=== PATIENT | female | born 1980 | race Caucasian/White ===

== ENCOUNTER 2016-11-20 20:14 | Observation (INO) | payer BC, SELFPAY ==
[~2016-11-20] VITALS: Ht 165.1 cm; Wt 112.0 kg
[~2016-11-20 20:14] MED LIST: MAXA10TA17 OR; MECL25TA2 OR; VICO5TAB OR
[2016-11-20] MEDS ORDERED: ASPIRIN 81 MG CHEW TABLET As Ordered ONE (20:59)
[2016-11-20 21:33] LABS: BASO % 0.5 % (0.0-1.0); EOS # 0.2 K/mm3 (0.0-0.50); EOS % 2.2 % (0.0-3.0); LARGE UNSTAINED CELL # 0.2 K/mm3 (0.0-0.4); LARGE UNSTAINED CELL % 2.2 % (0.0-4.0); LYMPH # 2.2 K/mm3 (1.5-4.5); LYMPH % 28.2 % (24.0-44.0); MEAN CORPUSCULAR HEMOGLOBIN 29.3 pg (27.0-33.0); MEAN CORPUSCULAR HGB CONC 34.7 g/dl (32.0-36.5); MEAN CORPUSCULAR VOLUME 84.6 fl (80.0-96.0); MONO # 0.5 K/mm3 (0.0-0.8); MONO % 6.3 % (0.0-5.0); NEUTROPHILS # 4.8 K/mm3 (1.8-7.7); NEUTROPHILS % 60.7 % (36.0-66.0); PLATELET COUNT, AUTOMATED 253 k/mm3 (150-450); RED CELL DISTRIBUTION WIDTH 12.5 % (11.5-14.5); WHITE BLOOD COUNT 7.8 K/mm3 (4.0-10.0)
--- NOTE | 2016-11-20 21:35 | ECGEPIP ---
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
[2016-11-20 21:40] LABS: CONTROL LINE HCG INT CTR LINE PRESENT
[2016-11-20 21:51] LABS: ANION GAP 10 MEQ/L (8-16); BLOOD UREA NITROGEN 13 MG/DL (7-18); CALCIUM LEVEL 8.8 MG/DL (8.5-10.1); CARBON DIOXIDE LEVEL 26 MEQ/L (21-32); CHLORIDE LEVEL 107 MEQ/L (98-107); CREATININE FOR GFR 0.82 MG/DL (0.55-1.02); GLOMERULAR FILTRATION RATE > 60.0 (>60); GLUCOSE, FASTING 99 MG/DL (70-105); MAGNESIUM LEVEL 2.1 MG/DL (1.8-2.4); POTASSIUM SERUM 4.1 MEQ/L (3.5-5.1); SODIUM LEVEL 143 MEQ/L (136-145); T UPTAKE 37 % (30-39); THYROXINE (T4) 13.9 UG/DL (4.5-12.0)
[2016-11-20] MEDS ORDERED: ALPRAZolam 0.25 MG TAB As Ordered ONE (22:20)
[2016-11-20 23:46] LABS: FREE T4 1.59 NG/DL (0.76-1.46)
[2016-11-21] MEDS ORDERED: DEXI30CA PO (01:35)
[2016-11-21] MEDS ORDERED: ZANT300T PO (01:35)
[2016-11-21] MEDS ORDERED: AMOX875T PO (01:35)
--- NOTE | 2016-11-21 02:05 | REP ---
Clinical: Chest pain and palpitations . Comparison: 08/28/2016 . Technique: PA and lateral. Findings: The mediastinum and cardiac silhouette are normal. The lung osborn are clear and without acute consolidation, effusion, or pneumothorax. The skeletal structures are intact and normal. Impression: 1. No acute cardiopulmonary process. Signed by Camron Randall MD 11/21/2016 01:56 A
[2016-11-21] MEDS ORDERED: METOPROLOL TART 25 MG TABLET As Ordered ONE (02:29)
--- NOTE | 2016-11-21 03:14 | EDDOCDS ---
Physician Documentation [facility] Name: Gloria Butler Age: 36 yrs Sex: Female : 1980 Arrival Date: 11/20/2016 Time: 20:14 Bed 17 Private MD: José Miguel Cheatham Disposition: 11/21 00:05 Critical Care: Critical care not applicable. jayashree Disposition: 11/21/16 00:05 Hospitalization ordered by Aneesh Pride for Observation. Preliminary diagnosis is Thyrotoxicosis [hyperthyroidism]. - Bed requested for PCU. - Status is Observation. cf2 - Condition is Stable. - Problem is new. - Symptoms are unchanged. Historical: - Allergies: Latex; - Home Meds: 1. Dexilant 30 mg oral CpDB once daily 2. Zantac 300 mg Oral tab 2 times per day 3. IUD - PMHx: Migraine Headaches; GERD; Diabetes - NIDDM: uncontrolled; tachycardia; - PSHx: Appendectomy; - Social history: Smoking status: Patient states former smoker of tobacco. No barriers to communication noted, The patient speaks fluent Maltese, Speaks appropriately for age. - Family history: Not pertinent. - : The pt / caregiver states he / she is not on anticoagulants. Home medication list is obtained from the patient. - Exposure Risk Screening:: None identified. 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 (165.10 cm); Pain 4/10; 21:09 Pulse 96 MON; Pulse Ox 97% ; cf2 21:09 BP 141 / 74 (auto/); cf2 21:24 Pulse 92 MON; Pulse Ox 96% ; cf2 21:24 BP 121 / 67 (auto/); cf2 21:39 Pulse Ox 97% ; cf2 21:39 BP 125 / 76 (auto/); cf2 21:40 Pulse 86 MON; Pulse Ox 97% ; cf2 22:09 Pulse 82 MON; Pulse Ox 97% ; cf2 22:09 BP 139 / 80 (auto/); cf2 22:24 BP 150 / 108 (auto/); cf2 22:25 Pulse 88 MON; Pulse Ox 98% ; cf2 22:39 BP 136 / 84 (auto/); cf2 22:40 Pulse 84 MON; Pulse Ox 97% ; cf2 22:54 BP 131 / 78 (auto/); cf2 22:55 Pulse 84 MON; Pulse Ox 97% ; cf2 23:09 BP 136 / 75 (auto/); cf2 23:10 Pulse 82 MON; Pulse Ox 96% ; cf2 23:24 BP 136 / 74 (auto/); cf2 23:25 Pulse 86 MON; Pulse Ox 97% ; cf2 23:39 BP 148 / 92 (auto/); cf2 23:40 Pulse 88 MON; Pulse Ox 97% ; cf2 23:54 BP 142 / 83 (auto/); cf2 23:55 Pulse 86 MON; Pulse Ox 97% ; cf2 11/21 00:09 BP 140 / 86 (auto/); cf2 00:10 Pulse 82 MON; Pulse Ox 97% ; cf2 00:24 BP 124 / 79 (auto/); cf2 00:25 Pulse 86 MON; Pulse Ox 97% ; cf2 00:39 BP 125 / 79 (auto/); cf2 00:40 Pulse 86 MON; Pulse Ox 94% ; cf2 00:54 BP 123 / 76 (auto/); cf2 00:55 Pulse 84 MON; Pulse Ox 96% ; cf2 01:09 BP 126 / 75 (auto/); cf2 01:10 Pulse 84 MON; Pulse Ox 95% ; cf2 01:24 BP 127 / 78 (auto/); cf2 01:25 Pulse 82 MON; Pulse Ox 95% ; cf2 01:39 BP 123 / 73 (auto/); cf2 01:40 Pulse 76 MON; Pulse Ox 96% ; cf2 01:54 BP 135 / 64 (auto/); cf2 01:55 Pulse 84 MON; Pulse Ox 95% ; cf2 02:09 BP 139 / 75 (auto/); cf2 02:10 Pulse 86 MON; Pulse Ox 96% ; cf2 02:32 BP 133 / 87 (auto/); cf2 02:33 Pulse 92 MON; Pulse Ox 97% ; cf2 02:54 BP 122 / 74 (auto/); cf2 02:55 Pulse 80 MON; Pulse Ox 97% ; cf2 03:09 BP 124 / 73 (auto/); cf2 03:10 Pulse 78 MON; Pulse Ox 96% ; cf2 11/20 20:15 Body Mass Index 38.61 (105.23 kg, 165.10 cm) sew MDM: 11/20 20:23 ECG WITH READING ER PHYS+CARDIAG ordered. EDMS 20:45 Aspirin Chewable Tablet 324 mg PO once ordered. le 20:45 Harness Builder/Pulse Ox/q 30 min VS ordered. le 20:45 IV Saline Lock ordered. le 20:45 Rhythm Strip to chart ordered. le 20:45 Undress patient appropriately for examination ordered. le 20:45 Orthostatic VS ordered. le 20:46 Basic Metabolic Profile Ordered. EDMS 20:46 CBC with Diff Ordered. EDMS 20:46 Cardiac Injury Profile Ordered. EDMS 20:46 D-Dimer Quant Ordered. EDMS 20:46 Troponin Ordered. EDMS 20:46 Thyroid Profile Ordered. EDMS 20:46 Magnesium Level Ordered. EDMS 20:46 HCG,Serum Qualitative Ordered. EDMS 20:47 Chest, 2 View (pa\E\lat) Ordered. EDMS 21:25 Financial registration complete. zo 21:25 [facility] Payment Agreement was scanned into [employer] and attached to record. zo 22:04 CBC with Diff Reviewed. le 22:04 Thyroid Profile Reviewed. le 22:04 Basic Metabolic Profile Reviewed. le 22:04 Cardiac Injury Profile Reviewed. le 22:04 D-Dimer Quant Reviewed. le 22:04 Troponin Reviewed. le 22:04 Magnesium Level Reviewed. le 22:04 HCG,Serum Qualitative Reviewed. le 22:04 EKG-ADULT Reviewed. le 22:18 ALPRAZolam Tablet 0.5 mg PO once ordered. le 22:58 Import Vital Signs into [employer] q30min please ordered. le 23:59 Admission / Observation Status ordered. EDMS 11/21 00:04 2 GRAM SODIUM DIET ordered. EDMS 00:04 COMPLETE BLOOD COUNT Ordered. EDMS 00:04 BASIC METABOLIC PROFILE Ordered. EDMS 00:04 MAGNESIUM LEVEL Ordered. EDMS 00:10 Thyroid, ST head+neck US Ordered. EDMS Administered Medications: 11/20 21:16 Drug: Aspirin 324 mg [aspirin 81 mg chewable tablet (4 tabs)] Route: PO; cf2 22:23 Drug: ALPRAZolam 0.5 mg [alprazolam 0.25 mg tablet (2 tabs)] Route: PO; cf2 Signatures: Dispatcher [employer] EDMS Jalyn Herrmann RN RN Vandana Reeves RN RN ck1 Manny Loaiza Lisa, SALT GRINDER SALT GRINDER Kelsi Patel RN RN cf2 The chart was reviewed and I authenticate all verbal orders and agree with the evaluation and treatment provided.Corrections: (The following items were deleted from the chart) 23: 23:18 FREE T3 ordered. EDMS EDMS 23:19 ANTI THYROID MICROSOMAL AB ordered. EDMS EDMS 23:19 FREE T4 ordered. EDMS EDMS Attachments: 21:25 [facility] Payment Agreement zo MTDD
--- NOTE | 2016-11-21 03:15 | EDDOCDS ---
Nurse's Notes [facility] Name: Gloria Butler Age: 36 yrs Sex: Female : 1980 Arrival Date: 11/20/2016 Time: 20:14 Bed 17 Private MD: José Miguel Cheatham Diagnosis: Thyrotoxicosis [hyperthyroidism] Presentation: 11/20 20:17 Presenting complaint: Patient states: Chest pain since 1800, intermittent palpitations ck1 with dizziness. 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 81 mg at 1700. Adult Sepsis Screening: The patient does not have new or worsening altered mentation. Patient's respiratory rate is less than 22. Systolic blood pressure is greater than 100. Patient has a qSOFA score of 0- Negative Sepsis Screen. Suicide/Homicide risk assessment- the patient denies having any suicidal and/or homicidal ideations and does not present with any other emotional, behavioral or mental health complaints. Status: Patient is not a office services representative or dependent. Transition of care: patient was not received from another setting of care. 20:17 Method Of Arrival: Walkin/Carried/Asstd ck1 20:17 Acuity: RIANNA Level 2 ck1 20:27 Red Flag criteria, patient assessed and taken directly to a bed. ck1 Triage Assessment: 20:20 General: Appears in no apparent distress, comfortable, Behavior is appropriate for age, ck1 cooperative. Pain: Location: chest Pain currently is 4 out of 10 on a pain scale. Pain radiates to back. HIV screening NA for this visit Offered previously. Cardiovascular: Chest pain is described as Pain is 4 out of 10 on a pain scale. radiates back episodes are intermittent began 2 hours prior to arrival. Respiratory: Respiratory effort is unlabored, Respiratory pattern is regular, symmetrical, Reports shortness of breath. Derm: Skin is intact, is healthy with good turgor, Skin is pink, warm & dry. 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 Dexilant 30 mg oral CpDB once daily 2. Zantac 300 mg Oral tab 2 times per day 3. IUD - PMHx: Migraine Headaches; GERD; Diabetes - NIDDM: uncontrolled; tachycardia; - PSHx: Appendectomy; - Social history: Smoking status: Patient states former smoker of tobacco. No barriers to communication noted, The patient speaks fluent Malagasy, Speaks appropriately for age. - Family history: Not pertinent. - : The pt / caregiver states he / she is not on anticoagulants. Home medication list is obtained from the patient. - Exposure Risk Screening:: None identified. Screenin:27 Screening information is obtained from the patient. Fall risk: No risks identified. cf2 Assistance ADL's: requires no assistance with activities of daily living. Abuse/DV Screen: The patient / caregiver reports he/she is: not in a situation that causes fear, pain or injury. Nutritional screening: No deficits noted. Advance Directives: Further advance directive information is declined. home support is adequate. Assessment: 22:27 Adult Sepsis Screening: The patient does not have new or worsening altered mentation. cf2 Patient's respiratory rate is less than 22. Systolic blood pressure is greater than 100. Patient has a qSOFA score of 0- Negative Sepsis Screen. General: Appears in no apparent distress, comfortable. Pain: Denies pain. Neurological: No deficits noted. EENT: No deficits noted. Cardiovascular: Rhythm is sinus tachycardia. Respiratory: No deficits noted. GI: No deficits noted. : No deficits noted. Derm: No deficits noted. Musculoskeletal: No deficits noted. Injury Description: No known injury. Vital Signs: 20:15 BP 158 / 86; Pulse 114; Resp 16; Temp 97.8(T); Pulse Ox 100% on R/A; Weight 105.23 kg; sew Height 65 in. (165.10 cm); Pain 4/10; 21:09 Pulse 96 MON; Pulse Ox 97% ; cf2 21:09 BP 141 / 74 (auto/); cf2 21:24 Pulse 92 MON; Pulse Ox 96% ; cf2 21:24 BP 121 / 67 (auto/); cf2 21:39 Pulse Ox 97% ; cf2 21:39 BP 125 / 76 (auto/); cf2 21:40 Pulse 86 MON; Pulse Ox 97% ; cf2 22:09 Pulse 82 MON; Pulse Ox 97% ; cf2 22:09 BP 139 / 80 (auto/); cf2 22:24 BP 150 / 108 (auto/); cf2 22:25 Pulse 88 MON; Pulse Ox 98% ; cf2 22:39 BP 136 / 84 (auto/); cf2 22:40 Pulse 84 MON; Pulse Ox 97% ; cf2 22:54 BP 131 / 78 (auto/); cf2 22:55 Pulse 84 MON; Pulse Ox 97% ; cf2 23:09 BP 136 / 75 (auto/); cf2 23:10 Pulse 82 MON; Pulse Ox 96% ; cf2 23:24 BP 136 / 74 (auto/); cf2 23:25 Pulse 86 MON; Pulse Ox 97% ; cf2 23:39 BP 148 / 92 (auto/); cf2 23:40 Pulse 88 MON; Pulse Ox 97% ; cf2 23:54 BP 142 / 83 (auto/); cf2 23:55 Pulse 86 MON; Pulse Ox 97% ; cf2 11/21 00:09 BP 140 / 86 (auto/); cf2 00:10 Pulse 82 MON; Pulse Ox 97% ; cf2 00:24 BP 124 / 79 (auto/); cf2 00:25 Pulse 86 MON; Pulse Ox 97% ; cf2 00:39 BP 125 / 79 (auto/); cf2 00:40 Pulse 86 MON; Pulse Ox 94% ; cf2 00:54 BP 123 / 76 (auto/); cf2 00:55 Pulse 84 MON; Pulse Ox 96% ; cf2 01:09 BP 126 / 75 (auto/); cf2 01:10 Pulse 84 MON; Pulse Ox 95% ; cf2 01:24 BP 127 / 78 (auto/); cf2 01:25 Pulse 82 MON; Pulse Ox 95% ; cf2 01:39 BP 123 / 73 (auto/); cf2 01:40 Pulse 76 MON; Pulse Ox 96% ; cf2 01:54 BP 135 / 64 (auto/); cf2 01:55 Pulse 84 MON; Pulse Ox 95% ; cf2 02:09 BP 139 / 75 (auto/); cf2 02:10 Pulse 86 MON; Pulse Ox 96% ; cf2 02:32 BP 133 / 87 (auto/); cf2 02:33 Pulse 92 MON; Pulse Ox 97% ; cf2 02:54 BP 122 / 74 (auto/); cf2 02:55 Pulse 80 MON; Pulse Ox 97% ; cf2 03:09 BP 124 / 73 (auto/); cf2 03:10 Pulse 78 MON; Pulse Ox 96% ; cf2 11/20 20:15 Body Mass Index 38.61 (105.23 kg, 165.10 cm) sew Vitals: 11/20 20:15 Log In Time: November 20, 2016 at 20:10. RN notified that patient meets Red Flag sew criteria. ED Course: 20:15 Patient visited by Lexi Chavez. sew 20:15 José Miguel Cheatham is Private Physician. sew 20:15 Patient moved to Waiting sew 20:17 Patient visited by Lexi Chavez. sew 20:17 Patient moved to Pre RCE sew 20:18 Triage Initiated ck1 20:21 Patient moved to 17 ck1 20:43 Kesha Rivera FNP is PHCP. le 20:51 Patient visited by Kesha Rivera FNP. le 20:51 Patient visited by Kesha Rivera FNP. le 20:51 EKG done. (by ED staff). Reviewed by Kesha ARAYA. jlm 20:52 Patient visited by Lo Reyez, Facility Administrator. jlm 20:54 Kelsi Kamara,HERB is Primary Nurse. cf2 20:54 Patient visited by Kelsi Kamara RN. cf2 21:15 Patient visited by Kelsi Kamara,HERB. cf2 21:16 HCG,Serum Qualitative Sent. cf2 21:16 Magnesium Level Sent. cf2 21:16 Thyroid Profile Sent. cf2 21:16 Basic Metabolic Profile Sent. cf2 21:16 CBC with Diff Sent. cf2 21:16 Cardiac Injury Profile Sent. cf2 21:16 Troponin Sent. cf2 21:16 D-Dimer Quant Sent. cf2 21:25 [facility] Payment Agreement was scanned into [employer] and attached to record. zo 21:48 Patient visited by Kelsi Kamara,HERB. cf2 21:59 EKG-ADULT Returned. EDMS 22:12 Patient visited by Kelsi Kamara,HERB. cf2 22:23 Patient visited by Kelsi Kamara,HERB. cf2 22:27 Patient visited by Kelsi Kamara,HERB. cf2 22:27 The patient / caregiver is instructed regarding the plan of care and ED course. Patient cf2 has correct armband on for positive identification. Placed in gown. Bed in low position. Call light in reach. Side rails up X 1. Side rails up X2. Adult w/ patient. monitoring engineer on. Pulse ox on. NIBP on. Property :Personal belongings accompany Pt. Door closed. Noise minimized. Visitors limited. Lights dimmed. Moved to private room. Verbal reassurance given. Warm blanket given. Head of bed elevated. Diet: Patient is NPO. 22:27 Inserted saline lock: 20 gauge in left antecubital area and blood collected. No cf2 procedures done that require assistance. 11/21 00:03 Patient visited by Kelsi Kamara RN. cf2 00:05 Aneesh Pride MD is Hospitalizing Provider. le 01:38 Patient visited by Kelsi Kamara RN. cf2 02:38 Chest, 2 View (pa\E\lat) Returned. EDMS 02:56 Patient visited by Kelsi Kamara RN. cf2 03:11 Patient visited by Kelsi Kamara RN. cf2 03:14 Luis Espitia DO is Attending Physician. cf2 Administered Medications: 11/20 21:16 Drug: Aspirin 324 mg [aspirin 81 mg chewable tablet (4 tabs)] Route: PO; cf2 22:23 Drug: ALPRAZolam 0.5 mg [alprazolam 0.25 mg tablet (2 tabs)] Route: PO; cf2 Order Results: Lab Order: Basic Metabolic Profile; SPEC'M 11/20/16 21:07 Test: GLUCOSE, FASTING; Value: 99; Range: 70-105; Units: MG/DL; Status: F Test: BLOOD UREA NITROGEN; Value: 13; Range: 7-18; Units: MG/DL; Status: F Test: CREATININE FOR GFR; Value: 0.82; Range: 0.55-1.02; Units: MG/DL; Status: F Test: SODIUM LEVEL; Range: 136-145; Units: MEQ/L; Status: I Test: POTASSIUM SERUM; Range: 3.5-5.1; Units: MEQ/L; Status: I Test: CHLORIDE LEVEL; Range: 98-107; Units: MEQ/L; Status: I Test: CARBON DIOXIDE LEVEL; Range: 21-32; Units: MEQ/L; Status: I Test: ANION GAP; Range: 8-16; Units: MEQ/L; Status: I Test: CALCIUM LEVEL; Range: 8.5-10.1; Units: MG/DL; Status: I Test: GLOMERULAR FILTRATION RATE; Value: > 60.0; Range: >60; Status: F Test: SODIUM LEVEL; Value: 143; Range: 136-145; Units: MEQ/L; Status: F Test: POTASSIUM SERUM; Value: 4.1; Range: 3.5-5.1; Units: MEQ/L; Status: F Test: CHLORIDE LEVEL; Value: 107; Range: 98-107; Units: MEQ/L; Status: F Test: CARBON DIOXIDE LEVEL; Value: 26; Range: 21-32; Units: MEQ/L; Status: F Test: ANION GAP; Value: 10; Range: 8-16; Units: MEQ/L; Status: F Test: CALCIUM LEVEL; Value: 8.8; Range: 8.5-10.1; Units: MG/DL; Status: F Test Note: ; Units are mL/min/1.73 m2 Chronic Kidney Disease Staging per NKF: Stage I & II GFR >=60 Normal to Mildly Decreased Stage III GFR 30-59 Moderately Decreased Stage IV GFR 15-29 Severely Decreased Stage V GFR <15 Very Little GFR Left ESRD GFR <15 on ASSISTANT CORPORATE SECRETARY Lab Order: CBC with Diff; SPEC'M 11/20/16 21:07 Test: WHITE BLOOD COUNT; Value: 7.8; Range: 4.0-10.0; Units: K/mm3; Status: F Test: RED BLOOD COUNT; Value: 4.69; Range: 4.00-5.40; Units: M/mm3; Status: F Test: HEMOGLOBIN; Value: 13.8; Range: 12.0-16.0; Units: g/dl; Status: F Test: HEMATOCRIT; Value: 39.7; Range: 36.0-47.0; Units: %; Status: F Test: MEAN CORPUSCULAR VOLUME; Value: 84.6; Range: 80.0-96.0; Units: fl; Status: F Test: MEAN CORPUSCULAR HEMOGLOBIN; Value: 29.3; Range: 27.0-33.0; Units: pg; Status: F Test: MEAN CORPUSCULAR HGB CONC; Value: 34.7; Range: 32.0-36.5; Units: g/dl; Status: F Test: RED CELL DISTRIBUTION WIDTH; Value: 12.5; Range: 11.5-14.5; Units: %; Status: F Test: PLATELET COUNT, AUTOMATED; Value: 253; Range: 150-450; Units: k/mm3; Status: F Test: NEUTROPHILS %; Value: 60.7; Range: 36.0-66.0; Units: %; Status: F Test: LYMPH %; Value: 28.2; Range: 24.0-44.0; Units: %; Status: F Test: MONO %; Value: 6.3; Range: 0.0-5.0; Abnormal: Above high normal; Units: %; Status: F Test: EOS %; Value: 2.2; Range: 0.0-3.0; Units: %; Status: F Test: BASO %; Value: 0.5; Range: 0.0-1.0; Units: %; Status: F Test: LARGE UNSTAINED CELL %; Value: 2.2; Range: 0.0-4.0; Units: %; Status: F Test: NEUTROPHILS #; Value: 4.8; Range: 1.8-7.7; Units: K/mm3; Status: F Test: LYMPH #; Value: 2.2; Range: 1.5-4.5; Units: K/mm3; Status: F Test: MONO #; Value: 0.5; Range: 0.0-0.8; Units: K/mm3; Status: F Test: EOS #; Value: 0.2; Range: 0.0-0.50; Units: K/mm3; Status: F Test: BASO #; Value: 0.0; Range: 0.0-0.2; Units: K/mm3; Status: F Test: LARGE UNSTAINED CELL #; Value: 0.2; Range: 0.0-0.4; Units: K/mm3; Status: F Lab Order: Cardiac Injury Profile; SPEC'M 11/20/16 21:07 Test: CPK CREATINE PHOSPHOKINASE; Value: 99; Range: 26-192; Units: U/L; Status: F Test: CK-MB VALUE MASS; Value: 1.0; Range: 0.0-3.6; Units: NG/ML; Status: F Test: MB/CK RELATIVE INDEX; Value: 1.01; Range: < OR =4; Status: F Test Note: ; DIAGNOSIS CRITERIA MMB ng/ml Relative Index (RI) NON-AMI < or = 5 N/A GRIJALVA ZONE > 5 < or = 4 AMI > 5 > 4 Lab Order: D-Dimer Quant; 11/20/16 21: Test: D-DIMER QUANT; Value: 385.0; Range: <500; Units: ng/ml; Status: F Lab Order: Troponin; 11/20/16: Test: TROPONIN I; Value: < 0.02; Range: < 0.10; Units: NG/ML; Status: F Test Note: ; Troponin I Reference Interval for [employer] LOCI: 99th Percentile= 0.00-0.045 ng/ml Risk Stratification: <= 0.10 ng/ml Decreased Risk for Adverse Clinical Events. 0.10-1.50 ng/ml Increased Risk for Adverse Clinical Events. Evaluation of additional criterion and/or repeat testing in 2-6 hours is suggested to rule out myocardial damage. >= 1.50 ng/ml Indicative of Myocardial Injury. Lab Order: Thyroid Profile; 11/20/16 21: Test: T UPTAKE; Value: 37; Range: 30-39; Units: %; Status: F Test: THYROXINE (T4); Value: 13.9; Range: 4.5-12.0; Abnormal: Above high normal; Units: UG/DL; Status: F Test: FREE THYROXINE INDEX; Value: 5.1; Range: 1.3-4.8; Abnormal: Above high normal; Units: %; Status: F Test: THYROID STIMULATING HORMONE; Value: 0.200; Range: 0.358-3.740; Abnormal: Below low normal; Units: uIU/ML; Status: F Lab Order: Magnesium Level; 11/20/16: Test: MAGNESIUM LEVEL; Value: 2.1; Range: 1.8-2.4; Units: MG/DL; Status: F Lab Order: HCG,Serum Qualitative; 11/20/16 21:07 Test: HCG, SERUM QUALITATIVE; Value: NEGATIVE; Range: NEGATIVE; Status: F Lab Order: FREE T4; SPEC'M 11/20/16 21:07 Test: FREE T4; Value: 1.59; Range: 0.76-1.46; Abnormal: Above high normal; Units: NG/DL; Status: F Lab Order: FREE T3; SPEC'M 11/20/16 21:07 Test: FREE T3; Value: 3.9; Range: 2.2-4.0; Units: PG/ML; Status: F Lab Order: ANTI THYROID MICROSOMAL AB; SPEC'M 11/20/16 21:07 Test: THYROID PEROXIDASE ANTIBODY; Range: <60.0; Units: U/ML; Status: I Radiology Order: EKG-ADULT Test: EKG-ADULT REASON FOR EXAMINATION: Chest Pain; Stationary ECG Study; [facility] - ED; ; Test Date: 2016-11-20; Pat Name: GLORIA BUTLER Department:; Room: -; 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 The lung osborn are clear and; without acute consolidation, effusion, or pneumothorax. The skeletal structures; are intact and normal.; ; Impression:; 1. No acute cardiopulmonary process.; ; ; Signed by; Camron Randall MD 11/21/2016 01:56 A; Outcome: 21:09 Discharge Assessment: Patient awake, alert and oriented x 3. No cognitive and/or cf2 functional deficits noted. Patient verbalized understanding of disposition instructions. Patient awake and alert. patient administered narcotics - yes. Patient was admitted to the hospital or transferred to another facility. The following High Risk Discharge criteria are identified: None. Admitted to PCU. Condition: stable. No special radiology studies were completed. 11/21 00:05 Decision to Hospitalize by Provider. jayashree 03:14 Patient left the ED. cf2 Signatures: Dispatcher [employer] EDVandana Zarate,RN RN ck1 Manny Loaiza Lisa, INTERNET SALES MANAGER INTERNET SALES MANAGERLexi Cardenas Jessie, Facility Administrator Unit Kelsi Stephens,HERB RN cf2 MTDD
[2016-11-21 03:20] VITALS: BP 120/57
--- NOTE | 2016-11-21 04:49 | HPE ---
DATE OF ADMISSION: 11/20/2016 PRIMARY CARE PROVIDER: José Miguel Cheatham MD. CHIEF COMPLAINT: Palpitations. HISTORY OF PRESENT ILLNESS: Ms. Butler is a 36-year-old female with past medical history of gastroesophageal reflux disease (GERD), currently diet-controlled diabetes, who presented to the emergency department (ED) [facility] with complaint of palpitations and chest pain. Episode started approximately 1 week ago. Initially started with palpitations, was only just doing housework when her palpitations started. At that time, was occurring intermittently. However, has progressed to now it is constant throughout the day in the last 24 hours. Her symptom actually worsened earlier today while she was at work. When she has palpitations, she also notices pain in the middle of her back. Around the same time, she would develop heaviness in her chest that would last for a couple minutes and resolve on its own. Episodes can occur while she is sleeping and can wake her up from sleep. Endorses shortness of breath with palpitations, but no cough. No nausea, vomiting, diarrhea, constipation, hair loss. Positive for heat intolerance for many years. Chronic dry skin. She had some intentional weight loss, but had slowly gained this back. Prior similar episodes of palpitations reported 6 months ago. She was evaluated by Dr. Beckham, had stress test, EKG, Holter, echocardiogram, but she did not followup for results of these tests. 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 Her father 6 months ago. She is currently being treated for sinusitis with amoxicillin. In the ED, was given aspirin 325 mg times one and alprazolam 0.5 times one. She was also taking Xanax one time yesterday, which made her sleep, but still could not tell if it made her palpitations any better. PAST MEDICAL HISTORY: 1. Migraine headache, currently does not need treatment. 2. GERD. 3. Diabetes, previously on insulin, most hemoglobin A1c check was 5.2. 4. Palpitations. 5. Ovarian cysts. PAST SURGICAL HISTORY: 1. Appendectomy. 2. Laparoscopy exploratory, which found to have ovarian cysts. ALLERGIES: LATEX, sores. HOME MEDICATIONS: - Dexilant 30 once a day - Zantac 300 daily - intrauterine device (IUD) - amoxicillin currently on day 5 of 10 antibiotic FAMILY HISTORY: Mother with GERD, hypertension. Father had myocardial infarction (NM) at 37, congestive heart failure (CHF), atrial fibrillation, abdominal aortic aneurysm (AAA), CVA. One sister with breast cancer 51. One brother with CHF, had heart attack at 45. SOCIAL HISTORY: The patient is a nonsmoker. Used to smoke off and on for 10 years. Quit August last year. No alcohol or drug use. No recent travel. No prolonged immobile state. 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 Lives at home with her female partner and 2 children. REVIEW OF SYSTEMS: CONSTITUTIONAL: Denies fevers, chills, rigors, weight changes. HEENT: Denies headaches, lightheadedness, dizziness, blurry vision, difficulty with speech and swallow. CARDIOVASCULAR: Please see above. PULMONARY: Denies shortness of breath, productive cough, hemoptysis. GASTROINTESTINAL: Denies hematochezia, melena, or hematemesis, nausea, vomiting , diarrhea, constipation. GENITOURINARY: No dysuria, frequency or hematuria. MUSCULOSKELETAL: No bone, muscle, joint pain. NEUROLOGICAL: No paralysis, paresthesia, headaches. ENDOCRINE: Diet controlled diabetes. No prior thyroid disease. LYMPHATICS: No lumps, bumps, or swelling anywhere in neck, axilla, or groin. HEMATOLOGY: No abnormal bleeding or bruising. PHYSICAL EXAMINATION: VITAL SIGNS: Blood pressure 158/86, heart rate 114, respiration rate 16, temperature 97.8, pulse oximetry 100% on room air. Body mass index (BMI) 38. GENERAL: The patient was lying in bed, comfortable, in no acute distress. She is alert, awake, oriented times three, pleasant and cooperative. Girlfriend at bedside. HEENT: Normocephalic, atraumatic. Moist oral mucosa. NECK: Supple. Trachea midline. No jugular venous distention (JVD). Neck with mild thyromegaly. CHEST: Symmetric chest rise. No accessory muscle use. Lung sounds were clear to auscultation bilaterally. No wheezing, rhonchi. HEART: Regular rate and rhythm, S1, S2 present. No appreciable murmurs, rubs or gallops. ABDOMEN: Soft, nontender, nondistended. Bowel sounds present. No guarding. No rebound. EXTREMITIES: There is 1+ edema, pretibial region. Pedal pulses present bilaterally. LABORATORY DATA: WBC 7.8, hemoglobin 13.8, hematocrit 39.7, platelets 253. Sodium 143, potassium 4.1, chloride 107, carbon dioxide 26, BUN 13, creatinine 0.82, glucose 99, calcium 8.8, magnesium 2.1. Troponin is negative. TSH is 0.2. Free T4 1.59. T3 is 3.9. HCG negative. D-dimer 385. EKG shows sinus rhythm at a rate of 98. IMPRESSION AND PLAN: Ms. Butler is a 36-year-old female, past medical history of diabetes, who presented to the emergency department (ED) with palpitations. 1. Palpitations. Possible causes include cardiac, thyroid, anxiety. The patient will be admitted and monitored in telemetry. Trend cardiac markers. We have given her metoprolol times one in the ED. Start atenolol in the morning. She might likely benefit from Holter monitor outpatient. 2. Abnormal thyroid studies. Thyroid studies show hyperthyroid. Possible early Graves or thyroiditis from current infection. Have ordered ultrasound of her thyroid for further evaluation, on beta karyna as mentioned above. 3. Obesity, body mass index (BMI) 38. Will complicate medical management. 4. Gastroesophageal reflux disease (GERD). Continue home medications. 5. Deep venous thrombosis (DVT) prophylaxis. Sequential compression devices (SCDs), thromboembolism deterrents (TEDs), and heparin. My preceptor for this patient encounter was Dr. Aneesh Pride. The preceptor was physically present in the building during the encounter and was fully available as needed. All aspects of the patient interview, examination, medical decision making process, and medical care plan development were reviewed and approved by the preceptor. The preceptor is aware and concurs with the plan as stated in the body of this note and will attest to such by his/her co-signature. BUCK
[2016-11-21 05:27] LABS: MEAN CORPUSCULAR HEMOGLOBIN 30.1 pg (27.0-33.0); MEAN CORPUSCULAR HGB CONC 35.1 g/dl (32.0-36.5); MEAN CORPUSCULAR VOLUME 85.6 fl (80.0-96.0); RED CELL DISTRIBUTION WIDTH 12.4 % (11.5-14.5); WHITE BLOOD COUNT 6.7 K/mm3 (4.0-10.0)
[2016-11-21 05:37] LABS: ANION GAP 7 MEQ/L (8-16); BLOOD UREA NITROGEN 9 MG/DL (7-18); CALCIUM LEVEL 8.1 MG/DL (8.5-10.1); CARBON DIOXIDE LEVEL 26 MEQ/L (21-32); CHLORIDE LEVEL 109 MEQ/L (98-107); CREATININE FOR GFR 0.74 MG/DL (0.55-1.02); GLOMERULAR FILTRATION RATE > 60.0 (>60); GLUCOSE, FASTING 110 MG/DL (70-105); SODIUM LEVEL 142 MEQ/L (136-145)
[2016-11-21 08:00] VITALS: BP 117/56
[2016-11-21] MEDS ORDERED: ATENOLOL 25 MG TAB PO SCH (09:00)
[2016-11-21 09:27] LABS: THYROID PEROXIDASE ANTIBODY < 28.0 U/ML (<60.0)
[2016-11-21 09:49] VITALS: BP 116/53
[2016-11-21] MEDS ORDERED: ACETAMINOPHEN TAB 650MG DOSE (2X325MG) PO PRN (10:00)
[2016-11-21] MEDS ORDERED: ATEN25TA PO (12:16)
[2016-11-21] MEDS ORDERED: VALI2TAB PO (12:16)
--- NOTE | 2016-11-21 14:21 | REP ---
Thyroid ultrasound 11/21/2016 Indication: Hyperthyroidism, palpitations Comparison: CTA chest 09/04 16 performed at [facility]. Technique: Carter scale imaging and color Doppler ultrasound imaging obtained of the thyroid Right thyroid lobe measures 4.7 x 1.8 x 1.6 cm. Left thyroid lobe measures 4.6 x 1.6 x 1 point 4 cm. Right thyroid lobe is of homogeneous echotexture without focal masses. Thyroid isthmus is 3.8 mm in length and unremarkable. There are three small right thyroid nodules along the medial margin of the mid to lower pole left thyroid lobe, largest 6 x 3 x 5 mm in diameter. Nodules are hypoechoic. Two additional smaller nodules are identified within the left thyroid lobe Impression 1. Right thyroid lobe is of homogeneous echotexture without enlargement; no nodules or cysts 2. Three small hypoechoic foci in the left thyroid lobe, largest 6 x 5 x 3 mm within the medial margin of the mid to lower pole left thyroid lobe. If clinically indicated may consider thyroid nuclear medicine scan in further evaluation of nodules, to determine if there are any cold nodules which may require biopsy . Signed by Bhumika Roth MD 11/21/2016 02:12 P
--- NOTE | 2016-11-22 05:41 | DSES ---
DATE OF ADMISSION: 11/20/2016 DATE OF DISCHARGE: 11/21/2016 PRIMARY CARE PROVIDER: José Miguel Cheatham. HATCH BOSS: Dr. Mary Jo Johnston. FINAL DIAGNOSES: 1. Palpitations. 2. Hyperthyroidism. 3. Obesity. 4. Gastroesophageal reflux disease (GERD). 5. Anxiety. 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 Also noticed back pain, chest heaviness for a few minutes. Resolved on its own with no relieving or exacerbating factor. Episodes occurred when she was sleeping and wakes her up. Reported shortness of breath, anxiety. Denies any nausea, vomiting, diarrhea, constipation, weight loss. Positive for heat intolerance for many years. Chronic dry skin. Reported weight loss in the past, but has slowly gained back the weight. Patient had similar episode 6 months ago. Evaluated by Dr. Beckham, had stress test, EKG, Holter monitor, echocardiogram. Does not know the result. Currently being treated for sinusitis with amoxicillin. HOSPITAL COURSE: Patient was admitted at the hospital, telemetry monitoring. Cardiac enzymes negative times three. Her thyroid panel was appreciated. Patient was placed on beta blockers. Symptoms improved. Thyroid ultrasound was obtained showing three small hypoechoic foci in the left thyroid lobe, largest at 6 x 5 x 3 mm within the medial margin of the mid and lower pole of the left thyroid lobe. The prospect of getting a nuclear medicine iodine thyroid uptake scan on Thursday was discussed with patient. Patient does not want to be in the hospital for all this time. Given that telemetry was negative, and patient's symptom has improved, patient would like to be discharged to followup as outpatient. Subsequently, outpatient appointment with Dr. Mary Jo Johnston was arranged. Patient currently tolerating oral, asymptomatic, comfortable, ready for discharge for further care as outpatient. VITAL SIGNS: Temperature 96.9, pulse 77, respirations 18, blood pressure 116/53, pulse oximetry 96% on room air. LABORATORY: WBC 6.7, hemoglobin and hematocrit 12.8/36.4, platelets 222. Chemistry: Sodium 142, potassium 4, chloride 109, bicarbonate 26, BUN 9, creatinine 0.74. Cardiac enzymes negative times three. TSH 0.2, free T4 1.59, free T4 index 5.1. HCG negative. DISCHARGE MEDICATIONS: - atenolol 25 mg by mouth daily - diazepam 2 mg by mouth three times a day as needed for anxiety, I-STOP report was obtained Patient's home medications: - amoxicillin 875 mg by mouth twice a day - Dexilant 30 mg by mouth daily - Zantac 300 mg by mouth twice a day were continued. DISCHARGE INSTRUCTIONS: Patient is instructed to followup with cable installer repairer helper, Dr. Mary Jo Johnston. Appointment has been given. Followup with primary care provider as soon as possible, preferably in the next 7 days to arrange for nuclear medicine radioactive iodine uptake thyroid scan for further evaluation. Please return to the hospital if symptoms worsen or return.
--- NOTE | 2016-11-23 04:14 | EDDOCDS ---
Nurse's Notes [facility] Name: Dave Butler Age: 36 yrs Sex: Female : 1980 Arrival Date: 11/20/2016 Time: 20:14 Bed 17 Private MD: José Miguel Cheatham Diagnosis: Thyrotoxicosis [hyperthyroidism] Presentation: 11/20 20:17 Presenting complaint: Patient states: Chest pain since 1800, intermittent palpitations ck1 with dizziness. Aspirin was taken REST ROOM MATRON. 81 mg at 1700. Adult Sepsis Screening: The patient does not have new or worsening altered mentation. Patient's respiratory rate is less than 22. Systolic blood pressure is greater than 100. Patient has a qSOFA score of 0- Negative Sepsis Screen. Suicide/Homicide risk assessment- the patient denies having any suicidal and/or homicidal ideations and does not present with any other emotional, behavioral or mental health complaints. Status: Patient is not a social services aide or dependent. Transition of care: patient was not received from another setting of care. 20:17 Method Of Arrival: Walkin/Carried/Asstd ck1 20:17 Acuity: RIANNA Level 2 ck1 20:27 Red Flag criteria, patient assessed and taken directly to a bed. ck1 Triage Assessment: 20:20 General: Appears in no apparent distress, comfortable, Behavior is appropriate for age, ck1 cooperative. Pain: Location: chest Pain currently is 4 out of 10 on a pain scale. Pain radiates to back. HIV screening NA for this visit Offered previously. Cardiovascular: Chest pain is described as Pain is 4 out of 10 on a pain scale. radiates back episodes are intermittent began 2 hours prior to arrival. Respiratory: Respiratory effort is unlabored, Respiratory pattern is regular, symmetrical, Reports shortness of breath. Derm: Skin is intact, is healthy with good turgor, Skin is pink, warm & dry. 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 Dexilant 30 mg oral CpDB once daily 2. Zantac 300 mg Oral tab 2 times per day 3. IUD - PMHx: Migraine Headaches; GERD; Diabetes - NIDDM: uncontrolled; tachycardia; - PSHx: Appendectomy; - Social history: Smoking status: Patient states former smoker of tobacco. No barriers to communication noted, The patient speaks fluent [place]an, Speaks appropriately for age. - Family history: Not pertinent. - : The pt / caregiver states he / she is not on anticoagulants. Home medication list is obtained from the patient. - Exposure Risk Screening:: None identified. Screenin:27 Screening information is obtained from the patient. Fall risk: No risks identified. cf2 Assistance ADL's: requires no assistance with activities of daily living. Abuse/DV Screen: The patient / caregiver reports he/she is: not in a situation that causes fear, pain or injury. Nutritional screening: No deficits noted. Advance Directives: Further advance directive information is declined. home support is adequate. Assessment: 22:27 Adult Sepsis Screening: The patient does not have new or worsening altered mentation. cf2 Patient's respiratory rate is less than 22. Systolic blood pressure is greater than 100. Patient has a qSOFA score of 0- Negative Sepsis Screen. General: Appears in no apparent distress, comfortable. Pain: Denies pain. Neurological: No deficits noted. EENT: No deficits noted. Cardiovascular: Rhythm is sinus tachycardia. Respiratory: No deficits noted. GI: No deficits noted. : No deficits noted. Derm: No deficits noted. Musculoskeletal: No deficits noted. Injury Description: No known injury. Vital Signs: 20:15 BP 158 / 86; Pulse 114; Resp 16; Temp 97.8(T); Pulse Ox 100% on R/A; Weight 105.23 kg; sew Height 65 in. (165.10 cm); Pain 4/10; 21:09 Pulse 96 MON; Pulse Ox 97% ; cf2 21:09 BP 141 / 74 (auto/); cf2 21:24 Pulse 92 MON; Pulse Ox 96% ; cf2 21:24 BP 121 / 67 (auto/); cf2 21:39 Pulse Ox 97% ; cf2 21:39 BP 125 / 76 (auto/); cf2 21:40 Pulse 86 MON; Pulse Ox 97% ; cf2 22:09 Pulse 82 MON; Pulse Ox 97% ; cf2 22:09 BP 139 / 80 (auto/); cf2 22:24 BP 150 / 108 (auto/); cf2 22:25 Pulse 88 MON; Pulse Ox 98% ; cf2 22:39 BP 136 / 84 (auto/); cf2 22:40 Pulse 84 MON; Pulse Ox 97% ; cf2 22:54 BP 131 / 78 (auto/); cf2 22:55 Pulse 84 MON; Pulse Ox 97% ; cf2 23:09 BP 136 / 75 (auto/); cf2 23:10 Pulse 82 MON; Pulse Ox 96% ; cf2 23:24 BP 136 / 74 (auto/); cf2 23:25 Pulse 86 MON; Pulse Ox 97% ; cf2 23:39 BP 148 / 92 (auto/); cf2 23:40 Pulse 88 MON; Pulse Ox 97% ; cf2 23:54 BP 142 / 83 (auto/); cf2 23:55 Pulse 86 MON; Pulse Ox 97% ; cf2 11/21 00:09 BP 140 / 86 (auto/); cf2 00:10 Pulse 82 MON; Pulse Ox 97% ; cf2 00:24 BP 124 / 79 (auto/); cf2 00:25 Pulse 86 MON; Pulse Ox 97% ; cf2 00:39 BP 125 / 79 (auto/); cf2 00:40 Pulse 86 MON; Pulse Ox 94% ; cf2 00:54 BP 123 / 76 (auto/); cf2 00:55 Pulse 84 MON; Pulse Ox 96% ; cf2 01:09 BP 126 / 75 (auto/); cf2 01:10 Pulse 84 MON; Pulse Ox 95% ; cf2 01:24 BP 127 / 78 (auto/); cf2 01:25 Pulse 82 MON; Pulse Ox 95% ; cf2 01:39 BP 123 / 73 (auto/); cf2 01:40 Pulse 76 MON; Pulse Ox 96% ; cf2 01:54 BP 135 / 64 (auto/); cf2 01:55 Pulse 84 MON; Pulse Ox 95% ; cf2 02:09 BP 139 / 75 (auto/); cf2 02:10 Pulse 86 MON; Pulse Ox 96% ; cf2 02:32 BP 133 / 87 (auto/); cf2 02:33 Pulse 92 MON; Pulse Ox 97% ; cf2 02:54 BP 122 / 74 (auto/); cf2 02:55 Pulse 80 MON; Pulse Ox 97% ; cf2 03:09 BP 124 / 73 (auto/); cf2 03:10 Pulse 78 MON; Pulse Ox 96% ; cf2 11/20 20:15 Body Mass Index 38.61 (105.23 kg, 165.10 cm) sew Vitals: 11/20 20:15 Log In Time: November 20, 2016 at 20:10. RN notified that patient meets Red Flag sew criteria. ED Course: 20:15 Patient visited by Lexi Chavez. sew 20:15 José Miguel Cheatham is Private Physician. sew 20:15 Patient moved to Waiting sew 20:17 Patient visited by Lexi Chavez. sew 20:17 Patient moved to Pre RCE sew 20:18 Triage Initiated ck1 20:21 Patient moved to 17 ck1 20:43 Kesha Rivera FNP is PHCP. le 20:51 Patient visited by Kesha Rivera FNP. le 20:51 Patient visited by Kesha Rivera FNP. le 20:51 EKG done. (by ED staff). Reviewed by Kesha ARAYA. jlm 20:52 Patient visited by Lo Reyez, Special Education Para Professional. jlm 20:54 Kelsi Kamara,HERB is Primary Nurse. cf2 20:54 Patient visited by Kelsi Kamara RN. cf2 21:15 Patient visited by Kelsi Kamara,HERB. cf2 21:16 HCG,Serum Qualitative Sent. cf2 21:16 Magnesium Level Sent. cf2 21:16 Thyroid Profile Sent. cf2 21:16 Basic Metabolic Profile Sent. cf2 21:16 CBC with Diff Sent. cf2 21:16 Cardiac Injury Profile Sent. cf2 21:16 Troponin Sent. cf2 21:16 D-Dimer Quant Sent. cf2 21:25 [facility] Payment Agreement was scanned into [employer] and attached to record. zo 21:48 Patient visited by Kelsi Kamara,HERB. cf2 21:59 EKG-ADULT Returned. EDMS 22:12 Patient visited by Kelsi Kamara,HERB. cf2 22:23 Patient visited by Kelsi Kamara,HERB. cf2 22:27 Patient visited by Kelsi Kamara,HERB. cf2 22:27 The patient / caregiver is instructed regarding the plan of care and ED course. Patient cf2 has correct armband on for positive identification. Placed in gown. Bed in low position. Call light in reach. Side rails up X 1. Side rails up X2. Adult w/ patient. classroom monitor on. Pulse ox on. NIBP on. Property :Personal belongings accompany Pt. Door closed. Noise minimized. Visitors limited. Lights dimmed. Moved to private room. Verbal reassurance given. Warm blanket given. Head of bed elevated. Diet: Patient is NPO. 22:27 Inserted saline lock: 20 gauge in left antecubital area and blood collected. No cf2 procedures done that require assistance. 11/21 00:03 Patient visited by Kelsi Kamara RN. cf2 00:05 Aneesh Pride MD is Hospitalizing Provider. le 01:38 Patient visited by Kelsi Kamara RN. cf2 02:38 Chest, 2 View (pa\E\lat) Returned. EDMS 02:56 Patient visited by Kelsi Kamara RN. cf2 03:11 Patient visited by Kelsi Kamara RN. cf2 03:14 Liz Espitia DO is Attending Physician. cf2 12:05 T-Sheet-- Draft Copy was scanned into [employer] and attached to record. gb Administered Medications: 11/20 21:16 Drug: Aspirin 324 mg [aspirin 81 mg chewable tablet (4 tabs)] Route: PO; cf2 22:23 Drug: ALPRAZolam 0.5 mg [alprazolam 0.25 mg tablet (2 tabs)] Route: PO; cf2 Order Results: Lab Order: Basic Metabolic Profile; SPEC'M 11/20/16 21:07 Test: GLUCOSE, FASTING; Value: 99; Range: 70-105; Units: MG/DL; Status: F Test: BLOOD UREA NITROGEN; Value: 13; Range: 7-18; Units: MG/DL; Status: F Test: CREATININE FOR GFR; Value: 0.82; Range: 0.55-1.02; Units: MG/DL; Status: F Test: SODIUM LEVEL; Range: 136-145; Units: MEQ/L; Status: I Test: POTASSIUM SERUM; Range: 3.5-5.1; Units: MEQ/L; Status: I Test: CHLORIDE LEVEL; Range: 98-107; Units: MEQ/L; Status: I Test: CARBON DIOXIDE LEVEL; Range: 21-32; Units: MEQ/L; Status: I Test: ANION GAP; Range: 8-16; Units: MEQ/L; Status: I Test: CALCIUM LEVEL; Range: 8.5-10.1; Units: MG/DL; Status: I Test: GLOMERULAR FILTRATION RATE; Value: > 60.0; Range: >60; Status: F Test: SODIUM LEVEL; Value: 143; Range: 136-145; Units: MEQ/L; Status: F Test: POTASSIUM SERUM; Value: 4.1; Range: 3.5-5.1; Units: MEQ/L; Status: F Test: CHLORIDE LEVEL; Value: 107; Range: 98-107; Units: MEQ/L; Status: F Test: CARBON DIOXIDE LEVEL; Value: 26; Range: 21-32; Units: MEQ/L; Status: F Test: ANION GAP; Value: 10; Range: 8-16; Units: MEQ/L; Status: F Test: CALCIUM LEVEL; Value: 8.8; Range: 8.5-10.1; Units: MG/DL; Status: F Test Note: ; Units are mL/min/1.73 m2 Chronic Kidney Disease Staging per NKF: Stage I & II GFR >=60 Normal to Mildly Decreased Stage III GFR 30-59 Moderately Decreased Stage IV GFR 15-29 Severely Decreased Stage V GFR <15 Very Little GFR Left ESRD GFR <15 on 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 DAY 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 Lab Order: CBC with Diff; SPEC'M 11/20/16 21:07 Test: WHITE BLOOD COUNT; Value: 7.8; Range: 4.0-10.0; Units: K/mm3; Status: F Test: RED BLOOD COUNT; Value: 4.69; Range: 4.00-5.40; Units: M/mm3; Status: F Test: HEMOGLOBIN; Value: 13.8; Range: 12.0-16.0; Units: g/dl; Status: F Test: HEMATOCRIT; Value: 39.7; Range: 36.0-47.0; Units: %; Status: F Test: MEAN CORPUSCULAR VOLUME; Value: 84.6; Range: 80.0-96.0; Units: fl; Status: F Test: MEAN CORPUSCULAR HEMOGLOBIN; Value: 29.3; Range: 27.0-33.0; Units: pg; Status: F Test: MEAN CORPUSCULAR HGB CONC; Value: 34.7; Range: 32.0-36.5; Units: g/dl; Status: F Test: RED CELL DISTRIBUTION WIDTH; Value: 12.5; Range: 11.5-14.5; Units: %; Status: F Test: PLATELET COUNT, AUTOMATED; Value: 253; Range: 150-450; Units: k/mm3; Status: F Test: NEUTROPHILS %; Value: 60.7; Range: 36.0-66.0; Units: %; Status: F Test: LYMPH %; Value: 28.2; Range: 24.0-44.0; Units: %; Status: F Test: MONO %; Value: 6.3; Range: 0.0-5.0; Abnormal: Above high normal; Units: %; Status: F Test: EOS %; Value: 2.2; Range: 0.0-3.0; Units: %; Status: F Test: BASO %; Value: 0.5; Range: 0.0-1.0; Units: %; Status: F Test: LARGE UNSTAINED CELL %; Value: 2.2; Range: 0.0-4.0; Units: %; Status: F Test: NEUTROPHILS #; Value: 4.8; Range: 1.8-7.7; Units: K/mm3; Status: F Test: LYMPH #; Value: 2.2; Range: 1.5-4.5; Units: K/mm3; Status: F Test: MONO #; Value: 0.5; Range: 0.0-0.8; Units: K/mm3; Status: F Test: EOS #; Value: 0.2; Range: 0.0-0.50; Units: K/mm3; Status: F Test: BASO #; Value: 0.0; Range: 0.0-0.2; Units: K/mm3; Status: F Test: LARGE UNSTAINED CELL #; Value: 0.2; Range: 0.0-0.4; Units: K/mm3; Status: F Lab Order: Cardiac Injury Profile; SPEC'M 11/20/16 21:07 Test: CPK CREATINE PHOSPHOKINASE; Value: 99; Range: 26-192; Units: U/L; Status: F Test: CK-MB VALUE MASS; Value: 1.0; Range: 0.0-3.6; Units: NG/ML; Status: F Test: MB/CK RELATIVE INDEX; Value: 1.01; Range: < OR =4; Status: F Test Note: ; DIAGNOSIS CRITERIA MMB ng/ml Relative Index (RI) NON-AMI < or = 5 N/A GRIJALVA ZONE > 5 < or = 4 AMI > 5 > 4 Lab Order: D-Dimer Quant; [facility]16: Test: D-DIMER QUANT; Value: 385.0; Range: <500; Units: ng/ml; Status: F Lab Order: Troponin; 11/20/16: Test: TROPONIN I; Value: < 0.02; Range: < 0.10; Units: NG/ML; Status: F Test Note: ; Troponin I Reference Interval for cacaoTV LOCI: 99th Percentile= 0.00-0.045 ng/ml Risk Stratification: <= 0.10 ng/ml Decreased Risk for Adverse Clinical Events. 0.10-1.50 ng/ml Increased Risk for Adverse Clinical Events. Evaluation of additional criterion and/or repeat testing in 2-6 hours is suggested to rule out myocardial damage. >= 1.50 ng/ml Indicative of Myocardial Injury. Lab Order: Thyroid Profile; 11/20/16 Test: T UPTAKE; Value: 37; Range: 30-39; Units: %; Status: F Test: THYROXINE (T4); Value: 13.9; Range: 4.5-12.0; Abnormal: Above high normal; Units: UG/DL; Status: F Test: FREE THYROXINE INDEX; Value: 5.1; Range: 1.3-4.8; Abnormal: Above high normal; Units: %; Status: F Test: THYROID STIMULATING HORMONE; Value: 0.200; Range: 0.358-3.740; Abnormal: Below low normal; Units: uIU/ML; Status: F Lab Order: Magnesium Level; [facility]11/20/16: Test: MAGNESIUM LEVEL; Value: 2.1; Range: 1.8-2.4; Units: MG/DL; Status: F Lab Order: HCG,Serum Qualitative; SPEC'M 01/19/17 21:07 Test: HCG, SERUM QUALITATIVE; Value: NEGATIVE; Range: NEGATIVE; Status: F Lab Order: FREE T4; SPEC'M 11/20/16 21:07 Test: FREE T4; Value: 1.59; Range: 0.76-1.46; Abnormal: Above high normal; Units: NG/DL; Status: F Lab Order: FREE T3; SPEC'M 11/20/16 21:07 Test: FREE T3; Value: 3.9; Range: 2.2-4.0; Units: PG/ML; Status: F Lab Order: ANTI THYROID MICROSOMAL AB; SPEC'M 11/20/16 21:07 Test: THYROID PEROXIDASE ANTIBODY; Range: <60.0; Units: U/ML; Status: I Radiology Order: EKG-ADULT Test: EKG-ADULT REASON FOR EXAMINATION: Chest Pain; Stationary ECG Study; [facility] - ED; ; Test Date: 2016-11-20; Pat Name: DAVE BUTLER Department:; Room: -; Gender: F 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 The lung osborn are clear and; without acute consolidation, effusion, or pneumothorax. The skeletal structures; are intact and normal.; ; Impression:; 1. No acute cardiopulmonary process.; ; ; Signed by; Camron Randall MD 11/21/2016 01:56 A; Outcome: 21:09 Discharge Assessment: Patient awake, alert and oriented x 3. No cognitive and/or cf2 functional deficits noted. Patient verbalized understanding of disposition instructions. Patient awake and alert. patient administered narcotics - yes. Patient was admitted to the hospital or transferred to another facility. The following High Risk Discharge criteria are identified: None. Admitted to PCU. Condition: stable. No special radiology studies were completed. 11/21 00:05 Decision to Hospitalize by Provider. jayashree 03:14 Patient left the ED. cf2 Signatures: Dispatcher [employer] EDMS Natalie Taylor, Reg Reg Vandana Rooney,RN RN ck1 Manny Loaiza Lisa, GEODETIC SURVEYOR GEODETIC SURVEYOR Lexi Chahal Jessie, Special Education Para Professional Unit Kelsi Wells,RN RN cf2 Chart Complete BUCK
--- NOTE | 2016-11-23 04:14 | EDDOCDS ---
Physician Documentation [facility] Name: Gloria Butler Age: 36 yrs Sex: Female : 1980 Arrival Date: 11/20/2016 Time: 20:14 Bed 17 Private MD: José Miguel Cheatham Disposition: 11/21 00:05 Critical Care: Critical care not applicable. jayashree Disposition: 11/21/16 00:05 Hospitalization ordered by Aneesh Pride for Observation. Preliminary diagnosis is Thyrotoxicosis [hyperthyroidism]. - Bed requested for PCU. - Status is Observation. cf2 - Condition is Stable. - Problem is new. - Symptoms are unchanged. Historical: - Allergies: Latex; - Home Meds: 1. Dexilant 30 mg oral CpDB once daily 2. Zantac 300 mg Oral tab 2 times per day 3. IUD - PMHx: Migraine Headaches; GERD; Diabetes - NIDDM: uncontrolled; tachycardia; - PSHx: Appendectomy; - Social history: Smoking status: Patient states former smoker of tobacco. No barriers to communication noted, The patient speaks fluent Tajik, Speaks appropriately for age. - Family history: Not pertinent. - : The pt / caregiver states he / she is not on anticoagulants. Home medication list is obtained from the patient. - Exposure Risk Screening:: None identified. 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 (165.10 cm); Pain 4/10; 21:09 Pulse 96 MON; Pulse Ox 97% ; cf2 21:09 BP 141 / 74 (auto/); cf2 21:24 Pulse 92 MON; Pulse Ox 96% ; cf2 21:24 BP 121 / 67 (auto/); cf2 21:39 Pulse Ox 97% ; cf2 21:39 BP 125 / 76 (auto/); cf2 21:40 Pulse 86 MON; Pulse Ox 97% ; cf2 22:09 Pulse 82 MON; Pulse Ox 97% ; cf2 22:09 BP 139 / 80 (auto/); cf2 22:24 BP 150 / 108 (auto/); cf2 22:25 Pulse 88 MON; Pulse Ox 98% ; cf2 22:39 BP 136 / 84 (auto/); cf2 22:40 Pulse 84 MON; Pulse Ox 97% ; cf2 22:54 BP 131 / 78 (auto/); cf2 22:55 Pulse 84 MON; Pulse Ox 97% ; cf2 23:09 BP 136 / 75 (auto/); cf2 23:10 Pulse 82 MON; Pulse Ox 96% ; cf2 23:24 BP 136 / 74 (auto/); cf2 23:25 Pulse 86 MON; Pulse Ox 97% ; cf2 23:39 BP 148 / 92 (auto/); cf2 23:40 Pulse 88 MON; Pulse Ox 97% ; cf2 23:54 BP 142 / 83 (auto/); cf2 23:55 Pulse 86 MON; Pulse Ox 97% ; cf2 11/21 00:09 BP 140 / 86 (auto/); cf2 00:10 Pulse 82 MON; Pulse Ox 97% ; cf2 00:24 BP 124 / 79 (auto/); cf2 00:25 Pulse 86 MON; Pulse Ox 97% ; cf2 00:39 BP 125 / 79 (auto/); cf2 00:40 Pulse 86 MON; Pulse Ox 94% ; cf2 00:54 BP 123 / 76 (auto/); cf2 00:55 Pulse 84 MON; Pulse Ox 96% ; cf2 01:09 BP 126 / 75 (auto/); cf2 01:10 Pulse 84 MON; Pulse Ox 95% ; cf2 01:24 BP 127 / 78 (auto/); cf2 01:25 Pulse 82 MON; Pulse Ox 95% ; cf2 01:39 BP 123 / 73 (auto/); cf2 01:40 Pulse 76 MON; Pulse Ox 96% ; cf2 01:54 BP 135 / 64 (auto/); cf2 01:55 Pulse 84 MON; Pulse Ox 95% ; cf2 02:09 BP 139 / 75 (auto/); cf2 02:10 Pulse 86 MON; Pulse Ox 96% ; cf2 02:32 BP 133 / 87 (auto/); cf2 02:33 Pulse 92 MON; Pulse Ox 97% ; cf2 02:54 BP 122 / 74 (auto/); cf2 02:55 Pulse 80 MON; Pulse Ox 97% ; cf2 03:09 BP 124 / 73 (auto/); cf2 03:10 Pulse 78 MON; Pulse Ox 96% ; cf2 11/20 20:15 Body Mass Index 38.61 (105.23 kg, 165.10 cm) sew MDM: 11/20 20:23 ECG WITH READING ER PHYS+CARDIAG ordered. EDMS 20:45 Aspirin Chewable Tablet 324 mg PO once ordered. le 20:45 Professor Of Astronomy/Pulse Ox/q 30 min VS ordered. le 20:45 IV Saline Lock ordered. le 20:45 Rhythm Strip to chart ordered. le 20:45 Undress patient appropriately for examination ordered. le 20:45 Orthostatic VS ordered. le 20:46 Basic Metabolic Profile Ordered. EDMS 20:46 CBC with Diff Ordered. EDMS 20:46 Cardiac Injury Profile Ordered. EDMS 20:46 D-Dimer Quant Ordered. EDMS 20:46 Troponin Ordered. EDMS 20:46 Thyroid Profile Ordered. EDMS 20:46 Magnesium Level Ordered. EDMS 20:46 HCG,Serum Qualitative Ordered. EDMS 20:47 Chest, 2 View (pa\E\lat) Ordered. EDMS 21:25 Financial registration complete. zo 21:25 [facility] [place] Agreement was scanned into [employer] and attached to record. zo 22:04 CBC with Diff Reviewed. le 22:04 Thyroid Profile Reviewed. le 22:04 Basic Metabolic Profile Reviewed. le 22:04 Cardiac Injury Profile Reviewed. le 22:04 D-Dimer Quant Reviewed. le 22:04 Troponin Reviewed. le 22:04 Magnesium Level Reviewed. le 22:04 HCG,Serum Qualitative Reviewed. le 22:04 EKG-ADULT Reviewed. le 22:18 ALPRAZolam Tablet 0.5 mg PO once ordered. le 22:58 Import Vital Signs into [employer] q30min please ordered. le 23:59 Admission / Observation Status ordered. EDMS 11/21 00:04 2 GRAM SODIUM DIET ordered. EDMS 00:04 COMPLETE BLOOD COUNT Ordered. EDMS 00:04 BASIC METABOLIC PROFILE Ordered. EDMS 00:04 MAGNESIUM LEVEL Ordered. EDMS 00:10 Thyroid, ST head+neck US Ordered. EDMS 12:05 T-Sheet-- Draft Copy was scanned into [employer] and attached to record. gb Administered Medications: 11/20 21:16 Drug: Aspirin 324 mg [aspirin 81 mg chewable tablet (4 tabs)] Route: PO; cf2 22:23 Drug: ALPRAZolam 0.5 mg [alprazolam 0.25 mg tablet (2 tabs)] Route: PO; cf2 Signatures: Dispatcher [employer] EDMS Jalyn Herrmann, RN RN Natalie Martin, Reg Reg gb Vanadna Randall RN RN ck1 Manny Loaiza Lisa, CURING ROOM SUPERVISOR CURING ROOM SUPERVISOR Kelsi Patel RN RN cf2 The chart was reviewed and I authenticate all verbal orders and agree with the evaluation and treatment provided.Corrections: (The following items were deleted from the chart) : 23:18 FREE T3 ordered. EDMS EDMS 23:19 ANTI THYROID MICROSOMAL AB ordered. EDMS EDMS 23:19 FREE T4 ordered. EDMS EDMS Attachments: 21:25 [facility] Payment Agreement zo 11/21 12:05 T-Sheet-- Draft Copy gb Chart Complete MTDD
--- NOTE | 2016-11-23 04:14 | EDDOCDS ---
Physician Documentation [facility] Name: Gloria Butler Age: 36 yrs Sex: Female : 1980 Arrival Date: 11/20/2016 Time: 20:14 Bed 17 Private MD: José Miguel Cheatham Disposition: 11/21 00:05 Critical Care: Critical care not applicable. jayashree Disposition: 11/21/16 00:05 Hospitalization ordered by Aneesh Pride for Observation. Preliminary diagnosis is Thyrotoxicosis [hyperthyroidism]. - Bed requested for PCU. - Status is Observation. cf2 - Condition is Stable. - Problem is new. - Symptoms are unchanged. Historical: - Allergies: Latex; - Home Meds: 1. Dexilant 30 mg oral CpDB once daily 2. Zantac 300 mg Oral tab 2 times per day 3. IUD - PMHx: Migraine Headaches; GERD; Diabetes - NIDDM: uncontrolled; tachycardia; - PSHx: Appendectomy; - Social history: Smoking status: Patient states former smoker of tobacco. No barriers to communication noted, The patient speaks fluent British, Speaks appropriately for age. - Family history: Not pertinent. - : The pt / caregiver states he / she is not on anticoagulants. Home medication list is obtained from the patient. - Exposure Risk Screening:: None identified. 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 (165.10 cm); Pain 4/10; 21:09 Pulse 96 MON; Pulse Ox 97% ; cf2 21:09 BP 141 / 74 (auto/); cf2 21:24 Pulse 92 MON; Pulse Ox 96% ; cf2 21:24 BP 121 / 67 (auto/); cf2 21:39 Pulse Ox 97% ; cf2 21:39 BP 125 / 76 (auto/); cf2 21:40 Pulse 86 MON; Pulse Ox 97% ; cf2 22:09 Pulse 82 MON; Pulse Ox 97% ; cf2 22:09 BP 139 / 80 (auto/); cf2 22:24 BP 150 / 108 (auto/); cf2 22:25 Pulse 88 MON; Pulse Ox 98% ; cf2 22:39 BP 136 / 84 (auto/); cf2 22:40 Pulse 84 MON; Pulse Ox 97% ; cf2 22:54 BP 131 / 78 (auto/); cf2 22:55 Pulse 84 MON; Pulse Ox 97% ; cf2 23:09 BP 136 / 75 (auto/); cf2 23:10 Pulse 82 MON; Pulse Ox 96% ; cf2 23:24 BP 136 / 74 (auto/); cf2 23:25 Pulse 86 MON; Pulse Ox 97% ; cf2 23:39 BP 148 / 92 (auto/); cf2 23:40 Pulse 88 MON; Pulse Ox 97% ; cf2 23:54 BP 142 / 83 (auto/); cf2 23:55 Pulse 86 MON; Pulse Ox 97% ; cf2 11/21 00:09 BP 140 / 86 (auto/); cf2 00:10 Pulse 82 MON; Pulse Ox 97% ; cf2 00:24 BP 124 / 79 (auto/); cf2 00:25 Pulse 86 MON; Pulse Ox 97% ; cf2 00:39 BP 125 / 79 (auto/); cf2 00:40 Pulse 86 MON; Pulse Ox 94% ; cf2 00:54 BP 123 / 76 (auto/); cf2 00:55 Pulse 84 MON; Pulse Ox 96% ; cf2 01:09 BP 126 / 75 (auto/); cf2 01:10 Pulse 84 MON; Pulse Ox 95% ; cf2 01:24 BP 127 / 78 (auto/); cf2 01:25 Pulse 82 MON; Pulse Ox 95% ; cf2 01:39 BP 123 / 73 (auto/); cf2 01:40 Pulse 76 MON; Pulse Ox 96% ; cf2 01:54 BP 135 / 64 (auto/); cf2 01:55 Pulse 84 MON; Pulse Ox 95% ; cf2 02:09 BP 139 / 75 (auto/); cf2 02:10 Pulse 86 MON; Pulse Ox 96% ; cf2 02:32 BP 133 / 87 (auto/); cf2 02:33 Pulse 92 MON; Pulse Ox 97% ; cf2 02:54 BP 122 / 74 (auto/); cf2 02:55 Pulse 80 MON; Pulse Ox 97% ; cf2 03:09 BP 124 / 73 (auto/); cf2 03:10 Pulse 78 MON; Pulse Ox 96% ; cf2 11/20 20:15 Body Mass Index 38.61 (105.23 kg, 165.10 cm) sew MDM: 11/20 20:23 ECG WITH READING ER PHYS+CARDIAG ordered. EDMS 20:45 Aspirin Chewable Tablet 324 mg PO once ordered. le 20:45 Radio Engineer/Pulse Ox/q 30 min VS ordered. le 20:45 IV Saline Lock ordered. le 20:45 Rhythm Strip to chart ordered. le 20:45 Undress patient appropriately for examination ordered. le 20:45 Orthostatic VS ordered. le 20:46 Basic Metabolic Profile Ordered. EDMS 20:46 CBC with Diff Ordered. EDMS 20:46 Cardiac Injury Profile Ordered. EDMS 20:46 D-Dimer Quant Ordered. EDMS 20:46 Troponin Ordered. EDMS 20:46 Thyroid Profile Ordered. EDMS 20:46 Magnesium Level Ordered. EDMS 20:46 HCG,Serum Qualitative Ordered. EDMS 20:47 Chest, 2 View (pa\E\lat) Ordered. EDMS 21:25 Financial registration complete. zo 21:25 [place] [place] Payment Agreement was scanned into [employer] and attached to record. zo 22:04 CBC with Diff Reviewed. le 22:04 Thyroid Profile Reviewed. le 22:04 Basic Metabolic Profile Reviewed. le 22:04 Cardiac Injury Profile Reviewed. le 22:04 D-Dimer Quant Reviewed. le 22:04 Troponin Reviewed. le 22:04 Magnesium Level Reviewed. le 22:04 HCG,Serum Qualitative Reviewed. le 22:04 EKG-ADULT Reviewed. le 22:18 ALPRAZolam Tablet 0.5 mg PO once ordered. le 22:58 Import Vital Signs into [id number] q30min please ordered. le 23:59 Admission / Observation Status ordered. EDMS 11/21 00:04 2 GRAM SODIUM DIET ordered. EDMS 00:04 COMPLETE BLOOD COUNT Ordered. EDMS 00:04 BASIC METABOLIC PROFILE Ordered. EDMS 00:04 MAGNESIUM LEVEL Ordered. EDMS 00:10 Thyroid, ST head+neck US Ordered. EDMS 12:05 T-Sheet-- Draft Copy was scanned into [employer] and attached to record. gb Administered Medications: 11/20 21:16 Drug: Aspirin 324 mg [aspirin 81 mg chewable tablet (4 tabs)] Route: PO; cf2 22:23 Drug: ALPRAZolam 0.5 mg [alprazolam 0.25 mg tablet (2 tabs)] Route: PO; cf2 Signatures: Dispatcher [employer] EDMS Jalyn Herrmann, RN RN Natalie Martin, Reg Reg gb Vandana Randall RN RN ck1 Manny Loaiza Lisa, SURVEILLANCE SENSOR OFFICER SURVEILLANCE SENSOR OFFICER Kelsi Patel RN RN cf2 The chart was reviewed and I authenticate all verbal orders and agree with the evaluation and treatment provided.Corrections: (The following items were deleted from the chart) : 23:18 FREE T3 ordered. EDMS EDMS 23:19 ANTI THYROID MICROSOMAL AB ordered. EDMS EDMS 23:19 FREE T4 ordered. EDMS EDMS Attachments: 21:25 [facility] Payment Agreement zo 11/21 12:05 T-Sheet-- Draft Copy gb Chart Complete MTDD
== END 2016-11-21 14:30 | disposition home or self-care (01) ==
LOC: M ED 20:14 → M PCU 23:54 → M ED INP 23:55 → M PCU 11-21 03:20
PROVIDERS: ADMIT Internal Medicine; ATTEND Hospitalist
DX: R00.2 Palpitations (principal); E05.90 Thyrotoxicosis, unspecified without thyrotoxic crisis or storm; E66.9 Obesity, unspecified; K21.9 Gastro-esophageal reflux disease without esophagitis; F41.9 Anxiety disorder, unspecified; E11.9 Type 2 diabetes mellitus without complications; Z79.899 Other long term (current) drug therapy

== ENCOUNTER 2016-11-27 10:12 | Emergency (ER) | payer SELFPAY ==
[~2016-11-27 10:12] MED LIST changes: +AMOX875T PO; +ATEN25TA PO; +DEXI30CA PO; +VALI2TAB PO; +ZANT300T PO
[2016-11-27] MEDS ORDERED: LORazepam 2 MG/ML VIAL (J2060) As Ordered ONE (10:53)
[2016-11-27] MEDS ORDERED: ONDANSETRON 4MG/2ML VIAL (J2405) As Ordered ONE (10:53)
[2016-11-27 11:05] LABS: BASO # 0.1 K/mm3 (0.0-0.2); BASO % 2.2 % (0.0-1.0); EOS # 0.2 K/mm3 (0.0-0.50); EOS % 2.4 % (0.0-3.0); LARGE UNSTAINED CELL # 0.2 K/mm3 (0.0-0.4); LARGE UNSTAINED CELL % 2.4 % (0.0-4.0); LYMPH # 1.9 K/mm3 (1.5-4.5); LYMPH % 28.5 % (24.0-44.0); MEAN CORPUSCULAR HEMOGLOBIN 28.5 pg (27.0-33.0); MEAN CORPUSCULAR HGB CONC 33.6 g/dl (32.0-36.5); MEAN CORPUSCULAR VOLUME 84.9 fl (80.0-96.0); MONO # 0.4 K/mm3 (0.0-0.8); MONO % 5.9 % (0.0-5.0); NEUTROPHILS # 3.5 K/mm3 (1.8-7.7); NEUTROPHILS % 58.5 % (36.0-66.0); PLATELET COUNT, AUTOMATED 259 k/mm3 (150-450); RED CELL DISTRIBUTION WIDTH 13.2 % (11.5-14.5)
[2016-11-27 11:20] LABS: ANION GAP 8 MEQ/L (8-16); BLOOD UREA NITROGEN 13 MG/DL (7-18); CARBON DIOXIDE LEVEL 27 MEQ/L (21-32); CHLORIDE LEVEL 108 MEQ/L (98-107); CREATININE FOR GFR 0.77 MG/DL (0.55-1.02); GLOMERULAR FILTRATION RATE > 60.0 (>60); GLUCOSE, FASTING 111 MG/DL (70-105); POTASSIUM SERUM 3.8 MEQ/L (3.5-5.1); SODIUM LEVEL 143 MEQ/L (136-145); T UPTAKE 37 % (30-39); THYROXINE (T4) 17.4 UG/DL (4.5-12.0)
[2016-11-27 11:49] LABS: AMPHETAMINES LEVEL URINE NEGATIVE (NEGATIVE); BENZODIAZEPINES URINE NEGATIVE (NEGATIVE); COCAINE METABOLITE URINE NEGATIVE (NEGATIVE); CONTROL LINE INT CTR LINE PRESENT; METHADONE URINE NEGATIVE (NEGATIVE); OPIATES URINE NEGATIVE (NEGATIVE); TRICYCLIC ANTIDEPRESS URINE NEGATIVE (NEGATIVE)
--- NOTE | 2016-11-27 12:28 | EDDOCDS ---
Physician Documentation [facility] Name: Gloria Butler Age: 36 yrs Sex: Female : 1980 Arrival Date: 11/27/2016 Time: 10:12 Bed 14 Private MD: Vipul Hennessy Disposition: 11/27/16 12:04 Discharged to Home/Self Care. Impression: Chest pain, unspecified, Thyrotoxicosis [hyperthyroidism]. - Condition is Stable. - Discharge Instructions: Hyperthyroidism. - Prescriptions for Xanax 0.25 mg Oral Tablet - take 1 tablet by ORAL route every 8 hours As needed MDD: 3 tabs; 16 tablet. - Medication Reconciliation, Local Pharmacy Hours form. - Follow up: Vipul Hennessy; When: 2 - 3 days; Reason: Wound/Symptom Recheck, Recheck today's complaints, Worsening of conditions, Continuance of care. - Problem is an ongoing problem. - Symptoms have improved. Historical: - Allergies: Latex (open sores); - Home Meds: 1. Zantac 150 mg oral tab 1 tab 2 times per day (Last dose: 11/26/2016) 2. Dexilant 30 mg oral CpDB once daily (Last dose: 11/26/2016) 3. IUD 4. Maxalt 5 mg oral tab as needed 5. Atenolol 10 mg Oral 1 tab once daily (Last dose: 11/27/2016 04:00) 6. Valium 2 mg Oral tab 1 tab 3 times per day as needed 7. aspirin 325 mg Oral tab 1 tab as needed - PMHx: Diabetes - NIDDM: uncontrolled; GERD; Migraine Headaches; tachycardia; Hyperthyroidism; - PSHx: Appendectomy; Laparoscopy; - Social history: Smoking status: Patient states former smoker of tobacco. No barriers to communication noted, The patient speaks fluent Bulgarian. - Family history: Not pertinent. - : The pt / caregiver states he / she is not on anticoagulants. Home medication list is obtained from the patient. - Exposure Risk Screening:: None identified. 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 (165.10 cm); Pain 6/10; 10:33 BP 149 / 106 (auto/); kr3 10:34 Pulse 96 MON; Pulse Ox 96% ; kr3 10:48 BP 179 / 89 (auto/); kcs 10:49 Pulse 96 MON; Pulse Ox 96% ; kcs 11:06 BP 149 / 71 (auto/); kcs 11:07 Pulse 90 MON; kcs 11:18 BP 122 / 57 (auto/); kcs 11:18 Pulse 90 MON; kcs 11:18 BP 122 / 57 (auto/); kcs 11:18 Pulse 90 MON; Resp 20; Pulse Ox 95% on R/A; kcs 12:24 BP 133 / 72; Pulse 85; Resp 18; Temp 98.4(O); Pulse Ox 97% on R/A; Pain 0/10; kcs 10:14 Body Mass Index 39.60 (107.95 kg, 165.10 cm) elp MDM: 10:29 ECG WITH READING ER PHYS+CARDIAG ordered. EDMS 10:38 Filter Tank Tender/Pulse Ox/q 15 min VS ordered. sd1 10:38 IV Saline Lock ordered. sd1 10:38 Basic Metabolic Profile Ordered. EDMS 10:38 CBC with Diff Ordered. EDMS 10:38 Urine Toxicology Ordered. EDMS 10:47 THYROID PROFILE Ordered. EDMS 10:50 Ondansetron 4 mg IVP once ordered. cc10 10:50 NS 0.9% 1000 ml IV at bolus once ordered. cc10 10:50 LORazepam 1 mg IVP once ordered. cc10 11:09 Financial registration complete. lg 11:52 Basic Metabolic Profile Reviewed. cc10 11:52 CBC with Diff Reviewed. cc10 11:52 THYROID PROFILE Reviewed. cc10 11:52 Urine Toxicology Reviewed. cc10 Administered Medications: 11:03 Drug: Ondansetron 4 mg Route: IVP; Site: right antecubital; kr3 11:03 Drug: NS 0.9% 1000 ml [sodium chloride 0.9 % intravenous solution] Route: IV; Rate: kr3 bolus; Site: right antecubital; 12:24 Follow up: IV Status: Infusion discontinued; IV Intake: 750ml kcs 11:03 Drug: LORazepam 1 mg [lorazepam 2 mg/mL injection solution (0.5 mL)] Route: IVP; Site: kr3 right antecubital; Signatures: Dispatcher [employer] EDMS Lexi Kaur MD MD sd1 Nory Burkett, RN RN kcs Felicia Tripp RN RN Marylu Sargent, Walker Reg lg Peter Lemons, PA-C PA-C cc10 Adrianna Dobbs RN kr3 The chart was reviewed and I authenticate all verbal orders and agree with the evaluation and treatment provided.Corrections: (The following items were deleted from the chart) 10:47 10:43 THYROID PROFILE+LAB ordered. EDMS EDMS 11:00 10:44 Chest, 2 view (PA\E\Lat)+XR ordered. EDMS EDMS MTDD
--- NOTE | 2016-11-27 12:28 | EDDOCDS ---
Nurse's Notes [facility] Name: Gloria Butler Age: 36 yrs Sex: Female : 1980 Arrival Date: 11/27/2016 Time: 10:12 Bed 14 Private MD: Vipul Hennessy Diagnosis: Chest pain, unspecified;Thyrotoxicosis [hyperthyroidism] Presentation: 11/27 10:19 Presenting complaint: Patient states: admitted last week for chest pain diagnosed [facility] hyperthyroidism , discharged home , now not feeling well again. anxious,dizzy elevated blood pressure and having chest pain. Adult Sepsis Screening: The patient does not have new or worsening altered mentation. Patient's respiratory rate is less than 22. Systolic blood pressure is greater than 100. Patient has a qSOFA score of 0- Negative Sepsis Screen. Suicide/Homicide risk assessment- the patient denies having any suicidal and/or homicidal ideations and does not present with any other emotional, behavioral or mental health complaints. Status: Patient is not a check services clerk or dependent. Transition of care: patient was not received from another setting of care. 10:19 Acuity: RIANNA Level 3 [facility] 10:19 Method Of Arrival: Walkin/Carried/Asstd [facility] Triage Assessment: 10:24 General: Appears distressed, Behavior is anxious. Pain: Location: chest Pain currently [facility] is 5 out of 10 on a pain scale. HIV screening NA for this visit Offered previously. Neurological: Level of Consciousness is awake, alert, Oriented to person, place, time. Cardiovascular: Chest pain is described as Pain is 5 out of 10 on a pain scale. is located in left anterior chest wall radiates to left scapula episodes are intermittent Chest pain began last night. Respiratory: Onset: The symptoms/episode began/occurred yesterday, Airway is patent Respiratory effort is even, unlabored, Respiratory pattern is regular, symmetrical. Derm: Skin is pink, warm & dry. 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 Zantac 150 mg oral tab 1 tab 2 times per day (Last dose: 11/26/2016) 2. Dexilant 30 mg oral CpDB once daily (Last dose: 11/26/2016) 3. IUD 4. Maxalt 5 mg oral tab as needed 5. Atenolol 10 mg Oral 1 tab once daily (Last dose: 11/27/2016 04:00) 6. Valium 2 mg Oral tab 1 tab 3 times per day as needed 7. aspirin 325 mg Oral tab 1 tab as needed - PMHx: Diabetes - NIDDM: uncontrolled; GERD; Migraine Headaches; tachycardia; Hyperthyroidism; - PSHx: Appendectomy; Laparoscopy; - Social history: Smoking status: Patient states former smoker of tobacco. No barriers to communication noted, The patient speaks fluent Niuean. - Family history: Not pertinent. - : The pt / caregiver states he / she is not on anticoagulants. Home medication list is obtained from the patient. - Exposure Risk Screening:: None identified. Screenin:38 Screening information is obtained from the patient. Fall risk: No risks identified. kr3 Assistance ADL's: requires no assistance with activities of daily living. Abuse/DV Screen: The patient / caregiver reports he/she is: not in a situation that causes fear, pain or injury. Nutritional screening: No deficits noted. Advance Directives: Currently, there is no health care proxy. home support is adequate. Assessment: 10:39 General: Appears distressed, Behavior is anxious, cooperative. Pain: Location: back and kr3 chest and left axilla Pain currently is 5 out of 10 on a pain scale. Cardiovascular: Rhythm is regular. Respiratory: Respiratory effort is even, unlabored, Breath sounds are clear bilaterally. Reports shortness of breath intermittently. GI: Reports nausea. Derm: Skin is normal. 11:31 Reassessment: Patient sitting up on stretcher - reading RN contract. States she is kcs feeling better. Talking easily. No dyspnea, no drooling. security monitor = RSR.. 12:24 Reassessment: Patient denies pain at this time. Patient states feeling better. Patient kcs states symptoms have improved. General: Appears comfortable, well developed, well nourished, well groomed, Behavior is cooperative, pleasant. Pain: Denies pain. Neurological: Level of Consciousness is awake, alert. Respiratory: Airway is patent Respiratory effort is even, unlabored, Respiratory pattern is regular, symmetrical. Derm: Skin is intact, is healthy with good turgor, Skin is dry, Skin is normal. Vital Signs: 10:14 BP 158 / 82; Pulse 103; Resp 20; Temp 99.0(O); Pulse Ox 98% on R/A; Weight 107.95 kg elp (R); Height 65 in. (165.10 cm); Pain 6/10; 10:33 BP 149 / 106 (auto/); kr3 10:34 Pulse 96 MON; Pulse Ox 96% ; kr3 10:48 BP 179 / 89 (auto/); kcs 10:49 Pulse 96 MON; Pulse Ox 96% ; kcs 11:06 BP 149 / 71 (auto/); kcs 11:07 Pulse 90 MON; kcs 11:18 BP 122 / 57 (auto/); kcs 11:18 Pulse 90 MON; kcs 11:18 BP 122 / 57 (auto/); kcs 11:18 Pulse 90 MON; Resp 20; Pulse Ox 95% on R/A; kcs 12:24 BP 133 / 72; Pulse 85; Resp 18; Temp 98.4(O); Pulse Ox 97% on R/A; Pain 0/10; kcs 10:14 Body Mass Index 39.60 (107.95 kg, 165.10 cm) elp Vitals: 10:14 Log In Time: November 27, 2016 at 10:12. el ED Course: 10:14 Patient visited by Bonnie Renee PCA. elp 10:14 Vipul Hennessy is Private Physician. elp 10:14 Patient moved to Waiting elp 10:15 Patient visited by Bonnie Renee PCA. elp 10:15 Patient moved to Pre RCE elp 10:22 Triage Initiated kpj 10:27 Patient moved to 14 kpj 10:33 EKG done. (by ED staff). Reviewed by Lexi Kaur MD. ct3 10:34 Patient visited by Jerrica Hull PCA. ct3 10:34 Accompanied by Friend, Patient has correct armband on for positive identification. ct3 Placed in gown. Bed in low position. Call light in reach. Side rails up X2. security monitor on. Pulse ox on. NIBP on. 10:35 Patient visited by Ebony Monroe PCA. rs6 10:38 Inserted saline lock: 20 gauge in right antecubital area and blood collected. The kr3 patient tolerated the procedure well. 10:40 The patient / caregiver is instructed regarding the plan of care and ED course. kr3 10:40 Basic Metabolic Profile Sent. kr3 10:40 CBC with Diff Sent. kr3 10:43 [facility]. cc10 10:43 Lexi Kaur MD is Attending Physician. cc10 10:43 Patient visited by Peter Lemons PA-C. cc10 10:43 Patient visited by Peter Lemons PA-C. cc10 11:03 Urine Toxicology Sent. kr3 12:04 Vipul Hennessy is Referral Physician. cc10 12:24 Discontinued IV lock intact, bleeding controlled, pressure dressing applied, No kcs redness/swelling at site. No procedures done that require assistance. Administered Medications: 11:03 Drug: Ondansetron 4 mg Route: IVP; Site: right antecubital; kr3 11:03 Drug: NS 0.9% 1000 ml [sodium chloride 0.9 % intravenous solution] Route: IV; Rate: kr3 bolus; Site: right antecubital; 12:24 Follow up: IV Status: Infusion discontinued; IV Intake: 750ml [facility] 11:03 Drug: LORazepam 1 mg [lorazepam 2 mg/mL injection solution (0.5 mL)] Route: IVP; Site: kr3 right antecubital; Intake: 12:24 IV: 750.00ml; Total: 750.00ml. kcs Order Results: Lab Order: Basic Metabolic Profile; SPEC'M 11/27/16 10:37 Test: GLUCOSE, FASTING; Value: 111; Range: 70-105; Abnormal: Above high normal; Units: MG/DL; Status: F Test: BLOOD UREA NITROGEN; Value: 13; Range: 7-18; Units: MG/DL; Status: F Test: CREATININE FOR GFR; Value: 0.77; Range: 0.55-1.02; Units: MG/DL; Status: F Test: GLOMERULAR FILTRATION RATE; Value: > 60.0; Range: >60; Status: F Test: SODIUM LEVEL; Value: 143; Range: 136-145; Units: MEQ/L; Status: F Test: POTASSIUM SERUM; Value: 3.8; Range: 3.5-5.1; Units: MEQ/L; Status: F Test: CHLORIDE LEVEL; Value: 108; Range: 98-107; Abnormal: Above high normal; Units: MEQ/L; Status: F Test: CARBON DIOXIDE LEVEL; Value: 27; Range: 21-32; Units: MEQ/L; Status: F Test: ANION GAP; Value: 8; Range: 8-16; Units: MEQ/L; Status: F Test: CALCIUM LEVEL; Value: 9.0; Range: 8.5-10.1; Units: MG/DL; Status: F Test Note: ; Units are mL/min/1.73 m2 Chronic Kidney Disease Staging per NKF: Stage I & II GFR >=60 Normal to Mildly Decreased Stage III GFR 30-59 Moderately Decreased Stage IV GFR 15-29 Severely Decreased Stage V GFR <15 Very Little GFR Left ESRD GFR <15 on QUARRYING SPECIALIST Lab Order: CBC with Diff; SPEC'M 11/27/16 10:37 Test: WHITE BLOOD COUNT; Value: 6.0; Range: 4.0-10.0; Units: K/mm3; Status: F Test: RED BLOOD COUNT; Value: 4.98; Range: 4.00-5.40; Units: M/mm3; Status: F Test: HEMOGLOBIN; Value: 14.2; Range: 12.0-16.0; Units: g/dl; Status: F Test: HEMATOCRIT; Value: 42.3; Range: 36.0-47.0; Units: %; Status: F Test: MEAN CORPUSCULAR VOLUME; Value: 84.9; Range: 80.0-96.0; Units: fl; Status: F Test: MEAN CORPUSCULAR HEMOGLOBIN; Value: 28.5; Range: 27.0-33.0; Units: pg; Status: F Test: MEAN CORPUSCULAR HGB CONC; Value: 33.6; Range: 32.0-36.5; Units: g/dl; Status: F Test: RED CELL DISTRIBUTION WIDTH; Value: 13.2; Range: 11.5-14.5; Units: %; Status: F Test: PLATELET COUNT, AUTOMATED; Value: 259; Range: 150-450; Units: k/mm3; Status: F Test: NEUTROPHILS %; Value: 58.5; Range: 36.0-66.0; Units: %; Status: F Test: LYMPH %; Value: 28.5; Range: 24.0-44.0; Units: %; Status: F Test: MONO %; Value: 5.9; Range: 0.0-5.0; Abnormal: Above high normal; Units: %; Status: F Test: EOS %; Value: 2.4; Range: 0.0-3.0; Units: %; Status: F Test: BASO %; Value: 2.2; Range: 0.0-1.0; Abnormal: Above high normal; Units: %; Status: F Test: LARGE UNSTAINED CELL %; Value: 2.4; Range: 0.0-4.0; Units: %; Status: F Test: NEUTROPHILS #; Value: 3.5; Range: 1.8-7.7; Units: K/mm3; Status: F Test: LYMPH #; Value: 1.9; Range: 1.5-4.5; Units: K/mm3; Status: F Test: MONO #; Value: 0.4; Range: 0.0-0.8; Units: K/mm3; Status: F Test: EOS #; Value: 0.2; Range: 0.0-0.50; Units: K/mm3; Status: F Test: BASO #; Value: 0.1; Range: 0.0-0.2; Units: K/mm3; Status: F Test: LARGE UNSTAINED CELL #; Value: 0.2; Range: 0.0-0.4; Units: K/mm3; Status: F Lab Order: Urine Toxicology; SPEC'M 11/27/16 11:02 Test: AMPHETAMINES LEVEL URINE; Value: NEGATIVE; Range: NEGATIVE; Status: F Test: BARBITURATES URINE; Value: NEGATIVE; Range: NEGATIVE; Status: F Test: BENZODIAZEPINES URINE; Value: NEGATIVE; Range: NEGATIVE; Status: F Test: CANNABINOIDS URINE; Value: NEGATIVE; Range: NEGATIVE; Status: F Test: COCAINE METABOLITE URINE; Value: NEGATIVE; Range: NEGATIVE; Status: F Test: METHADONE URINE; Value: NEGATIVE; Range: NEGATIVE; Status: F Test: OPIATES URINE; Value: NEGATIVE; Range: NEGATIVE; Status: F Test: TRICYCLIC ANTIDEPRESS URINE; Value: NEGATIVE; Range: NEGATIVE; Status: F Test Note: ; ALL PRESUMPTIVE POSITIVE FINDINGS ARE UNCONFIRMED NORMAL VALUES THRESHOLD IN NG/ML AMPHETAMINES 1000 METHAMPHETAMINES 1000 BARBITURATES 300 BENZODIAZEPINES 300 CANNABINOIDS (THC) 50 COCAINE METABOLITE 300 METHADONE 300 OPIATES 300 PHENCYCLIDINE 25 TRICYCLIC ANTIDEPRESSANTS 1000 RESULTS ARE FOR MEDICAL PURPOSES ONLY. ALL URINE SPECIMENS WILL BE SAVED FOR 3 DAYS. IF CONFIRMATION OF A PRESUMPTIVE POSTIVE SCREEN RESULT IS DESIRED, CALL CHEMISTRY ([phone]) AND REQUEST URINE TO BE SENT TO REFERENCE LAB. FOR A LIST OF CLOSELY RELATED COMPOUNDS PLEASE CALL THE LAB. Lab Order: THYROID PROFILE; SPEC'M 11/27/16 10:37 Test: T UPTAKE; Value: 37; Range: 30-39; Units: %; Status: F Test: THYROXINE (T4); Value: 17.4; Range: 4.5-12.0; Abnormal: Above high normal; Units: UG/DL; Status: F Test: FREE THYROXINE INDEX; Value: 6.4; Range: 1.3-4.8; Abnormal: Above high normal; Units: %; Status: F Test: THYROID STIMULATING HORMONE; Value: 0.025; Range: 0.358-3.740; Abnormal: Below low normal; Units: uIU/ML; Status: F Outcome: 12:04 Discharge ordered by Provider. cc10 12:24 Discharge Assessment: Patient awake, alert and oriented x 3. No cognitive and/or kcs functional deficits noted. Patient verbalized understanding of disposition instructions. Patient awake and alert. patient administered narcotics - yes. Pt provided with safe discharge. The following High Risk Discharge criteria are identified: None. Discharged to home ambulatory, with friend. Condition: stable. Discharge instructions given to patient, Instructed on discharge instructions, follow up and referral plans. medication usage, Demonstrated understanding of instructions, medications, Pt was receptive of discharge instructions/ teaching. No special radiology studies were completed. Property sent home with patient. 12:27 Patient left the ED. kcs Signatures: Nory Burkett RN RN Felicia Henning RN RN kpj Robie, Kathleen, RN RN kr3 Della, Jerrica, BALLPOINT PEN ASSEMBLY MACHINE OPERATOR BALLPOINT PEN ASSEMBLY MACHINE OPERATOR ct3 PatchenBonnie, BALLPOINT PEN ASSEMBLY MACHINE OPERATOR BALLPOINT PEN ASSEMBLY MACHINE OPERATOR elp Peter Lemons, PA-C PA-C cc10 Monroe, Ebony, BALLPOINT PEN ASSEMBLY MACHINE OPERATOR BALLPOINT PEN ASSEMBLY MACHINE OPERATOR rs6 MTDD
--- NOTE | 2016-11-28 07:18 | ECGEPIP ---
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
--- NOTE | 2016-11-29 13:29 | EDDOCDS ---
Physician Documentation [facility] Name: Gloria Butler Age: 36 yrs Sex: Female : 1980 Arrival Date: 11/27/2016 Time: 10:12 Bed 14 Private MD: Vipul Hennessy Disposition: 11/27/16 12:04 Discharged to Home/Self Care. Impression: Chest pain, unspecified, Thyrotoxicosis [hyperthyroidism]. - Condition is Stable. - Discharge Instructions: Hyperthyroidism. - Prescriptions for Xanax 0.25 mg Oral Tablet - take 1 tablet by ORAL route every 8 hours As needed MDD: 3 tabs; 16 tablet. - Medication Reconciliation, Local Pharmacy Hours form. - Follow up: Vipul Hennessy; When: 2 - 3 days; Reason: Wound/Symptom Recheck, Recheck today's complaints, Worsening of conditions, Continuance of care. - Problem is an ongoing problem. - Symptoms have improved. Historical: - Allergies: Latex (open sores); - Home Meds: 1. Zantac 150 mg oral tab 1 tab 2 times per day (Last dose: 11/26/2016) 2. Dexilant 30 mg oral CpDB once daily (Last dose: 11/26/2016) 3. IUD 4. Maxalt 5 mg oral tab as needed 5. Atenolol 10 mg Oral 1 tab once daily (Last dose: 11/27/2016 04:00) 6. Valium 2 mg Oral tab 1 tab 3 times per day as needed 7. aspirin 325 mg Oral tab 1 tab as needed - PMHx: Diabetes - NIDDM: uncontrolled; GERD; Migraine Headaches; tachycardia; Hyperthyroidism; - PSHx: Appendectomy; Laparoscopy; - Social history: Smoking status: Patient states former smoker of tobacco. No barriers to communication noted, The patient speaks fluent Iranian. - Family history: Not pertinent. - : The pt / caregiver states he / she is not on anticoagulants. Home medication list is obtained from the patient. - Exposure Risk Screening:: None identified. 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 (165.10 cm); Pain 6/10; 10:33 BP 149 / 106 (auto/); kr3 10:34 Pulse 96 MON; Pulse Ox 96% ; kr3 10:48 BP 179 / 89 (auto/); kcs 10:49 Pulse 96 MON; Pulse Ox 96% ; kcs 11:06 BP 149 / 71 (auto/); kcs 11:07 Pulse 90 MON; kcs 11:18 BP 122 / 57 (auto/); kcs 11:18 Pulse 90 MON; kcs 11:18 BP 122 / 57 (auto/); kcs 11:18 Pulse 90 MON; Resp 20; Pulse Ox 95% on R/A; kcs 12:24 BP 133 / 72; Pulse 85; Resp 18; Temp 98.4(O); Pulse Ox 97% on R/A; Pain 0/10; kcs 10:14 Body Mass Index 39.60 (107.95 kg, 165.10 cm) elp MDM: 10:29 ECG WITH READING ER PHYS+CARDIAG ordered. EDMS 10:38 Motor Tester/Pulse Ox/q 15 min VS ordered. sd1 10:38 IV Saline Lock ordered. sd1 10:38 Basic Metabolic Profile Ordered. EDMS 10:38 CBC with Diff Ordered. EDMS 10:38 Urine Toxicology Ordered. EDMS 10:47 THYROID PROFILE Ordered. EDMS 10:50 Ondansetron 4 mg IVP once ordered. cc10 10:50 NS 0.9% 1000 ml IV at bolus once ordered. cc10 10:50 LORazepam 1 mg IVP once ordered. cc10 11:09 Financial registration complete. lg 11:52 Basic Metabolic Profile Reviewed. cc10 11:52 CBC with Diff Reviewed. cc10 11:52 THYROID PROFILE Reviewed. cc10 11:52 Urine Toxicology Reviewed. cc10 12:45 [facility] Payment Agreement was scanned into [employer] and attached to record. lg 14:41 T-Sheet-- Draft Copy was scanned into [employer] and attached to record. gb 14:41 ECG/EKG was scanned into [employer] and attached to record. gb Administered Medications: 11:03 Drug: Ondansetron 4 mg Route: IVP; Site: right antecubital; kr3 11:03 Drug: NS 0.9% 1000 ml [sodium chloride 0.9 % intravenous solution] Route: IV; Rate: kr3 bolus; Site: right antecubital; 12:24 Follow up: IV Status: Infusion discontinued; IV Intake: 750ml crow 11:03 Drug: LORazepam 1 mg [lorazepam 2 mg/mL injection solution (0.5 mL)] Route: IVP; Site: kr3 right antecubital; Signatures: Dispatcher MedHost EDMS Lexi Kaur MD MD sd1 Nory Burkett RN RN kcs Felicia Tripp RN RN kpNatalie Montez, Reg Reg gb Marylu Lawrence, Reg Reg lg Peter Lemons, PA-C PA-C cc10 Adrianna Dobbs RN kr3 The chart was reviewed and I authenticate all verbal orders and agree with the evaluation and treatment provided.Corrections: (The following items were deleted from the chart) 10:47 10:43 THYROID PROFILE+LAB ordered. EDMS EDMS 11:00 10:44 Chest, 2 view (PA\E\Lat)+XR ordered. EDMS EDMS Attachments: 12:45 [facility] [place] Agreement lg 14:41 T-Sheet-- Draft Copy gb 14:41 ECG/EKG gb Chart Complete MTDD
--- NOTE | 2016-11-29 13:29 | EDDOCDS ---
Nurse's Notes [facility] Name: Gloria Butler Age: 36 yrs Sex: Female : 1980 Arrival Date: 11/27/2016 Time: 10:12 Bed 14 Private MD: Vipul Hennessy Diagnosis: Chest pain, unspecified;Thyrotoxicosis [hyperthyroidism] Presentation: 11/27 10:19 Presenting complaint: Patient states: admitted last week for chest pain diagnosed [facility] hyperthyroidism , discharged home , now not feeling well again. anxious,dizzy elevated blood pressure and having chest pain. Adult Sepsis Screening: The patient does not have new or worsening altered mentation. Patient's respiratory rate is less than 22. Systolic blood pressure is greater than 100. Patient has a qSOFA score of 0- Negative Sepsis Screen. Suicide/Homicide risk assessment- the patient denies having any suicidal and/or homicidal ideations and does not present with any other emotional, behavioral or mental health complaints. 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 Transition of care: patient was not received from another setting of care. 10:19 Acuity: RIANNA Level 3 [facility] 10:19 Method Of Arrival: Walkin/Carried/Asstd [facility] Triage Assessment: 10:24 General: Appears distressed, Behavior is anxious. Pain: Location: chest Pain currently [facility] is 5 out of 10 on a pain scale. HIV screening NA for this visit Offered previously. Neurological: Level of Consciousness is awake, alert, Oriented to person, place, time. Cardiovascular: Chest pain is described as Pain is 5 out of 10 on a pain scale. is located in left anterior chest wall radiates to left scapula episodes are intermittent Chest pain began last night. Respiratory: Onset: The symptoms/episode began/occurred yesterday, Airway is patent Respiratory effort is even, unlabored, Respiratory pattern is regular, symmetrical. Derm: Skin is pink, warm & dry. 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 Zantac 150 mg oral tab 1 tab 2 times per day (Last dose: 11/26/2016) 2. Dexilant 30 mg oral CpDB once daily (Last dose: 11/26/2016) 3. IUD 4. Maxalt 5 mg oral tab as needed 5. Atenolol 10 mg Oral 1 tab once daily (Last dose: 11/27/2016 04:00) 6. Valium 2 mg Oral tab 1 tab 3 times per day as needed 7. aspirin 325 mg Oral tab 1 tab as needed - PMHx: Diabetes - NIDDM: uncontrolled; GERD; Migraine Headaches; tachycardia; Hyperthyroidism; - PSHx: Appendectomy; Laparoscopy; - Social history: Smoking status: Patient states former smoker of tobacco. No barriers to communication noted, The patient speaks fluent Greenlandic. - Family history: Not pertinent. - : The pt / caregiver states he / she is not on anticoagulants. Home medication list is obtained from the patient. - Exposure Risk Screening:: None identified. Screenin:38 Screening information is obtained from the patient. Fall risk: No risks identified. kr3 Assistance ADL's: requires no assistance with activities of daily living. Abuse/DV Screen: The patient / caregiver reports he/she is: not in a situation that causes fear, pain or injury. Nutritional screening: No deficits noted. Advance Directives: Currently, there is no health care proxy. home support is adequate. Assessment: 10:39 General: Appears distressed, Behavior is anxious, cooperative. Pain: Location: back and kr3 chest and left axilla Pain currently is 5 out of 10 on a pain scale. Cardiovascular: Rhythm is regular. Respiratory: Respiratory effort is even, unlabored, Breath sounds are clear bilaterally. Reports shortness of breath intermittently. GI: Reports nausea. Derm: Skin is normal. 11:31 Reassessment: Patient sitting up on stretcher - reading RN contract. States she is kcs feeling better. Talking easily. No dyspnea, no drooling. monitoring and evaluation advisor = RSR.. 12:24 Reassessment: Patient denies pain at this time. Patient states feeling better. Patient kcs states symptoms have improved. General: Appears comfortable, well developed, well nourished, well groomed, Behavior is cooperative, pleasant. Pain: Denies pain. Neurological: Level of Consciousness is awake, alert. Respiratory: Airway is patent Respiratory effort is even, unlabored, Respiratory pattern is regular, symmetrical. Derm: Skin is intact, is healthy with good turgor, Skin is dry, Skin is normal. Vital Signs: 10:14 BP 158 / 82; Pulse 103; Resp 20; Temp 99.0(O); Pulse Ox 98% on R/A; Weight 107.95 kg elp (R); Height 65 in. (165.10 cm); Pain 6/10; 10:33 BP 149 / 106 (auto/); kr3 10:34 Pulse 96 MON; Pulse Ox 96% ; kr3 10:48 BP 179 / 89 (auto/); kcs 10:49 Pulse 96 MON; Pulse Ox 96% ; kcs 11:06 BP 149 / 71 (auto/); kcs 11:07 Pulse 90 MON; kcs 11:18 BP 122 / 57 (auto/); kcs 11:18 Pulse 90 MON; kcs 11:18 BP 122 / 57 (auto/); kcs 11:18 Pulse 90 MON; Resp 20; Pulse Ox 95% on R/A; kcs 12:24 BP 133 / 72; Pulse 85; Resp 18; Temp 98.4(O); Pulse Ox 97% on R/A; Pain 0/10; kcs 10:14 Body Mass Index 39.60 (107.95 kg, 165.10 cm) elp Vitals: 10:14 Log In Time: November 27, 2016 at 10:12. el ED Course: 10:14 Patient visited by Bonnie Renee PCA. elp 10:14 Vipul Hennessy is Private Physician. elp 10:14 Patient moved to Waiting elp 10:15 Patient visited by Bonnie Renee PCA. elp 10:15 Patient moved to Pre RCE elp 10:22 Triage Initiated kpj 10:27 Patient moved to 14 kpj 10:33 EKG done. (by ED staff). Reviewed by Lexi Kaur MD. ct3 10:34 Patient visited by Jerrica Hull PCA. ct3 10:34 Accompanied by Friend, Patient has correct armband on for positive identification. ct3 Placed in gown. Bed in low position. Call light in reach. Side rails up X2. monitoring and evaluation advisor on. Pulse ox on. NIBP on. 10:35 Patient visited by Ebony Monroe PCA. rs6 10:38 Inserted saline lock: 20 gauge in right antecubital area and blood collected. The kr3 patient tolerated the procedure well. 10:40 The patient / caregiver is instructed regarding the plan of care and ED course. kr3 10:40 Basic Metabolic Profile Sent. kr3 10:40 CBC with Diff Sent. kr3 10:43 Peter Lemons [facility]-C [facility] cc10 10:43 Lexi Kaur MD is Attending Physician. cc10 10:43 Patient visited by Peter Lemons PA-C. cc10 10:43 Patient visited by Peter Lemons PA-C. cc10 11:03 Urine Toxicology Sent. kr3 12:04 Vipul Hennessy is Referral Physician. cc10 12:24 Discontinued IV lock intact, bleeding controlled, pressure dressing applied, No kcs redness/swelling at site. No procedures done that require assistance. 12:45 [facility] Payment Agreement was scanned into [employer] and attached to record. lg 14:41 T-Sheet-- Draft Copy was scanned into [employer] and attached to record. gb 14:41 ECG/EKG was scanned into [employer] and attached to record. gb 11/28 07:52 EKG-ADULT Returned. EDMS Administered Medications: 11/27 11:03 Drug: Ondansetron 4 mg Route: IVP; Site: right antecubital; kr3 11:03 Drug: NS 0.9% 1000 ml [sodium chloride 0.9 % intravenous solution] Route: IV; Rate: kr3 bolus; Site: right antecubital; 12:24 Follow up: IV Status: Infusion discontinued; IV Intake: 750ml kcs 11:03 Drug: LORazepam 1 mg [lorazepam 2 mg/mL injection solution (0.5 mL)] Route: IVP; Site: kr3 right antecubital; Intake: 12:24 IV: 750.00ml; Total: 750.00ml. kcs Order Results: Lab Order: Basic Metabolic Profile; SPEC'M 11/27/16 10:37 Test: GLUCOSE, FASTING; Value: 111; Range: 70-105; Abnormal: Above high normal; Units: MG/DL; Status: F Test: BLOOD UREA NITROGEN; Value: 13; Range: 7-18; Units: MG/DL; Status: F Test: CREATININE FOR GFR; Value: 0.77; Range: 0.55-1.02; Units: MG/DL; Status: F Test: GLOMERULAR FILTRATION RATE; Value: > 60.0; Range: >60; Status: F Test: SODIUM LEVEL; Value: 143; Range: 136-145; Units: MEQ/L; Status: F Test: POTASSIUM SERUM; Value: 3.8; Range: 3.5-5.1; Units: MEQ/L; Status: F Test: CHLORIDE LEVEL; Value: 108; Range: 98-107; Abnormal: Above high normal; Units: MEQ/L; Status: F Test: CARBON DIOXIDE LEVEL; Value: 27; Range: 21-32; Units: MEQ/L; Status: F Test: ANION GAP; Value: 8; Range: 8-16; Units: MEQ/L; Status: F Test: CALCIUM LEVEL; Value: 9.0; Range: 8.5-10.1; Units: MG/DL; Status: F Test Note: ; Units are mL/min/1.73 m2 Chronic Kidney Disease Staging per NKF: Stage I & II GFR >=60 Normal to Mildly Decreased Stage III GFR 30-59 Moderately Decreased Stage IV GFR 15-29 Severely Decreased Stage V GFR <15 Very Little GFR Left ESRD GFR <15 on 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 Lab Order: CBC with Diff; SPEC'M 11/27/16 10:37 Test: WHITE BLOOD COUNT; Value: 6.0; Range: 4.0-10.0; Units: K/mm3; Status: F Test: RED BLOOD COUNT; Value: 4.98; Range: 4.00-5.40; Units: M/mm3; Status: F Test: HEMOGLOBIN; Value: 14.2; Range: 12.0-16.0; Units: g/dl; Status: F Test: HEMATOCRIT; Value: 42.3; Range: 36.0-47.0; Units: %; Status: F Test: MEAN CORPUSCULAR VOLUME; Value: 84.9; Range: 80.0-96.0; Units: fl; Status: F Test: MEAN CORPUSCULAR HEMOGLOBIN; Value: 28.5; Range: 27.0-33.0; Units: pg; Status: F Test: MEAN CORPUSCULAR HGB CONC; Value: 33.6; Range: 32.0-36.5; Units: g/dl; Status: F Test: RED CELL DISTRIBUTION WIDTH; Value: 13.2; Range: 11.5-14.5; Units: %; Status: F Test: PLATELET COUNT, AUTOMATED; Value: 259; Range: 150-450; Units: k/mm3; Status: F Test: NEUTROPHILS %; Value: 58.5; Range: 36.0-66.0; Units: %; Status: F Test: LYMPH %; Value: 28.5; Range: 24.0-44.0; Units: %; Status: F Test: MONO %; Value: 5.9; Range: 0.0-5.0; Abnormal: Above high normal; Units: %; Status: F Test: EOS %; Value: 2.4; Range: 0.0-3.0; Units: %; Status: F Test: BASO %; Value: 2.2; Range: 0.0-1.0; Abnormal: Above high normal; Units: %; Status: F Test: LARGE UNSTAINED CELL %; Value: 2.4; Range: 0.0-4.0; Units: %; Status: F Test: NEUTROPHILS #; Value: 3.5; Range: 1.8-7.7; Units: K/mm3; Status: F Test: LYMPH #; Value: 1.9; Range: 1.5-4.5; Units: K/mm3; Status: F Test: MONO #; Value: 0.4; Range: 0.0-0.8; Units: K/mm3; Status: F Test: EOS #; Value: 0.2; Range: 0.0-0.50; Units: K/mm3; Status: F Test: BASO #; Value: 0.1; Range: 0.0-0.2; Units: K/mm3; Status: F Test: LARGE UNSTAINED CELL #; Value: 0.2; Range: 0.0-0.4; Units: K/mm3; Status: F Lab Order: Urine Toxicology; SPEC'M 11/27/16 11:02 Test: AMPHETAMINES LEVEL URINE; Value: NEGATIVE; Range: NEGATIVE; Status: F Test: BARBITURATES URINE; Value: NEGATIVE; Range: NEGATIVE; Status: F Test: BENZODIAZEPINES URINE; Value: NEGATIVE; Range: NEGATIVE; Status: F Test: CANNABINOIDS URINE; Value: NEGATIVE; Range: NEGATIVE; Status: F Test: COCAINE METABOLITE URINE; Value: NEGATIVE; Range: NEGATIVE; Status: F Test: METHADONE URINE; Value: NEGATIVE; Range: NEGATIVE; Status: F Test: OPIATES URINE; Value: NEGATIVE; Range: NEGATIVE; Status: F Test: TRICYCLIC ANTIDEPRESS URINE; Value: NEGATIVE; Range: NEGATIVE; Status: F Test Note: ; ALL PRESUMPTIVE POSITIVE FINDINGS ARE UNCONFIRMED NORMAL VALUES THRESHOLD IN NG/ML AMPHETAMINES 1000 METHAMPHETAMINES 1000 BARBITURATES 300 BENZODIAZEPINES 300 CANNABINOIDS (THC) 50 COCAINE METABOLITE 300 METHADONE 300 OPIATES 300 PHENCYCLIDINE 25 TRICYCLIC ANTIDEPRESSANTS 1000 RESULTS ARE FOR MEDICAL PURPOSES ONLY. ALL URINE SPECIMENS WILL BE SAVED FOR 3 DAYS. IF CONFIRMATION OF A PRESUMPTIVE POSTIVE SCREEN RESULT IS DESIRED, CALL CHEMISTRY ([phone]) AND REQUEST URINE TO BE SENT TO REFERENCE LAB. FOR A LIST OF CLOSELY RELATED COMPOUNDS PLEASE CALL THE LAB. Lab Order: THYROID PROFILE; SPEC'M 11/27/16 10:37 Test: T UPTAKE; Value: 37; Range: 30-39; Units: %; Status: F Test: THYROXINE (T4); Value: 17.4; Range: 4.5-12.0; Abnormal: Above high normal; Units: UG/DL; Status: F Test: FREE THYROXINE INDEX; Value: 6.4; Range: 1.3-4.8; Abnormal: Above high normal; Units: %; Status: F Test: THYROID STIMULATING HORMONE; Value: 0.025; Range: 0.358-3.740; Abnormal: Below low normal; Units: uIU/ML; Status: F Radiology Order: EKG-ADULT Test: EKG-ADULT REASON FOR EXAMINATION: Chest Pain; Stationary ECG Study; [facility] - ED; ; Test Date: 2016-11-27; Pat Name: GLORIA BUTLER Department:; Room: -; 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 cc10 12:24 Discharge Assessment: Patient awake, alert and oriented x 3. No cognitive and/or kcs functional deficits noted. Patient verbalized understanding of disposition instructions. Patient awake and alert. patient administered narcotics - yes. Pt provided with safe discharge. The following High Risk Discharge criteria are identified: None. Discharged to home ambulatory, with friend. Condition: stable. Discharge instructions given to patient, Instructed on discharge instructions, follow up and referral plans. medication usage, Demonstrated understanding of instructions, medications, Pt was receptive of discharge instructions/ teaching. No special radiology studies were completed. Property sent home with patient. 12:27 Patient left the ED. kcs Signatures: Dispatcher MedHost EDMS Nory Burkett, RN RN Felicia Henning, RN RN Natalie Nagel, Reg Reg gb Coni Lawrencee, Reg Reg lg Adrianna DobbsRN RN kr3 Jerrica Hull, PHYSICIAN LOCUMS URGENT CARE PHYSICIAN LOCUMS URGENT CARE ct3 Bonnie Renee, PHYSICIAN LOCUMS URGENT CARE PHYSICIAN LOCUMS URGENT CARE elp Peter Lemons, PA-C PA-C cc10 Ebony Monroe, PHYSICIAN LOCUMS URGENT CARE PHYSICIAN LOCUMS URGENT CARE rs6 Chart Complete MTDD
--- NOTE | 2016-11-29 13:29 | EDDOCDS ---
Physician Documentation [facility] Name: Gloria Butler Age: 36 yrs Sex: Female : 1980 Arrival Date: 11/27/2016 Time: 10:12 Bed 14 Private MD: Vipul Hennessy Disposition: 11/27/16 12:04 Discharged to Home/Self Care. Impression: Chest pain, unspecified, Thyrotoxicosis [hyperthyroidism]. - Condition is Stable. - Discharge Instructions: Hyperthyroidism. - Prescriptions for Xanax 0.25 mg Oral Tablet - take 1 tablet by ORAL route every 8 hours As needed MDD: 3 tabs; 16 tablet. - Medication Reconciliation, Local Pharmacy Hours form. - Follow up: Viupl Hennessy; When: 2 - 3 days; Reason: Wound/Symptom Recheck, Recheck today's complaints, Worsening of conditions, Continuance of care. - Problem is an ongoing problem. - Symptoms have improved. Historical: - Allergies: Latex (open sores); - Home Meds: 1. Zantac 150 mg oral tab 1 tab 2 times per day (Last dose: 11/26/2016) 2. Dexilant 30 mg oral CpDB once daily (Last dose: 11/26/2016) 3. IUD 4. Maxalt 5 mg oral tab as needed 5. Atenolol 10 mg Oral 1 tab once daily (Last dose: 11/27/2016 04:00) 6. Valium 2 mg Oral tab 1 tab 3 times per day as needed 7. aspirin 325 mg Oral tab 1 tab as needed - PMHx: Diabetes - NIDDM: uncontrolled; GERD; Migraine Headaches; tachycardia; Hyperthyroidism; - PSHx: Appendectomy; Laparoscopy; - Social history: Smoking status: Patient states former smoker of tobacco. No barriers to communication noted, The patient speaks fluent Marshallese. - Family history: Not pertinent. - : The pt / caregiver states he / she is not on anticoagulants. Home medication list is obtained from the patient. - Exposure Risk Screening:: None identified. 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 (165.10 cm); Pain 6/10; 10:33 BP 149 / 106 (auto/); kr3 10:34 Pulse 96 MON; Pulse Ox 96% ; kr3 10:48 BP 179 / 89 (auto/); kcs 10:49 Pulse 96 MON; Pulse Ox 96% ; kcs 11:06 BP 149 / 71 (auto/); kcs 11:07 Pulse 90 MON; kcs 11:18 BP 122 / 57 (auto/); kcs 11:18 Pulse 90 MON; kcs 11:18 BP 122 / 57 (auto/); kcs 11:18 Pulse 90 MON; Resp 20; Pulse Ox 95% on R/A; kcs 12:24 BP 133 / 72; Pulse 85; Resp 18; Temp 98.4(O); Pulse Ox 97% on R/A; Pain 0/10; kcs 10:14 Body Mass Index 39.60 (107.95 kg, 165.10 cm) elp MDM: 10:29 ECG WITH READING ER PHYS+CARDIAG ordered. EDMS 10:38 User Experience Manager/Pulse Ox/q 15 min VS ordered. sd1 10:38 IV Saline Lock ordered. sd1 10:38 Basic Metabolic Profile Ordered. EDMS 10:38 CBC with Diff Ordered. EDMS 10:38 Urine Toxicology Ordered. EDMS 10:47 THYROID PROFILE Ordered. EDMS 10:50 Ondansetron 4 mg IVP once ordered. cc10 10:50 NS 0.9% 1000 ml IV at bolus once ordered. cc10 10:50 LORazepam 1 mg IVP once ordered. cc10 11:09 Financial registration complete. lg 11:52 Basic Metabolic Profile Reviewed. cc10 11:52 CBC with Diff Reviewed. cc10 11:52 THYROID PROFILE Reviewed. cc10 11:52 Urine Toxicology Reviewed. cc10 12:45 [facility] Payment Agreement was scanned into [employer] and attached to record. lg 14:41 T-Sheet-- Draft Copy was scanned into [employer] and attached to record. gb 14:41 ECG/EKG was scanned into [employer] and attached to record. gb Administered Medications: 11:03 Drug: Ondansetron 4 mg Route: IVP; Site: right antecubital; kr3 11:03 Drug: NS 0.9% 1000 ml [sodium chloride 0.9 % intravenous solution] Route: IV; Rate: kr3 bolus; Site: right antecubital; 12:24 Follow up: IV Status: Infusion discontinued; IV Intake: 750ml crow 11:03 Drug: LORazepam 1 mg [lorazepam 2 mg/mL injection solution (0.5 mL)] Route: IVP; Site: kr3 right antecubital; Signatures: Dispatcher Med[employer] EDMS Lexi Kaur MD MD sd1 Nory Burkett RN RN kcs Felicia Tripp RN RN kpNatalie Montez, Reg Reg gb Marylu Lawrence, Reg Reg lg Peter Lemons, PA-C PA-C cc10 Adrianna Dobbs RN kr3 The chart was reviewed and I authenticate all verbal orders and agree with the evaluation and treatment provided.Corrections: (The following items were deleted from the chart) 10:47 10:43 THYROID PROFILE+LAB ordered. EDMS EDMS 11:00 10:44 Chest, 2 view (PA\E\Lat)+XR ordered. EDMS EDMS Attachments: 12:45 [facility] [place] Agreement lg 14:41 T-Sheet-- Draft Copy gb 14:41 ECG/EKG gb Chart Complete MTDD
== END 2016-11-27 12:27 | disposition home or self-care (01) ==
LOC: M ED 10:12
DX: R07.89 Other chest pain (principal); R06.02 Shortness of breath; R00.0 Tachycardia, unspecified; E11.9 Type 2 diabetes mellitus without complications; K21.9 Gastro-esophageal reflux disease without esophagitis; E05.90 Thyrotoxicosis, unspecified without thyrotoxic crisis or storm; E66.9 Obesity, unspecified; Z91.040 Latex allergy status; Z79.899 Other long term (current) drug therapy; Z87.891 Personal history of nicotine dependence
CPT/HCPCS: 36415; 80048; 80306; 84436; 84443; 84479; 85025; 93005; 93041; 96361; 96374; 96375; 99284; J2060; J2405

== ENCOUNTER 2016-12-06 18:15 | Emergency (ER) | payer SELFPAY ==
[2016-12-06] MEDS ORDERED: ACETAMINOPHEN 325 MG TAB As Ordered ONE (18:43)
[2016-12-06] MEDS ORDERED: IBUPROFEN 800 MG TAB As Ordered ONE (18:43)
[2016-12-06] MEDS ORDERED: LIDOCAINE VISCOUS 2% SOLN 15ML UDC ONE (20:11)
[2016-12-06] MEDS ORDERED: ONDANSETRON 4 MG ORAL DISINTEGRATING TAB (S0181) ONE (20:11)
[2016-12-06] MEDS ORDERED: prednisoLONE (PRELONE) 15MG/5ML SYRUP UDC ONE (20:11)
[2016-12-06] MEDS ORDERED: MAALOX 30 ML SUSP *UDC ONE (20:11)
[2016-12-06] MEDS ORDERED: ACETAMINOPHEN/CODEINE 12.5 ML UDC ONE (20:11)
--- NOTE | 2016-12-06 20:30 | EDDOCDS ---
Physician Documentation [facility] Name: Gloria Butler Age: 36 yrs Sex: Female : 1980 Arrival Date: 12/06/2016 Time: 18:15 Bed I6 / 28 Private MD: Vipul Hennessy Disposition: 12/06/16 19:58 Discharged to Home/Self Care. Impression: Streptococcal pharyngitis. - Condition is Stable. - Discharge Instructions: Pharyngitis, Strep Throat, [id number]. - Prescriptions for Amoxicillin 250 mg/5 mL Oral Suspension for Reconstitution - take 10 milliliter by ORAL route every 8 hours for 10 days; 300 milliliter. prednisolone 15 mg/5 mL Oral Solution - take 20 milliliter by ORAL route once daily Take with food.; 100 milliliter. - Work Release Form - 1 day, Medication Reconciliation, Local Pharmacy Hours form. - Follow up: Vipul Hennessy; When: 2 - 3 days; Reason: Continuance of care. Follow up: Emergency Department; When: As needed; Reason: Worsening of conditions. - Problem is new. - Symptoms have improved. Historical: - Allergies: Latex (open sores); - Home Meds: 1. Dexilant 30 mg oral CpDB 1 cap once daily (Last dose: 12/05/2016) 2. aspirin 325 mg Oral tab 1 tab as needed (Last dose: Unknown) 3. Atenolol 10 mg Oral 1 tab once daily (Last dose: 12/05/2016) 4. IUD 5. Zantac 150 mg Oral tab 1 tab 2 times per day (Last dose: 12/05/2016) 6. ibuprofen 800 mg Oral tab 1 tab 3 times per day as needed (Last dose: 12/06/2016 10:30) 7. acetaminophen 500 mg Oral tab 2 tabs every 4 hours as needed (Last dose: 12/06/2016 10:30) - PMHx: Diabetes - NIDDM: uncontrolled; GERD; Hyperthyroidism; Migraine Headaches; tachycardia; - PSHx: Appendectomy; Laparoscopy; - Social history: Smoking status: Patient states former smoker of tobacco. No barriers to communication noted, The patient speaks fluent Burmese. - Family history: Not pertinent. - : The pt / caregiver states he / she is not on anticoagulants. Home medication list is obtained from the patient. - Exposure Risk Screening:: None identified. 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 (165.10 cm); Pain 8/10; 20:26 BP 119 / 86; Pulse 122; Resp 18; Temp 101.7(O); Pulse Ox 97% on R/A; jo3 18:17 Body Mass Index 38.61 (105.23 kg, 165.10 cm) lr2 MDM: 18:35 Acetaminophen Tablet 975 mg PO once ordered. dk1 18:35 Ibuprofen 800 mg PO once ordered. dk1 18:35 Obtain sample by nasopharyngeal swab ordered. dk1 18:35 Strep Screen, Nursing ordered. dk1 18:35 Fluid Challenge ordered. dk1 18:36 -Influenza A&B Rapid Antigen - Nose Ordered. EDMS 18:51 Alum-Mag Hydroxide-Simeth Suspension 225 mg-200 mg-25 mg/5 mL 30 ml PO once ordered. dk1 18:51 Lidocaine Liquid 4 % 1 applic Mucous Membrane once ordered. dk1 19:02 Financial registration complete. gb 19:22 -Influenza A&B Rapid Antigen - Nose Reviewed. dk1 19:57 Acetaminophen-Codeine (0.5mg/kg) Liquid 30 mg PO once; (not to exceed 60 milligrams of dk1 codeine) ordered. 19:57 prednisoLONE (2mg/kg) Liquid 60 mg PO once; not to exceed 80 milligrams ordered. dk1 20:00 [facility] Payment Agreement was scanned into [employer] and attached to record. gb Administered Medications: 18:55 Drug: Ibuprofen 800 mg [ibuprofen 800 mg tablet (1 tabs)] Route: PO; jo3 18:56 Drug: Acetaminophen 975 mg [acetaminophen 325 mg tablet (3 tabs)] Route: PO; jo3 19:16 Drug: Alum-Mag Hydroxide-Simeth 30 ml [aluminum-mag hydroxide-simethicone 225 mg-200 pml mg-25 mg/5 mL oral susp (30 mL)] Route: PO; 19:16 Drug: Lidocaine 1 applic [lidocaine 4 % (40 mg/mL) mucosal solution (1 applic)] Route: pml Mucous Membrane; 20:25 Drug: prednisoLONE (2mg/kg) 60 mg [prednisolone 15 mg/5 mL oral solution (20 mL)] jo3 Route: PO; 20:26 Drug: Acetaminophen-Codeine (0.5mg/kg) 30 mg [acetaminophen 300 mg-codeine 30 mg/12.5 jo3 mL (12.5 mL) oral solution (30 mg)] Route: PO; Signatures: Dispatcher [employer] Felicia Dickinson, RN RN ticoj Natalie Taylor, Reg Reg gb Aneesh Marr, PA-Ty PA-Mary Bryant RN RN jo3 Nicole Muhammad RN pml The chart was reviewed and I authenticate all verbal orders and agree with the evaluation and treatment provided.Attachments: 20:00 [facility] Payment Agreement gb MTDD
--- NOTE | 2016-12-06 20:30 | EDDOCDS ---
Nurse's Notes [facility] Name: Gloria Butler Age: 36 yrs Sex: Female : 1980 Arrival Date: 12/06/2016 Time: 18:15 Bed I6 / 28 Private MD: Vipul Hennessy Diagnosis: Streptococcal pharyngitis Presentation: 12/06 18:24 Presenting complaint: Patient states: body aches fever sore throat for a couple of [facility] days. Was seen at urgent care yesterday placed on Amoxicillin. Adult Sepsis Screening: The patient does not have new or worsening altered mentation. Patient has a respiratory rate of greater than or equal to 22 (1 point). Systolic blood pressure is greater than 100. Patient has a qSOFA score of 0- Negative Sepsis Screen. Suicide/Homicide risk assessment- the patient denies having any suicidal and/or homicidal ideations and does not present with any other emotional, behavioral or mental health complaints. 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 Transition of care: patient was not received from another setting of care. 18:24 Acuity: RIANNA Level 3 [facility] 18:24 Method Of Arrival: Walkin/Carried/Asstd [facility] Triage Assessment: 18:29 General: Appears uncomfortable, Behavior is anxious. General: refuses to remove heavy [facility] coat in triage.. Pain: Location: throat and body aches Pain currently is 8 out of 10 on a pain scale. HIV screening NA for this visit Offered previously. Neurological: Level of Consciousness is awake, alert, Oriented to person, place, time. EENT: Reports pain when swallowing Pain is 9 out of 10 on a pain scale. Respiratory: Airway is patent Respiratory effort is even, unlabored, Respiratory pattern is regular, symmetrical. Derm: Skin is dry, Skin is pink, Skin temperature is hot. Musculoskeletal: Reports pain in low back area Pain is 9 out of 10 on a pain scale. 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 Dexilant 30 mg oral CpDB 1 cap once daily (Last dose: 12/05/2016) 2. aspirin 325 mg Oral tab 1 tab as needed (Last dose: Unknown) 3. Atenolol 10 mg Oral 1 tab once daily (Last dose: 12/05/2016) 4. IUD 5. Zantac 150 mg Oral tab 1 tab 2 times per day (Last dose: 12/05/2016) 6. ibuprofen 800 mg Oral tab 1 tab 3 times per day as needed (Last dose: 12/06/2016 10:30) 7. acetaminophen 500 mg Oral tab 2 tabs every 4 hours as needed (Last dose: 12/06/2016 10:30) - PMHx: Diabetes - NIDDM: uncontrolled; GERD; Hyperthyroidism; Migraine Headaches; tachycardia; - PSHx: Appendectomy; Laparoscopy; - Social history: Smoking status: Patient states former smoker of tobacco. No barriers to communication noted, The patient speaks fluent [place] Islander. - Family history: Not pertinent. - : The pt / caregiver states he / she is not on anticoagulants. Home medication list is obtained from the patient. - Exposure Risk Screening:: None identified. Screenin:41 Screening information is obtained from the patient. Fall risk: No risks identified. jo3 Assistance ADL's: requires no assistance with activities of daily living. Abuse/DV Screen: The patient / caregiver reports he/she is: not in a situation that causes fear, pain or injury. Nutritional screening: No deficits noted. Advance Directives: There is no active DNR order. home support is adequate. Assessment: 18:45 General: Appears distressed, uncomfortable, Behavior is crying. Pain: Location: Body jo3 aches. Neurological: Level of Consciousness is awake, alert, Oriented to person, place, time. EENT: Throat is reddened with gag reflex present. Cardiovascular: No deficits noted. Respiratory: Airway is patent Respiratory effort is even, unlabored. Derm: Skin is intact, Skin is dry, Skin is normal. 19:40 Reassessment: Patient appears in no apparent distress at this time. Patient states jo3 feeling better. Patient states symptoms have improved. Significant other at bedside. Awaiting results at this time. Aware of plan of care . 20:26 General: Appears in no apparent distress, comfortable, Behavior is appropriate for age, jo3 cooperative, pleasant. General:. Neurological: Level of Consciousness is awake, alert, Oriented to person, place, time. Respiratory: Airway is patent Respiratory effort is even, unlabored. Vital Signs: 18:17 BP 154 / 79; Pulse 152; Resp 22; Temp 103.8(O); Pulse Ox 97% on R/A; Weight 105.23 kg lr2 (R); Height 65 in. (165.10 cm); Pain 8/10; 20:26 BP 119 / 86; Pulse 122; Resp 18; Temp 101.7(O); Pulse Ox 97% on R/A; jo3 18:17 Body Mass Index 38.61 (105.23 kg, 165.10 cm) lr2 Vitals: 18:17 Log In Time: December 06, 2016 at 18:16. lr2 18:58 Strep Screen is obtained and tested: Positive. pml ED Course: 18:17 Patient visited by Lisa Oliva. lr2 18:17 Vipul Hennessy is Private Physician. lr2 18:17 Patient moved to Waiting lr2 18:17 Patient moved to Pre RCE lr2 18:26 Triage Initiated [facility] 18:34 [facility] dk1 18:34 Lexi Kaur MD is Attending Physician. dk1 18:36 Patient moved to Triage 1 dem1 18:37 Patient moved to I6 / 28 srm 18:43 Patient visited by Aneesh Marr PA-C. dk1 18:55 -Influenza A&B Rapid Antigen - Nose Sent. jo3 19:41 The patient / caregiver is instructed regarding the plan of care and ED course. jo3 19:41 No IV's were initiated during this patient's visit. No procedures done that require jo3 assistance. 19:42 Patient visited by Mary Lucas RN. jo3 19:57 Vipul Hennessy is Referral Physician. dk1 20:00 [facility] Payment Agreement was scanned into [employer] and attached to record. gb Administered Medications: 18:55 Drug: Ibuprofen 800 mg [ibuprofen 800 mg tablet (1 tabs)] Route: PO; jo3 18:56 Drug: Acetaminophen 975 mg [acetaminophen 325 mg tablet (3 tabs)] Route: PO; jo3 19:16 Drug: Alum-Mag Hydroxide-Simeth 30 ml [aluminum-mag hydroxide-simethicone 225 mg-200 pml mg-25 mg/5 mL oral susp (30 mL)] Route: PO; 19:16 Drug: Lidocaine 1 applic [lidocaine 4 % (40 mg/mL) mucosal solution (1 applic)] Route: pml Mucous Membrane; 20:25 Drug: prednisoLONE (2mg/kg) 60 mg [prednisolone 15 mg/5 mL oral solution (20 mL)] jo3 Route: PO; 20:26 Drug: Acetaminophen-Codeine (0.5mg/kg) 30 mg [acetaminophen 300 mg-codeine 30 mg/12.5 jo3 mL (12.5 mL) oral solution (30 mg)] Route: PO; Order Results: Lab Order: -Influenza A&B Rapid Antigen - Nose; SPEC'M 12/06/16 18:49 Test: INFLUENZA A RAPID SCR by ICA; Value: INFLUENZA A RESULTS NEGATIVE; Status: F Test: INFLUENZA A RAPID SCR by ICA; Value: Comments:; Status: F Test: INFLUENZA B RAPID SCR by ICA; Value: INFLUENZA B RESULTS NEGATIVE; Status: F Test Note: ; The Influenza test is a direct rapid immunoassay for the qualitative detection of Influenza viral antigen. Cell culture (Viral Culture) testing should be considered to confirm NEGATIVE results and to assist in detecting other viruses that can provide similar clinical symptoms. Please contact the lab within 24 hours ([phone]) if confirmatory testing is desired. Outcome: 19:58 Discharge ordered by Provider. dk1 20:26 Discharge Assessment: Patient awake, alert and oriented x 3. No cognitive and/or jo3 functional deficits noted. Patient verbalized understanding of disposition instructions. patient administered narcotics - yes. Pt provided with safe discharge. The following High Risk Discharge criteria are identified: None. Discharged to home ambulatory, with significant other. Condition: stable Condition: improved. Discharge instructions given to patient, Instructed on discharge instructions, follow up and referral plans. medication usage, Demonstrated understanding of instructions, medications, Pt was receptive of discharge instructions/ teaching. Prescriptions given X 2. No special radiology studies were completed. Property sent home with patient. 20:29 Patient left the ED. jo3 Signatures: Felicia Tripp RN Phoebe London RN RN srm Barnhardt, Gloria, Aneesh Smyth, PA-C PA-C dk1 Mary Lucas RN RN jo3 Nicole Muhammad RN RN pml Abby Stover1 Lisa Oliva2 MTDD
--- NOTE | 2016-12-08 21:31 | EDDOCDS ---
Nurse's Notes [facility] Name: Gloria Butler Age: 36 yrs Sex: Female : 1980 Arrival Date: 12/06/2016 Time: 18:15 Bed I6 / 28 Private MD: Vipul Hennessy Diagnosis: Streptococcal pharyngitis Presentation: 12/06 18:24 Presenting complaint: Patient states: body aches fever sore throat for a couple of [facility] days. Was seen at urgent care yesterday placed on Amoxicillin. Adult Sepsis Screening: The patient does not have new or worsening altered mentation. Patient has a respiratory rate of greater than or equal to 22 (1 point). Systolic blood pressure is greater than 100. Patient has a qSOFA score of 0- Negative Sepsis Screen. Suicide/Homicide risk assessment- the patient denies having any suicidal and/or homicidal ideations and does not present with any other emotional, behavioral or mental health complaints. 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 Transition of care: patient was not received from another setting of care. 18:24 Acuity: RIANNA Level 3 [facility] 18:24 Method Of Arrival: Walkin/Carried/Asstd [facility] Triage Assessment: 18:29 General: Appears uncomfortable, Behavior is anxious. General: refuses to remove heavy [facility] coat in triage.. Pain: Location: throat and body aches Pain currently is 8 out of 10 on a pain scale. HIV screening NA for this visit Offered previously. Neurological: Level of Consciousness is awake, alert, Oriented to person, place, time. EENT: Reports pain when swallowing Pain is 9 out of 10 on a pain scale. Respiratory: Airway is patent Respiratory effort is even, unlabored, Respiratory pattern is regular, symmetrical. Derm: Skin is dry, Skin is pink, Skin temperature is hot. Musculoskeletal: Reports pain in low back area Pain is 9 out of 10 on a pain scale. 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 Dexilant 30 mg oral CpDB 1 cap once daily (Last dose: 12/05/2016) 2. aspirin 325 mg Oral tab 1 tab as needed (Last dose: Unknown) 3. Atenolol 10 mg Oral 1 tab once daily (Last dose: 12/05/2016) 4. IUD 5. Zantac 150 mg Oral tab 1 tab 2 times per day (Last dose: 12/05/2016) 6. ibuprofen 800 mg Oral tab 1 tab 3 times per day as needed (Last dose: 12/06/2016 10:30) 7. acetaminophen 500 mg Oral tab 2 tabs every 4 hours as needed (Last dose: 12/06/2016 10:30) - PMHx: Diabetes - NIDDM: uncontrolled; GERD; Hyperthyroidism; Migraine Headaches; tachycardia; - PSHx: Appendectomy; Laparoscopy; - Social history: Smoking status: Patient states former smoker of tobacco. No barriers to communication noted, The patient speaks fluent Colombian. - Family history: Not pertinent. - : The pt / caregiver states he / she is not on anticoagulants. Home medication list is obtained from the patient. - Exposure Risk Screening:: None identified. Screenin:41 Screening information is obtained from the patient. Fall risk: No risks identified. jo3 Assistance ADL's: requires no assistance with activities of daily living. Abuse/DV Screen: The patient / caregiver reports he/she is: not in a situation that causes fear, pain or injury. Nutritional screening: No deficits noted. Advance Directives: There is no active DNR order. home support is adequate. Assessment: 18:45 General: Appears distressed, uncomfortable, Behavior is crying. Pain: Location: Body jo3 aches. Neurological: Level of Consciousness is awake, alert, Oriented to person, place, time. EENT: Throat is reddened with gag reflex present. Cardiovascular: No deficits noted. Respiratory: Airway is patent Respiratory effort is even, unlabored. Derm: Skin is intact, Skin is dry, Skin is normal. 19:40 Reassessment: Patient appears in no apparent distress at this time. Patient states jo3 feeling better. Patient states symptoms have improved. Significant other at bedside. Awaiting results at this time. Aware of plan of care . 20:26 General: Appears in no apparent distress, comfortable, Behavior is appropriate for age, jo3 cooperative, pleasant. General:. Neurological: Level of Consciousness is awake, alert, Oriented to person, place, time. Respiratory: Airway is patent Respiratory effort is even, unlabored. Vital Signs: 18:17 BP 154 / 79; Pulse 152; Resp 22; Temp 103.8(O); Pulse Ox 97% on R/A; Weight 105.23 kg lr2 (R); Height 65 in. (165.10 cm); Pain 8/10; 20:26 BP 119 / 86; Pulse 122; Resp 18; Temp 101.7(O); Pulse Ox 97% on R/A; jo3 18:17 Body Mass Index 38.61 (105.23 kg, 165.10 cm) lr2 Vitals: 18:17 Log In Time: December 06, 2016 at 18:16. lr2 18:58 Strep Screen is obtained and tested: Positive. pml ED Course: 18:17 Patient visited by Lisa Oliva. lr2 18:17 Vipul Hennessy is Private Physician. lr2 18:17 Patient moved to Waiting lr2 18:17 Patient moved to Pre RCE lr2 18:26 Triage Initiated [facility] 18:34 [facility] dk[facility] 18:34 Lexi Kaur MD is Attending Physician. dk1 18:36 Patient moved to Triage 1 dem1 18:37 Patient moved to I6 / 28 srm 18:43 Patient visited by Aneesh Marr PA-C. dk1 18:55 -Influenza A&B Rapid Antigen - Nose Sent. jo3 19:41 The patient / caregiver is instructed regarding the plan of care and ED course. jo3 19:41 No IV's were initiated during this patient's visit. No procedures done that require jo3 assistance. 19:42 Patient visited by Mary Lucas RN. jo3 19:57 Vipul Hennessy is Referral Physician. dk1 20:00 [facility] Payment Agreement was scanned into [employer] and attached to record. gb 12/07 12:10 T-Sheet-- Draft Copy was scanned into [employer] and attached to record. gb Administered Medications: 12/06 18:55 Drug: Ibuprofen 800 mg [ibuprofen 800 mg tablet (1 tabs)] Route: PO; jo3 18:56 Drug: Acetaminophen 975 mg [acetaminophen 325 mg tablet (3 tabs)] Route: PO; jo3 19:16 Drug: Alum-Mag Hydroxide-Simeth 30 ml [aluminum-mag hydroxide-simethicone 225 mg-200 pml mg-25 mg/5 mL oral susp (30 mL)] Route: PO; 19:16 Drug: Lidocaine 1 applic [lidocaine 4 % (40 mg/mL) mucosal solution (1 applic)] Route: pml Mucous Membrane; 20:25 Drug: prednisoLONE (2mg/kg) 60 mg [prednisolone 15 mg/5 mL oral solution (20 mL)] jo3 Route: PO; 20:26 Drug: Acetaminophen-Codeine (0.5mg/kg) 30 mg [acetaminophen 300 mg-codeine 30 mg/12.5 jo3 mL (12.5 mL) oral solution (30 mg)] Route: PO; Order Results: Lab Order: -Influenza A&B Rapid Antigen - Nose; SPEC'M 12/06/16 18:49 Test: INFLUENZA A RAPID SCR by ICA; Value: INFLUENZA A RESULTS NEGATIVE; Status: F Test: INFLUENZA A RAPID SCR by ICA; Value: Comments:; Status: F Test: INFLUENZA B RAPID SCR by ICA; Value: INFLUENZA B RESULTS NEGATIVE; Status: F Test Note: ; The Influenza test is a direct rapid immunoassay for the qualitative detection of Influenza viral antigen. Cell culture (Viral Culture) testing should be considered to confirm NEGATIVE results and to assist in detecting other viruses that can provide similar clinical symptoms. Please contact the lab within 24 hours ([phone]) if confirmatory testing is desired. Outcome: 19:58 Discharge ordered by Provider. dk1 20:26 Discharge Assessment: Patient awake, alert and oriented x 3. No cognitive and/or jo3 functional deficits noted. Patient verbalized understanding of disposition instructions. patient administered narcotics - yes. Pt provided with safe discharge. The following High Risk Discharge criteria are identified: None. Discharged to home ambulatory, with significant other. Condition: stable Condition: improved. Discharge instructions given to patient, Instructed on discharge instructions, follow up and referral plans. medication usage, Demonstrated understanding of instructions, medications, Pt was receptive of discharge instructions/ teaching. Prescriptions given X 2. No special radiology studies were completed. Property sent home with patient. 20:29 Patient left the ED. jo3 Signatures: Felicia Tripp RN RN Phoebe Thomas RN RN [facility] Claudia, Natalie, Reg Reg Aneesh Bernal, PA-C PA-C dk1 Mary Lucas RN RN jo3 Nicole Muhammad RN RN pml Mack, Demeishia dem1 Lisa Oliva lr2 Chart Complete MTDD
--- NOTE | 2016-12-08 21:31 | EDDOCDS ---
Physician Documentation [facility] Name: Gloria Butler Age: 36 yrs Sex: Female : 1980 Arrival Date: 12/06/2016 Time: 18:15 Bed I6 / 28 Private MD: Vipul Hennessy Disposition: 12/06/16 19:58 Discharged to Home/Self Care. Impression: Streptococcal pharyngitis. - Condition is Stable. - Discharge Instructions: Pharyngitis, Strep Throat, [id number]-[id number]. - Prescriptions for Amoxicillin 250 mg/5 mL Oral Suspension for Reconstitution - take 10 milliliter by ORAL route every 8 hours for 10 days; 300 milliliter. prednisolone 15 mg/5 mL Oral Solution - take 20 milliliter by ORAL route once daily Take with food.; 100 milliliter. - Work Release Form - 1 day, Medication Reconciliation, Local Pharmacy Hours form. - Follow up: Vipul Hennessy; When: 2 - 3 days; Reason: Continuance of care. Follow up: Emergency Department; When: As needed; Reason: Worsening of conditions. - Problem is new. - Symptoms have improved. Historical: - Allergies: Latex (open sores); - Home Meds: 1. Dexilant 30 mg oral CpDB 1 cap once daily (Last dose: 12/05/2016) 2. aspirin 325 mg Oral tab 1 tab as needed (Last dose: Unknown) 3. Atenolol 10 mg Oral 1 tab once daily (Last dose: 12/05/2016) 4. IUD 5. Zantac 150 mg Oral tab 1 tab 2 times per day (Last dose: 12/05/2016) 6. ibuprofen 800 mg Oral tab 1 tab 3 times per day as needed (Last dose: 12/06/2016 10:30) 7. acetaminophen 500 mg Oral tab 2 tabs every 4 hours as needed (Last dose: 12/06/2016 10:30) - PMHx: Diabetes - NIDDM: uncontrolled; GERD; Hyperthyroidism; Migraine Headaches; tachycardia; - PSHx: Appendectomy; Laparoscopy; - Social history: Smoking status: Patient states former smoker of tobacco. No barriers to communication noted, The patient speaks fluent Finnish. - Family history: Not pertinent. - : The pt / caregiver states he / she is not on anticoagulants. Home medication list is obtained from the patient. - Exposure Risk Screening:: None identified. 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 (165.10 cm); Pain 8/10; 20:26 BP 119 / 86; Pulse 122; Resp 18; Temp 101.7(O); Pulse Ox 97% on R/A; jo3 18:17 Body Mass Index 38.61 (105.23 kg, 165.10 cm) lr2 MDM: 18:35 Acetaminophen Tablet 975 mg PO once ordered. dk1 18:35 Ibuprofen 800 mg PO once ordered. dk1 18:35 Obtain sample by nasopharyngeal swab ordered. dk1 18:35 Strep Screen, Nursing ordered. dk1 18:35 Fluid Challenge ordered. dk1 18:36 -Influenza A&B Rapid Antigen - Nose Ordered. EDMS 18:51 Alum-Mag Hydroxide-Simeth Suspension 225 mg-200 mg-25 mg/5 mL 30 ml PO once ordered. dk1 18:51 Lidocaine Liquid 4 % 1 applic Mucous Membrane once ordered. dk1 19:02 Financial registration complete. gb 19:22 -Influenza A&B Rapid Antigen - Nose Reviewed. dk1 19:57 Acetaminophen-Codeine (0.5mg/kg) Liquid 30 mg PO once; (not to exceed 60 milligrams of dk1 codeine) ordered. 19:57 prednisoLONE (2mg/kg) Liquid 60 mg PO once; not to exceed 80 milligrams ordered. dk1 20:00 [facility] Payment Agreement was scanned into [employer] and attached to record. gb 12/07 12:10 T-Sheet-- Draft Copy was scanned into [employer] and attached to record. gb Administered Medications: 12/06 18:55 Drug: Ibuprofen 800 mg [ibuprofen 800 mg tablet (1 tabs)] Route: PO; jo3 18:56 Drug: Acetaminophen 975 mg [acetaminophen 325 mg tablet (3 tabs)] Route: PO; jo3 19:16 Drug: Alum-Mag Hydroxide-Simeth 30 ml [aluminum-mag hydroxide-simethicone 225 mg-200 pml mg-25 mg/5 mL oral susp (30 mL)] Route: PO; 19:16 Drug: Lidocaine 1 applic [lidocaine 4 % (40 mg/mL) mucosal solution (1 applic)] Route: pml Mucous Membrane; 20:25 Drug: prednisoLONE (2mg/kg) 60 mg [prednisolone 15 mg/5 mL oral solution (20 mL)] jo3 Route: PO; 20:26 Drug: Acetaminophen-Codeine (0.5mg/kg) 30 mg [acetaminophen 300 mg-codeine 30 mg/12.5 jo3 mL (12.5 mL) oral solution (30 mg)] Route: PO; Signatures: Dispatcher [employer] EDFelicia Thomson RN RN ticoj Natalie Taylor, Aneesh Smyth PA-C PA-C dk1 Mary LucasRN RN jo3 Nicole Muhammad RN pml The chart was reviewed and I authenticate all verbal orders and agree with the evaluation and treatment provided.Attachments: 20:00 [facility] Payment Agreement gb 12/07 12:10 T-Sheet-- Draft Copy gb Chart Complete MTDD
--- NOTE | 2016-12-08 21:31 | EDDOCDS ---
Physician Documentation [facility] Name: Gloria Butler Age: 36 yrs Sex: Female : 1980 Arrival Date: 12/06/2016 Time: 18:15 Bed I6 / 28 Private MD: Vipul Hennessy Disposition: 12/06/16 19:58 Discharged to Home/Self Care. Impression: Streptococcal pharyngitis. - Condition is Stable. - Discharge Instructions: Pharyngitis, Strep Throat, [id number]. - Prescriptions for Amoxicillin 250 mg/5 mL Oral Suspension for Reconstitution - take 10 milliliter by ORAL route every 8 hours for 10 days; 300 milliliter. prednisolone 15 mg/5 mL Oral Solution - take 20 milliliter by ORAL route once daily Take with food.; 100 milliliter. - Work Release Form - 1 day, Medication Reconciliation, Local Pharmacy Hours form. - Follow up: Vipul Hennessy; When: 2 - 3 days; Reason: Continuance of care. Follow up: Emergency Department; When: As needed; Reason: Worsening of conditions. - Problem is new. - Symptoms have improved. Historical: - Allergies: Latex (open sores); - Home Meds: 1. Dexilant 30 mg oral CpDB 1 cap once daily (Last dose: 12/05/2016) 2. aspirin 325 mg Oral tab 1 tab as needed (Last dose: Unknown) 3. Atenolol 10 mg Oral 1 tab once daily (Last dose: 12/05/2016) 4. IUD 5. Zantac 150 mg Oral tab 1 tab 2 times per day (Last dose: 12/05/2016) 6. ibuprofen 800 mg Oral tab 1 tab 3 times per day as needed (Last dose: 12/06/2016 10:30) 7. acetaminophen 500 mg Oral tab 2 tabs every 4 hours as needed (Last dose: 12/06/2016 10:30) - PMHx: Diabetes - NIDDM: uncontrolled; GERD; Hyperthyroidism; Migraine Headaches; tachycardia; - PSHx: Appendectomy; Laparoscopy; - Social history: Smoking status: Patient states former smoker of tobacco. No barriers to communication noted, The patient speaks fluent Ugandan. - Family history: Not pertinent. - : The pt / caregiver states he / she is not on anticoagulants. Home medication list is obtained from the patient. - Exposure Risk Screening:: None identified. 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 (165.10 cm); Pain 8/10; 20:26 BP 119 / 86; Pulse 122; Resp 18; Temp 101.7(O); Pulse Ox 97% on R/A; jo3 18:17 Body Mass Index 38.61 (105.23 kg, 165.10 cm) lr2 MDM: 18:35 Acetaminophen Tablet 975 mg PO once ordered. dk1 18:35 Ibuprofen 800 mg PO once ordered. dk1 18:35 Obtain sample by nasopharyngeal swab ordered. dk1 18:35 Strep Screen, Nursing ordered. dk1 18:35 Fluid Challenge ordered. dk1 18:36 -Influenza A&B Rapid Antigen - Nose Ordered. EDMS 18:51 Alum-Mag Hydroxide-Simeth Suspension 225 mg-200 mg-25 mg/5 mL 30 ml PO once ordered. dk1 18:51 Lidocaine Liquid 4 % 1 applic Mucous Membrane once ordered. dk1 19:02 Financial registration complete. gb 19:22 -Influenza A&B Rapid Antigen - Nose Reviewed. dk1 19:57 Acetaminophen-Codeine (0.5mg/kg) Liquid 30 mg PO once; (not to exceed 60 milligrams of dk1 codeine) ordered. 19:57 prednisoLONE (2mg/kg) Liquid 60 mg PO once; not to exceed 80 milligrams ordered. dk1 20:00 [facility] Payment Agreement was scanned into [employer] and attached to record. gb 12/07 12:10 T-Sheet-- Draft Copy was scanned into [employer] and attached to record. gb Administered Medications: 12/06 18:55 Drug: Ibuprofen 800 mg [ibuprofen 800 mg tablet (1 tabs)] Route: PO; jo3 18:56 Drug: Acetaminophen 975 mg [acetaminophen 325 mg tablet (3 tabs)] Route: PO; jo3 19:16 Drug: Alum-Mag Hydroxide-Simeth 30 ml [aluminum-mag hydroxide-simethicone 225 mg-200 pml mg-25 mg/5 mL oral susp (30 mL)] Route: PO; 19:16 Drug: Lidocaine 1 applic [lidocaine 4 % (40 mg/mL) mucosal solution (1 applic)] Route: pml Mucous Membrane; 20:25 Drug: prednisoLONE (2mg/kg) 60 mg [prednisolone 15 mg/5 mL oral solution (20 mL)] jo3 Route: PO; 20:26 Drug: Acetaminophen-Codeine (0.5mg/kg) 30 mg [acetaminophen 300 mg-codeine 30 mg/12.5 jo3 mL (12.5 mL) oral solution (30 mg)] Route: PO; Signatures: Dispatcher [employer] EDFelicia Thomson RN RN ticoj Natalie Taylor, Aneesh Smyth PA-C PA-C dk1 Mary LucasRN RN jo3 Nicole Muhammad RN pml The chart was reviewed and I authenticate all verbal orders and agree with the evaluation and treatment provided.Attachments: 20:00 [facility] Payment Agreement gb 12/07 12:10 T-Sheet-- Draft Copy gb Chart Complete MTDD
== END 2016-12-06 20:29 | disposition home or self-care (01) ==
LOC: M ED 18:15
DX: J02.0 Streptococcal pharyngitis (principal); E11.9 Type 2 diabetes mellitus without complications; K21.9 Gastro-esophageal reflux disease without esophagitis; E78.00 Pure hypercholesterolemia, unspecified; G43.909 Migraine, unspecified, not intractable, without status migrainosus; R00.0 Tachycardia, unspecified; Z90.89 Acquired absence of other organs; Z87.891 Personal history of nicotine dependence; Z79.3 Long term (current) use of hormonal contraceptives; Z79.899 Other long term (current) drug therapy; Z91.040 Latex allergy status

== ENCOUNTER → 2017-07-20 | Outpatient (CLI) | payer SELFPAY ==
[~2017-07-20] MED LIST changes: -DEXI30CA PO; +DEXI30CA2 PO
--- NOTE | 2017-07-21 15:42 | REP ---
Radionuclide thyroid uptake and scan: History: Hyperthyroidism. Technique: 362.0 Microcuries of I 123 sodium iodide is ingested and functional thyroid images and thyroid uptake values are acquired. Findings: 24 uptake value is normal at 26.7% (25-35% old. Functional images demonstrate homogeneous uptake in normal symmetric thyroid lobes. No cold or warm lesion is seen. Impression: Unremarkable thyroid uptake and scan. Signed by Alex Szymanski MD 07/21/2017 03:33 P
== END ==
LOC: M RAD 13:08
PROVIDERS: ATTEND Physician Assistant
DX: E05.90 Thyrotoxicosis, unspecified without thyrotoxic crisis or storm (principal)
CPT/HCPCS: 78012; A9516

== ENCOUNTER → 2017-07-22 | Outpatient (CLI) | payer SELFPAY ==
[2017-07-22 09:00] LABS: BASO % 0.6 % (0.0-1.0); EOS # 0.2 K/mm3 (0.0-0.50); EOS % 3.2 % (0.0-3.0); LARGE UNSTAINED CELL # 0.1 K/mm3 (0.0-0.4); LARGE UNSTAINED CELL % 1.2 % (0.0-4.0); LYMPH # 1.8 K/mm3 (1.5-4.5); LYMPH % 25.6 % (24.0-44.0); MEAN CORPUSCULAR HEMOGLOBIN 29.4 pg (27.0-33.0); MEAN CORPUSCULAR HGB CONC 33.6 g/dl (32.0-36.5); MEAN CORPUSCULAR VOLUME 87.6 fl (80.0-96.0); MONO # 0.4 K/mm3 (0.0-0.8); MONO % 5.7 % (0.0-5.0); NEUTROPHILS # 4.3 K/mm3 (1.8-7.7); NEUTROPHILS % 63.7 % (36.0-66.0); PLATELET COUNT, AUTOMATED 209 k/mm3 (150-450); WHITE BLOOD COUNT 6.8 K/mm3 (4.0-10.0)
[2017-07-22 09:37] LABS: ALBUMIN 3.8 GM/DL (3.2-5.2); ALBUMIN/GLOBULIN RATIO 1.15 (1.00-1.93); ALKALINE PHOSPHATASE 48 U/L (45-117); ALT/SGPT 26 U/L (12-78); ANION GAP 8 MEQ/L (8-16); AST/SGOT 12 U/L (15-37); BILIRUBIN,TOTAL 0.4 MG/DL (0.2-1.0); BLOOD UREA NITROGEN 11 MG/DL (7-18); CALCIUM LEVEL 8.6 MG/DL (8.5-10.1); CARBON DIOXIDE LEVEL 26 MEQ/L (21-32); CHLORIDE LEVEL 108 MEQ/L (98-107); CHOLESTEROL LEVEL 176 MG/DL (<200); CREATININE FOR GFR 0.82 MG/DL (0.55-1.02); FREE T4 1.04 NG/DL (0.76-1.46); GLOMERULAR FILTRATION RATE > 60.0 (>60); GLUCOSE, FASTING 121 MG/DL (70-105); POTASSIUM SERUM 4.6 MEQ/L (3.5-5.1); SODIUM LEVEL 142 MEQ/L (136-145); TOTAL PROTEIN 7.1 GM/DL (6.4-8.2); TRIGLYCERIDES LEVEL 155 MG/DL (<150)
== END ==
LOC: M LAB 08:28
PROVIDERS: ATTEND Physician Assistant
DX: Z00.00 Encounter for general adult medical examination without abnormal findings (principal)

== ENCOUNTER 2017-10-29 17:35 | Emergency (ER) | payer SELFPAY, BC | END 2017-10-29 18:50 | disposition home or self-care (01) | LOC: M ED 17:35 | DX: J20.9 Acute bronchitis, unspecified (principal); Z86.718 Personal history of other venous thrombosis and embolism; Z79.82 Long term (current) use of aspirin; Z79.899 Other long term (current) drug therapy; Z91.040 Latex allergy status; Z91.018 Allergy to other foods | CPT/HCPCS: 71020 ==

== ENCOUNTER 2017-11-03 14:21 | Emergency (ER) | payer SELFPAY | END 2017-11-03 15:17 | disposition left against medical advice (07) | LOC: M ED 14:21 | DX: R05 Cough (principal); Z53.21 Procedure and treatment not carried out due to patient leaving prior to being seen by health care provider ==

== ENCOUNTER 2018-11-07 14:04 | Emergency (ER) | payer SELFPAY ==
[~2018-11-07] VITALS: Ht 160 cm; Wt 109.1 kg
[~2018-11-07 14:04] MED LIST changes: +ASPI81TA85 PO; +NEXI40CA PO; +PROAAER10 INH; -ZANT300T PO; +ZANT300T9 PO; +ZITHTAB PO
[2018-11-07 14:52] LABS: BASO % 0.5 % (0.0-1.0); EOS # 0.2 10^3/uL (0.0-0.50); EOS % 2.4 % (0.0-3.0); HEMATOCRIT 42.3 % (36.0-47.0); LYMPH # 1.7 10^3/uL (1.5-4.5); LYMPH % 27.4 % (24.0-44.0); MEAN CORPUSCULAR HEMOGLOBIN 28.4 pg (27.0-33.0); MEAN CORPUSCULAR HGB CONC 33.1 g/dl (32.0-36.5); MEAN CORPUSCULAR VOLUME 85.8 fl (80.0-96.0); MONO # 0.4 10^3/uL (0.0-0.8); MONO % 5.8 % (0.0-5.0); NEUTROPHILS # 4.1 10^3/uL (1.8-7.7); NEUTROPHILS % 63.7 % (36.0-66.0); PLATELET COUNT, AUTOMATED 247 10^3/uL (150-450); RED BLOOD COUNT 4.93 10^6/uL (4.00-5.40); WHITE BLOOD COUNT 6.4 10^3/uL (4.0-10.0)
[2018-11-07] MEDS ORDERED: MORPHINE 4 MG/ML 1ML VIAL/SYRINGE (J2270) IV ONE (15:15)
[2018-11-07] MEDS ORDERED: NS 1,000 ML IV ONE (15:15)
[2018-11-07] MEDS ORDERED: ONDANSETRON 4MG/2ML VIAL (J2405) IV ONE (15:15)
[2018-11-07 15:17] LABS: ALBUMIN 4.2 GM/DL (3.2-5.2); ALT/SGPT 33 U/L (12-78); AMYLASE 39 U/L (25-115); BILIRUBIN,DIRECT 0.1 MG/DL (0.0-0.2); BILIRUBIN,TOTAL 0.6 MG/DL (0.2-1.0); BLOOD UREA NITROGEN 11 MG/DL (7-18); CALCIUM LEVEL 8.9 MG/DL (8.5-10.1); CARBON DIOXIDE LEVEL 26 MEQ/L (21-32); CHLORIDE LEVEL 106 MEQ/L (98-107); CREATININE FOR GFR 0.76 MG/DL (0.55-1.30); GLOMERULAR FILTRATION RATE > 60.0 (>60); GLUCOSE, FASTING 98 MG/DL (70-100); LIPASE 132 U/L (73-393); POTASSIUM SERUM 4.2 MEQ/L (3.5-5.1); SODIUM LEVEL 139 MEQ/L (136-145); TOTAL PROTEIN 7.4 GM/DL (6.4-8.2)
[2018-11-07] MEDS ORDERED: GI COCKTAIL 50ML BTL(HYOSCYAMINE/MAALOX/LIDOCAINE VISCOUS)(1:3:1) PO ONE (16:15)
--- NOTE | 2018-11-07 16:56 | REP ---
KUB one-view History: Epigastric pain A small amount of air is present in small and large intestine. There are no air-fluid levels or dilated loops of intestine. An IUD is present in the pelvis. Calcifications are present in the pelvis. These most likely represent phleboliths. A calcified density is present in the right lower quadrant. Impression: Nonspecific bowel gas pattern. Electronically Signed by Jack Berry MD 11/07/2018 04:47 P
[2018-11-07] MEDS ORDERED: COLA100C5 PO (17:28)
[2018-11-07] MEDS ORDERED: SIME180C PO (17:28)
[2018-11-07] MEDS ORDERED: NORCOTAB PO (17:28)
[2018-11-07] MEDS ORDERED: ZOFR4TAB14 PO (17:28)
[2018-11-07] MEDS ORDERED: NORCO, ANEXSIA 5/325MG TABLET (HYDROcodone/ACETAMINOPHEN) PO ONE (17:30)
[2018-11-07 17:36] VITALS: BP 139/85
--- NOTE | 2018-11-07 18:02 | REPVR ---
EXAM: US Abdomen Limited, Right Upper Quadrant EXAM DATE/TIME: 11/07/2018 5:14 PM CLINICAL HISTORY: 37 years old, female; Pain; Abdominal pain; Epigastric; Additional info: Epigstric pain TECHNIQUE: Real-time ultrasound of the abdomen with image documentation. Examination was focused on the right upper quadrant. COMPARISON: GALLBLADDER US 04/11/2016 11:36 PM FINDINGS: Liver: Hyperechogenicity of the liver with mild inhomogeneity is nonspecific and could reflect diffuse fatty infiltration, versus less likely cirrhosis, hepatitis, or other etiologies. Clinical correlation recommended. Gallbladder: Hyperechoic immobile gallstone in the gallbladder neck measuring 1.4 cm. Gallbladder is not distended. No definite pericholecystic fluid. Gallbladder wall measures 2 mm. Acute cholecystitis cannot be entirely excluded given the immobile gallstone, however no additional signs are identified to suggest acute cholecystitis. Clinical correlation recommended. If clinical suspicion for acute cholecystitis is high, consider HIDA scan. Common bile duct: Common bile duct measures 2 mm. Pancreas: Pancreas not well evaluated secondary to bowel gas. Right kidney: Right kidney measures 12.0 cm. IMPRESSION: 1. Hyperechoic immobile gallstone in the gallbladder neck measuring 1.4 cm. Gallbladder is not distended. No definite pericholecystic fluid. Gallbladder wall measures 2 mm. Acute cholecystitis cannot be entirely excluded given the immobile gallstone, however no additional signs are identified to suggest acute cholecystitis. Clinical correlation recommended. If clinical suspicion for acute cholecystitis is high, consider HIDA scan. 2. Hyperechogenicity of the liver with mild inhomogeneity is nonspecific and could reflect diffuse fatty infiltration, versus less likely cirrhosis, hepatitis, or other etiologies. Clinical correlation recommended. Electronically signed by: Aneesh Sewell On 11/07/2018 18:01:48 PM
--- NOTE | 2018-11-08 13:41 | ECGEPIP ---
Stationary ECG Study [facility] - ED Test Date: 2018-11-07 Pat Name: [facility] Department: Room: - Gender: F Right Of Way Man: keshia : 1980 Requested By: AMINTA Mae PA-C Order Number: [id number] Reading MD: Lexi Kaur Measurements Intervals [place] Rate: 69 P: 5 MA: 139 QRS: 28 QRSD: 85 T: -7 QT: 395 QTc: 425 Interpretive Statements SINUS RHYTHM NONSPECIFIC T-WAVE ABNORMALITY DECREASED RATE 11/27/16 Electronically Signed On 11-08-2018 13:41:03 EST by Lexi Kaur
--- NOTE | 2018-11-09 08:48 | ED PDOC ---
Post-Departure Follow-Up dr brito and dr peralta faxed formal report of us for fu Bhupinder Alva MD Nov 09, 2018 08:48
== END 2018-11-07 17:44 | disposition home or self-care (01) ==
LOC: M ED 14:04
DX: K80.40 Calculus of bile duct with cholecystitis, unspecified, without obstruction (principal); K76.0 Fatty (change of) liver, not elsewhere classified; K21.9 Gastro-esophageal reflux disease without esophagitis; E07.9 Disorder of thyroid, unspecified; Z79.899 Other long term (current) drug therapy; Z79.82 Long term (current) use of aspirin; Z91.018 Allergy to other foods; Z91.040 Latex allergy status
CPT/HCPCS: 36415; 74018; 76705; 80048; 80076; 81001; 82150; 83690; 85025; 93005; 96361; 96374; 96375; 99284; J2270; J2405

== ENCOUNTER → 2019-02-22 | Outpatient (REF) | payer BC, SELFPAY ==
[~2019-02-22] MED LIST changes: +COLA100C5 PO; +HYDR-3715 PO; +SIME180C PO; +ZOFR4TAB14 PO
[2019-02-22 11:30] LABS: BASO % 0.4 % (0.0-1.0); EOS # 0.3 10^3/uL (0.0-0.50); EOS % 4.3 % (0.0-3.0); HEMATOCRIT 42.2 % (36.0-47.0); HEMOGLOBIN 13.9 g/dl (12.0-15.5); LYMPH # 2.1 10^3/uL (1.5-4.5); LYMPH % 30.6 % (24.0-44.0); MEAN CORPUSCULAR HGB CONC 32.9 g/dl (32.0-36.5); MEAN CORPUSCULAR VOLUME 87.9 fl (80.0-96.0); MONO # 0.5 10^3/uL (0.0-0.8); MONO % 7.2 % (0.0-5.0); NEUTROPHILS % 57.2 % (36.0-66.0); PLATELET COUNT, AUTOMATED 255 10^3/uL (150-450)
[2019-02-22 12:22] LABS: ALBUMIN 4.2 GM/DL (3.2-5.2); ALT/SGPT 32 U/L (12-78); BILIRUBIN,TOTAL 0.3 MG/DL (0.2-1.0); BLOOD UREA NITROGEN 15 MG/DL (7-18); CALCIUM LEVEL 8.9 MG/DL (8.5-10.1); CARBON DIOXIDE LEVEL 26 MEQ/L (21-32); CHLORIDE LEVEL 106 MEQ/L (98-107); CREATININE FOR GFR 0.92 MG/DL (0.55-1.30); FREE T4 1.16 NG/DL (0.76-1.46); GLOMERULAR FILTRATION RATE > 60.0 (>60); GLUCOSE, FASTING 157 MG/DL (70-100); POTASSIUM SERUM 4.1 MEQ/L (3.5-5.1); SODIUM LEVEL 140 MEQ/L (136-145); TOTAL PROTEIN 7.2 GM/DL (6.4-8.2)
[2019-02-22 12:27] LABS: HEMOGLOBIN A1c 6.6 %
== END ==
LOC: M LAB REF 11:17
PROVIDERS: ATTEND Physician Assistant
DX: R00.2 Palpitations (principal)

== ENCOUNTER → 2019-04-14 | Outpatient (CLI) | payer BC ==
--- NOTE | 2019-04-14 13:55 | REP ---
CHEST, TWO VIEWS: Two views of the chest are performed. COMPARISON: 10/29/2017 There is mild cardiomegaly, unchanged since prior study. There is no acute infiltrate or pulmonary edema. The mediastinal silhouette is unchanged. IMPRESSION: Mild cardiomegaly. No acute infiltrate or pulmonary edema. Electronically Signed by Mason Carter MD 04/14/2019 04:43 P
== END ==
LOC: M RAD 12:53
PROVIDERS: ATTEND Physician Assistant
DX: I51.7 Cardiomegaly (principal); R06.02 Shortness of breath; R60.9 Edema, unspecified

== ENCOUNTER → 2019-05-01 | Outpatient (REF) | payer BC | LOC: M LAB REF 12:45 | PROVIDERS: ATTEND Surgery | DX: Z01.812 Encounter for preprocedural laboratory examination (principal); K21.9 Gastro-esophageal reflux disease without esophagitis ==

== ENCOUNTER 2019-05-30 10:58 | Emergency (ER) | payer BC ==
[~2019-05-30] VITALS: Ht 162.6 cm; Wt 108.6 kg
[2019-05-30] MEDS ORDERED: ENOX40IN3 (11:06)
[2019-05-30] MEDS ORDERED: ONDA4TAB6 (11:06)
[2019-05-30] MEDS ORDERED: OMEP-221 (11:06)
[2019-05-30 12:15] LABS: BASO # 0.1 10^3/uL (0.0-0.2); BASO % 0.6 % (0.0-1.0); EOS # 0.1 10^3/uL (0.0-0.50); EOS % 1.1 % (0.0-3.0); HEMATOCRIT 46.7 % (36.0-47.0); HEMOGLOBIN 15.9 g/dl (12.0-15.5); LYMPH # 1.8 10^3/uL (1.5-4.5); LYMPH % 20.4 % (24.0-44.0); MEAN CORPUSCULAR HEMOGLOBIN 29.2 pg (27.0-33.0); MEAN CORPUSCULAR VOLUME 85.8 fl (80.0-96.0); MONO # 0.6 10^3/uL (0.0-0.8); MONO % 7.2 % (0.0-5.0); NEUTROPHILS # 6.2 10^3/uL (1.8-7.7); NEUTROPHILS % 70.4 % (36.0-66.0); PLATELET COUNT, AUTOMATED 293 10^3/uL (150-450); RED BLOOD COUNT 5.44 10^6/uL (4.00-5.40); WHITE BLOOD COUNT 8.8 10^3/uL (4.0-10.0)
[2019-05-30] MEDS ORDERED: NS 1,000 ML IV ONE (12:30)
[2019-05-30] MEDS ORDERED: ONDANSETRON 4MG/2ML VIAL (J2405) IV ONE (12:30)
[2019-05-30 12:42] LABS: ALBUMIN 4.2 GM/DL (3.2-5.2); ALT/SGPT 43 U/L (12-78); BILIRUBIN,DIRECT 0.2 MG/DL (0.0-0.2); BILIRUBIN,TOTAL 0.6 MG/DL (0.2-1.0); BLOOD UREA NITROGEN 10 MG/DL (7-18); CALCIUM LEVEL 9.6 MG/DL (8.5-10.1); CARBON DIOXIDE LEVEL 15 MEQ/L (21-32); CHLORIDE LEVEL 108 MEQ/L (98-107); CREATININE FOR GFR 0.74 MG/DL (0.55-1.30); GLOMERULAR FILTRATION RATE > 60.0 (>60); GLUCOSE, FASTING 80 MG/DL (70-100); LIPASE 260 U/L (73-393); POTASSIUM SERUM 4.5 MEQ/L (3.5-5.1); SODIUM LEVEL 138 MEQ/L (136-145); TOTAL PROTEIN 8.2 GM/DL (6.4-8.2)
--- NOTE | 2019-05-30 13:57 | REP ---
Clinical: Abdominal pain with nausea and vomiting. Technique: Two supine views of the abdomen and pelvis. Findings: Nonspecific bowel gas pattern. Evidence for prior appendectomy and gastric bypass surgery. No organomegaly. No abnormal calcifications. Phleboliths noted in the pelvis. Skeletal structures intact. Impression: Nonspecific abdominal radiographs. . Electronically Signed by Camron Randall MD 05/30/2019 01:47 P
[2019-05-30] MEDS ORDERED: ZOFR4TAB16 PO (14:17)
[2019-05-30 14:29] VITALS: BP 111/58
== END 2019-05-30 14:45 | disposition home or self-care (01) ==
LOC: M ED 10:58
DX: R10.9 Unspecified abdominal pain (principal); R11.0 Nausea; Z98.84 Bariatric surgery status; I10 Essential (primary) hypertension; K21.9 Gastro-esophageal reflux disease without esophagitis; E66.9 Obesity, unspecified; Z79.899 Other long term (current) drug therapy; Z91.018 Allergy to other foods; Z91.040 Latex allergy status; Z87.891 Personal history of nicotine dependence
CPT/HCPCS: 74018; 80048; 80076; 83690; 84702; 85025; 96361; 96374; 99284; J2405

== ENCOUNTER → 2019-06-13 | Outpatient (CLI) | payer BC ==
[~2019-06-13] MED LIST changes: +CIPR-249 PO; +CIPR500T3 PO; +ENOX40IN3; +FLOM0.4C39 PO; +HYDR-3713 PO; +MISO100T22; +NORC1TAB7 PO; +OMEP-218 PO; +OMEP-221; +ONDA4TAB6; +ONDA4TAB6 PO; +POTA20TA6; +SUCR1SS; +ZOFR4TAB16 PO
[2019-06-13 14:48] LABS: ALBUMIN 3.9 GM/DL (3.2-5.2); ALT/SGPT 30 U/L (12-78); BILIRUBIN,TOTAL 0.5 MG/DL (0.2-1.0); BLOOD UREA NITROGEN 4 MG/DL (7-18); CALCIUM LEVEL 9.1 MG/DL (8.5-10.1); CARBON DIOXIDE LEVEL 25 MEQ/L (21-32); CHLORIDE LEVEL 106 MEQ/L (98-107); CREATININE FOR GFR 0.71 MG/DL (0.55-1.30); GLOMERULAR FILTRATION RATE > 60.0 (>60); GLUCOSE, FASTING 148 MG/DL (70-100); POTASSIUM SERUM 3.2 MEQ/L (3.5-5.1); SODIUM LEVEL 140 MEQ/L (136-145); TOTAL PROTEIN 6.9 GM/DL (6.4-8.2)
== END ==
LOC: M LAB 13:56
PROVIDERS: ATTEND Surgery
DX: E87.6 Hypokalemia (principal)

== ENCOUNTER 2019-06-15 10:32 | Emergency (ER) | payer BC ==
[~2019-06-15] VITALS: Ht 165.1 cm; Wt 106.4 kg
[~2019-06-15 10:32] MED LIST changes: -CIPR-249 PO; -CIPR500T3 PO; -FLOM0.4C39 PO; -HYDR-3713 PO; -MISO100T22; -NORC1TAB7 PO; -OMEP-218 PO; -ONDA4TAB6 PO; -POTA20TA6; -SUCR1SS
[2019-06-15] MEDS ORDERED: POTA20TA6 (10:44)
[2019-06-15] MEDS ORDERED: SUCR1SS (10:44)
[2019-06-15] MEDS ORDERED: MISO100T22 (10:44)
[2019-06-15 11:13] LABS: BASO % 0.4 % (0.0-1.0); EOS # 0.1 10^3/uL (0.0-0.50); EOS % 2.5 % (0.0-3.0); HEMATOCRIT 43.5 % (36.0-47.0); HEMOGLOBIN 14.3 g/dl (12.0-15.5); LYMPH # 1.6 10^3/uL (1.5-4.5); LYMPH % 33.1 % (24.0-44.0); MEAN CORPUSCULAR HEMOGLOBIN 29.1 pg (27.0-33.0); MEAN CORPUSCULAR HGB CONC 32.9 g/dl (32.0-36.5); MEAN CORPUSCULAR VOLUME 88.6 fl (80.0-96.0); MONO # 0.4 10^3/uL (0.0-0.8); MONO % 8.5 % (0.0-5.0); NEUTROPHILS # 2.7 10^3/uL (1.8-7.7); NEUTROPHILS % 55.1 % (36.0-66.0); PLATELET COUNT, AUTOMATED 248 10^3/uL (150-450); RED BLOOD COUNT 4.91 10^6/uL (4.00-5.40); WHITE BLOOD COUNT 4.8 10^3/uL (4.0-10.0)
--- NOTE | 2019-06-15 11:37 | REP ---
REASON: Chest pain. FINDINGS: The technique utilized in obtaining the radiograph has magnified the cardiac silhouette and accentuated the interstitial markings. The superior mediastinal structures are midline. The cardiac silhouette is unremarkable in size, shape, and position. The diaphragmatic surfaces of the lungs are regular, and the costophrenic angles are clear. The pulmonary osborn are clear. The imaged osseous structures are intact. IMPRESSION: There is no acute cardiopulmonary disease. Electronically Signed by Nelson Murphy DO 06/15/2019 12:34 P
[2019-06-15 11:55] LABS: ALBUMIN 4.1 GM/DL (3.2-5.2); ALT/SGPT 42 U/L (12-78); BILIRUBIN,DIRECT 0.2 MG/DL (0.0-0.2); BILIRUBIN,TOTAL 0.6 MG/DL (0.2-1.0); BLOOD UREA NITROGEN 7 MG/DL (7-18); CALCIUM LEVEL 9.4 MG/DL (8.5-10.1); CARBON DIOXIDE LEVEL 27 MEQ/L (21-32); CHLORIDE LEVEL 103 MEQ/L (98-107); CK-MB VALUE MASS < 1.0 NG/ML (<3.6); CPK CREATINE PHOSPHOKINASE 161 U/L (26-192); CREATININE FOR GFR 0.86 MG/DL (0.55-1.30); GLOMERULAR FILTRATION RATE > 60.0 (>60); GLUCOSE, FASTING 121 MG/DL (70-100); LIPASE 298 U/L (73-393); MB/CK RELATIVE INDEX 0.62 (< OR =4); NT-PRO BNP 84 PG/ML (<125); POTASSIUM SERUM 3.1 MEQ/L (3.5-5.1); SODIUM LEVEL 142 MEQ/L (136-145); TOTAL PROTEIN 7.3 GM/DL (6.4-8.2); TROPONIN I < 0.02 NG/ML (< 0.10)
[2019-06-15 12:30] VITALS: BP 108/61
--- NOTE | 2019-06-15 17:59 | ECGEPIP ---
[facility] - ED Test Date: 2019-06-15 Pat Name: [facility] Department: Room: - Gender: Female Cloud Architect: [email or web address] : 1980 Requested By: Lexi Kaur Order Number: [id number] Reading MD: Lexi Kaur Measurements Intervals [place] Rate: 68 P: 45 NV: 139 QRS: 31 QRSD: 85 T: -1 QT: 390 QTc: 415 Interpretive Statements SINUS RHYTHM NONSPECIFIC ST & T-WAVE ABNORMALITY SIMILAR 11/07/18 Electronically Signed on 06-15-2019 17:59:28 EDT by Lexi Kaur
== END 2019-06-15 12:34 | disposition home or self-care (01) ==
LOC: M ED 10:32
DX: R07.89 Other chest pain (principal); I10 Essential (primary) hypertension; E78.5 Hyperlipidemia, unspecified; K21.9 Gastro-esophageal reflux disease without esophagitis; Z98.84 Bariatric surgery status; Z87.891 Personal history of nicotine dependence; Z91.018 Allergy to other foods; Z91.040 Latex allergy status; Z79.899 Other long term (current) drug therapy; Z79.01 Long term (current) use of anticoagulants

== ENCOUNTER 2019-08-12 13:47 | Emergency (ER) | payer BC ==
[~2019-08-12] VITALS: Ht 162.6 cm; Wt 97.7 kg
[~2019-08-12 13:47] MED LIST changes: +MISO100T22; +POTA20TA6; +SUCR1SS
[2019-08-12 13:48] VITALS: BP 158/90
[2019-08-12 15:18] LABS: BASO % 0.5 % (0.0-1.0); EOS # 0.1 10^3/uL (0.0-0.5); EOS % 1.7 % (0.0-3.0); HEMATOCRIT 41.1 % (36.0-47.0); HEMOGLOBIN 13.4 g/dl (12.0-15.5); LYMPH # 1.5 10^3/uL (1.5-5.0); LYMPH % 25.1 % (24.0-44.0); MEAN CORPUSCULAR HGB CONC 32.6 g/dl (32.0-36.5); MONO # 0.5 10^3/uL (0.0-0.8); MONO % 8.5 % (0.0-5.0); NEUTROPHILS # 3.9 10^3/uL (1.5-8.5); NEUTROPHILS % 63.9 % (36.0-66.0); PLATELET COUNT, AUTOMATED 228 10^3/uL (150-450); RED BLOOD COUNT 4.62 10^6/uL (4.00-5.40)
[2019-08-12 15:34] LABS: HCG, SERUM QUALITATIVE NEGATIVE (NEGATIVE)
[2019-08-12 15:38] LABS: ALT/SGPT 22 U/L (12-78); BILIRUBIN,DIRECT 0.1 MG/DL (0.0-0.2); BILIRUBIN,TOTAL 0.4 MG/DL (0.2-1.0); BLOOD UREA NITROGEN 10 MG/DL (7-18); CARBON DIOXIDE LEVEL 26 MEQ/L (21-32); CHLORIDE LEVEL 109 MEQ/L (98-107); CREATININE FOR GFR 0.76 MG/DL (0.55-1.30); GLOMERULAR FILTRATION RATE > 60.0 (>60); GLUCOSE, FASTING 95 MG/DL (70-100); LIPASE 115 U/L (73-393); POTASSIUM SERUM 3.8 MEQ/L (3.5-5.1); SODIUM LEVEL 142 MEQ/L (136-145); TOTAL PROTEIN 7.2 GM/DL (6.4-8.2)
[2019-08-12] MEDS ORDERED: ONDANSETRON 4MG/2ML VIAL (J2405) IV ONE (16:00)
[2019-08-12] MEDS ORDERED: KETOROLAC 30 MG/ML VIAL (J1885) IV ONE (16:00)
[2019-08-12] MEDS ORDERED: NORC1TAB7 PO (16:35)
[2019-08-12] MEDS ORDERED: CIPR-249 PO (16:35)
--- NOTE | 2019-08-12 16:54 | REP ---
CT abdomen and pelvis without IV or oral contrast: Renal stone protocol. History: Right renal colic. Comparison CT study November 27, 2014. CT findings: Preliminary digital machine wedger radiograph is unremarkable. The lung bases are clear on axial CT images. There is a tiny dense subpleural nodule in the left lower lobe but this is unchanged. The patient is status post gastric bypass procedure. The liver is normal in size and homogeneous in texture. There is an accessory splenule anterior and superior to the spleen unchanged. No adrenal lesion is seen. Gallbladder and the pancreas are unremarkable. Small and large intestinal bowel loops are normal in the upper abdomen. The kidneys show no evidence of hydronephrosis on either side. There is an intrarenal calculus in the upper pole of the left kidney which measures 2 to 3 mm in size. No other intrarenal calculus is appreciated. There is no hydronephrosis. No bladder calculus is seen. An IUD is noted in good position within the uterus. There is a cyst in the right ovary which measures 3.3 cm in greatest diameter. The patient is status post appendectomy. No abdominal wall defect is seen. Urinary bladder is unremarkable. Bone window settings show no significant bony abnormality. Impression: Status post appendectomy and gastric bypass procedure. IUD in place. 3.3 cm right ovarian cyst. 3 mm intrarenal calculus upper pole left kidney. No hydronephrosis seen. Electronically Signed by Alex Szymanski MD 08/12/2019 04:57 P
[2019-08-13] MEDS ORDERED: ONDA4TAB6 PO (14:04)
[2019-08-13] MEDS ORDERED: OMEP-218 PO (14:04)
[2019-08-13] MEDS ORDERED: HYDR-3713 PO (14:04)
[2019-08-13] MEDS ORDERED: CIPR500T3 PO (14:04)
== END 2019-08-12 19:32 | disposition home or self-care (01) ==
LOC: M ED 13:47
DX: R31.9 Hematuria, unspecified (principal); R10.9 Unspecified abdominal pain; Z98.84 Bariatric surgery status; Z79.899 Other long term (current) drug therapy; Z97.5 Presence of (intrauterine) contraceptive device; Z91.018 Allergy to other foods; Z91.040 Latex allergy status
CPT/HCPCS: 74176; 80048; 80076; 81001; 83690; 84703; 85025; 87086; 96374; 96375; 99283; J1885; J2405

== ENCOUNTER 2019-08-13 09:07 | Observation (INO) | payer BC ==
[~2019-08-13] VITALS: Ht 162.6 cm; Wt 94.1 kg
[~2019-08-13 09:07] MED LIST changes: +CIPR-249 PO; +NORC1TAB7 PO
[2019-08-13] MEDS ORDERED: ONDANSETRON 4MG/2ML VIAL (J2405) IV ONE (09:30)
[2019-08-13] MEDS ORDERED: MORPHINE 4 MG/ML 1ML VIAL/SYRINGE (J2270) IV ONE ×2 (09:30→10:30)
[2019-08-13] MEDS ORDERED: NS 1,000 ML IV ONE (09:30)
[2019-08-13] MEDS ORDERED: ONDANSETRON 4MG/2ML VIAL (J2405) As Ordered ONE (09:31)
[2019-08-13 09:49] LABS: BILIRUBIN, URINE MANUAL NEGATIVE (NEGATIVE); GLUCOSE, URINE (UA) MANUAL NEGATIVE (NEGATIVE); KETONE, URINE MANUAL 1+ mg/dL (NEGATIVE); UROBILINOGEN, URINE MANUAL NORMAL (NORMAL)
[2019-08-13 09:51] LABS: BACTERIA, URINE MOD AMOUNT; HYALINE CAST, URINE NONE SEEN /lpf (0-1); MUCUS, URINE SMALL AMOUNT (NEGATIVE); RBC, URINE TNTC /hpf (0-3); SQUAMOUS EPITHELIAL CELL URINE SMALL AMOUNT /hpf (SMALL AMT)
[2019-08-13 10:02] LABS: BASO % 0.6 % (0.0-1.0); EOS # 0.1 10^3/uL (0.0-0.5); EOS % 2.2 % (0.0-3.0); HEMATOCRIT 42.1 % (36.0-47.0); HEMOGLOBIN 14.3 g/dl (12.0-15.5); LYMPH # 1.8 10^3/uL (1.5-5.0); LYMPH % 33.5 % (24.0-44.0); MEAN CORPUSCULAR HEMOGLOBIN 29.8 pg (27.0-33.0); MEAN CORPUSCULAR VOLUME 87.7 fl (80.0-96.0); MONO # 0.4 10^3/uL (0.0-0.8); MONO % 7.3 % (0.0-5.0); NEUTROPHILS % 56.2 % (36.0-66.0); PLATELET COUNT, AUTOMATED 251 10^3/uL (150-450); WHITE BLOOD COUNT 5.4 10^3/uL (4.0-10.0)
[2019-08-13] MEDS ORDERED: MORPHINE 4 MG/ML 1ML VIAL/SYRINGE (J2270) As Ordered ONE (10:13)
[2019-08-13 10:14] LABS: ALT/SGPT 22 U/L (12-78); BILIRUBIN,DIRECT 0.2 MG/DL (0.0-0.2); BILIRUBIN,TOTAL 0.6 MG/DL (0.2-1.0); BLOOD UREA NITROGEN 10 MG/DL (7-18); CALCIUM LEVEL 9.7 MG/DL (8.5-10.1); CARBON DIOXIDE LEVEL 21 MEQ/L (21-32); CHLORIDE LEVEL 111 MEQ/L (98-107); CREATININE FOR GFR 1.02 MG/DL (0.55-1.30); GLOMERULAR FILTRATION RATE > 60.0 (>60); GLUCOSE, FASTING 121 MG/DL (70-100); POTASSIUM SERUM 3.6 MEQ/L (3.5-5.1); SODIUM LEVEL 143 MEQ/L (136-145); TOTAL PROTEIN 7.9 GM/DL (6.4-8.2)
[2019-08-13] MEDS ORDERED: TAMSULOSIN 0.4 MG CAP PO ONE (10:30)
--- NOTE | 2019-08-13 10:38 | REP ---
REASON: Flank pain. Prior CT without contrast obtained yesterday showed a 3 mm sized intrarenal calculus in the upper pole of the left kidney. The right kidney measures 11.2 x 4.9 x 5.3 cm. The renal cortical echoes are within normal limits. Cortical medullary differentiation is preserved. There are no cystic or solid masses. There is no hydronephrosis. The left kidney measures 11.9 x 4.3 x 5.8 cm. The renal cortical echoes are within normal limits. Cortical medullary differentiation is preserved. There is a fullness to the calices when compared to the right kidney without falguni hydronephrosis. The calculus seen in the upper pole of the left kidney on CT is either not present or it was not imaged today. Imaging of the urinary bladder showed it to be devoid of urine. IMPRESSION: There is ultrasonographic evidence to suggest mild left-sided hydronephrosis as described above. This could be secondary to the calculus seen on prior CT to now reside outside the kidney and causing in complete ureteral obstruction. If clinically relevant obtain noncontrast enhanced stone protocol CT so as it can be compared to the CT obtained yesterday. Electronically Signed by Nelson Murphy DO 08/13/2019 10:55 A
[2019-08-13] MEDS ORDERED: fentaNYL 100 MCG/2 ML INJECTION (J3010) IV ONE (10:45)
[2019-08-13] MEDS ORDERED: KETOROLAC 30 MG/ML VIAL (J1885) IV ONE (11:45)
[2019-08-13] MEDS ORDERED: METOCLOPRAMIDE INJ 10MG/2ML VIAL (J2765) IV ONE (12:15)
--- NOTE | 2019-08-13 12:24 | REP ---
REASON: Left flank pain. COMPARISON: 08/12/2019 which showed a 3.3 cm sized right ovarian cyst and a 3 mm sized calculus in the upper pole of the left kidney without obstructive phenomena. Lung bases are clear. The solid intra-abdominal organs and gallbladder are unchanged. The abdominal aorta and para-aortic regions are unchanged. The bowel loops and their mesenteries are unchanged. The abdominal aorta and paraaortic regions are unchanged. The small intrarenal calculus seen previously on the left is no longer present. Today's examination shows a 3 mm sized ureterolith in the distal left ureter approximately 3 to 4 cm from the ureterovesical junction. This is causing mild left-sided hydronephrosis and hydroureter with mild periureteral edema. There are no urinary bladder calcifications. The cyst seen previously in the right adnexa has gotten smaller. Note is again made of the an IUD. No free fluid or free air is seen in the abdomen or pelvis. There is no change in the osseous structures. IMPRESSION: Distal left ureterolith with resultant findings as described above. Electronically Signed by Nelson Murphy DO 08/13/2019 12:41 P
[2019-08-13] MEDS ORDERED: MORPHINE 4 MG/ML 1ML VIAL/SYRINGE (J2270) IV PRN (13:30)
[2019-08-13] MEDS ORDERED: OMEPRAZOLE 20 MG CAP PO ONE (13:30)
--- NOTE | 2019-08-13 13:49 | HPEPDOC ---
[facility] Medical History & Physical Date of Admission Aug 13, 2019 Date of Service: Aug 13, 2019 Attending Physician: Marcus Son MD History and Physical CHIEF COMPLAINT: Left flank pain HISTORY OF PRESENT ILLNESS: 38-year-old female with a 2 day history of left flank pain. Patient describes the pain as severe. Patient is also complaining of gross hematuria with clots. She reports nausea with no vomiting. She reports a low-grade fever at home. She was initially seen in urgent care at which time a CT scan reported a 3 mm nonobstructive left renal calculus with no hydronephrosis. A urine culture from yesterday is negative. Patient was evaluated in the emergency department for persistent pain. A repeat CT scan shows a 3 mm left distal ureteral calculus. Mild hydronephrosis is present. Patient denies a prior history of stone disease. She denies a history of hematuria. She denies a history of recurrent urinary tract infections. PAST MEDICAL HISTORY: 1. Chronic thyroiditis. 2. GERD. PAST SURGICAL HISTORY: 1. Gastric bypass. 2. Appendectomy. 3. Exploratory laparotomy for ovarian cysts. SOCIAL HISTORY: Tobacco use: None ALLERGIES: Please see below. REVIEW OF SYSTEMS: CONSTITUTIONAL: Reports low-grade fever at home. HEENT: Denies headache. CARDIOVASCULAR: Denies chest pain. RESPIRATORY: Denies shortness of breath. GASTROINTESTINAL: Reports nausea, denies vomiting or diarrhea. GENITOURINARY: See HPI. SKIN: Denies rashes. MUSCULOSKELETAL: Denies joint pain. NEUROLOGICAL: Denies neurological symptoms. ENDOCRINE: History chronic thyroiditis. HEMATOLOGIC/LYMPHATIC: Denies bleeding disorders. HOME MEDICATIONS: Please see below. PHYSICAL EXAMINATION: VITAL SIGNS: Afebrile, vital signs stable GENERAL APPEARANCE: Well-developed well-nourished female in no apparent distress. HEENT: Unremarkable. CARDIOVASCULAR: No peripheral edema. LUNGS: No respiratory distress. ABDOMEN: Obese, left lower quadrant tenderness, left CVA tenderness. MUSCULOSKELETAL: Full range of motion. NEUROLOGICAL: No focal deficits. LABORATORY DATA: See below. IMAGING: CT scan was reviewed. A 3 mm left distal calculus was present. A right ovarian cyst was present. An IUD is in place. MICROBIOLOGY: Please see below. ASSESSMENT: Patient has a left distal ureteral calculus with intractable pain. Treatment options were discussed. We discussed medical expulsive therapy versus ureteroscopy with laser lithotripsy and double-J stent placement. Patient has elected medical expulsive therapy. Patient will be observed for 24 hours and reassessed in the morning for possible ureteroscopy. Vital Signs Vital Signs Date Time Temp Pulse Resp B/P (MAP) Pulse Ox O2 Delivery O2 Flow Rate FiO2 08/13/19 11:58 18 08/13/19 11:37 98.3 98 139/85 (103) 98 Room Air Laboratory Data Labs 24H Laboratory Tests 2 08/13/19 09:32: Urine Color (BAY) REDH, Urine Appearance (BAY) CLOUDYH, Urine pH (BAY) 5.5, Urine Specific Coggon (BAY) 1.025, Urine Protein 2+H, Bedside Urine Glucose (UA) NEGATIVE, Bedside Urine Ketones (LAB) 1+H, Bedside Urine Blood POSITIVEH, Bedside Urine Nitrite (LAB) NEGATIVE, Bedside Urine Bilirubin (LAB) NEGATIVE, Bedside Urine Urobilinogen (LAB) NORMAL, Bedside Urine Leukocyte Esterase (L POSITIVEH, Urine Sediment Examination UNSPUN, Urine RBC TNTCH, Urine WBC 5-7H, Urine Squamous Epithelial Cells SMALL AMOUNT, Urine Bacteria MOD AMOUNTH, Urine Hyaline Casts NONE SEEN, Urine Mucus SMALL AMOUNTH 08/13/19 09:42: Immature Granulocyte % (Auto) 0.2, White Blood Count 5.4, Red Blood Count 4.80, Hemoglobin 14.3, Hematocrit 42.1, Mean Corpuscular Volume 87.7, Mean Corpuscular Hemoglobin 29.8, Mean Corpuscular Hemoglobin Concent 34.0, Red Cell Distribution Width 13.5, Platelet Count 251, Neutrophils (%) (Auto) 56.2, Lymphocytes (%) (Auto) 33.5, Monocytes (%) (Auto) 7.3H, Eosinophils (%) (Auto) 2.2, Basophils (%) (Auto) 0.6, Neutrophils # (Auto) 3.0, Lymphocytes # (Auto) 1.8, Monocytes # (Auto) 0.4, Eosinophils # (Auto) 0.1, Basophils # (Auto) 0.0, Nucleated Red Blood Cells % (auto) 0.0, Anion Gap 11, Glomerular Filtration Rate > 60.0, Calcium Level 9.7, Aspartate Amino Transf (AST/SGOT) 15, Alanine Aminotransferase (ALT/SGPT) 22, Alkaline Phosphatase 68, Total Bilirubin 0.6, Direct Bilirubin 0.2, Total Protein 7.9, Albumin 4.0, Albumin/Globulin Ratio 1.03 CBC/BMP Laboratory Tests 08/13/19 09:42 Red Blood Count 4.80, Mean Corpuscular Volume 87.7, Mean Corpuscular Hemoglobin 29.8, Mean Corpuscular Hemoglobin Concent 34.0, Red Cell Distribution Width 13.5, Neutrophils (%) (Auto) 56.2, Lymphocytes (%) (Auto) 33.5, Monocytes (%) (Auto) 7.3 H, Eosinophils (%) (Auto) 2.2, Basophils (%) (Auto) 0.6, Neutrophils # (Auto) 3.0, Lymphocytes # (Auto) 1.8, Monocytes # (Auto) 0.4, Eosinophils # (Auto) 0.1, Basophils # (Auto) 0.0 Microbiology Microbiology 08/13/19 Urine Culture, Received Pending Home Medications Scheduled Ciprofloxacin HCl (Cipro) 500 Mg Tablet, 500 MG PO BID Simethicone (Simethicone) 180 Mg Cap, 1 CAP PO TID Scheduled PRN Hydrocodone/Acetaminophen ([place] 5-325 Tablet) 1 Each Tablet, 1-2 TAB PO Q4-6HP PRN for pain Ondansetron (Zofran Odt) 4 Mg Tab, 4 MG PO Q4H PRN for NAUSEA Miscellaneous Medications Omeprazole (Omeprazole) 40 Mg Capsule. Allergies Coded Allergies: FRUIT (Verified Allergy, Severe, STONE FRUIT - HIVES AND SOB, 09/29/07) Kiwi (Verified Allergy, Severe, HIVES AND SOB, 09/29/07) banana (Verified Allergy, Unknown, 06/15/19) latex (Verified Allergy, Unknown, 06/15/19) A-FIB/CHADSVASC A-FIB History Current/History of A-Fib/PAF?: No Current PO Anticoag Therapy: No Age/Risk Factor Scoring CHADSVASC: CHADSVASC Response (Comments) Value Age Risk Factor Age < 65 years old 0 Gender Risk Factor Female 1 Hx of CHF No 0 Hx of HTN No 0 Hx of Stroke/TIA/or VTE No 0 Hx of Diabetes No 0 Hx of Vascular Disease No 0 Total 1 Treatment Treatment ordered: NONE Marcus Son MD Aug 13, 2019 13:49
[2019-08-13] MEDS ORDERED: HYDR-3713 PO (14:04)
[2019-08-13] MEDS ORDERED: CIPR500T3 PO (14:04)
[2019-08-13] MEDS ORDERED: OMEP-218 PO (14:04)
[2019-08-13] MEDS ORDERED: ONDA4TAB6 PO (14:04)
[2019-08-13] MEDS: MORPHINE 4 MG/ML 1ML VIAL/SYRINGE (J2270) IV PRN ×2 (14:31→18:46)
[2019-08-13] MEDS: D5W/0.45% SODIUM CHLORIDE 1,000 ML IV SCH ×3 (14:31→23:53)
[2019-08-13 15:40] VITALS: BP 130/80
[2019-08-13] MEDS: KETOROLAC 30 MG/ML VIAL (J1885) IV PRN ×2 (17:30→23:54)
[2019-08-13] MEDS: ONDANSETRON 4MG/2ML VIAL (J2405) IV PRN (18:44)
[2019-08-13 20:00] VITALS: BP 97/52
[2019-08-13] MEDS ORDERED: zolPIDEM TARTRATE 5 MG TAB PO PRN (21:00)
[2019-08-14 00:04] VITALS: BP 90/55
[2019-08-14] MEDS: ONDANSETRON 4MG/2ML VIAL (J2405) IV PRN (00:47)
[2019-08-14 00:56] VITALS: BP 100/55
[2019-08-14] MEDS: D5W/0.45% SODIUM CHLORIDE 1,000 ML IV SCH (06:11)
[2019-08-14] MEDS: KETOROLAC 30 MG/ML VIAL (J1885) IV PRN (06:11)
[2019-08-14 08:00] VITALS: BP 117/73
[2019-08-14] MEDS ORDERED: INFLUENZA QUADRIVALENT PF VACCINE 0.5ML SYRINGE (90686) IM ONE (09:00)
[2019-08-14] MEDS ORDERED: OMEPRAZOLE 20 MG CAP PO ONE (09:00)
[2019-08-14] MEDS ORDERED: TAMSULOSIN 0.4 MG CAP PO SCH (09:00)
--- NOTE | 2019-08-14 09:38 | IPNPDOC ---
Date Seen The patient was seen on 08/14/19. Progress Note SUBJECTIVE: Patient denies pain or colic. Hematuria has resolved. Denies passage of stone OBJECTIVE PHYSICAL EXAMINATION: VITAL SIGNS: Please see below. Abdomen soft non tender, no CVA-tenderness LABORATORY DATA, IMAGING STUDIES, MICROBIOLOGY: Please see below. KUB reviewed- no stone seen ASSESSMENT AND PLAN: Patient is stable for discharge. Patient will continue with medical expulsive therapy. Patient will need cystoscopy as outpatient due to hematuria. Follow up in office one week. PROBLEMS: 1. left ureteral calculus 2. hematuria, gross DISPOSITION: home. VS, I&O, 24H, Replaced By [facility] Vital Signs/I&O Vital Signs Date Time Temp Pulse Resp B/P (MAP) Pulse Ox O2 Delivery O2 Flow Rate FiO2 08/14/19 00:56 65 100/55 (70) 08/14/19 00:04 97.4 18 99 08/13/19 15:24 Room Air I&O- Last 24 Hours up to 6 AM 08/14/19 06:00 Intake Total 4005 ml Output Total 450 ml Balance 3555 ml Laboratory Data 24H LABS Laboratory Tests 2 08/13/19 09:42: Immature Granulocyte % (Auto) 0.2, White Blood Count 5.4, Red Blood Count 4.80, Hemoglobin 14.3, Hematocrit 42.1, Mean Corpuscular Volume 87.7, Mean Corpuscular Hemoglobin 29.8, Mean Corpuscular Hemoglobin Concent 34.0, Red Cell Distribution Width 13.5, Platelet Count 251, Neutrophils (%) (Auto) 56.2, Lymphocytes (%) (Auto) 33.5, Monocytes (%) (Auto) 7.3H, Eosinophils (%) (Auto) 2.2, Basophils (%) (Auto) 0.6, Neutrophils # (Auto) 3.0, Lymphocytes # (Auto) 1.8, Monocytes # (Auto) 0.4, Eosinophils # (Auto) 0.1, Basophils # (Auto) 0.0, Nucleated Red Blood Cells % (auto) 0.0, Anion Gap 11, Glomerular Filtration Rate > 60.0, Calcium Level 9.7, Aspartate Amino Transf (AST/SGOT) 15, Alanine Aminotransferase (ALT/SGPT) 22, Alkaline Phosphatase 68, Total Bilirubin 0.6, D irect Bilirubin 0.2, Total Protein 7.9, Albumin 4.0, Albumin/Globulin Ratio 1.03 CBC/BMP Laboratory Tests 08/13/19 09:42 Red Blood Count 4.80, Mean Corpuscular Volume 87.7, Mean Corpuscular Hemoglobin 29.8, Mean Corpuscular Hemoglobin Concent 34.0, Red Cell Distribution Width 13.5, Neutrophils (%) (Auto) 56.2, Lymphocytes (%) (Auto) 33.5, Monocytes (%) (Auto) 7.3 H, Eosinophils (%) (Auto) 2.2, Basophils (%) (Auto) 0.6, Neutrophils # (Auto) 3.0, Lymphocytes # (Auto) 1.8, Monocytes # (Auto) 0.4, Eosinophils # (Auto) 0.1, Basophils # (Auto) 0.0 Microbiology Microbiology 08/13/19 Urine Culture - Final, Complete Lactobacillus Species Marcus Son MD Aug 14, 2019 09:38
[2019-08-14] MEDS ORDERED: FLOM0.4C39 PO (09:46)
--- NOTE | 2019-08-14 09:47 | REP ---
REASON: Back pain, urinary retention. COMPARISON: Multiple, the latest 08/12/2019. FINDINGS: KUB shows the intestinal gas pattern to be nonspecific. The organ silhouettes insofar as delineated are unremarkable. There is no evidence of free intraperitoneal air. IMPRESSION: Nonspecific. No change. Electronically Signed by Nelson Murphy DO 08/14/2019 09:50 A
--- NOTE | 2019-08-14 10:26 | DS.PDOC ---
Discharge Summary General Date of Admission Aug 13, 2019 at 09:08 Date of Discharge 08/14/2019 Discharge Summary PROCEDURES PERFORMED DURING STAY: None. ADMITTING DIAGNOSES: 1. Left ureteral calculus. DISCHARGE DIAGNOSES: 1. Left ureteral calculus. COMPLICATIONS/CHIEF COMPLAINT: Left Ureteral Calculus. HISTORY OF PRESENT ILLNESS: 38-year-old female with a history of left renal colic and gross hematuria with clots. CT scan showed a 3 mm left distal ureteral calculus. Patient was admitted for intractable pain and treated with medical expulsive therapy. Patient reported that her pain and hematuria resolved and was asymptomatic. KUB showed no stone visualized. Patient was discharged home and will continue medical expulsive therapy. Patient was encouraged to maintain a high fluid intake, utilize analgesics as needed, and continue on Flomax 0.4 mg daily. DISCHARGE MEDICATIONS: Please see below. ALLERGIES: Please see below. LABORATORY DATA: Please see below. ACTIVITY: As tolerated. DIET: Regular DISCHARGE PLAN: Discharge to home on medical expulsive therapy. Patient will follow-up in the office in one week. Patient will require cystoscopy as an outpatient due to her hematuria with clots. Discharge medications include Flomax 0.4 mg daily. Patient will utilize analgesics as needed. DISCHARGE CONDITION: Stable. Vital Signs/I&Os Vital Signs Date Time Temp Pulse Resp B/P (MAP) Pulse Ox O2 Delivery O2 Flow Rate FiO2 08/14/19 08:00 97.3 62 18 117/73 (88) 99 08/13/19 15:24 Room Air I&O- Last 24 Hours up to 6 AM 08/14/19 05:59 Intake Total 1905 ml Output Total 450 ml Balance 1455 ml Microbiology Microbiology 08/13/19 Urine Culture - Final, Complete Lactobacillus Species Discharge Medications Scheduled Ciprofloxacin HCl (Ciprofloxacin HCl) 500 Mg Tablet, 500 MG PO BID, (Reported) FILLED 08/12/19 FOR 7 DAYS Omeprazole (Omeprazole) 20 Mg Capsule.dr, 20 MG PO DAILY, (Reported) Tamsulosin HCl (Flomax) 0.4 Mg Capsule, 0.4 MG PO DAILY Scheduled PRN Hydrocodone/Acetaminophen (Hydrocodone-Acetamin 5-325 mg) 1 Each Tablet, 1 TAB PO Q6H PRN for PAIN, (Reported) Ondansetron (Ondansetron Odt) 4 Mg Tab.rapdis, 4 MG PO TID PRN for NAUSEA OR VOMITING, (Reported) Allergies Coded Allergies: FRUIT (Verified Allergy, Severe, STONE FRUIT - HIVES AND SOB, 09/29/07) Kiwi (Verified Allergy, Severe, HIVES AND SOB, 09/29/07) banana (Verified Allergy, Unknown, 06/15/19) latex (Verified Allergy, Unknown, 06/15/19) Marcus Son MD Aug 14, 2019 10:26
== END 2019-08-14 10:50 | disposition home or self-care (01) ==
LOC: M ED 09:07 → M ED INP 09:08 → M PED 15:36
PROVIDERS: ADMIT Urology; ATTEND Urology
DX: N20.1 Calculus of ureter (principal); R31.9 Hematuria, unspecified; R10.9 Unspecified abdominal pain; N83.201 Unspecified ovarian cyst, right side; Z97.5 Presence of (intrauterine) contraceptive device; E06.9 Thyroiditis, unspecified; K21.9 Gastro-esophageal reflux disease without esophagitis; G43.909 Migraine, unspecified, not intractable, without status migrainosus; Z79.899 Other long term (current) drug therapy; Z79.2 Long term (current) use of antibiotics; Z91.040 Latex allergy status; Z91.018 Allergy to other foods; Z98.84 Bariatric surgery status; Z87.891 Personal history of nicotine dependence; Z87.442 Personal history of urinary calculi
CPT/HCPCS: 74018; 74176; 76775; 80048; 80076; 81000; 85025; 87088; 96361; 96374; 96375; 96376; 99284; J1885; J2270; J2405; J2765; J3010

== ENCOUNTER → 2019-08-22 | Outpatient (REF) | payer BC ==
[~2019-08-22] MED LIST changes: +CIPR500T3 PO; +FLOM0.4C39 PO; +HYDR-3713 PO; +OMEP-218 PO; +ONDA4TAB6 PO
== END ==
LOC: M SMT 13:31
PROVIDERS: ATTEND Urology
DX: N20.1 Calculus of ureter (principal)

== ENCOUNTER → 2019-09-01 | Outpatient (REF) | payer BC ==
[2019-09-01 17:45] LABS: APPEARANCE, URINE HAZY (CLEAR); BACTERIA, URINE AUTO 1+ (NEGATIVE); BILIRUBIN, URINE AUTO 1+ (NEGATIVE); BLOOD, URINE BLOOD NEGATIVE (NEGATIVE); COLOR, URINE AMBER (YELLOW); GLUCOSE, URINE (UA) AUTO NEGATIVE (NEGATIVE); KETONE, URINE AUTO 1+ mg/dL (NEGATIVE); LEUKOCYTE ESTERASE, URINE AUTO NEGATIVE (NEGATIVE); MUCUS, URINE LARGE (NEGATIVE); NITRITE, URINE AUTO NEGATIVE (NEGATIVE); PROTEIN, URINE AUTO NEGATIVE (NEGATIVE); RBC, URINE AUTO 2 /HPF (0-3); SPECIFIC GRAVITY URINE AUTO 1.029 (1.002-1.035); SQUAMOUS EPITHELIAL CELL UR AU 4 /HPF (0-6); WBC, URINE AUTO 2 /HPF (0-3)
== END ==
LOC: M SMT 16:51
PROVIDERS: ATTEND Nurse Practitioner Women's Health
DX: N20.1 Calculus of ureter (principal)

== ENCOUNTER → 2019-11-28 | Outpatient (REF) | payer BC ==
[2019-11-28 12:11] LABS: BASO # 0.1 10^3/uL (0.0-0.2); BASO % 0.9 % (0.0-1.0); EOS # 0.2 10^3/uL (0.0-0.5); EOS % 2.6 % (0.0-3.0); HEMATOCRIT 42.4 % (36.0-47.0); HEMOGLOBIN 13.4 g/dl (12.0-15.5); LYMPH % 34.1 % (24.0-44.0); MEAN CORPUSCULAR HEMOGLOBIN 28.6 pg (27.0-33.0); MEAN CORPUSCULAR HGB CONC 31.6 g/dl (32.0-36.5); MEAN CORPUSCULAR VOLUME 90.6 fl (80.0-96.0); MONO # 0.5 10^3/uL (0.0-0.8); MONO % 8.2 % (0.0-5.0); NEUTROPHILS # 3.2 10^3/uL (1.5-8.5); PLATELET COUNT, AUTOMATED 252 10^3/uL (150-450); RED BLOOD COUNT 4.68 10^6/uL (4.00-5.40); WHITE BLOOD COUNT 5.8 10^3/uL (4.0-10.0)
[2019-11-28 12:16] LABS: HEMATOCRIT 42.4 % (36.0-47.0)
[2019-11-28 12:30] LABS: ALBUMIN 4.3 GM/DL (3.2-5.2); ALT/SGPT 21 U/L (12-78); BILIRUBIN,TOTAL 0.6 MG/DL (0.2-1.0); BLOOD UREA NITROGEN 14 MG/DL (7-18); CALCIUM LEVEL 9.2 MG/DL (8.5-10.1); CARBON DIOXIDE LEVEL 27 MEQ/L (21-32); CHLORIDE LEVEL 108 MEQ/L (98-107); CREATININE FOR GFR 0.76 MG/DL (0.55-1.30); FERRITIN 67 NG/ML (8-252); GLOMERULAR FILTRATION RATE > 60.0 (>58); GLUCOSE, FASTING 87 MG/DL (70-100); IRON (FE) 96 UG/DL (50-170); MAGNESIUM LEVEL 2.2 MG/DL (1.8-2.4); PERCENT SATURATION 37.6 % (13.2-45.0); POTASSIUM SERUM 3.9 MEQ/L (3.5-5.1); SODIUM LEVEL 140 MEQ/L (136-145); TOTAL IRON BINDING CAPACITY 255 UG/DL (250-450); TOTAL PROTEIN 7.6 GM/DL (6.4-8.2)
[2019-11-28 12:37] LABS: HEMOGLOBIN A1c 5.4 %
[2019-11-28 12:38] LABS: TOTAL 25(OH) VITAMIN D 27.6 NG/ML (30.0-100.0); VITAMIN B12 LEVEL 1340 PG/ML (247-911)
== END ==
LOC: M LAB REF 11:49
PROVIDERS: ATTEND Physician Assistant
DX: K91.2 Postsurgical malabsorption, not elsewhere classified (principal); Z98.84 Bariatric surgery status; E55.9 Vitamin D deficiency, unspecified; Z86.39 Personal history of other endocrine, nutritional and metabolic disease

== ENCOUNTER 2020-01-13 14:06 | Day surgery (SDC) | payer BC ==
[~2020-01-13] VITALS: Ht 165.1 cm; Wt 82.8 kg
[2020-01-13] MEDS ORDERED: METOCLOPRAMIDE INJ 10MG/2ML VIAL (J2765) IV ONE (14:30)
[2020-01-13] MEDS ORDERED: MORPHINE 4 MG/ML 1ML VIAL/SYRINGE (J2270) IV ONE (14:30)
[2020-01-13] MEDS ORDERED: NS 1,000 ML IV ONE (14:30)
[2020-01-13] MEDS ORDERED: GI COCKTAIL 50ML BTL(HYOSCYAMINE/MAALOX/LIDOCAINE VISCOUS)(1:3:1) PO ONE (14:30)
[2020-01-13 15:04] LABS: BASO # 0.1 10^3/uL (0.0-0.2); BASO % 0.4 % (0.0-1.0); EOS # 0.1 10^3/uL (0.0-0.5); EOS % 0.7 % (0.0-3.0); HEMOGLOBIN 14.7 g/dl (12.0-15.5); LYMPH # 2.4 10^3/uL (1.5-5.0); LYMPH % 18.5 % (24.0-44.0); MEAN CORPUSCULAR HEMOGLOBIN 29.7 pg (27.0-33.0); MEAN CORPUSCULAR HGB CONC 34.2 g/dl (32.0-36.5); MEAN CORPUSCULAR VOLUME 86.9 fl (80.0-96.0); MONO # 0.8 10^3/uL (0.0-0.8); MONO % 5.9 % (0.0-5.0); NEUTROPHILS # 9.7 10^3/uL (1.5-8.5); NEUTROPHILS % 74.3 % (36.0-66.0); PLATELET COUNT, AUTOMATED 290 10^3/uL (150-450); RED BLOOD COUNT 4.95 10^6/uL (4.00-5.40)
[2020-01-13 15:37] LABS: ALBUMIN 4.5 GM/DL (3.2-5.2); ALT/SGPT 19 U/L (12-78); BILIRUBIN,DIRECT 0.2 MG/DL (0.0-0.2); BILIRUBIN,TOTAL 0.8 MG/DL (0.2-1.0); CK-MB VALUE MASS < 1.0 NG/ML (<3.6); CPK CREATINE PHOSPHOKINASE 74 U/L (26-192); LIPASE 108 U/L (73-393); MB/CK RELATIVE INDEX 1.35 (< OR =4); TOTAL PROTEIN 8.1 GM/DL (6.4-8.2); TROPONIN I < 0.02 NG/ML (< 0.10)
--- NOTE | 2020-01-13 16:43 | REP ---
HISTORY: Epigastric pain and history of cholelithiasis. COMPARISON: 11/17/2018. Multiple ultrasonographic images of the gallbladder again show echogenic mobile foci consistent with cholelithiasis. In addition, there is now gallbladder wall thickening, but no definite pericholecystic edema. The technologist has indicated that there is a positive sonographic Garner's sign. The common bile duct measures 6 mm. The liver is essentially unchanged from the prior exam showing no intrahepatic or extrahepatic ductal dilatation. The imaged portion of the pancreas is within normal limits. The right kidney is within normal limits. IMPRESSION: Cholelithiasis and thickened gallbladder wall with sonographic Garner's sign as per the technologist. Other findings as described above. Electronically Signed by Nelson Murphy DO 01/13/2020 06:47 P
[2020-01-13] MEDS ORDERED: KETOROLAC 30 MG/ML VIAL (J1885) IV ONE (17:00)
[2020-01-13] MEDS ORDERED: AMPICILLIN SOD/SULBACTAM SOD 3 GM in D5W MINI-BAG PLUS 100 ML IV ONE (17:00)
[2020-01-13] MEDS ORDERED: ONDANSETRON 4MG/2ML VIAL (J2405) IV ONE (17:00)
[2020-01-13] MEDS ORDERED: ACETAMINOPHEN 1000MG 100ML IV BTL (OFIRMEV) (J0131 PER 10MG) As Ordered ONE (17:02)
[2020-01-13] MEDS ORDERED: MIDAZOLAM INJ 2 MG/2 ML VIAL (J2250) As Ordered ONE (17:02)
[2020-01-13] MEDS ORDERED: SUGAMMADEX SODIUM 500 MG/5 ML VIAL (BRIDION) As Ordered ONE (17:02)
[2020-01-13] MEDS ORDERED: ONDANSETRON 4MG/2ML VIAL (J2405) As Ordered ONE (17:02)
[2020-01-13] MEDS ORDERED: dexameTHASONE 4 MG/ML 1ML VIAL (J1100) As Ordered ONE (17:02)
[2020-01-13] MEDS ORDERED: LIDOCAINE 2% INJ 100 MG/5 ML SDV (FOR ANES.) As Ordered ONE (17:02)
[2020-01-13] MEDS ORDERED: KETOROLAC 60 MG/2 ML VIAL (J1885) As Ordered ONE (17:02)
[2020-01-13] MEDS ORDERED: propofoL 200 MG/20 ML VIAL As Ordered ONE (17:02)
[2020-01-13] MEDS ORDERED: ROCURONIUM BROMIDE 50 MG/5 ML VIAL As Ordered ONE (17:02)
[2020-01-13] MEDS ORDERED: fentaNYL 100 MCG/2 ML INJECTION (J3010) As Ordered ONE (17:03)
[2020-01-13] MEDS ORDERED: ONDA4TAB6 PO (17:11)
[2020-01-13] MEDS ORDERED: LIDOCAINE 1% SDV INJ 30 ML VIAL As Ordered ONE (17:11)
[2020-01-13] MEDS ORDERED: OMEP-356 PO (17:11)
[2020-01-13] MEDS ORDERED: BUPIVACAINE HCL 0.25% 30ML VIAL As Ordered ONE (17:11)
[2020-01-13] MEDS ORDERED: BIOT1CAP3 PO (17:11)
[2020-01-13] MEDS ORDERED: VITMTA PO (17:11)
[2020-01-13] MEDS ORDERED: VITAD1000T PO (17:11)
[2020-01-13] MEDS ORDERED: CALC250T PO (17:11)
--- NOTE | 2020-01-13 17:12 | HPEPDOC ---
General Surgery H&P Date of Admission Jan 13, 2020 Attending Physician: ENRIQUE ROBERTS MD History and Physical CHIEF COMPLAINT: abdominal pain HISTORY OF PRESENT ILLNESS: Patient is a 39-year-old female who presented herself to the emergency room roughly at about 2:30 this afternoon for increasing epigastric and right upper quadrant pain. She felt well this morning up until 9 AM sudden onset of initially vague midepigastric pain any becoming constant and sharp, crampy and colicky with associated nausea but no vomiting. She was feeling some mid epigastric pain last night but not in the same severity and location as was this morning. She tried some Tums, omeprazole and no relief of her symptoms and thus she went to the ED. She recalls similar episodes last year for which she was diagnosed up cholelithiasis but has not had any prior surgical consults for her gallbladder. She has a history of gastric bypass done also last year for which she lost 90 pounds and otherwise doing well from this. ALLERGIES: Please see below. HOME MEDICATIONS: Please see below. PAST MEDICAL HISTORY: 1. History of obesity status post gastric bypass. 2. . PAST SURGICAL HISTORY: 1. Appendectomy. 2. Gastric bypass. PERSONAL/SOCIAL HISTORY: Denies smoking, alcohol use, or recreational drug use. REVIEW OF SYSTEMS: GENERAL: Patient has had many pound weight loss from her gastric bypass otherwise feels well prior to this episode. HEENT: Denies blurred vision and double vision. Denies ear symptoms. Denies hoarseness. NECK: Denies any neck pain. CARDIOVASCULAR: Denies chest pain and palpitations. MUSCULOSKELETAL: Denies arthralgias, back pain and thrombophlebitis. SKIN: Denies rash. NEUROLOGIC: Denies headache, stroke and transient ischemic attack. PSYCHIATRIC: Denies anxiety and depression. ENDOCRINE: Denies thyroid disease. HEMATOLOGY/ONCOLOGY: Denies any bleeding or clotting disorder. HEART: Denies any chest pains, palpitations, paroxysmal dyspnea, orthopnea. PULMONARY: Denies chronic cough, dyspnea and wheezing. GASTROINTESTINAL: See HPI. GENITOURINARY: Denies dysuria, frequency, hematuria and nocturia. ENDOCRINE: Denies polydipsia, polyphagia, polyuria, heat or cold intolerance. INFECTIOUS: Denies any recent upper respiratory tract infection, UTI, need for use of antibiotics. NUTRITION: Reports fair appetite. PHYSICAL EXAMINATION: VITAL SIGNS: Please see below. GENERAL APPEARANCE: Patient is seen placing the room, very uncomfortable HEENT: Mild pale palpebral conjunctiva. Lips are dry. CHEST: No chest wall abnormalities. Normal respiratory motion/effort. NECK: Supple. No thyromegaly. No lymphadenopathies. LUNGS: Lung sounds are clear to auscultation bilaterally. No wheezing appreciate d. HEART: No chest wall abnormalities. Heart rate and rhythm are regular with no murmurs. ABDOMEN: Patient has a loose pannus from her weight loss from the gastric bypass. She has healed port sites from the gastric bypass remotely from the appendectomy. No noticeable herniations. She is tender over the right upper quadrant area with a lot of guarding also going towards the epigastric area. She is nontender on the lower abdomen SKIN: Warm and dry. EXTREMITIES: No extremity deformity or significant edema. NEUROLOGICAL: Awake, alert and oriented. ANCILLARIES: . LABORATORY DATA: Please see below. MICROBIOLOGY: Please see below. IMAGING: Abdominal ultrasound IMPRESSION AND PLAN: Cholelithiasis with acute cholecystitis Patient appears very uncomfortable, pacing room, and unable to lay down for severe biliary colic attack most likely with emerging or evolving acute cholecystitis. Her LFTs are normal. She has mild leukocytosis. On examination she is very tender over the right upper quadrant area with positive Garner sign. Have counseled her on the need for cholecystectomy likewise discussed with her the details of the procedure as well as its risks and benefits with particular attention to the risks for bile duct injury and her special circumstance of being post-gastric bypass whereby traditional endoscopic procedures to address this is not feasible due to the new anatomy. She is well aware of this. She is willing to proceed with the surgery and signed a consent for a dose of Unasyn prior to going to the OR. Vital Signs Vital Signs Date Time Temp Pulse Resp B/P (MAP) Pulse Ox O2 Delivery O2 Flow Rate FiO2 01/13/20 14:53 20 Room Air 01/13/20 14:15 01/13/20 14:07 98.9 98 100 Laboratory Data Labs 24H Laboratory Tests 2 01/13/20 14:41: Immature Granulocyte % (Auto) 0.2, Neutrophils (%) (Auto) 74.3H, Lymphocytes (%) (Auto) 18.5L, Monocytes (%) (Auto) 5.9H, Eosinophils (%) (Auto) 0.7, Basophils (%) (Auto) 0.4, Neutrophils # (Auto) 9.7H, Lymphocytes # (Auto) 2.4, Monocytes # (Auto) 0.8, Eosinophils # (Auto) 0.1, Basophils # (Auto) 0.1, Nucleated Red Blood Cells % (auto) 0.0, Urine Color OTIS, Urine Appearance HAZY, Urine pH 5.0, Urine Specific Riley 1.027, Urine Protein NEGATIVE, Urine Glucose (UA) NEGATIVE, Urine Ketones NEGATIVE, Urine Blood NEGATIVE, Urine Nitrite NEGATIVE, Urine Bilirubin 1+H, Urine Urobilinogen 4.0H, Urine Leukocyte Esterase TRACEH, Urine WBC (Auto) 2, Urine RBC (Auto) 1, Urine Hyaline Casts (Auto) 0, Urine Ba cteria (Auto) 1+H, Urine Squamous Epithelial Cells 2, Urine Mucus (Auto) MODERATE, Urine Sperm (Auto) , Total Bilirubin 0.8, Direct Bilirubin 0.2, Aspartate Amino Transf (AST/SGOT) 11, Alanine Aminotransferase (ALT/SGPT) 19, Alkaline Phosphatase 75, Total Creatine Kinase 74, Creatine Kinase MB < 1.0, Creatine Kinase MB Relative Index 1.35, Troponin I < 0.02, Total Protein 8.1, Albumin 4.5, Albumin/Globulin Ratio 1.25, Lipase 108 01/13/20 14:44: POC Glucose (Misc Panel) 109H, POC Sodium (Misc Panel) 140, POC Potassium (Misc Panel) 3.9, POC Chloride (Misc Panel) 107, POC Total CO2 (Misc Panel) 20.0L, POC Blood Urea Nitrogen (Misc Panel 14, POC Ionized Calcium (Misc Panel) 4.7, POC Creatinine (Misc Panel) 0.8, POC Hematocrit (Misc Panel) 44.0 CBC/BMP Laboratory Tests 01/13/20 14:41 Microbiology Microbiology 01/13/20 Urine Culture, Received Pending Home Medications Scheduled Biotin (Biotin) 10,000 Mcg Capsule, 10 MG PO DAILY, (Reported) Calcium Citrate (Calcium Citrate) 250 Mg Tablet, 250 MG PO DAILY, (Reported) Cholecalciferol (Vitamin D3) (Vitamin D3) 1,000 Unit Tablet, 1,000 UNITS PO DAILY, (Reported) Multivitamins (Thera M Plus Tablet) 1 Each Tablet, 1 TAB PO BID, (Reported) Omeprazole (Omeprazole) 20 Mg Tablet.dr, 20 MG PO DAILY, (Reported) Scheduled PRN Ondansetron (Ondansetron Odt) 4 Mg Tab.rapdis, 4 MG PO TID PRN for NAUSEA OR VOMITING, (Reported) Oxycodone/Acetaminophen (Oxycodone-Acetaminophen 5-325) 1 Each Tablet, 1 TAB PO Q4HP PRN for SEVERE PAIN (PS 8-10) Allergies Coded Allergies: FRUIT (Verified Allergy, Severe, STONE FRUIT - HIVES AND SOB, 09/29/07) Kiwi (Verified Allergy, Severe, HIVES AND SOB, 09/29/07) banana (Verified Allergy, Unknown, 06/15/19) latex (Verified Allergy, Unknown, 06/15/19) A-FIB/CHADSVASC A-FIB History Current/History of A-Fib/PAF?: No Current PO Anticoag Therapy: No ENRIQUE ROBERTS MD Jan 13, 2020 17:12
[2020-01-13 17:21] LABS: URINE PREG TEST NEGATIVE (NEGATIVE)
[2020-01-13] MEDS ORDERED: PERCOCET 5MG/325MG TAB PO PRN (19:15)
[2020-01-13] MEDS ORDERED: ONDANSETRON 4MG/2ML VIAL (J2405) IV PRN (19:15)
[2020-01-13] MEDS ORDERED: ACETAMINOPHEN TAB 650MG DOSE (2X325MG) PO PRN (19:15)
[2020-01-13] MEDS ORDERED: LR 1,000 ML IV SCH ×2 (19:30→20:00)
[2020-01-13] MEDS ORDERED: MORPHINE 2 MG/ML 1ML VIAL (J2270) IV PRN (19:30)
[2020-01-13] MEDS ORDERED: oxyCODONE 5MG TAB PO PRN (19:30)
[2020-01-13] MEDS: fentaNYL 100 MCG/2 ML INJECTION (J3010) IV PRN ×2 (19:32→19:38)
--- NOTE | 2020-01-13 19:40 | ECGEPIP ---
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
[2020-01-13 20:25] VITALS: BP 129/74
[2020-01-13] MEDS: MULTIVITAMINS/MINERALS THERAP 1 TAB PO SCH (20:37)
[2020-01-13 20:55] VITALS: BP 108/59
[2020-01-13] MEDS: PERCOCET 5MG/325MG TAB PO PRN (21:05)
[2020-01-13 21:20] VITALS: BP 119/68
[2020-01-13 22:20] VITALS: BP 109/56
[2020-01-13] MEDS: AMPICILLIN SOD/SULBACTAM SOD 3 GM in D5W MINI-BAG PLUS 100 ML IV SCH (23:18)
[2020-01-13 23:20] VITALS: BP 105/64
[2020-01-14 00:20] VITALS: BP 107/58
[2020-01-14] MEDS: KETOROLAC 30 MG/ML VIAL (J1885) IV PRN ×2 (00:51→09:54)
[2020-01-14 02:05] VITALS: BP 92/55
[2020-01-14] MEDS: AMPICILLIN SOD/SULBACTAM SOD 3 GM in D5W MINI-BAG PLUS 100 ML IV SCH (05:46)
[2020-01-14] MEDS: PERCOCET 5MG/325MG TAB PO PRN ×2 (05:47→11:49)
[2020-01-14 06:05] VITALS: BP 107/59
[2020-01-14 07:43] LABS: BASO % 0.1 % (0.0-1.0); EOS % 0.3 % (0.0-3.0); HEMATOCRIT 35.3 % (36.0-47.0); LYMPH # 1.3 10^3/uL (1.5-5.0); LYMPH % 16.5 % (24.0-44.0); MEAN CORPUSCULAR HEMOGLOBIN 29.4 pg (27.0-33.0); MEAN CORPUSCULAR HGB CONC 32.9 g/dl (32.0-36.5); MEAN CORPUSCULAR VOLUME 89.4 fl (80.0-96.0); MONO # 0.6 10^3/uL (0.0-0.8); NEUTROPHILS # 5.7 10^3/uL (1.5-8.5); NEUTROPHILS % 74.8 % (36.0-66.0); PLATELET COUNT, AUTOMATED 200 10^3/uL (150-450); RED BLOOD COUNT 3.95 10^6/uL (4.00-5.40); WHITE BLOOD COUNT 7.6 10^3/uL (4.0-10.0)
[2020-01-14 07:48] LABS: HEMOGLOBIN 11.6 g/dl (12.0-15.5)
[2020-01-14 08:00] VITALS: BP 104/62
[2020-01-14 08:18] LABS: ALBUMIN 3.1 GM/DL (3.2-5.2); ALT/SGPT 82 U/L (12-78); BILIRUBIN,TOTAL 0.6 MG/DL (0.2-1.0); BLOOD UREA NITROGEN 9 MG/DL (7-18); CALCIUM LEVEL 8.3 MG/DL (8.5-10.1); CARBON DIOXIDE LEVEL 27 MEQ/L (21-32); CHLORIDE LEVEL 110 MEQ/L (98-107); GLOMERULAR FILTRATION RATE > 60.0 (>58); GLUCOSE, FASTING 122 MG/DL (70-100); POTASSIUM SERUM 3.8 MEQ/L (3.5-5.1); SODIUM LEVEL 141 MEQ/L (136-145); TOTAL PROTEIN 6.2 GM/DL (6.4-8.2)
[2020-01-14] MEDS ORDERED: VITAMIN D 1,000 INTERNATIONAL UNITS TABLET PO SCH (09:00)
[2020-01-14] MEDS ORDERED: ENOXAPARIN 40 MG/0.4 ML SYRINGE (J1650) SC SCH (09:00)
[2020-01-14] MEDS: MULTIVITAMINS/MINERALS THERAP 1 TAB PO SCH (09:00)
[2020-01-14] MEDS ORDERED: OMEPRAZOLE 20 MG CAP PO SCH (09:00)
[2020-01-14] MEDS ORDERED: PERCOCET PO (11:38)
--- NOTE | 2020-01-14 11:43 | IPNPDOC ---
Text Note Date of Service The patient was seen on 01/14/20. NOTE Pt. had lap cholecystectomy yesterday for acute cholecystitis, feels better t vinicio. Mild leftover right upper qudrant discomfort and at the umbilical port site which is the extraction site. Tolerated breakfast On exam, abdomen is nondistended, benign in appearance. Umbilical port site slightly stained other port site dressings are dry. Minimal ruq discomfort on deep palpat ion and mild discomfort around umbilicus. POD1 lap cholecystectomy for acute cholecystitis OK to go home. She does not need further antibiotics Follow up with me in 2 weeks VS,Naz, I+O VS, Stacye, I+O Laboratory Tests 01/13/20 14:41 01/14/20 07:21 Vital Signs Date Time Temp Pulse Resp B/P (MAP) Pulse Ox O2 Delivery O2 Flow Rate FiO2 01/14/20 06:17 18 01/14/20 06:05 98.3 69 107/59 (75) 97 Room Air I&O- Last 24 Hours up to 6 AM 01/14/20 06:00 Intake Total 675 ml Output Total 745 ml Balance -70 ml ENRIQUE ROBERTS MD Jan 14, 2020 11:43
--- NOTE | 2020-01-31 16:56 | ROOPDOC ---
[facility] Report Of Operation Report of Operation DATE OF PROCEDURE: 01/13/20 PREPROCEDURE DIAGNOSES: Cholelithiasis, acute cholecystitis. POSTPROCEDURE DIAGNOSES: Cholelithiasis, acute cholecystitis. PROCEDURE: Laparoscopic cholecystectomy. SURGEON: Tae Narayanan MD MODEL DRESSER: ANESTHESIA: General Anesthesia. ESTIMATED BLOOD LOSS: Approximately 20 mL. COMPLICATIONS: none REMARKS: acutely inflamed, distended gallbladder. PROCEDURE NOTE: The patient's gallbladder is markedly distended, mixed acute and chronic gallbladder wall thickening with gallbladder wall edema consistent with acute cholecystitis.. DESCRIPTION OF PROCEDURE: Patient was given a dose Unasyn 3 g IV preoperatively for prophylaxis. She was brought to the operating room, laid supine on the table, compression boots placed for DVT prophylaxis. General endotracheal anesthesia started. Her abdomen then prepped and draped in usual sterile fashion. Surgical timeout was performed prior to starting surgery. Entry into the abdomen done through an incision above the umbilicus. A Veress needle was inserted with a controlled fashion. CO2 insufflation started to pressure 15 mmHg. Using the same incision a 5 mm Visiport was placed under direct vision laparoscope. The area underneath the insertion site was inspected and no injury found. She was then placed in steep reverse Trendelenburg. Her right side was tilted up to further expose the gallbladder. Under direct vision a 11 mm epigastric port and Two 5 mm working ports placed along the right subcostal line. Operative findings: Gallbladder is markedly distended with acute gallbladder wall edema consistent with acute cholecystitis. Small amount of serous fluid gallbladder bed. No perforation. The gallbladder was decompressed using an aspirating needle had some black-colored bile aspirated. The fundus of the gallbladder was grasped and the gallbladder was elevated superiorly exposing the neck of the gallbladder. The infundibulum identified and retracted laterally. The peritoneum overlying the area was opened up and dissected free both anteriorly and posteriorly to help with retraction of the gallbladder. The hepatocystic triangle was approached and dissected using a [place] and instrument. The cystic duct was identified coming off from the neck of thr gallbladder; this was circumferentially dissected. The cystic artery was identified in its usual position medially behind a small lymph node of Calot. This was similarly circumferentially dissected off surrounding adipose tissue. We continued posterior dissection further taking down the fibroadipose tissue at the cystic plate clearing this off from the neck of the gallbladder proceeding proximally until a critical view of safety was achieved whereby only the previously identified duct and artery coursing through the neck the gallbladder. At this point the cystic artery was clipped 4 times and divided. After again checking her anatomy and verifying that the previously identified cystic duct, this was also clipped 4 times and divided. The rest of the gallbladder was then dissected free of the gallbladder bed using Bovie cautery. There was minimal bleeding at the lateral gallbladder attachments to the liver capsule this was easily controlled with Bovie cautery. The gallbladder was then placed in an Endo Catch bag and retrieved outside through the epigastric port site. After re- insufflation and inspected the clips and noted this to be in place. No further bleeding noted. No bile leakage noted. The abdomen was deflated all ports were removed. The epigastric fascial defect repaired with 0 Vicryl in a mattress fashion. Rest of the skin incisions closed with 4-0 Monocryl in subcuticular fashion. Steri-Strips and gauze dressings were placed, the wound. Patient was informed they awakened, extubated and brought to recovery room stable TAE NARAYANAN MD Jan 31, 2020 16:56
== END 2020-01-14 12:35 | disposition home or self-care (01) ==
LOC: M ED 14:06 → M SDC 17:00 → ENRESERVDT 20:01 → ENRESERVTM 20:01 → M PED 20:22 → M SDC 01-14 12:35
PROVIDERS: ATTEND Surgery
DX: K80.10 Calculus of gallbladder with chronic cholecystitis without obstruction (principal); K21.9 Gastro-esophageal reflux disease without esophagitis; E11.9 Type 2 diabetes mellitus without complications; F41.9 Anxiety disorder, unspecified; G43.909 Migraine, unspecified, not intractable, without status migrainosus; Z86.39 Personal history of other endocrine, nutritional and metabolic disease; Z79.899 Other long term (current) drug therapy; Z98.84 Bariatric surgery status; Z91.040 Latex allergy status; Z91.018 Allergy to other foods; Z87.891 Personal history of nicotine dependence; Z86.718 Personal history of other venous thrombosis and embolism
CPT/HCPCS: 36415; 47562; 76705; 80047; 80053; 80076; 81001; 82550; 82553; 83690; 84703; 85025; 87086; 88304; 93005; 96361; 96365; 96372; 96375; 96376; 99284; J0131; J1100; J1650; J1885; J2250; J2270; J2405; J2765; J3010

== ENCOUNTER 2020-02-06 05:11 | Inpatient (IN) | payer BC ==
[~2020-02-06] VITALS: Ht 167.6 cm; Wt 79.7 kg
[~2020-02-06 05:11] MED LIST changes: +BIOT1CAP3 PO; +CALC250T PO; +OMEP-356 PO; +PERCOCET PO; +VITAD1000T PO; +VITMTA PO
[2020-02-06] MEDS ORDERED: KETOROLAC 30 MG/ML VIAL (J1885) IV ONE (05:30)
[2020-02-06] MEDS ORDERED: NS 1,000 ML IV ONE (05:30)
[2020-02-06] MEDS ORDERED: ONDANSETRON 4MG/2ML VIAL (J2405) IV ONE ×2 (05:30→08:15)
[2020-02-06 05:42] LABS: BASO % 0.4 % (0.0-1.0); EOS # 0.1 10^3/uL (0.0-0.5); HEMATOCRIT 43.3 % (36.0-47.0); HEMOGLOBIN 14.3 g/dl (12.0-15.5); LYMPH # 3.6 10^3/uL (1.5-5.0); LYMPH % 51.1 % (24.0-44.0); MEAN CORPUSCULAR HEMOGLOBIN 29.1 pg (27.0-33.0); MEAN CORPUSCULAR VOLUME 88.2 fl (80.0-96.0); MONO # 0.5 10^3/uL (0.0-0.8); MONO % 7.3 % (0.0-5.0); NEUTROPHILS # 2.7 10^3/uL (1.5-8.5); NEUTROPHILS % 38.9 % (36.0-66.0); PLATELET COUNT, AUTOMATED 274 10^3/uL (150-450); RED BLOOD COUNT 4.91 10^6/uL (4.00-5.40)
[2020-02-06] MEDS: MORPHINE 4 MG/ML 1ML VIAL/SYRINGE (J2270) IV PRN ×2 (05:58→06:31)
[2020-02-06 06:05] LABS: ALBUMIN 4.4 GM/DL (3.2-5.2); BILIRUBIN,DIRECT 0.2 MG/DL (0.0-0.2); BILIRUBIN,TOTAL 0.6 MG/DL (0.2-1.0); TOTAL PROTEIN 8.1 GM/DL (6.4-8.2)
--- NOTE | 2020-02-06 06:09 | REPVR ---
PROCEDURE INFORMATION: Exam: CT Abdomen And Pelvis Without Contrast Exam date and time: 02/06/2020 5:40 AM Age: 39 years old Clinical indication: Abdominal pain; Additional info: Left sided flank pain TECHNIQUE: Imaging protocol: Computed tomography of the abdomen and pelvis without contrast. Radiation optimization: All CT scans at this facility use at least one of these dose optimization techniques: automated exposure control; mA and/or kV adjustment per patient size (includes targeted exams where dose is matched to clinical indication); or iterative reconstruction. COMPARISON: CT ABD PELVIS W/O CONTRAST 08/13/2019 12:04 PM FINDINGS: Mediastinum: There is a small sliding hiatal hernia. Liver: Normal. No mass. Gallbladder and bile ducts: The patient is status post cholecystectomy. Pancreas: Normal. No ductal dilation. Spleen: Normal. No splenomegaly. Adrenals: Normal. No mass. Kidneys and ureters: There is a 4 mm distal left ureteral stone with mild left-sided hydronephrosis and hydroureter. Small left renal stones seen measuring around 2-3 mm. Stomach and bowel: The patient is status post gastric bypass. There is sigmoid colon diverticulosis. There is questionable thickening of some small bowel loops. Appendix: The patient is status post appendectomy. Intraperitoneal space: Unremarkable. No free air. No significant fluid collection. Vasculature: Unremarkable. No abdominal aortic aneurysm. Lymph nodes: Unremarkable. No enlarged lymph nodes. Bladder: The urinary bladder is collapsed limiting its evaluation. Reproductive: IUD seen in place. There is a 3.8 x 2.9 cm right adnexal cyst. Bones/joints: Unremarkable. No acute fracture. Soft tissues: There is a 2.0 x 1.6 cm umbilical fat containing hernia. Subcutaneous foci air seen in the anterior lower abdomen . IMPRESSION: 1. 4 mm distal left ureteral stone with mild proximal nephrohydroureter, in the same location and appearance as compared to August 2019. This is possibly new obstructing stone in the seen location however chronically obstructing stone unchanged in location cannot be completely excluded. 2. Left-sided nephrolithiasis. 3. IUD in place. 4. 3.8 x 2.9 cm right adnexal cyst. 5. Status post cholecystectomy and appendectomy. 6. Small sliding hiatal hernia. 7. Status post gastric bypass. 8. Some thickened proximal small bowel loops. Correlate clinically for enteritis. 9. Small umbilical fat containing hernia 10. Subcutaneous foci air seen in the anterior lower abdomen could be secondary to subcutaneous injection of medicine. Correlate clinically. Electronically signed by: Flex Rand On 02/06/2020 06:09:14 AM
[2020-02-06] MEDS ORDERED: TAMSULOSIN 0.4 MG CAP PO ONE (06:45)
[2020-02-06] MEDS: HYDROMORPHONE HCL 0.5 MG/ 0.5 ML SYRINGE (J1170 PER 1) IV PRN ×2 (07:00→07:22)
[2020-02-06] MEDS ORDERED: RIZA10TA58 SL (08:41)
[2020-02-06] MEDS ORDERED: ACET-897 PO (08:41)
[2020-02-06] MEDS ORDERED: MULTIVITAMINS/MINERALS THERAP 1 TAB PO SCH (09:00)
[2020-02-06] MEDS ORDERED: OMEPRAZOLE 20 MG CAP PO SCH (09:00)
[2020-02-06] MEDS ORDERED: RIZATRIPTAN MLT 10 MG TAB SL PRN (09:15)
[2020-02-06] MEDS ORDERED: ACETAMINOPHEN TAB 650MG DOSE (2X325MG) PO PRN (09:15)
[2020-02-06] MEDS ORDERED: MOM 30ML SUSPENSION UDC PO PRN (09:15)
[2020-02-06] MEDS ORDERED: ONDANSETRON 4MG/2ML VIAL (J2405) IV PRN ×2 (09:15→16:00)
[2020-02-06] MEDS ORDERED: PROCHLORPERAZINE 10 MG/2 ML VIAL (J0780) IV PRN (10:15)
[2020-02-06] MEDS: KCL 20MEQ in NS 1000ML 1,000 ML IV SCH ×2 (10:50→14:58)
[2020-02-06] MEDS ORDERED: diphenhydrAMINE 25 MG CAP PO ONE (11:00)
[2020-02-06] MEDS ORDERED: KETOROLAC 30 MG/ML VIAL (J1885) IV PRN (11:00)
[2020-02-06 11:10] VITALS: BP 106/58
[2020-02-06] MEDS ORDERED: LIDOCAINE 2% INJ 100 MG/5 ML SDV (FOR ANES.) As Ordered ONE (12:16)
[2020-02-06] MEDS ORDERED: ONDANSETRON 4MG/2ML VIAL (J2405) As Ordered ONE (12:16)
[2020-02-06] MEDS ORDERED: propofoL 200 MG/20 ML VIAL As Ordered ONE (12:16)
[2020-02-06] MEDS ORDERED: dexameTHASONE 4 MG/ML 1ML VIAL (J1100 PER 1MG) As Ordered ONE (12:16)
[2020-02-06 14:00] VITALS: BP 101/59
[2020-02-06] MEDS ORDERED: MIDAZOLAM INJ 2 MG/2 ML VIAL (J2250) As Ordered ONE (14:26)
[2020-02-06] MEDS ORDERED: fentaNYL 100 MCG/2 ML INJECTION (J3010) As Ordered ONE (14:27)
--- NOTE | 2020-02-06 15:12 | SMCUROLCON ---
Urology Consultation General Date of Consultation 02/06/20 Reason For Consultation This patient is seen for Calculus Of Distal Left Ureter. History of Present Illness This is a 39 y/o F w/ a PMH significant for kidney stones, presenting to the ER w/ acute onset left flank pain. A CT A/P in the ER was notable for a 4mm obstructing distal left ureteral stone. Despite several IV pain medications o/n, the patient's pain could not be controlled. She was therefore admitted for pain control and surgery. At this time the patient notes her pain is much better. She denies n/v. She denies f/c. Past Medical History Medical History kidney stones Surgical Hstory gastric bypass Medications Current Medications Current Medications Medications (Trade) Dose Ordered Sig/Lillie Route PRN Reason Start Time Stop Time Status Last Admin Dose Admin Acetaminophen (Tylenol Tab) 650 mg Q4H PRN PO PAIN OR FEVER 02/06/20 09:15 Home Med (Med Rec Complete!) ASDIRECTED XX 02/06/20 08:45 02/06/20 08:44 DC Hydromorphone HCl (Dilaudid) 1 mg Q30M PRN IV SEVERE PAIN (PS 8-10) 02/06/20 07:00 02/06/20 07:22 DC 02/06/20 07:22 Ketorolac Tromethamine (ToRADol) 15 mg Q6H PRN IV PAIN 02/06/20 11:00 02/11/20 10:59 02/06/20 13:49 Lidocaine (Lidoderm Patch) 1 patch DAILY TD 02/07/20 09:00 Magnesium Hydroxide (Milk Of Magnesia) 30 ml DAILY PRN PO CONSTIPATION 02/06/20 09:15 Morphine Sulfate (Morphine Sulfate Inj) 4 mg Q30M PRN IV SEVERE PAIN (PS 8-10) 02/06/20 06:00 02/06/20 06:31 DC 02/06/20 06:31 Multivitamins (Theragram-M) 1 tab BID PO 02/06/20 09:00 Non-Formulary Medication ( See Comment Field Below ) REMOVE LIDODERM PATCH DAILY@21 XX 02/06/20 21:00 Omeprazole (PriLOSEC) 20 mg DAILY PO 02/06/20 09:00 Ondansetron HCl (ZOFRAN INJection) 4 mg Q4HP PRN IV NAUSEA OR VOMITING 4/6/20 09:15 02/06/20 13:50 Potassium Chloride/Sodium Chloride 1,000 ml @ 120 mls/hr Q8H20M IV 02/06/20 10:00 02/06/20 10:50 Prochlorperazine (Compazine) 10 mg Q6HP PRN IV NAUSEA OR VOMITING 02/06/20 10:15 02/06/20 10:43 Rizatriptan Benzoate (Maxalt-Crankshaft Balancer) 10 mg DAILY PRN SL MIGRAINE 02/06/20 09:15 Vitamin D (Vitamin D) 1,000 units DAILY PO 02/07/20 09:00 Allergies Allergies: Coded Allergies: FRUIT (Verified Allergy, Severe, STONE FRUIT - HIVES AND SOB, 02/06/20) Kiwi (Verified Allergy, Severe, HIVES AND SOB, 02/06/20) banana (Verified Allergy, Unknown, 02/06/20) latex (Verified Allergy, Unknown, 02/06/20) Review of Systems Constitutional: Denies: Fever, Chills, Sweats, Weakness, Malaise Pulmonary: Denies: Dyspnea, Cough Cardiovascular: Denies Chest Pain, Denies Palpitations Gastrointestinal: Denies: Nausea, Vomiting, Abdominal Pain Genitourinary: Reports: Hematuria; Denies: Dysuria, Frequency, Incontinence Musculoskeletal: Reports: Back Pain (left flank pain) Psych: Reports: Mood Normal; Denies: Anxiety, Depression Physical Examination General Exam: Alert, No Acute Distress Chest Exam: Clear to auscultation Heart Exam: Regular Rhythm Abdomen Exam: Soft Skin Exam: Nl turgor and temperature Neuro Exam: Normal Speech Psych Exam: Mental status NL, Mood NL Vital Signs/I&O Vital Signs Date Time Temp Pulse Resp B/P (MAP) Pulse Ox O2 Delivery O2 Flow Rate FiO2 02/06/20 14:00 98.3 75 16 101/59 (73) 98 Room Air Laboratory Data 24H Labs Laboratory Tests 2 02/06/20 05:24: POC Beta HCG, Quantitative < 5.0 02/06/20 05:27: Immature Granulocyte % (Auto) 0.3, Neutrophils (%) (Auto) 38.9, Lymphocytes (%) (Auto) 51.1H, Monocytes (%) (Auto) 7.3H, Eosinophils (%) (Auto) 2.0, Basophils (%) (Auto) 0.4, Neutrophils # (Auto) 2.7, Lymphocytes # (Auto) 3.6, Monocytes # (Auto) 0.5, Eosinophils # (Auto) 0.1, Basophils # (Auto) 0.0, Nucleated Red Blood Cells % (auto) 0.0, Total Bilirubin 0.6, Direct Bilirubin 0.2, Aspartate Amino Transf (AST/SGOT) 14, Alanine Aminotransferase (ALT/SGPT) 23, Alkaline Phosphatase 70, Total Protein 8.1, Albumin 4.4, Albumin/Globulin Ratio 1.19, Lipase 131 02/06/20 05:36: POC Glucose (Misc Panel) 118H, POC Sodium (Misc Panel) 141, POC Potassium (Misc Panel) 3.4L, POC Chloride (Misc Panel) 104, POC Total CO2 (Misc Panel) 22.0L, POC Blood Urea Nitrogen (Misc Panel 15, POC Ionized Calcium (Misc Panel) 4.7, POC Creatinine (Misc Panel) 0.7, POC Hematocrit (Misc Panel) 45.0 02/06/20 06:24: Urine Color OTIS, Urine Appearance CLOUDYH, Urine pH 7.0, Urine Specific Roosevelt 1.028, Urine Protein 2+H, Urine Glucose (UA) NEGATIVE, Urine Ketones 1+H, Urine Blood 3+H, Urine Nitrite NEGATIVE, Urine Bilirubin NEGATIVE, Urine Urobilinogen 2.0H, Urine Leukocyte Esterase NEGATIVE, Urine WBC (Auto) 1, Urine RBC (Auto) TNTCH, Urine Hyaline Casts (Auto) 0, Urine Bacteria (Auto) NEGATIVE, Urine Squamous Epithelial Cells 1, Urine Mucus (Auto) SMALL, Urine Sperm (Auto) CBC/BMP Laboratory Tests 02/06/20 05:27 Assessment This is a 39 y/o F w/ an obstructing 4mm distal left ureteral stone. On review of previous imaging, I am concerned that this is the same stone that was present a few months ago but never passed. Her UA appears negative for infection. I recommended that we take her to the OR today for cystoscopy, left ureteroscopy w/ laser lithotripsy, and left ureteral stent placement. After a discussion of the risks and benefits of the surgery informed consent was signed. Plan - informed consent signed for cystoscopy, left ureteroscopy w/ laser lithotri psy, and left ureteral stent placement - NPO - 2g ancef OCOR - ok for discharge after surgery - my office will arrange f/u for stent removal BETHANY MCCORMACK MD Feb 06, 2020 15:12
[2020-02-06] MEDS ORDERED: ceFAZolin 2 GM/D5W 50 ML IV BAG (J0690 PER 500MG) As Ordered ONE (15:13)
[2020-02-06] MEDS ORDERED: CONRAY-60 60% 50ML VIAL (Q9961) As Ordered ONE (15:13)
[2020-02-06] MEDS ORDERED: ceFAZolin SOD 2 GM in IV 1 EA IV ONE (15:15)
[2020-02-06] MEDS ORDERED: fentaNYL 100 MCG/2 ML INJECTION (J3010) IV PRN (16:00)
[2020-02-06] MEDS ORDERED: OXYC1TAB23 PO (16:00)
[2020-02-06] MEDS ORDERED: oxyCODONE 5MG TAB PO PRN (16:00)
--- NOTE | 2020-02-06 16:08 | RO ---
DATE OF PROCEDURE: 02/06/2020 PREPROCEDURE DIAGNOSIS: Left ureteral stone. POSTPROCEDURE DIAGNOSIS: Left ureteral stone. PROCEDURE: Cystoscopy, left ureteroscopy, left retrograde pyelogram with intraoperative interpretation of images. SURGEON: Mark Card MD PARKING SUPERVISOR: None. ANESTHESIA: General. OPERATIVE INDICATIONS: This is a 39-year-old female who presented to the emergency room yesterday with an obstructing 4 mm distal left ureteral stone. Upon review of previous images, it appears the stone might have been in place since she was last seen in our office 2-3 months ago. Due to concern that the stone would not pass, as well as difficulty with pain management earlier today, it was recommended she be brought to the operating room today for treatment. DESCRIPTION OF PROCEDURE: The patient was brought to the operating room and general anesthesia was induced. Prophylactic antibiotics were infused. She was then placed in the dorsal lithotomy position and prepped and draped in the usual sterile fashion. A rigid cystoscope was inserted in the urethral meatus and advanced to the bladder. A guidewire was advanced up the left collecting system. I then went up the left collecting system with a short semi-rigid ureteroscope, and, of note, no stones were seen within the distal ureter. There did appear to be a moderate amount of edema just proximal to ureterovesical junction. I then examined the more proximal ureter, and the ureter was hydronephrotic but I did not see any stones in the more proximal ureter either. This indicated the stone had passed. I then shot a retrograde pyelogram with a mild left hydronephrosis and no extravasation. I then withdrew the ureteroscope. I went up the ureter and removed the wire. The bladder was emptied of all fluids, and this marked the conclusion of the procedure. The patient was then taken out of the dorsal lithotomy position, awakened from anesthesia, and transported to the recovery room in stable condition. Estimated blood loss: 5 mL. Complications: None. Specimens: None. PLAN: The patient will be taken back up to regular nursing floor and assuming her pain is controlled, she can be discharged home. We will have the patient followup in the urology clinic in 6 months for kidney stone followup. BUCK
[2020-02-06] MEDS ORDERED: oxyCODONE 5MG TAB As Ordered ONE (16:36)
--- NOTE | 2020-02-06 16:55 | REP ---
C-ARM VIEW ABDOMEN: C-Arm view of the abdomen is performed during left ureteral stent placement. A wire is seen in the left renal pelvis which is partially opacified with contrast material. 5 seconds fluoroscopy time is utilized. Electronically Signed by Mason Carter MD 02/07/2020 10:34 A
[2020-02-06 16:59] VITALS: BP 116/69
[2020-02-06 17:30] VITALS: BP 107/66
--- NOTE | 2020-02-06 18:27 | HPE ---
DATE OF ADMISSION: 02/06/2020 PRIMARY CARE PROVIDER: Dr. Vipul Hennessy Gastric bypass surgeon is Dr. De La Rosa. HISTORY OF PRESENT ILLNESS: Gloria is a 39-year-old female with a history of gastric bypass nine months ago and cholecystectomy about two weeks ago and a recent history of left kidney stone within the last month, resolved with supportive care, now presenting for acute left flank pain that started around midnight and woke her up from her sleep. She describes it as sharp and radiating from the back into the front of her left upper quadrant, aggravated by sitting still and alleviated with movement. She reports that her last similar incident was about three months ago when it was a kidney stone managed with supportive care and pain management by Dr. Son. She is unsure what kind of a kidney stone it was at that point and believes it passed on its own. She also reports associated blood clots and bloody-tinged urine since last night as well with mild discomfort in urination but otherwise denies any urgency, frequency, dysuria, and any other falguni blood. She has associated nausea. No vomiting. No fever, chills, or weight loss. No changes in bowels. In the emergency room (ER), she was noted to have a 4 mm distal left ureteral stone with mild proximal hydroureter in the same location and appearance as August 2019, concern for possibly a new obstructing stone. Per the request of urology, Gloria will be admitted for retrograde pyelogram. She is otherwise afebrile and has no white count. However, urinalysis (UA) is noted to have too numerous to count red blood cells (RBCs) and 3+ blood. Since her left kidney stone, she reports she has been on calcium supplementation which she does not take all the time and has missed quite a significant amount of doses. PAST MEDICAL HISTORY: Overweight with a body mass index (BMI) of 28 status post gastric bypass, remote history of tobacco use, and history of nephrolithiasis. PAST SURGICAL HISTORY: Gastric bypass nine months ago, appendectomy 2011, cholecystectomy two weeks ago, and left nephrolithiasis resolved spontaneously in August 2019. HOME MEDICATIONS: - Tylenol 1000 mg by mouth three times a day as needed - Biotin 10,000 mcg by mouth daily - calcium citrate 250 mg by mouth daily - vitamin D3 1000 units by mouth daily - multivitamin one tablet by mouth twice a day - omeprazole 20 mg by mouth daily - Zofran 4 mg by mouth three times a day as needed - rizatriptan 10 mg sublingual daily as needed ALLERGIES: FRUIT, KIWI, BANANA, LATEX, questionable hives, shortness of breath. FAMILY HISTORY: Father had congestive heart failure (CHF), abdominal aortic aneurysm, mesothelioma, diabetes mellitus, and chronic kidney disease (CKD). Mother had CKD. SOCIAL HISTORY: Smoked two cigarettes a day for three years, quit six years ago. 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 Denies any alcohol or illicit substances. Lives at home with and four children. No new exposures or recent travel or changes in medications. REVIEW OF SYSTEMS: Denies fever, chills, weight loss, night sweats. Denies headaches, vision changes, odynophagia, dysphagia. Denies chest pain, palpitations. Denies shortness of breath, coughing, wheezing. Admits to left flank pain with associated nausea. No vomiting. Has mild discomfort with urination. No dysuria, urgency, or frequency. Has hematuria with blood clots. No constipation, diarrhea, melena, or hematochezia. No paresthesias or any new skin rashes or lumps or bumps. Admits to a history of reflux. PHYSICAL EXAMINATION: VITAL SIGNS: Temperature 98.3, pulse 75, respiratory rate 16, blood pressure 101/59 with a mean arterial pressure (MAP) of 73, pulse oximetry 98% on room air. GENERAL: Alert and oriented times three, uncomfortable in bed, in mild distress, leaning over the bed, trying to find a position of ease for her flank pain. HEENT: Normocephalic, atraumatic. Extraocular muscles intact. Pupils are equal, round, and reactive to light. Anicteric sclerae. Moist mucous membranes. Poor dentition. NECK: Supple without adenopathy. HEART: Regular rate and rhythm without any murmur, clicks, or gallops. LUNGS: Clear without wheezing, rhonchi, or rales. No accessory muscle use. ABDOMEN: Hypoactive bowel sounds throughout with tenderness to palpation and guarding to the left flank. No appreciable masses, hernias, or abdominal fluid. Positive Fermin's punch on the left side. No other spinal tenderness. No lower extremity edema. No rashes. Able to move all extremities with muscle strength intact 5/5, 2+ radial pulses bilaterally. No skin lesions or ulcerations. LABORATORY DATA: WBC 7, hemoglobin and hematocrit 14.3 and 43.3, platelets 274. Sodium and potassium 141 and 3.4, BUN and creatinine 15 and 0.7. Liver profile is normal. Lipase 131 and serum quantitative beta hCG is negative. Urine is cloudy with 2+ protein, 1+ ketones, 3+ blood, 2+ urobilinogen, too numerous to count RBCs. CT of the abdomen and pelvis reports a 4 mm distal left ureteral stone, mild proximal nephro hydroureter in the same location as August 2019, possibly a new obstructing stone, left-sided nephrolithiasis, IUD in place, right adnexal cyst, small fatty hiatal hernia, status post gastric bypass. IMPRESSION AND PLAN: This is a 39-year-old female with a history of recent left-sided nephrolithiasis in August 2019 which resolved spontaneously, presenting for similar left-sided flank pain in the same location, also noted on imaging with an obstructing stone with hydronephrosis. 1. Obstructing nephrolithiasis with hydronephrosis, possibly secondary to noncompliance with her calcium citrate which she was started on since her most recent kidney stone back in August 2019 which she reports she sought care with Dr. Son. Continue antiemetics and pain control. Dr. Card would like the patient admitted and will take her to the operating room (OR) for a possible stent. Currently, we will make her nothing by mouth and start on IV fluids pending this procedure. Compliance was emphasized to the patient. 2. Hypokalemia with a potassium of 3.4, supplemented. 3. Hematuria with blood clots, likely secondary to noted above number one. Hemoglobin and hematocrit is within normal range. Monitor status post OR. 4. History of tobacco use, currently does not smoke, quit six years ago. 5. Overweight with a body mass index (BMI) of 28, status post gastric bypass, following with Dr. De La Rosa in [place]. 6. Deep vein thrombosis (DVT) prophylaxis, mechanical. DISPOSITION: We will admit to hospitalist service for observation pending the operating room (OR) with urology, likely discharge today or tomorrow.
--- NOTE | 2020-02-06 20:23 | DSES ---
DATE OF ADMISSION: 02/06/2020 DATE OF DISCHARGE: 02/06/2020 PRIMARY CARE PROVIDER (PCP): Dr. Vipul Hennessy. ATTENDING PHYSICIAN: Dr. Hicks SPECIALIST INVOLVED: Dr. Crad of urology. PROCEDURES PERFORMED DURING STAY: Retrograde pyelogram with cystoscopy, left ureteroscopy, and lithotripsy. ADMITTING DIAGNOSIS: Obstructing nephrolithiasis. DISCHARGE DIAGNOSES: Obstructing nephrolithiasis. Hypokalemia, supplemented. CHIEF COMPLAINT: Left blank pain. HISTORY OF THE PRESENT ILLNESS: Please refer to the history and physical done also on this same day for detailed information. She came in for left flank pain, found to have an obstructing 4 mm distal left ureteral stone and was taken to the operating room per urology. HOSPITAL COURSE: In the operating room (OR), she underwent laser lithotripsy, and per urologist, Dr. Card, she is safe for discharge today to followup in his office in the next few months. She is otherwise doing okay, was monitored on the floor for a few hours postoperatively and had no complaints. Hemodynamically stable for discharge. DISCHARGE MEDICATIONS: Are the same as before: Tylenol, Biotin, calcium citrate, vitamin D3, multivitamin, omeprazole, Zofran, and rizatriptan. New medication is: Oxycodone/acetaminophen 5/325 sent in by urology, total of 12 tabs, one tablet by mouth every 6 hours as needed. ALLERGIES: FRUIT, KIWI, BANANA, LATEX. PHYSICAL EXAMINATION: Please refer to history and physical. She is hemodynamically stable and resting comfortably postoperatively, in no acute distress. LAB DATA: Same from that noted in history and physical given her admission this day. IMAGING: Retrograde pyelogram reports wire in the left renal pelvis, partially opacified with contrast material. Initial CT of the abdomen and pelvis on admission found 4 mm distal left ureteral stone. PROGNOSIS: Prognosis is good. ACTIVITY: As tolerated. DIET: As tolerated. DISPOSITION: Home. DISCHARGE PLAN: Followup with PCP and with urology within 1 week. Return to the operating room for any emergency. Continue taking all medications as prescribed. DISCHARGE CONDITION: Stable. TIME SPENT ON DISCHARGE: Greater than 32 minutes.
[2020-02-06] MEDS ORDERED: **NOTE PATIENT COMMENT** MISC XX SCH (21:00)
[2020-02-07] MEDS ORDERED: LIDOCAINE 5% (LIDODERM) PATCH TD SCH (09:00)
[2020-02-07] MEDS ORDERED: VITAMIN D 1,000 INTERNATIONAL UNITS TABLET PO SCH (09:00)
== END 2020-02-06 18:25 | disposition home or self-care (01) | DRG 465 ==
LOC: M ED 05:11 → M ED INP 10:40 → ENRESERVDT 10:53 → ENRESERVTM 10:53 → M MS5PR 11:10
PROVIDERS: ADMIT Internal Medicine; ATTEND Internal Medicine
PROC: BT02ZZZ Plain Radiography of Left Kidney (ICD-10-PCS; 2020-02-06)
PROC: 0TJ98ZZ Inspection of Ureter, Via Natural or Artificial Opening Endoscopic (ICD-10-PCS; principal; 2020-02-06 08:42)
DX: N13.1 Hydronephrosis with ureteral stricture, not elsewhere classified (principal); E87.6 Hypokalemia; Z91.040 Latex allergy status; Z91.018 Allergy to other foods; Z79.899 Other long term (current) drug therapy; Z98.84 Bariatric surgery status; Z87.891 Personal history of nicotine dependence; Z91.14 Patient's other noncompliance with medication regimen

== ENCOUNTER 2020-08-20 15:51 | Emergency (ER) | payer BC ==
[~2020-08-20] VITALS: Ht 165.1 cm; Wt 72.3 kg
[~2020-08-20 15:51] MED LIST changes: +ACET-897 PO; -ASPI81TA85 PO; +ASPI81TA86 PO; +D31000TA2 PO; +OXYC1TAB23 PO; +RIZA10TA58 SL; -VITAD1000T PO
[2020-08-20] MEDS ORDERED: KETOROLAC 30 MG/ML 1ML VIAL IV ONE (17:15)
--- NOTE | 2020-08-20 17:58 | REPVR ---
PROCEDURE INFORMATION: Exam: CT Abdomen And Pelvis Without Contrast Exam date and time: 08/20/2020 5:05 PM Age: 39 years old Clinical indication: Abdominal pain; Flank; Left; Additional info: Left renal colic TECHNIQUE: Imaging protocol: Computed tomography of the abdomen and pelvis without contrast. Radiation optimization: All CT scans at this facility use at least one of these dose optimization techniques: automated exposure control; mA and/or kV adjustment per patient size (includes targeted exams where dose is matched to clinical indication); or iterative reconstruction. COMPARISON: CT ABD PELVIS W/O CONTRAST 02/06/2020 5:37 AM FINDINGS: Liver: Normal. No mass. Gallbladder and bile ducts: The gallbladder is surgically absent, with metallic clips in the gallbladder fossa. Pancreas: Normal. No ductal dilation. Spleen: A small medial splenule is present. Adrenals: Normal. No mass. Kidneys and ureters: Left renal posterior upper pole 3.7 mm calyceal calculus. Stomach and bowel: Sigmoid and descending colonic diverticula are present without evidence of diverticulitis. The patient is status post a gastric bypass procedure with an antecolic Ekaterina-en-Y loop. Appendix: Surgical claudia and/or clips are noted at the previous base of the appendix. The appendix is surgically absent. Intraperitoneal space: Posterior right pelvic calcified 15.9 mm probable autoimmune few tailored epiploic appendage, stable. Vasculature: Unremarkable. No abdominal aortic aneurysm. Lymph nodes: No enlarged lymph nodes. Urinary bladder: Unremarkable as visualized. Reproductive: The uterus contains a Mirena IUD. Left ovarian 19 mm physiologic follicle. Bones/joints: 8.6 mm right pubic symphysis bone island, stable. Soft tissues: Unremarkable. IMPRESSION: 1. Prior appendectomy. 2. Intrauterine device. 3. Diverticulosis. 4. Previous gastric bypass. 5. Prior cholecystectomy. 6. Left renal calyceal lithiasis. 7. No specific evidence of obstructive uropathy. Electronically signed by: José Miguel Alves On 08/20/2020 17:58:03 PM
[2020-08-20] MEDS ORDERED: ONDANSETRON 4MG/2ML VIAL IV ONE (18:45)
[2020-08-20 19:21] LABS: BASO % 0.5 % (0.0-1.0); EOS # 0.1 10^3/uL (0.0-0.5); EOS % 0.8 % (0.0-3.0); HEMATOCRIT 39.5 % (36.0-47.0); LYMPH # 2.4 10^3/uL (1.5-5.0); LYMPH % 35.4 % (24.0-44.0); MEAN CORPUSCULAR HGB CONC 32.9 g/dl (32.0-36.5); MEAN CORPUSCULAR VOLUME 91.2 fl (80.0-96.0); MONO # 0.5 10^3/uL (0.0-0.8); NEUTROPHILS # 3.6 10^3/uL (1.5-8.5); NEUTROPHILS % 54.8 % (36.0-66.0); PLATELET COUNT, AUTOMATED 222 10^3/uL (150-450); RED BLOOD COUNT 4.33 10^6/uL (4.00-5.40); WHITE BLOOD COUNT 6.6 10^3/uL (4.0-10.0)
[2020-08-20] MEDS ORDERED: PYRI1TAB5 PO (20:00)
[2020-08-20] MEDS ORDERED: CIPR-249 PO (20:00)
[2020-08-20] MEDS ORDERED: ONDA4TAB6 PO (20:00)
[2020-08-20 20:18] VITALS: BP 115/69
--- NOTE | 2020-08-21 08:23 | ECGEPIP ---
[place] - ED Test Date: 2020-08-20 Pat Name: DAVE HEART Department: Room: - Gender: Female Manager [place]: JOSE : 1980 Requested By: ESTHER CABEZAS PA-C. Order Number: [id number] Reading MD: Johnny Castillo Measurements Intervals [place] Rate: 85 P: 62 [place]: 132 QRS: 70 QRSD: 85 T: 17 QT: 375 QTc: 448 Interpretive Statements SINUS RHYTHM POSSIBLE LEFT ATRIAL ENLARGEMENT NSTTW ABNORMALITY(S) SIMILAR TO 01/13/20 Electronically Signed on 08-21-2020 8:22:42 EDT by Johnny Castillo
== END 2020-08-20 20:24 | disposition home or self-care (01) ==
LOC: M ED 15:51
DX: R10.9 Unspecified abdominal pain (principal); R31.9 Hematuria, unspecified; Z97.5 Presence of (intrauterine) contraceptive device; Z98.84 Bariatric surgery status; Z91.018 Allergy to other foods; Z91.040 Latex allergy status
CPT/HCPCS: 74176; 80047; 81001; 85025; 87088; 93005; 96374; 96375; 99284; J1885; J2405

== ENCOUNTER → 2021-03-18 | Outpatient (REF) ==
[~2021-03-18] MED LIST changes: +PYRI1TAB5 PO; -SIME180C PO; +SIME180C25 PO
== END ==
LOC: M LABSMTC 13:45
PROVIDERS: ATTEND Pediatrics
DX: Z20.822 Contact with and (suspected) exposure to COVID-19 (principal)

== ENCOUNTER → 2021-05-22 | Outpatient (REF) | LOC: M LABSMTC 10:18 | PROVIDERS: ATTEND Pediatrics | DX: Z11.52 Encounter for screening for COVID-19 (principal) ==

== ENCOUNTER 2021-05-29 09:58 | Emergency (ER) | payer BC ==
[~2021-05-29] VITALS: Ht 167.6 cm; Wt 73.1 kg
[~2021-05-29 09:58] MED LIST changes: +OMEP-173 PO; -OMEP-218 PO; -OMEP-221; +OMEP40CA5; +POTA-151; -POTA20TA6
[2021-05-29 11:54] LABS: HEMATOCRIT 43.6 % (36.0-47.0); HEMOGLOBIN 14.2 g/dl (12.0-15.5); MEAN CORPUSCULAR HEMOGLOBIN 30.5 pg (27.0-33.0); MEAN CORPUSCULAR HGB CONC 32.6 g/dl (32.0-36.5); MEAN CORPUSCULAR VOLUME 93.8 fl (80.0-96.0); PLATELET COUNT, AUTOMATED 242 10^3/uL (150-450); RED BLOOD COUNT 4.65 10^6/uL (4.00-5.40)
[2021-05-29 12:30] LABS: ALBUMIN 3.9 GM/DL (3.2-5.2); ALT/SGPT 30 U/L (12-78); BILIRUBIN,DIRECT < 0.1 MG/DL (0.0-0.2); BILIRUBIN,TOTAL 0.3 MG/DL (0.2-1.0); LIPASE 72 U/L (73-393); TOTAL PROTEIN 7.7 GM/DL (6.4-8.2)
[2021-05-29 12:35] LABS: BASOPHILS 1 % (0-1); EOSINOPHILS 1 % (0-3); LYMPHOCYTES 19 % (16-44); MONOCYTES 6 % (0-5); NEUTROPHILS 73 % (28-66); PLATELET ESTIMATE NORMAL (NORMAL)
[2021-05-29] MEDS ORDERED: ONDANSETRON 4MG/2ML VIAL IV ONE (12:40)
[2021-05-29] MEDS ORDERED: KETOROLAC 30 MG/ML 1ML VIAL IV ONE (12:40)
[2021-05-29] MEDS ORDERED: NS 1,000 ML IV ONE (12:40)
[2021-05-29] MEDS ORDERED: ISOVUE-370 76% 100ML VIAL As Ordered ONE (12:43)
[2021-05-29] MEDS ORDERED: METOCLOPRAMIDE INJ 10MG/2ML VIAL (J2765 PER 1) IV ONE (14:00)
[2021-05-29] MEDS ORDERED: ALPR0.5T3 PO (14:26)
[2021-05-29] MEDS ORDERED: ONDA4TAB6 SL (14:26)
[2021-05-29] MEDS ORDERED: CIPR500T39 PO (14:26)
[2021-05-29] MEDS ORDERED: ONDA4TAB6 PO (16:09)
[2021-05-29] MEDS ORDERED: FLAG500T PO (16:09)
[2021-05-29 16:19] VITALS: BP 117/67
== END 2021-05-29 16:22 | disposition home or self-care (01) ==
LOC: M ED 09:58
DX: R10.9 Unspecified abdominal pain (principal); R11.2 Nausea with vomiting, unspecified; R19.7 Diarrhea, unspecified; E11.9 Type 2 diabetes mellitus without complications; F41.9 Anxiety disorder, unspecified; K21.9 Gastro-esophageal reflux disease without esophagitis; E06.9 Thyroiditis, unspecified; Z86.718 Personal history of other venous thrombosis and embolism; Z87.442 Personal history of urinary calculi; Z98.84 Bariatric surgery status; Z91.040 Latex allergy status; Z79.899 Other long term (current) drug therapy
CPT/HCPCS: 36415; 74177; 80047; 80076; 81001; 83690; 84702; 85025; 96361; 96374; 96375; 99284; J1885; J2405; J2765; Q9967

== ENCOUNTER → 2021-06-03 | Outpatient (REF) ==
[~2021-06-03] MED LIST changes: +ALPR0.5T3 PO; +CIPR500T39 PO; +FLAG500T PO; -OMEP-173 PO; +OMEP-218 PO; +OMEP-221; -OMEP40CA5; +ONDA4TAB6 SL; -POTA-151; +POTA20TA6
== END ==
LOC: M LABSMTC 09:31
PROVIDERS: ATTEND Pediatrics
DX: Z20.822 Contact with and (suspected) exposure to COVID-19 (principal)

== ENCOUNTER → 2021-08-06 | Outpatient (REF) | LOC: M EMP 14:34 | PROVIDERS: ATTEND Family Medicine | DX: Z20.822 Contact with and (suspected) exposure to COVID-19 (principal) ==

== ENCOUNTER → 2021-09-17 | Outpatient (REF) | LOC: M EMP 10:56 | PROVIDERS: ATTEND Family Medicine | DX: Z11.52 Encounter for screening for COVID-19 (principal); Z20.822 Contact with and (suspected) exposure to COVID-19 ==

== ENCOUNTER 2021-09-20 18:32 | Emergency (ER) | payer BC ==
[~2021-09-20] VITALS: Ht 162.6 cm; Wt 69.1 kg
--- OUTSIDE RECORDS SUMMARY | 2021-09-20 18:42 | CCD | Continuity of Care Document ---
Author Author Gloria BENAVIDEZ Organization [place] [address] Phone [phone] Care Team Providers Care Education Coordinator Name Role Phone Florecita Jordan D.O. AUTM [phone] Ronald Hennessy M.D. [facility] [phone] [facility] [phone] Problems Active Problems Provider Date History of bypass of stomach KOMAL Thomas Onset: 11/2019 H/O: urinary stone KOMAL Thomas Onset: 04/02/2020 Migraine without aura, not refractory KOMAL Thomas On set: 04/02/2020 Generalized anxiety disorder KOMAL Thomas Onset: 11/2019 Social History Type Date Description Comments Sex Unknown ETOH Use Denies alcohol use Tobacco Use Start: Unknown Patient has never smoked Recreational Drug Use Denies Drug Use Exercise Type/Frequency Cardio 3-5X/wk Sun Exposure Uses sunscreen Seat Belt/Car Seat Always uses seat belt Allergies, Adverse Reactions, Alerts Active Allergies Criticality Reaction | Severity Comments Date NSAIDS Unable to assess criticality Pt had Rny, Cannot have NSAIDS 03/15/2020 Imitrex Unable to assess criticality 06/06/2020 Acetaminophen / Butalbital / Caffeine / Codeine Unable to as sess criticality severe stomach issues/ER STAY 06/28/2020 Medications Active Medications SIG Qnty Indications Ordering Provide r Date Amoxicillin/Clavulanate Potassium 875-125mg Tablets one tablet by mouth every 12 hours 20tabs J01.90 Florecita Jordan D.O. 08/07/2021 Fluconazole 200mg Tablets take one tablet by mouth and again in 3 days if symptoms persist 2tabs R19.7 Florecita Crowder D.O. 06/14/2021 Hydrocodone-Acetaminophen 5-325mg Tablets 1 tablet by mouth every 6 hours as needed for pain 28tabs A04.72 Tu BurnsOMarcio 06/04/2021 Promethazine HCL 12.5mg Tablets take one to two tablet by mouth every 6 hours as needed for nausea 60tabs A 04.72 Tu BarrazaOMarcio 06/04/2021 Tizanidine HCL 4mg Capsules take one capsule by mouth every 8 hours as needed for muscle spasm 60caps M5 4.2 Tu BarrazaO. 12/06/[address] take one capsule by mouth every day for 3 months after surgery 90caps Tu BurnsOMarcio 12/06/2020 Multivitamin Adult Tablets 1 by mouth every day Unknown Vitamin D3 50mcg (2000 Ut) Capsule s 1 by mouth every day Unknown Probiotic Capsules 1 caps in th in the morning Unknown Magnesium 500mg Capsules 2 by mouth every day Unknown Tylenol 8 Hour 650mg Tablets ER 1 tablet by mouth every 8 hours as needed for pain Unknow n Biotin [id number] Tablets 1 by mouth once daily Unknown Calcium Citrate 250mg Tablets 1 tab by mouth twice a day Unknown Vitamin B12 1000mcg Tablets ER 1 by mouth every day Unknown Xanax 0.5mg Tablets take one tablet by mouth twice a day as needed. istop: [id number] 60tabs Tu BarrazaO. Tamsulosin HCL 0.4mg Capsules Take One Capsule By Mouth Every Day Unknown Ondansetron 4mg Tablets Dispers dissolve one tablet on tongue three times a day as needed for nausea 90tabs Tu BarrazaO. History Medications Vancomycin HCL 125mg Capsules One capsule by mouth every 6 hours for 10 days. 40caps Florecita Alves D.O. 06/06/2021 - 08/07/2021 Metronidazole 500mg Tablets take one tablet by mouth twice daily for 14 days 28tabs Florecita Boggs D.O. 06/03/2021 - 06/06/2021 Ciprofloxacin HCL 500mg Tablets one tablet every 12 hours 14tabs R19.7 Florecita Jordan D.O. 05/24 - 06/03/2021 Fluconazole 200mg Tablets take one tablet by mouth and again in 3 days if symptoms persist 2tabs R19.7 Florecita Crowder D.O. 05/24/2021 - 06/04/2021 Medications Administered in Office Medication SIG Qnty Indications Ordering Provider Date Injection Ketorolac Tromethamine Per 15 MG (Toradol) Injection KOMAL Franco 12/06/2020 Injection Ketorolac Tromethamine Per 15 MG (Toradol) Injection KOMAL Franco 06/06/2020 Injection Ketorolac Tromethamine Per 15 MG (Toradol) Injection KOMAL Franco 06/06/2020 Immunizations Description No Information Available Vital Signs Date Vital Result Comment 08/07/2021 3:31pm BP Systolic 126 mmHg BP Diastolic 64 mmHg Height 65 inches 5'5" Heart Rate 101 /min Respiratory Rate 18 /min Body Temperature 98.9 F O2 % BldC Oximetry 98 % [place] Body Weight 125 lb 06/04/2021 2:27pm BP Systolic 130 mmHg BP Diastolic 86 mmHg Height 65 inches 5'5" Weight 163.00 lb BMI (Body Mass Index) 27.1 kg/m2 Heart Rate 77 /min Respiratory Rate 18 /min Body Temperature 99.2 F O2 % BldC Oximetry 98 % [place] Body Weight 125 lb Results Test Acquired Date Facility Test Result H/L Range Note GI 4 05/30/2021 [facility] [place] [address] [phone] Campylobacter Not Detected Not Detected C difficile toxin A/B Detected Abnormal Not Detected Plesiomonas shigelloides Not Detected Not Detected Salmonella Not Detected Not Detected Vibrio Not Detected Not Detected Vibrio cholerae Not Detected Not Detected Yersinia enterocolitica Not Detected Not Detected Enteroaggregative E coli Not Detected Not Detected Enteropathogenic E coli Not Detected Not Detected Enterotoxigenic E coli Not Detected Not Detected [id number] Ecoli Not Detected Not Detected E coli O157 Not applicable Not Detected Shigella/EnteroinvasiveE coli Not Detected Not Detect ed Cryptosporidium Not Detected Not Detected Cyclospora cayetanensis Not Detected Not Detected Entamoeba histolytica Not Detected Not Detected Giardia lamblia Not Detected Not Detected Adenovirus F 40/41 Not Detected Not Detected Astrovirus Not Detected Not Detected Norovirus GI/Gii Not Detected Not Detected Rotavirus A Not Detected Not Detected Sapovirus Not Detected Not Detected Ova & Para Exam 05/30/2021 [facility] [place] [address] [phone] Ova \\T\\ Para Exam (SEE NOTE) 1 Source: STOOL 2 Ua W/ Reflex To Culture 05/29/2021 [facility] Outpatient T esting (Registration) [address] [place] [address] [phone] Appearance, Urine RFX CLEAR Normal Clear Color, Urine RFX YELLOW Normal Yellow PH,Urine RFX 5.0 units Normal 5.0-9.0 Specific [place] Ur Auto RFX 1.010 Normal 1.002-1.035 Protein, Urine Auto RFX NEGATIVE mg/dL Normal Negative Glucose, Urine (Ua) Auto RFX NEGATIVE mg/dL Normal Negative Ketone, Urine Auto RFX 1+ mg/dL High Negative Urobilinogen, Urine Auto RFX 0.2 mg/dL Normal 0.0-2.0 Bilirubin, Urine Auto RFX NEGATIVE Normal Negative Nitrite, Urine Auto RFX NEGATIVE Normal Negative Leukocyte Esterase Ur Auto RFX NEGATIVE Normal Negative Blood, Urine Blood RFX NEGATIVE Normal Negative WBC, Urine Auto RFX 1 /HPF Normal 0-3 RBC, Urine Auto RFX 2 /HPF Normal 0-3 Bacteria, Urine Auto RFX NEGATIVE Normal Negative Squam Epithelial Cell Ur Aurfx 9 /HPF Normal 0-6 Mucus, Urine RFX SMALL Normal Negative Hyaline Cast, Urine Auto RFX 0 /LPF Normal 0-1 Laboratory test finding 05/29/2021 [facility] Outpatient T esting (Registration) [address] [place] [address] [phone] iSTAT B-hCG < 5.0 Normal 3 Istat Chem8+ Panel 05/29/2021 [facility] Outpatient Testi ng (Registration) [address] [place] [address] [phone] iSTAT HCT 45.0 % Normal 38.0-51.0 iSTAT Glucose 80 mg/dL Normal 70-105 iSTAT Sodium 145 mEq/L Normal 136-145 iSTAT Potassium 3.6 mEq/L Normal 3.5-5.1 iSTAT CA++ 4.5 mg/dL Normal 4.5-5.3 iSTAT Chloride 105 mEq/L Normal 98-109 iSTAT Co2 26.0 MM/L Normal 23.0-27.0 iSTAT BUN 10 mg/dL Normal 8-26 iSTAT Creatinine 0.7 mg/dL Normal 0.6-1.3 Liver Profile 05/29/2021 [facility] Outpatient Testi ng (Registration) [address] [place] [address] [phone] Ast/Sgot 19 U/L Normal 7-37 Alt/SGPT 30 U/L Normal 12-78 Alkaline Phosphatase 64 U/L Normal 45-117 Bilirubin,Total 0.3 mg/dL Normal 0.2-1.0 Bilirubin,Direct < 0.1 mg/dL Normal 0.0-0.2 Total Protein 7.7 GM/DL Normal 6.4-8.2 Albumin 3.9 GM/DL Normal 3.2-5.2 Albumin/Globulin Ratio 1.0 Low 1.2-2.2 Laboratory test finding 05/29/2021 [facility] Outpatient T esting (Registration) [address] [place] [phone] Lipase 72 U/L Low 73-393 CBC With Differential 05/29/2021 [facility] Outpatient Jodi ting (Registration) [address] [place] [address] [phone] White Blood Count 6.0 10 Normal 4.0-10.0 Red Blood Count 4.65 10 Normal 4.00-5.40 Hemoglobin 14.2 g/dL Normal 12.0-15.5 Hematocrit 43.6 % Normal 36.0-47.0 Mean Corpuscular Volume 93.8 fl Normal 80.0-96.0 Mean Corpuscular Hemoglobin 30.5 pg Normal 27.0-33.0 Mean Corpuscular HGB Conc 32.6 g/dL Normal 32.0-36.5 Red Cell Distribution Width 12.3 % Normal 11.5-14.5 Platelet Count, Automated 242 10 Normal 150-450 Nucleated Red Blood Cell % 0.0 % Normal 0-0 Differential 05/29/2021 [facility] Outpatient Testi gem (Registration) [address] [place], [place] [id number] [phone] Neutrophils 73 % High 28-66 Lymphocytes 19 % Normal 16-44 Monocytes 6 % High 0-5 Eosinophils 1 % Normal 0-3 Basophils 1 % Normal 0-1 Laboratory test finding 05/29/2021 [facility] Outpatient T estgalina (Registration) [address] [place] [address] [phone] Platelet Estimate NORMAL Normal Normal 1 _OVA & P D SM CON ID_ 2 ^[id number] ^[id number] ^[id number] REPORTED DATE/TIME: 06/06/2021 20:06 Culture: OVA & PARA EXAM Status: Final Ova + Parasite Exam: P1 No ova, cysts, or parasites seen. . One negative specimen does not rule out the possibility of a parasitic infection. These results were obtained using wet preparation(s) and trichrome stained smear. This test does not include testing for Cryptosporidium parvum, Cyclospora, or Microsporidia. P1 Test performed by: [facility] #: [id number] [address] [place] [address] [id number] [facility] [id number] Varnish Maker Helper : Mario Dewitt MD NPI #: Training Lead : 06/06/21.XMT.SENT REF 06/06/21.DW .to DEWEY Alonzo via fax 3 QUANTITATIVE RESULT QUALITATIVE INTERPRETATION <5.0 IU/L NEGATIVE 5.0 - 25.0 IU/L INDETER MINATE >25.0 IU/L POSITIVE Procedures Date Code Description Status 08/07/2021 39968 Office/Outpatient Established Lo w MDM 20-29 Min Completed 06/04/2021 66328 Office/Outpatient Established Lo w MDM 20-29 Min Completed 05/24/2021 52491 Office/Outpatient Established [facility] 20-29 Min Completed Medical Devices Description No Information Available Encounters Type Date Location Provider Dx Diagnosis Office Visit 08/07/2021 3:40p [facility] KOMAL Thomas J01.90 Acute sinusitis, unspecified Office Visit 06/04/2021 2:40p [facility] KOMAL Thomas A04.72 Enterocolitis d/t Clostridiu m difficile, not spcf as recur Office Visit 05/24/2021 8:00a [facility] KOMAL Thomas R19.7 Diarrhea, unspecified Assessments Date Code Description Provider 08/07/2021 Stew01.Ale Acute sinusitis, unspecified Bharath KOMAL Adams 06/04/2021 A04.72 Enterocolitis due to Clostridium difficile, not specified as recurrent KOMAL Thomas 05/24/2021 R19.7 Diarrhea, unspecified KOMAL Portillo Plan of Treatment 08/07/2021 - KOMAL Thomas* J01.90 Acute sinusitis, unspecified* New Medication:* Amoxicillin/Clavulanate Potassium 875-125 mg - one tablet by mouth every 12 hours * Comments:* Recent COVID test at work yesterday was negative. Please use OTC medications as we discussed and medication as prescribed. Functional Status Description No Information Available Mental Status Description No Information Available Referrals Description No Information Available
--- OUTSIDE RECORDS SUMMARY | 2021-09-20 18:42 | CCD ---
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 Name Role Phone Gab Denny MD Unavailable Unavailable Gab Denny MD Unavailable Unavailable Gab Denny MD Unavailable Unavailable Gab Denny MD Unavailable Unavailable Gab Denny MD Unavailable Unavailable Gab Denny MD Unavailable Unavailable Gab Denny MD Unavailable Unavailable Gab Denny MD Unavailable Unavailable Gab Denny MD Unavailable Unavailable Gab Denny MD Unavailable Unavailable Gab Denny MD Unavailable Unavailable Gab Denny MD Unavailable Unavailable Gab Denny MD Unavailable Unavailable Denny, A Heather MD Unavailable Unavailable KWADWO, F LIANNE MD Unavailable Unavailable KWADWO, F LIANNE MD Unavailable Unavailable KWADWO, F LIANNE MD Unavailable Unavailable KWADWO, F LIANNE MD Unavailable Unavailable KWADWO, F LIANNE MD Unavailable Unavailable KWADWO, F LIANNE MD Unavailable Unavailable KWADWO, F LIANNE MD Unavailable Unavailable KWADWO, F LIANNE MD Unavailable Unavailable KWADWO, F LIANNE MD Unavailable Unavailable KWADWO, F LIANNE MD Unavailable Unavailable KWADWO, F LIANNE MD Unavailable Unavailable KWADWO, F LIANNE MD Unavailable Unavailable KWADWO, F LIANNE MD Unavailable Unavailable KWADWO, F LIANNE MD Unavailable Unavailable KWADWO, F LIANNE MD Unavailable Unavailable KWADWO, F LIANNE MD Unavailable Unavailable KWADWO, F LIANNE MD Unavailable Unavailable KWADWO, F LIANNE MD Unavailable Unavailable KWADWO, F LIANNE MD Unavailable Unavailable KWADWO, F LIANNE MD Unavailable Unavailable KWADWO, F LIANNE MD Unavailable Unavailable KWADWO, F LIANNE MD Unavailable Unavailable KWADWO, F LIANNE MD Unavailable Unavailable KWADWO, F LIANNE MD Unavailable Unavailable KWDAWO, F LIANNE MD Unavailable Unavailable KWADWO, F LIANNE MD Unavailable Unavailable KWADWO, F LIANNE MD Unavailable Unavailable KWADWO, F LIANNE MD Unavailable Unavailable KWADWO, F LIANNE MD Unavailable Unavailable KWADWO, F LIANNE MD Unavailable Unavailable KWADWO, F LIANNE MD Unavailable Unavailable Mollura, E Ani PA Unavailable Unavailable Mollura, E Ani PA Unavailable Unavailable Mollura, E Ani PA Unavailable Unavailable Mollura, E Ani PA Unavailable Unavailable Mollura, E Ani PA Unavailable Unavailable Mollura, E Ani PA Unavailable Unavailable Mollura, E Ani PA Unavailable Unavailable Mollura, E Ani PA Unavailable Unavailable Mollura, E Ani PA Unavailable Unavailable Mollura, E Ani PA Unavailable Unavailable Mollura, E Ani PA Unavailable Unavailable Mollura, E Ani PA Unavailable Unavailable Mollura, E Ani PA Unavailable Unavailable Mollura, E Ani PA Unavailable Unavailable Mollura, E Ani PA Unavailable Unavailable Mollura, E Ani PA Unavailable Unavailable Mollura, E Ani PA Unavailable Unavailable Mollura, E Ani PA Unavailable Unavailable Mollura, E Ani PA Unavailable Unavailable Mollura, E Ani PA Unavailable Unavailable Mollura, E Ani PA Unavailable Unavailable Mollura, E Ani PA Unavailable Unavailable Mollura, E Ani PA Unavailable Unavailable Mollura, E Ani PA Unavailable Unavailable Mollura, E Ani PA Unavailable Unavailable Mollura, E Ani PA Unavailable Unavailable Mollura, E Ani PA Unavailable Unavailable Mollura, E Ani PA Unavailable Unavailable Mollura, E Ani PA Unavailable Unavailable Mollura, E Ani PA Unavailable Unavailable Mollura, E Ani PA Unavailable Unavailable Mollura, E Ani PA Unavailable Unavailable Mollura, E Ani PA Unavailable Unavailable Mollura, E Ani PA Unavailable Unavailable Mollura, E Ani PA Unavailable Unavailable Mollura, E Ani PA Unavailable Unavailable Mollura, E Ani PA Unavailable Unavailable O'jaun, A Robbin PA Unavailable Unavailable O'juan, A Robbin PA Unavailable Unavailable O'juan, A Robbin PA Unavailable Unavailable O'juan, A Robbin PA Unavailable Unavailable O'juan, A Robbin PA Unavailable Unavailable O'juan, A Robbin PA Unavailable Unavailable O'juan, A Robbin PA Unavailable Unavailable O'juan, A Robbin PA Unavailable Unavailable O'juan, A Robbin PA Unavailable Unavailable O'juan, A Robbin PA Unavailable Unavailable O'juan, A Robbin PA Unavailable Unavailable O'juan, A Robbin PA Unavailable Unavailable O'juan, A Robbin PA Unavailable Unavailable O'juan, A Robbin PA Unavailable Unavailable O'juan, A Robbin PA Unavailable Unavailable O'juan, A Robbin PA Unavailable Unavailable O'juan, A Robbin PA Unavailable Unavailable O'juan, A Robbin PA Unavailable Unavailable O'juan, A Robbin PA Unavailable Unavailable O'juan, A Robbin PA Unavailable Unavailable O'juan, A Robbin PA Unavailable Unavailable O'juan, A Robbin PA Unavailable Unavailable O'juan, A Robbin PA Unavailable Unavailable O'juan, A Robbin PA Unavailable Unavailable O'juan, A Robbin PA Unavailable Unavailable O'juan, A Robbin PA Unavailable Unavailable O'juan, A Robbin PA Unavailable Unavailable O'juan, A Robbin PA Unavailable Unavailable O'juan, A Robbin PA Unavailable Unavailable O'juan, A Robbin PA Unavailable Unavailable O'juan, A Robbin PA Unavailable Unavailable O'juan, A Robbin PA Unavailable Unavailable O'juan, A Robbin PA Unavailable Unavailable Reyes Cheatham PA-C Unavailable Unavailable Reyes Cheatham PA-C Unavailable Unavailable Cheatham, M Christopher PA-C Unavailable Unavailable Cheatham, M Christopher PA-C Unavailable Unavailable Cheatham, M Christopher PA-C Unavailable Unavailable Cheatham, M Christopher PA-C Unavailable Unavailable Cheatham, M Christopher PA-C Unavailable Unavailable Cheatham, M Christopher PA-C Unavailable Unavailable Cheatham, M Christopher PA-C Unavailable Unavailable Cheatham, M Christopher PA-C Unavailable Unavailable Cheatham, M Christopher PA-C Unavailable Unavailable Cheatham, M Christopher PA-C Unavailable Unavailable Cheatham, M Christopher PA-C Unavailable Unavailable Cheatham, M Christopher PA-C Unavailable Unavailable Cheatham, M Christopher PA-C Unavailable Unavailable Cheatham, M Christopher PA-C Unavailable Unavailable Cheatham, M Christopher PA-C Unavailable Unavailable Cheatham, M Christopher PA-C Unavailable Unavailable Cheatham, M Christopher PA-C Unavailable Unavailable Cheatham, M Christopher PA-C Unavailable Unavailable Cheatham, M Christopher PA-C Unavailable Unavailable Cheatham, M Christopher PA-C Unavailable Unavailable Cheatham, M Christopher PA-C Unavailable Unavailable Cheatham, M Christopher PA-C Unavailable Unavailable Cheatham, M Christopher PA-C Unavailable Unavailable Cheatham, M Christopher PA-C Unavailable Unavailable SHEGGRUD, LEELA Unavailable Unavailable Re-disclosure Warning The records that you are about to access may contain information from federally-assisted alcohol or drug abuse programs. If such information is present, then the following federally mandated warning applies: This information has been disclosed to you from records protected by federal confidentiality rules (42 CFR part 2). The federal rules prohibit you from making any further disclosure of this information unless further disclosure is expressly permitted by the written consent of the person to whom it pertains or as otherwise permitted by 42 CFR part 2. A general authorization for the release of medical or other information is NOT sufficient for this purpose. The Federal rules restrict any use of the information to criminally investigate or prosecute any alcohol or drug abuse patient.The records that you are about to access may contain highly sensitive health information, the redisclosure of which is protected by Article 27-F of the [facility] Public Health law. If you continue you may have access to information: Regarding HIV / AIDS; Provided by facilities licensed or operated by the [facility] Office of Mental Health; or Provided by the [facility] Office for People With Developmental Disabilities. If such information is present, then the following [facility] mandated warning applies: This information has been disclosed to you from confidential records which are protected by state law. State law prohibits you from making any further disclosure of this information without the specific written consent of the person to whom it pertains, or as otherwise permitted by law. Any unauthorized further disclosure in violation of state law may result in a fine or group home sentence or both. A general authorization for the release of medical or other information is NOT sufficient authorization for further disc losure. Allergies and Adverse Reactions Type Description Substance Reaction Status Data Source(s ) Propensity to adverse reactions LATEX LATEX HIVES [facility] Drug allergy MORPHINE MORPHINE MIGRAINES [facility] Family History Family Member Name Family Member Gender Family Member Status Date o f Status Description Data Source(s) Unknown Male Problem [facility] ([facility]) Encounters Encounter Providers Location Date Indications Data Source(s ) Outpatient Attender: Robbin SAUCEDA [facility] 08/07/2021 03:40:00 PM EDT [facility] ([facility]) Outpatient Attender: LIANNE BURKETT MDConsultant: Ani SAUCEDA 06/21/2021 01:34:00 PM EDT - 06/21/2021 01:34:00 PM EDT [facility] Outpatient Attender: LIANNE BURKETT [facility] 06/03 01:30:00 PM EDT [facility] Outpatient Attender: Robbin SAUCEDA [facility] 06/04/2021 02:40:00 PM EDT [facility] ([facility]) Outpatient Attender: LEELA CENTENODConsultant: Ani SAUCEDA 05/30/2021 07:59:00 AM EDT - 05/30/2021 08:09:00 AM EDT [facility] Outpatient Attender: Rbobin SAUCEDA [facility] 05/24/2021 08:00:00 AM EDT [facility] ([facility]) Outpatient Attender: Robbin SAUCEDA [facility] 12/06/2020 09:30:00 AM EST [facility] ([facility]) Outpatient Attender: Robbin SAUCEDA [facility] 08/20/2020 02:40:00 PM EDT [facility] ([facility]) Outpatient Attender: Heather Denny MDConsultant: José Miguel Cheatham PA-C 05/25/2018 11:05:08 AM EDT - 03/26/2018 01:29:00 PM EDT [facility] Immunizations Vaccine Date Status Description Data Source(s) COVID-19 VACCINE [facility] 03/28/2021 12:00:00 AM EDT completed [facility] Vaccine Series Complete: YESThis Data wa s Submitted to [facility] Via [employer]. Medications Medication Brand Name Start Date Product Form Dose Route Admi nistrative Instructions Pharmacy Instructions Status Indications Reaction Description Data Source(s) Ondansetron 4 MG Disintegrating Oral Tablet ONDANSETRON 08/24/2021 12:00:00 AM EDT tablet,disintegrating 90 DISSOLVE O NE TABLET ON TONGUE THREE TIMES A DAY NEEDED FOR NAUSEA DISSOLVE ONE TABLET ON TONGUE THREE TIME S A DAY NEEDED FOR NAUSEA SOLD: 09/04/2021 [facility] Amoxicillin 875 MG / Clavulanate 125 MG Oral Tablet Am oxicillin/Clavulanate Potassium 08/07/2021 12:00:00 AM EDT ORAL active [facility] ([facility]) Amoxicillin 875 MG / Clavulanate 125 MG Oral Tablet 87 5-125 mg AMOXICILLIN/POTASSIUM CLAV 08/07/2021 12:00:00 AM EDT tablet 20 TAKE ONE TABLET BY MOUTH EVERY 12 HOURS TAKE ONE TABLET BY MOUTH EVERY 12 HOURS SOLD: 08/08/2021 [facility] Alprazolam 0.5 MG Oral Tablet ALPRAZOLAM 08/05/2021 12:00:00 AM EDT ta blet 60 TAKE ONE TABLET BY MOUTH TWICE A DAY NEEDED MAXIMUM DAILY DOSE = 2 TAKE ONE TABLET BY MOUTH TWICE A DAY NEEDED MAXIMUM DAILY DOSE = 2 SOLD: 08/05/2021 [facility] Ondansetron 4 MG Disintegrating Oral Tablet ONDANSETRON 08/02/2021 12:00:00 AM EDT tablet,disintegrating 90 DISSOLVE O NE TABLET ON TONGUE THREE TIMES A DAY NEEDED FOR NAUSEA DISSOLVE ONE TABLET ON TONGUE THREE TIME S A DAY NEEDED FOR NAUSEA SOLD: 08/05/2021 [facility] 20 mg 08/02/2021 12:00:00 AM EDT capsule,delayed release (DR/EC) 90 TAKE ONE CAPSULE BY MOUTH EVERY DAY FOR 3 MONTHS AFTER SURGERY TAKE ONE CAPSULE BY MOUTH EVERY DAY FOR 3 MONTHS AFTER SURGERY SOLD: 08/05/2021 [facility] Fluconazole 200 MG Oral Tablet Fluconazole 06/14/2021 12:00:00 AM EDT ORAL active [facility] ([facility]) 200 mg 06/14/2021 12:00:00 AM EDT tablet 2 TAKE 1 TABLET BY MOUTH AND REPEAT IN 3 DAYS IF SYMPTOMS PERSIST TAKE 1 TABLET BY MOUTH AND REPEAT IN 3 D AYS IF SYMPTOMS PERSIST SOLD: 06/16/2021 [facility] Vancomycin 125 MG Oral Capsule Vancomycin HCL 06/06/2021 12:00:00 AM EDT ORAL completed [facility] ([facility] 125 mg 06/06/2021 12:00:00 AM EDT capsule 40 TAKE ONE CAPSULE BY MOUTH EVERY 6 HOURS FOR 10 DAYS TAKE ONE CAPSULE BY MOUTH EVERY 6 HOURS FOR 10 DAYS SO LD: 06/06/2021 [facility] 12.5 mg 06/05/2021 12:00:00 AM EDT tablet 60 TAKE ONE TO TWO TABLETS BY MOUTH EVERY 6 HOURS NEEDED FOR NAUSEA TAKE ONE TO TWO TABLETS BY MOUTH EVERY 6 HOURS NEEDED FOR NAUSEA SOLD: 06/06/2021 [facility] Metronidazole 500 MG Oral Tablet METRONIDAZOLE 06/04/2021 12:0 0:00 AM EDT tablet 28 TAKE ONE TABLET BY MOUTH TWICE A DAY FOR 14 DAYS TAKE ONE TABLET BY MOUTH TWICE A DAY FOR 14 DAYS SOLD: 06/04/2021 [facility] Acetaminophen 325 MG / Hydrocodone Bitartrate 5 MG Ora l Tablet 5-325 mg HYDROCODONE/ACETAMINOPHEN 06/04/2021 12:00:00 AM EDT tablet 28 TAKE ONE TABLET BY MOUTH EVERY 6 HOURS NEEDED FOR PAIN MAXIMUM DAILY DOSE = 4 TAKE ONE TABLET BY MOUTH EVERY 6 HOURS NEEDED FOR PAIN MAXIMUM DAILY DOSE = 4 SOLD: 06/04/2021 [facility] Acetaminophen 325 MG / Hydrocodone Bitartrate 5 MG Ora l Tablet Hydrocodone-Acetaminophen 06/04/2021 12:00:00 AM EDT ORAL active [facility] ([facility]) Promethazine Hydrochloride 12.5 MG Oral Tablet Promethazine HCL 06/04/2021 12:00:00 AM EDT ORAL active M [facility] ([facility]) Metronidazole 500 MG Oral Tablet Metronidazole 06/03/2021 12:00:00 AM EDT ORAL completed [facility] ([facility]) Metronidazole 500 MG Oral Tablet METRONIDAZOLE 05/29/2021 12:0 0:00 AM EDT tablet 30 TAKE ONE TABLET BY MOUTH EVERY 8 HOURS TAKE ONE TABLET BY MOUTH EVERY 8 HOURS SOLD: 06/03/2021 [facility] Ondansetron 4 MG Disintegrating Oral Tablet ONDANSETRON 05/29/2021 12:00:00 AM EDT tablet,disintegrating 8 DISSOLVE O NE TABLET ON TONGUE EVERY 6 TO 8 HOURS NEEDED FOR NAUSEA AND VOMITING DISSOLVE ONE TABLET ON TONGUE EVERY 6 TO 8 HOURS NEEDED FOR NAUSEA AND VOMITING SOLD: 06/03/2021 [facility] 500 mg 05/24/2021 12:00:00 AM EDT tablet 14 TAKE ONE TABLET BY MOUTH EVERY 12 HOURS TAKE ONE TABLET BY MOUTH EVERY 12 HOURS SOLD: 06/03/2021 [facility] Ciprofloxacin 500 MG Oral Tablet Ciprofloxacin HCL 05/24/2021 12:00 :00 AM EDT completed [facility] ([facility]) Fluconazole 200 MG Oral Tablet Fluconazole 05/24/2021 12:00:00 AM EDT ORAL completed [facility] ([facility]) 200 mg 05/24/2021 12:00:00 AM EDT tablet 2 TAKE ONE TABLET BY MOUTH AND AGAIN IN 3 DAYS IF SYMPTOMS PERSIST TAKE ONE TABLET BY MOUTH AND AGAIN IN 3 DAYS IF SYMPTOMS PERSIST SOLD: 06/03/2021 [facility] Ondansetron 4 MG Disintegrating Oral Tablet ONDANSETRON 05/07/2021 12:00:00 AM EDT tablet,disintegrating 90 DISSOLVE O NE TABLET ON TONGUE THREE TIMES A DAY NEEDED FOR NAUSEA DISSOLVE ONE TABLET ON TONGUE THREE TIME S A DAY NEEDED FOR NAUSEA SOLD: 05/08/2021 [facility] Alprazolam 0.5 MG Oral Tablet ALPRAZOLAM 05/07/2021 12:00:00 AM EDT ta blet 60 TAKE ONE TABLET BY MOUTH TWICE A DAY NEEDED MAXIMUM DAILY DOSE = 2 TABLETS TAKE ONE TABLET BY MOUTH TWICE A DAY NEEDED MAXIMUM DAILY DOSE = 2 TABLETS SOLD: 05/08/2021 [facility] Ondansetron 4 MG Disintegrating Oral Tablet ONDANSETRON 04/15/2021 12:00:00 AM EDT tablet,disintegrating 90 DISSOLVE 1 TABLET IN MOUTH THREE TIMES A DAY NEEDED FOR NAUSEA DISSOLVE 1 TABLET IN MOUTH THREE TIMES A DAY NEEDED FOR NAUSEA SOLD: 04/20/2021 [facility] 20 mg 04/12/2021 12:00:00 AM EDT capsule,delayed release (DR/EC) 90 TAKE ONE CAPSULE BY MOUTH EVERY DAY FOR 3 MONTHS AFTER SURGERY TAKE ONE CAPSULE BY MOUTH EVERY DAY FOR 3 MONTHS AFTER SURGERY SOLD: 04/12/2021 [facility] 20 mg 01/22/2021 12:00:00 AM EDT capsule,delayed release (DR/EC) 90 TAKE ONE CAPSULE BY MOUTH EVERY DAY FOR 3 MONTHS AFTER SURGERY TAKE ONE CAPSULE BY MOUTH EVERY DAY FOR 3 MONTHS AFTER SURGERY SOLD: 01/22/2021 [facility] 4 mg 01/22/2021 12:00:00 AM EDT tablet,disintegrating [address] ONE TABLET BY MOUTH THREE TIMES A DAY NEEDED NAUSEA PLACE ONE TABLET BY MOUTH THREE TIMES A DAY NEEDED NAUSEA SOLD: 01/22/2021 [facility] tizanidine 4 MG Oral Capsule Tizanidine HCL 12/06/2020 12:00:00 AM EST ORAL active [facility] ([facility]) Phentermine Hydrochloride 37.5 MG Oral Capsule Phentermine H CL 12/06/2020 12:00:00 AM EST ORAL completed [facility] ([facility]) Omeprazole 20 MG Delayed Release Oral Capsule Omeprazole 12/06/2020 12:00:00 AM EST ORAL active [facility] ([facility]) Cervical Collar/Soft Foam-Deluxe/One Size Fits ALL 12/06/2020 12:00:00 AM EST completed [facility] ([facility]) 37.5 mg 12/06/2020 12:00:00 AM EST capsule 30 TAKE ONE CAPSULE BY MOUTH EVERY DAY BEFORE FIRST MEAL OF THE DAY MAXIMUM DAILY DOSE = 1 TAKE ONE CAPSULE BY MOUTH EVERY DAY BEFORE FIRST MEAL OF THE DAY MAXIMUM DAILY DOSE = 1 SOLD: 01/21/2021 [facility] 4 mg 12/06/2020 12:00:00 AM EST capsule 60 TAKE ONE CAPSULE BY MOUTH EVERY 8 HOURS NEEDED FOR MUSCLE SPASM TAKE ONE CAPSULE BY MOUTH EVERY 8 HOURS NEEDED FOR MUSCLE SPASM SOLD: 12/07/2020 [facility] Ketorolac Tromethamine Per 15 MG (Toradol) 12/06/2020 12:00:00 AM EST completed [facility] ([facility]) Medication administered onsite 37.5 mg 12/06/2020 12:00:00 AM EST capsule 30 TAKE ONE CAPSULE BY MOUTH EVERY DAY BEFORE FIRST MEAL OF THE DAY MAXIMUM DAILY DOSE = 1 TAKE ONE CAPSULE BY MOUTH EVERY DAY BEFORE FIRST MEAL OF THE DAY MAXIMUM DAILY DOSE = 1 SOLD: 12/07/2020 [facility] 875 mg 11/22/2020 12:00:00 AM EST tablet 14 TAKE ONE TABLET BY MOUTH EVERY 12 HOURS FOR 7 DAYS TAKE ONE TABLET BY MOUTH EVERY 12 HOURS FOR 7 DAYS [facility]EL[facility]O [facility] 40 mg 10/30/2020 12:00:00 AM EST capsule,delayed release (DR/EC) 30 TAKE ONE CAPSULE BY MOUTH EVERY DAY FOR 3 MONTHS AFTER SURGERY TAKE ONE CAPSULE BY MOUTH EVERY DAY FOR 3 MONTHS AFTER SURGERY SOLD: 10/30/2020 [facility] Alprazolam 0.5 MG Oral Tablet ALPRAZOLAM 10/30/2020 12:00:00 AM EST ta blet 60 TAKE ONE TABLET BY MOUTH TWICE A DAY NEEDED MAXIMUM DAILY DOSE = 2 TABLETS TAKE ONE TABLET BY MOUTH TWICE A DAY NEEDED MAXIMUM DAILY DOSE = 2 TABLETS SOLD: 10/30/2020 [facility] 4 mg 10/30/2020 12:00:00 AM EST tablet,disintegrating 9 0 DISSOLVE ONE TABLET ON TONGUE THREE TIMES A DAY FOR NAUSEA DISSOLVE ONE TABLET ON TONGUE THREE TIME S A DAY FOR NAUSEA SOLD: 10/30/2020 [facility] 500 mg 08/20/2020 12:00:00 AM EDT tablet 10 TAKE ONE TABLET BY MOUTH TWICE A DAY TAKE ONE TABLET BY MOUTH TWICE A DAY SOLD: 08/31/2020 [facility] 200 mg 08/20/2020 12:00:00 AM EDT tablet 9 TAKE ONE TABLET BY MOUTH EVERY 8 HOURS TAKE ONE TABLET BY MOUTH EVERY 8 HOURS SOLD: 08/31/2020 [facility] 4 mg 08/20/2020 12:00:00 AM EDT tablet,disintegrating 1 6 DISSOLVE ONE TABLET ON TONGUE EVERY 6 TO 8 HOURS NEEDED FOR NAUSEA AND VOMITING DISSOLVE ONE TABLET ON TONGUE EVERY 6 TO 8 HOURS NEEDED FOR NAUSEA AND VOMITING SOLD: 08/31/2020 [facility] Flonase Allergy Relief Flonase Allergy Relief 07/18/2020 12:00:00 AM E DT completed [facility] ([facility]) 12 HR cetirizine hydrochloride 5 MG / Ps eudoephedrine Hydrochloride 120 MG Extended Release Oral Tablet [Zyrtec-D] Zyrtec-D Allergy & Congestion 07/18/2020 12:00:00 AM EDT ORAL completed [facility] ([facility]) cefdinir 300 MG Oral Capsule Cefdinir 07/18/2020 12:00:00 AM EDT ORAL completed [facility] ([facility]) 40 mg 03/12/2020 12:00:00 AM EDT capsule,delayed release (DR/EC) 30 TAKE ONE CAPSULE BY MOUTH EVERY DAY TAKE ONE CAPSULE BY MOUTH EVERY DAY SOLD: 01/12/2021 [facility] 40 mg 03/12/2020 12:00:00 AM EDT capsule,delayed release (DR/EC) 30 TAKE ONE CAPSULE BY MOUTH EVERY DAY TAKE ONE CAPSULE BY MOUTH EVERY DAY SOLD: 10/30/2020 [facility] 40 mg 03/12/2020 12:00:00 AM EDT capsule,delayed release (DR/EC) 30 TAKE ONE CAPSULE BY MOUTH EVERY DAY TAKE ONE CAPSULE BY MOUTH EVERY DAY SOLD: 12/07/2020 [facility] Insurance Providers Payer name Policy type / Coverage type Policy ID Covered democrat ID Covered democrat's relationship to bacon Policy Bacon Plan Information [place] 306/806 [id number] SP [id number] [facility] BCBS MEDICAID [id number] [facility] [id number] [place] [id number] SELF PAY ONLY [id number] SP [id number] SELF PAY [employer] BCBS B [id number] S [id number] [facility] [id number] SP [id number] [place]BS [place] PPO 302/307 [id number] SP [id number] [employer] BCBS MEDICAID PI PI [facility] [id number] Self [id number] [id number] [facility] [employer] [id number] Self YN [id number] O UNAVAILABLE UNAVAILA BLE [facility] [employer] [id number] Self [id number] BLUE CROSS BLUE SHIELD -PHYSICIAN [id number] 18 [id number] Excellus [facility] [employer] [id number] Self YN [id number] BCBS [employer] [id number] Self [id number] [facility] [employer] [id number] Self YN [id number] Private Pay Commercial [id number] Self [id number] PRIVATE PAY CO UNAVAILABLE 18 UNAVAI LABLE BCBS [place] PPO 302/307 [id number] SP [id number] Private Pay Commercial [id number] Self [id number] Private Pay Commercial [id number] Self [id number] Private Pay Commercial [id number] Self [id number] PRIVATE INSURANCE CO UNAVAILABLE 18 UNAVAILABLE Private Pay Commercial [id number] Self [id number] Private Insurance Commercial [id number] Self [id number] Blue Cross Blue Shield CL Commercial [id number] BLUE CROSS BLUE SHIELD CL BS [id number] 21 [id number] BCBS [place] PPO 302/307 [id number] BLUE CROSS BLUE SHIELD -O/P [id number] 01 [id number] BLUE CROSS BLUE SHIELD -CLINIC [id number] 1 [id number] [employer] Commercial [id number] APWU CO [id number] BCBS [place] PPO 302/307 [id number] EXCELLUS BCBS B [id number] P [id number] UNITED HEALTHCARE [id number] UNITED HEALTHCARE O [id number] P [id number] UNITED HEALTHCARE -O/P [id number] 01 [id number] D [employer] PPO P [id number] O [id number] ONE CALL MEDICAL P [id number] S [id number] MedPro- P [id number] S [id number] BCBS DORY HMO [id number] SP [id number] MedPro-O/P [id number] [facility]CELLUS [facility] [id number] 18 [id number] BLUE CROSS BLUE [facility] -O/P [id number] Problems, Conditions, and Diagnoses Code Display Name Description Problem Type Effective Dates Data Source(s) R197 Diarrhea, unspecified Diarrhea, unspecified Diagnosis 05/30/2021 07:59:00 AM EDT [facility] Surgeries/Procedures Procedure Description Date Indications Data Source(s) OFFICE OUTPATIENT VISIT 15 MINUTES 08/07/2021 12:00:00 AM EDT [facility] ([facility]) OFFICE OUTPATIENT VISIT 10 MINUTES 06/21/2021 12:00:00 AM EDT [facility] ([facility]) OFFICE OUTPATIENT VISIT 15 MINUTES 06/04/2021 12:00:00 AM EDT [facility] ([facility]) OFFICE OUTPATIENT VISIT 15 MINUTES 05/24/2021 12:00:00 AM EDT [facility] ([facility]) OFFICE OUTPATIENT VISIT 25 MINUTES 12/06/2020 12:00:00 AM EST [facility] ([facility]) Electrocardiogram Complete 08/20/2020 12:00:00 AM EDT [facility] ([facility]) Results ID Date Data Source [id number] 08/06/2021 02:35:00 PM EDT [facility] Name Value Range Interpretation Code Description Data Yamileth rce(s) Supporting Document(s) SARS coronavirus 2 RNA [Presence] in Res piratory specimen by LENNY with probe detection NEGATIVE [facility] This lab was ordered by [facility] a nd reported by [facility]. ID Date Data Source [id number] 06/21/2021 01:39:00 PM EDT [facility] ([facility]) Name Value Range Interpretation Code Description Data Yamileth rce(s) Supporting Document(s) Choriogonadotropin.beta subunit ( test) [Pres ence] in Urine Laboratory test result [facility] ([facility]) ID Date Data Source [id number] 05/30/2021 06:00:00 AM EDT [facility] ([facility]) Name Value Range Interpretation Code Description Data Yamileth rce(s) Supporting Document(s) Laboratory test finding (navigational concept) Laboratory test result [facility] ([facility]) <content>_OVA & P D SM CON ID_</lisa nt>
<content></content> Source: Laboratory test result [facility] ([facility]) <content>^$[id number]</content>
<content>^^[id number]</content>
<content>$$[id number] 3</content>
<content>^^[id number]</content>
<content></content>
<content >REPORTED DATE/TIME: 06/06/2021 20:06</content>
<content>Culture: OVA & PARA EXAM Status: Final</content>
<content></content>
<content>Ova + Parasite Exam: P1</content>
<content>No ova, cysts, or parasites seen.</content>
<content>. One negative specimen does not rule</content>
<content>out the possibility of a parasitic infection.</content>
<content>These results were obtained using wet preparation(s) and trichrome</content>
<content>stained smear. This test does not include testing for Cryptosporidium</content>
<content>parvum, Cyclospora, or Microsporidia.</content>
<content></content>
<content></content>
<co ntent>P1 Test performed by: [facility] SIMON #: [id number]</content>
<content>[address]</content>
<content>[id number]</content>
<content>[place] [id number]</content>
<content>Oil Well Pumper : Mario Dewitt MD NPI #:</content>
<content>Monotype Machinist :</content>
<content>08/05/21.2014.XMT.SENT REF</content>
<content>06/06/21.DW .to DEWEY Alonzo via fax</content>
<content></content>
<content></content> ID Date Data Source [id number] 05/30/2021 06:00:00 AM EDT [facility] ([facility]) Name Value Range Interpretation Code Description Data Yamileth rce(s) Supporting Document(s) Campylobacter Laboratory test result [facility] ([facility]) Laboratory test finding (navigational concept) Laboratory test r esult Abnormal (applies to non-numeric results) [facility] ([facility]) Laboratory test finding (navigational concept) Laboratory test result [facility] ([facility]) Salmonella Laboratory test result [facility] ([facility]) Vibrio Laboratory test result [facility] ([facility]) Laboratory test finding (navigational concept) Laboratory test result [facility] ([facility]) Laboratory test finding (navigational concept) Laboratory test result [facility] ([facility]) Laboratory test finding (navigational concept) Laboratory test result [facility] ([facility]) Laboratory test finding (navigational concept) Laboratory test result [facility] ([facility]) Laboratory test finding (navigational concept) Laboratory test result [facility] ([facility]) Laboratory test finding (navigational concept) Laboratory test result [facility] ([facility]) Laboratory test finding (navigational concept) Laboratory test result [facility] ([facility]) Laboratory test finding (navigational concept) Laboratory test result [facility] ([facility]) Cryptosporidium Laboratory test result [facility] ([facility]) Laboratory test finding (navigational concept) Laboratory test result [facility] ([facility]) Entamoeba histolytica Laboratory test result [facility] ([facility]) Giardia lamblia Laboratory test result [facility] ([facility]) Laboratory test finding (navigational concept) Laboratory test result [facility] ([facility]) Astrovirus Laboratory test result [facility] ([facility]) Laboratory test finding (navigational concept) Laboratory test result [facility] ([facility]) Rotavirus A Laboratory test result [facility] ([facility]) Sapovirus Laboratory test result [facility] ([facility]) ID Date Data Source [id number] 06/06/2021 08:14:00 PM EDT [facility] Name Value Range Interpretation Code Description Data Yamileth rce(s) Supporting Document(s) OVA & PARA EXAM [facility] _OVA & P D SM CON ID_ SOURCE: STOOL [facility] $$[id number] DATE/TIME: 06/06/2021 2 0:06Culture: OVA & PARA EXAM Status: FinalOva + Parasite Exam: P1No ova, cysts, or parasites seen. . One negative specimen does not ruleout the possibility of a parasitic infection.These results were obtained using wet preparation(s) and tr ichromestained smear. This test does not include testing for Cryptosporidiumparvum, Cyclospora, or Microsporidia.P1 Test performed by: [facility] CLIA #: [id number] [address] [place] [address] [id number] [facility] [id number] Director : Mario Dewitt MD NPI #:Monotype Machinist : 06/06/21.XMT.SENT REF 06/06/21.DW .to DEWEY Alonzo via fax ID Date Data Source [id number] 06/03/2021 07:51:00 AM EDT [facility] Name Value Range Interpretation Code Description Data Yamileth rce(s) Supporting Document(s) Campylobacter coli+jejuni+upsaliensis DN A [Presence] in Stool by Target amplification with non-probe based detection Not Detected Not Detected [facility] Clostridium difficile toxin A+B (tcdA+tc dB) genes [Presence] in Stool by Target amplification with non-probe based detection Detected Not Detected A [facility] Plesiomonas shigelloides DNA [Presence] in Stool by Target amplification with non-probe based detection Not Detected Not Detected [facility] Salmonella enterica+bongori DNA [Presenc e] in Stool by Target amplification with non-probe based detection Not Detected Not Detected [facility] Vibrio cholerae+parahaemolyticus+vulnifi cus DNA [Presence] in Stool by Target amplification with non-probe based detection Not Detected Not Detected [facility] Vibrio cholerae DNA [Presence] in Stool by Target amplification with non-probe based detection Not Detected Not Detected [facility] spital Yersinia enterocolitica DNA [Presence] i n Stool by Target amplification with non-probe based detection Not Detected Not Detected [facility] Escherichia coli enteroaggregative Lola p lasmid aggR+aatA genes [Presence] in Stool by Target amplification with non-probe based detection Not Detected Not Detected [facility] Escherichia coli enteropathogenic eae ge ne [Presence] in Stool by Target amplification with non-probe based detection Not Detected Not Detected [facility] Escherichia coli enterotoxigenic ltA+st1 a+st1b genes [Presence] in Stool by Target amplification with non-probe based detection Not Detected Not Detected [facility] Escherichia coli shiga-like toxin 1+2 (s tx1+stx2) genes [Presence] in Stool by Target amplification with non-probe based detection Not Detected Not Detected [facility] Escherichia coli O157 DNA [Presence] in Stool by Target amplification with non- probe based detection Not applicable Not Detected [facility] Shigella species+EIEC invasion plasmid a ntigen H (ipaH) gene [Presence] in Stool by Target amplification with non-probe based detection Not Detected Not Detected [facility] Cryptosporidium sp DNA [Presence] in Sto ol by Target amplification with non- probe based detection Not Detected Not Detected [facility] Cyclospora cayetanensis DNA [Presence] i n Stool by Target amplification with non-probe based detection Not Detected Not Detected [facility] Entamoeba histolytica DNA [Presence] in Stool by Target amplification with non- probe based detection Not Detected Not Detected [facility] Giardia lamblia DNA [Presence] in Stool by Target amplification with non-probe based detection Not Detected Not Detected [facility] spital Adenovirus F(40+41) DNA [Presence] in St ool by Target amplification with non- probe based detection Not Detected Not Detected [facility] Astrovirus subtypes 1-8 RNA [Presence] i n Stool by Target amplification with non-probe based detection Not Detected Not Detected [facility] Norovirus genogroup I+II RNA [Presence] in Stool by Target amplification with non-probe based detection Not Detected Not Detected [facility] Rotavirus A RNA [Presence] in Stool by T arget amplification with non-probe based detection Not Detected [facility] Sapovirus genogroups I+II+IV+V RNA [Pres ence] in Stool by Target amplification with non-probe based detection Not Detected Not Detected [facility] ID Date Data Source [id number] 05/29/2021 03:41:00 PM EDT [facility] ([facility]) Name Value Range Interpretation Code Description Data Yamileth rce(s) Supporting Document(s) Appearance, Urine RFX Laboratory test result Nor mal (applies to non-numeric results) [facility] ([facility]) Color, Urine RFX Laboratory test result Normal ( applies to non-numeric results) [facility]) PH,Urine RFX 5.0 units 5.0-9.0 Normal (applies to non-numeric res ults) [facility] ([facility]) Glucose, Urine (Ua) Auto RFX Laboratory test result Normal (applies to non- numeric results) [facility] ([facility]) Protein, Urine Auto RFX Laboratory test result N ormal (applies to non-numeric results) [facility] ([facility]) Specific [place] Ur Auto RFX 1.010 1.002-1.035 Nor mal (applies to non-numeric results) [facility] ([facility]) Urobilinogen, Urine Auto RFX 0.2 mg/dL 0.0-2.0 Nor mal (applies to non-numeric results) [facility] ([facility]) Ketone, Urine Auto RFX Laboratory test result Above high n ormal [facility] ([facility]) Nitrite, Urine Auto RFX Laboratory test result N ormal (applies to non-numeric results) [facility] ([facility]) Bilirubin, Urine Auto RFX Laboratory test result Normal (applies to non- numeric results) [facility] ([facility]) Leukocyte Esterase Ur Auto RFX Laboratory test result Normal (applies to non- numeric results) [facility] ([facility]) Blood, Urine Blood RFX Laboratory test result No rmal (applies to non-numeric results) [facility] ([facility]) WBC, Urine Auto RFX 1 /HPF 0-3 Normal (applies to non-nume jerry results) [facility] ([facility]) RBC, Urine Auto RFX 2 /HPF 0-3 Normal (applies to non-nume jerry results) [facility] ([facility]) Squam Epithelial Cell Ur Aurfx 9 /HPF 0-6 N ormal (applies to non-numeric results) [facility] ([facility]) Bacteria, Urine Auto RFX Laboratory test result Normal (applies to non-numeric results) [facility] ([facility]) Mucus, Urine RFX Laboratory test result Normal ( applies to non-numeric results) [facility] ([facility]) Hyaline Cast, Urine Auto RFX 0 /LPF 0-1 Normal (appl ies to non-numeric results) [facility] ([facility]) ID Date Data Source [id number] 05/29/2021 12:41:00 PM EDT [facility] ([facility]) Name Value Range Interpretation Code Description Data Yamileth rce(s) Supporting Document(s) Choriogonadotropin.beta subunit [Moles/volume] in Seru m or Plasma Laboratory test result Normal (applies to non-numeric results) [facility] ([facility]) <content>QUANTITATIVE RESULT QU ALITATIVE INTERPRETATION</content>
<content> </content>
<content><5.0 IU/L NEGATIVE</content>
<content>5.0 - 25.0 IU/L INDETERMINATE</content>
<content>>25.0 IU/L POSITIVE</content>
<content></content> ID Date Data Source [id number] 05/29/2021 11:39:00 AM EDT [facility] ([facility]) Name Value Range Interpretation Code Description Data Yamileth rce(s) Supporting Document(s) Laboratory test finding (navigational concept) 45.0 % 3 8.0-51.0 Normal (applies to non-numeric results) [facility] ([facility]) Laboratory test finding (navigational concept) 80 mg/dL 7 0-105 Normal (applies to non-numeric results) [facility] ([facility]) Laboratory test finding (navigational concept) 145 meq/L 1 36-145 Normal (applies to non-numeric results) [facility] ([facility]) Laboratory test finding (navigational concept) 3.6 meq/L 3 .5-5.1 Normal (applies to non-numeric results) [facility] ([facility]) Laboratory test finding (navigational concept) 4.5 mg/dL 4 .5-5.3 Normal (applies to non-numeric results) [facility] ([facility]) Laboratory test finding (navigational concept) 10 mg/dL 8 -26 Normal (applies to non-numeric results) [facility] ([facility]) Laboratory test finding (navigational concept) 26.0 MM/L 2 3.0-27.0 Normal (applies to non-numeric results) [facility] ([facility]) Laboratory test finding (navigational concept) 105 meq/L 9 8-109 Normal (applies to non-numeric results) [facility] ([facility]) Laboratory test finding (navigational concept) 0.7 mg/dL 0 .6-1.3 Normal (applies to non-numeric results) [facility] ([facility]) ID Date Data Source [id number] 05/29/2021 11:25:00 AM EDT [facility]) Name Value Range Interpretation Code Description Data Yamileth rce(s) Supporting Document(s) Lipase [Enzymatic activity/volume] in Serum or Plasma 72 U/L 73-393 Below low normal [facility] ([facility]) ID Date Data Source [id number] 05/29/2021 11:25:00 AM EDT [facility]) Name Value Range Interpretation Code Description Data Yamileth rce(s) Supporting Document(s) Ast/Sgot 19 U/L 7-37 Normal (applies to non-numeric resul ts) [facility] ([facility]) Alkaline Phosphatase 64 U/L 45-117 Normal (applies to non-num ramiro results) [facility] ([facility]) Alt/SGPT 30 U/L 12-78 Normal (applies to non-numeric resul ts) [facility] ([facility]) Bilirubin,Total 0.3 mg/dL 0.2-1.0 Normal (applies to non-numeric results) [facility] ([facility]) Bilirubin,Direct Laboratory test result 0.0-0.2 Normal ( applies to non-numeric results) [facility] ([facility]) Total Protein 7.7 GM/DL 6.4-8.2 Normal (applies to non-numeric re sults) [facility] ([facility]) Albumin 3.9 GM/DL 3.2-5.2 Normal (applies to non-numeric resul ts) [facility] ([facility]) Albumin/Globulin Ratio 1.0 1.2-2.2 Below low normal [facility] ([facility]) ID Date Data Source [id number] 05/29/2021 11:11:00 AM EDT [facility] ([facility]) Name Value Range Interpretation Code Description Data Yamileth rce(s) Supporting Document(s) Platelets [#/volume] in Blood by Estimate Laboratory test result Normal (applies to non-numeric results) [facility] ([facility]) ID Date Data Source [id number] 05/29/2021 11:11:00 AM EDT [facility] ([facility]) Name Value Range Interpretation Code Description Data Yamileth rce(s) Supporting Document(s) Lymphocytes 19 % 16-44 Normal (applies to non-numeric resu lts) [facility] ([facility]) Neutrophils 73 % 28-66 Above high normal [facility] ([facility]) Basophils 1 % 0-1 Normal (applies to non-numeric resul ts) [facility] ([facility]) Monocytes 6 % 0-5 Above high normal [facility] ([facility]) Eosinophils 1 % 0-3 Normal (applies to non-numeric resu lts) [facility] ([facility]) ID Date Data Source [id number] 05/29/2021 11:11:00 AM EDT [facility] ([facility]) Name Value Range Interpretation Code Description Data Yamileth rce(s) Supporting Document(s) White Blood Count 6.0 10 4.0-10.0 Normal (applies to non-numeri c results) [facility] ([facility]) Red Blood Count 4.65 10 4.00-5.40 Normal (applies to non-numeric results) [facility] ([facility]) Hematocrit 43.6 % 36.0-47.0 Normal (applies to non-numeric resul ts) [facility] ([facility]) Hemoglobin 14.2 g/dL 12.0-15.5 Normal (applies to non-numeric resul ts) [facility] ([facility]) Mean Corpuscular Volume 93.8 fl 80.0-96.0 Normal ( applies to non-numeric results) [facility] ([facility]) Mean Corpuscular HGB Conc 32.6 g/dL 32.0-36.5 Normal (applies to non-numeric results) [facility] ([facility]) Mean Corpuscular Hemoglobin 30.5 pg 27.0-33.0 Norm al (applies to non-numeric results) [facility] ([facility]) Red Cell Distribution Width 12.3 % 11.5-14.5 Norm al (applies to non-numeric results) [facility] ([facility]) Nucleated Red Blood Cell % 0.0 % 0-0 Normal (applies to n on-numeric results) [facility] ([facility]) Platelet Count, Automated 242 10 150-450 Normal (applies to non-numeric results) [facility] ([facility]) ID Date Data Source [id number] 03/18/2021 01:45:00 PM EDT [facility] Name Value Range Interpretation Code Description Data Yamileth rce(s) Supporting Document(s) SARS-CoV-2 (COVID-19) RNA [Presence] in Respiratory specimen by LENNY with probe detection Not Detected [facility] This lab was ordered by [facility] and reported by [employer]. ID Date Data Source [id number] 11/06/2020 06:30:00 AM EST [facility] Name Value Range Interpretation Code Description Data Yamileth rce(s) Supporting Document(s) SARS coronavirus 2 RNA Not Detected [facility] This lab was ordered by [facility] and reported by [facility]. ID Date Data Source [id number] 10/30/2020 03:05:00 PM EST [facility] Name Value Range Interpretation Code Description Data Yamileth rce(s) Supporting Document(s) SARS coronavirus 2 RNA [facility] This lab was ordered by [facility] and reported by [facility]. ID Date Data Source [id number] 10/16/2020 11:00:00 AM EST [facility] Name Value Range Interpretation Code Description Data Yamileth rce(s) Supporting Document(s) [facility] by [facility] and reported by [facility]. ID Date Data Source [id number] 10/11/2020 10:19:00 AM EST [facility] ([facility]) Name Value Range Interpretation Code Description Data Yamileth rce(s) Supporting Document(s) Magnesium [Mass/volume] in Serum or Plasma 2.2 mg/dL 1.8-2 .4 Normal (applies to non-numeric results) [facility] ([facility]) ID Date Data Source [id number] 10/11/2020 10:19:00 AM EST [facility] ([facility]) Name Value Range Interpretation Code Description Data Yamileth rce(s) Supporting Document(s) Blood Urea Nitrogen 16 mg/dL 7-18 Normal (applies to non-nume jerry results) [facility] ([facility]) Glucose, Fasting 96 mg/dL 70-100 Normal (applies to non-numeric results) [facility] ([facility]) Creatinine For GFR 0.83 mg/dL 0.55-1.30 Normal (applies to non -numeric results) [facility] ([facility]) Glomerular Filtration Rate Laboratory test result Normal (applies to non- numeric results) [facility] ([facility]) <content>Units are mL/min/1.73 m2</content>
<content></content>
<content>Chronic Kidney Disease Staging per NKF:</content>
<content></content>
<content>Stage I & II GFR >=60 Normal to Mildly Decreased</content>
<content>Stage III GFR 30- 59 Moderately Decreased</content>
<content>Stage IV GFR 15-29 Severely Decreased</content>
<content>Stage V GFR <15 Very Little GFR Left</content>
<content>ESRD GFR <15 on APPLICATION PROGRAMMER ANALYST</content>
<content></content> Sodium Level 140 meq/L 136-145 Normal (applies to non-numeric res ults) [facility] ([facility]) Carbon Dioxide Level 27 meq/L 21-32 Normal (applies to non-num ramiro results) [facility] ([facility]) Chloride Level 108 meq/L 98-107 Above high normal [facility] ([facility]) Potassium Serum 4.1 meq/L 3.5-5.1 Normal (applies to non-numeric results) [facility] ([facility]) Anion Gap 5 meq/L 8-16 Below low [facility] Calcium Level 8.9 mg/dL 8.5-10.1 Normal (applies to non-numeric re sults) [facility] ([facility]) ID Date Data Source [id number] 10/09/2020 10:00:00 AM EST [facility] Name Value Range Interpretation Code Description Data Yamileth rce(s) Supporting Document(s) SARS coronavirus 2 RNA [facility] This lab was ordered by [facility] and reported by [facility]. ID Date Data Source [id number] 10/02/2020 01:40:00 PM EST [facility] Name Value Range Interpretation Code Description Data Yamileth rce(s) Supporting Document(s) SARS coronavirus 2 RNA [facility] This lab was ordered by [facility] and reported by [facility]. ID Date Data Source [id number] 09/25/2020 02:45:00 PM EST [facility] Name Value Range Interpretation Code Description Data Yamileth rce(s) Supporting Document(s) SARS coronavirus 2 RNA [facility] This lab was ordered by [facility] and reported by [facility]. ID Date Data Source [id number] 08/20/2020 07:15:00 PM EDT [facility] ([facility]) Name Value Range Interpretation Code Description Data Yamileth rce(s) Supporting Document(s) White Blood Count 6.6 10 4.0-10.0 Normal (applies to non-numeri c results) [facility] ([facility]) Hemoglobin 13.0 g/dL 12.0-15.5 Normal (applies to non-numeric resul ts) [facility] ([facility]) Hematocrit 39.5 % 36.0-47.0 Normal (applies to non-numeric resul ts) [facility] ([facility]) Red Blood Count 4.33 10 4.00-5.40 Normal (applies to non-numeric results) [facility] ([facility]) Mean Corpuscular HGB Conc 32.9 g/dL 32.0-36.5 Normal (applies to non-numeric results) [facility] ([facility]) Mean Corpuscular Volume 91.2 fl 80.0-96.0 Normal ( applies to non-numeric results) [facility] ([facility]) Mean Corpuscular Hemoglobin 30.0 pg 27.0-33.0 Norm al (applies to non-numeric results) [facility] ([facility]) Neutrophils % 54.8 % 36.0-66.0 Normal (applies to non-numeric re sults) [facility] ([facility]) Platelet Count, Automated 222 10 150-450 Normal (applies to non-numeric results) [facility] ([facility]) Red Cell Distribution Width 12.5 % 11.5-14.5 Norm al (applies to non-numeric results) [facility] ([facility]) Eos % 0.8 % 0.0-3.0 Normal (applies to non-numeric resul ts) [facility] ([facility]) Hemphill % 8.0 % 0.0-5.0 Above high normal [facility] ([facility]) Lymph % 35.4 % 24.0-44.0 Normal (applies to non-numeric resul ts) [facility] ([facility]) Baso % 0.5 % 0.0-1.0 Normal (applies to non-numeric resul ts) [facility] ([facility]) Immature Granulocyte % 0.5 % 0-3.0 Normal (applies to non-n umeric results) [facility] ([facility]) Nucleated Red Blood Cell % 0.0 % 0-0 Normal (applies to n on-numeric results) [facility] ([facility]) Lymph # 2.4 10 1.5-5.0 Normal (applies to non-numeric resul ts) [facility] ([facility]) Neutrophils # 3.6 10 1.5-8.5 Normal (applies to non-numeric re sults) [facility] ([facility]) Eos # 0.1 10 0.0-0.5 Normal (applies to non-numeric resul ts) [facility] ([facility]) [place]ill # 0.5 10 0.0-0.8 Normal (applies to non-numeric resul ts) [facility] ([facility]) Baso # 0.0 10 0.0-0.2 Normal (applies to non-numeric resul ts) [facility] ([facility]) ID Date Data Source [id number] 08/20/2020 05:28:00 PM EDT [facility] ([facility]) Name Value Range Interpretation Code Description Data Yamileth rce(s) Supporting Document(s) Laboratory test finding (navigational concept) 75 mg/dL 7 0-105 Normal (applies to non-numeric results) [facility] ([facility]) Laboratory test finding (navigational concept) 44.0 % 3 8.0-51.0 Normal (applies to non-numeric results) [facility] ([facility]) Laboratory test finding (navigational concept) 4.7 mg/dL 4 .5-5.3 Normal (applies to non-numeric results) [facility] ([facility]) Laboratory test finding (navigational concept) 139 meq/L 1 36-145 Normal (applies to non-numeric results) [facility] ([facility]) Laboratory test finding (navigational concept) 3.3 meq/L 3 .5-5.1 Below low normal [facility] ([facility]) Laboratory test finding (navigational concept) 22.0 MM/L 2 3.0-27.0 Below low normal [facility] ([facility]) Laboratory test finding (navigational concept) 101 meq/L 9 8-109 Normal (applies to non-numeric results) [facility] ([facility]) Laboratory test finding (navigational concept) 15 mg/dL 8 -26 Normal (applies to non-numeric results) [facility] ([facility]) Laboratory test finding (navigational concept) 0.8 mg/dL 0 .6-1.3 Normal (applies to non-numeric results) [facility] ([facility]) ID Date Data Source [id number] 08/20/2020 05:07:00 PM EDT [facility] ([facility]) Name Value Range Interpretation Code Description Data Yamileth rce(s) Supporting Document(s) Reflex Urine Culture Laboratory test result Norm al (applies to non-numeric results) [facility] ([facility]) FULL REPORT IN LAB NOTES ([facility] and [facility] ). ORGANISM 1: LACTOBACILLUS SPECIES COLONY COUNT >100,000 Most Lactobacillus species recovered from clinical specimens are rarely pathogenic. Penicillin or ampicillin with or without gentamicin is recommended for treatment. Clindamycin and erythromycin are alternative treatments. Vancomycin resistance has been reported. ORGANISM 1: LACTOBACILLUS SPECIES ID Date Data Source [id number] 08/20/2020 05:07:00 PM EDT [facility] ([facility]) Name Value Range Interpretation Code Description Data Yamileth rce(s) Supporting Document(s) Color, Urine RFX Laboratory test result Normal ( applies to non-numeric results) [facility] ([facility]) Appearance, Urine RFX Laboratory test result Above high no rmal [facility] ([facility]) PH,Urine RFX 5.0 units 5.0-9.0 Normal (applies to non-numeric res ults) [facility] ([facility]) Specific [place] Ur Auto RFX 1.023 1.002-1.035 Nor mal (applies to non-numeric results) [facility] ([facility]) Protein, Urine Auto RFX Laboratory test result Above high normal [facility] ([facility]) Urobilinogen, Urine Auto RFX 0.2 mg/dL 0.0-2.0 Nor mal (applies to non-numeric results) [facility] ([facility]) Glucose, Urine (Ua) Auto RFX Laboratory test result Above high normal [facility] ([facility]) Ketone, Urine Auto RFX Laboratory test result No rmal (applies to non-numeric results) [facility] ([facility]) Bilirubin, Urine Auto RFX Laboratory test result Normal (applies to non- numeric results) [facility] ([facility]) Leukocyte Esterase Ur Auto RFX Laboratory test result Abov e high normal [facility] ([facility]) Nitrite, Urine Auto RFX Laboratory test result N ormal (applies to non-numeric results) [facility] ([facility]) WBC, Urine Auto RFX 28 /HPF 0-3 Above high normal [facility] ([facility]) RBC, Urine Auto RFX Laboratory test result 0-3 Above high norm al [facility] ([facility]) Blood, Urine Blood RFX Laboratory test result Above high n ormal [facility] ([facility]) Squam Epithelial Cell Ur Aurfx 26 /HPF 0-6 N ormal (applies to non-numeric results) [facility] ([facility]) Bacteria, Urine Auto RFX Laboratory test result Above high normal [facility] ([facility]) Mucus, Urine RFX Laboratory test result Normal ( applies to non-numeric results) [facility] ([facility]) Hyaline Cast, Urine Auto RFX 0 /LPF 0-1 Normal (appl ies to non-numeric results) [facility] ([facility]) Procedure Social History No Information Vital Signs ID Date Data Source UNK Name Value Range Interpretation Code Description Data Source(s) Heart rate 101 /min 101 /min [facility] ([facility]) Respiratory rate 18 /min 18 /min [facility] ( [facility]) Body temperature 98.9 [degF] 98.9 [degF] [facility] ([facility]) Oxygen saturation in Arterial blood by Pulse oximetry 98 % 98 % [facility] ([facility]) [place] body weight 125 [lb_av] 125 [lb_av] [facility] ([facility]) Systolic blood pressure 126 mm[Hg] 126 mm[Hg] [facility] ([facility]) Diastolic blood pressure 64 mm[Hg] 64 mm[Hg] [facility] Body height 65 [in_i] 65 [in_i] [facility] ([facility]) 5'5" Systolic blood pressure 120 mm[Hg] 120 mm[Hg] [facility] ([facility]) Diastolic blood pressure 62 mm[Hg] 62 mm[Hg] [facility] ([facility]) Heart rate 89 /min 89 /min [facility] ([facility]) Body temperature 98.7 [degF] 98.7 [degF] [facility] ([facility]) Body weight 163.00 [lb_av] 163.00 [lb_av] [facility] ([facility]) Body weight 73.937 kg 73.937 kg [facility] ([facility]) Body height 63 [in_i] 63 [in_i] [facility] ([facility]) 5'3" Body mass index (BMI) [Ratio] 28.9 kg/m2 28.9 k g/m2 [facility] ([facility]) Body surface area Derived from formula 1.77 m2 1.77 m2 [facility] ([facility]) Body temperature 99.2 [degF] 99.2 [degF] [facility] ([facility]) Oxygen saturation in Arterial blood by Pulse oximetry 98 % 98 % [facility] ([facility]) [place] body weight 125 [lb_av] 125 [lb_av] [facility] ([facility]) Body mass index (BMI) [Ratio] 27.1 kg/m2 27.1 k g/m2 [facility] ([facility]) Heart rate 77 /min 77 /min [facility] ([facility]) Respiratory rate 18 /min 18 /min [facility] ( [facility]) Systolic blood pressure 130 mm[Hg] 130 mm[Hg] [facility] ([facility]) Diastolic blood pressure 86 mm[Hg] 86 mm[Hg] [facility] ([facility]) Body height 65 [in_i] 65 [in_i] [facility] ([facility]) 5'5" Body weight 163.00 [lb_av] 163.00 [lb_av] [facility] ([facility]) Respiratory rate 18 /min 18 /min [facility] ( [facility]) Body temperature 98.3 [degF] 98.3 [degF] [facility] ([facility]) Diastolic blood pressure 74 mm[Hg] 74 mm[Hg] [facility] ([facility]) Body height 65 [in_i] 65 [in_i] [facility] ([facility]) 5'5" Systolic blood pressure 122 mm[Hg] 122 mm[Hg] [facility] ([facility]) Body weight 160.12 [lb_av] 160.12 [lb_av] [facility] ([facility]) Body mass index (BMI) [Ratio] 26.6 kg/m2 26.6 k g/m2 [facility] ([facility]) Heart rate 94 /min 94 /min [facility] ([facility]) Oxygen saturation in Arterial blood by Pulse oximetry 98 % 98 % [facility] ([facility]) [place] body weight 125 [lb_av] 125 [lb_av] [facility] ([facility]) Heart rate 89 /min 89 /min [facility] ([facility]) Oxygen saturation in Arterial blood by Pulse oximetry 98 % 98 % [facility] ([facility]) Body temperature 99.2 [degF] 99.2 [degF] [facility] ([facility]) Respiratory rate 18 /min 18 /min [facility] ( [facility]) [place] body weight 125 [lb_av] 125 [lb_av] [facility] ([facility]) Diastolic blood pressure 72 mm[Hg] 72 mm[Hg] [facility] ([facility]) Body height 65 [in_i] 65 [in_i] [facility] ([facility]) 5'5" Body weight 163.25 [lb_av] 163.25 [lb_av] [facility] ([facility]) Body mass index (BMI) [Ratio] 27.2 kg/m2 27.2 k g/m2 [facility] ([facility]) Systolic blood pressure 124 mm[Hg] 124 mm[Hg] [facility] ([facility]) Body height 65 [in_i] 65 [in_i] [facility] ([facility]) 5'5" Body weight 159.00 [lb_av] 159.00 [lb_av] [facility] T ([facility]) Body mass index (BMI) [Ratio] 26.5 kg/m2 26.5 k g/m2 [facility] ([facility]) Heart rate 117 /min 117 /min [facility] ([facility]) Respiratory rate 20 /min 20 /min [facility] ( [facility]) Body temperature 98.0 [degF] 98.0 [degF] [facility] ([facility]) Oxygen saturation in Arterial blood by Pulse oximetry 98 % 98 % [facility] ([facility]) [place] body weight 125 [lb_av] 125 [lb_av] [facility] ([facility]) Systolic blood pressure 132 mm[Hg] 132 mm[Hg] Reyes LANDEROS ([facility]) Diastolic blood pressure 80 mm[Hg] 80 mm[Hg] [facility] ([facility])
--- OUTSIDE RECORDS SUMMARY | 2021-09-20 18:42 | CCD | Continuity of Care Document ---
Author Author Gloria BENAVIDEZ [place] [address] Phone [phone] Care Team Providers Care Software Integration Developer Name Role Phone Florecita Jordan D.O. AUTM Ronald Hennessy M.D. AUTM [phone] [facility] [phone] Problems Active Problems Provider Date History of [...] as needed for pain Unknow n Biotin [id number] Tablets 1 by mouth once daily Unknown Calcium Citrate 250mg Tablets 1 tab by mouth twice a day Unknown Vitamin B12 1000mcg Tablets ER 1 by mouth every day Unknown Xanax 0.5mg Tablets take one tablet by mouth twice a day as needed. istop: [id number] 60tabs Tu BarrazaO. Tamsulosin HCL 0.4mg Capsules [...] F O2 % BldC Oximetry 98 % [place] Body Weight 125 lb 06/04/2021 2:27pm BP Systolic 130 mmHg BP Diastolic 86 mmHg Height 65 inches 5'5" Weight 163.00 lb BMI (Body Mass Index) 27.1 kg/m2 Heart Rate 77 /min Respiratory Rate 18 /min Body Temperature 99.2 F O2 % BldC Oximetry 98 % [place] Body Weight 125 lb Results Test Acquired Date Facility Test Result H/L Range Note GI 4 05/30/2021 [facility] [place] [address] [phone] Campylobacter Not Detected Not Detected C difficile toxin A/B Detected Abnormal Not Detected Plesiomonas shigelloides Not Detected Not Detected Salmonella Not Detected Not Detected Vibrio Not Detected Not Detected Vibrio cholerae Not Detected Not Detected Yersinia enterocolitica Not Detected Not Detected Enteroaggregative E coli Not Detected Not Detected Enteropathogenic E coli Not Detected Not Detected Enterotoxigenic E coli Not Detected Not Detected Ippso-gkuhh-icloudvpq Ecoli Not Detected Not Detected E coli [...] Not Detected Ova & Para Exam 05/30/2021 [facility] [place] [address] [phone] Ova \\T\\ Para Exam (SEE NOTE) 1 Source: STOOL 2 Ua W/ Reflex To Culture 05/29/2021 [facility] Outpatient T esting (Registration) [address] [place] [address] [phone] Appearance, Urine RFX CLEAR Normal Clear Color, Urine RFX YELLOW Normal Yellow PH,Urine RFX 5.0 units Normal 5.0-9.0 Specific [place] Ur Auto RFX 1.010 Normal 1.002-1.035 Protein, [...] /LPF Normal 0-1 Laboratory test finding 05/29/2021 [facility] Outpatient T esting (Registration) [address] [place] [address] [phone] iSTAT B-hCG < 5.0 Normal 3 Istat Chem8+ Panel 05/29/2021 [facility] Outpatient Testi ng (Registration) [address] [place] [phone] [phone] iSTAT HCT 45.0 % Normal 38.0-51.0 iSTAT Glucose 80 mg/dL Normal 70-105 iSTAT Sodium 145 mEq/L Normal 136-145 iSTAT Potassium 3.6 mEq/L Normal 3.5-5.1 iSTAT CA++ 4.5 mg/dL Normal 4.5-5.3 iSTAT Chloride 105 mEq/L Normal 98-109 iSTAT Co2 26.0 MM/L Normal 23.0-27.0 iSTAT BUN 10 mg/dL Normal 8-26 iSTAT Creatinine 0.7 mg/dL Normal 0.6-1.3 Liver Profile 05/29/2021 [facility] Outpatient Testi ng (Registration) [address] [place] [address] [phone] Ast/Sgot 19 U/L Normal 7-37 Alt/SGPT 30 U/L Normal 12-78 Alkaline Phosphatase 64 U/L Normal 45-117 Bilirubin,Total 0.3 mg/dL Normal 0.2-1.0 Bilirubin,Direct < 0.1 mg/dL Normal 0.0-0.2 Total Protein 7.7 GM/DL Normal 6.4-8.2 Albumin 3.9 GM/DL Normal 3.2-5.2 Albumin/Globulin Ratio 1.0 Low 1.2-2.2 Laboratory test finding 05/29/2021 [facility] Outpatient T esting (Registration) [address] [place] [phone] Lipase 72 U/L Low 73-393 CBC With Differential 05/29/2021 [facility] Outpatient Jodi ting (Registration) [address] [place] [phone] White Blood Count 6.0 10 Normal 4.0-10.0 [...] % 0.0 % Normal 0-0 Differential 05/29/2021 [facility] Outpatient Testi gem (Registration) [address], [place] [phone] Neutrophils 73 % High 28-66 Lymphocytes 19 % Normal 16-44 Monocytes 6 % High 0-5 Eosinophils 1 % Normal 0-3 Basophils 1 % Normal 0-1 Laboratory test finding 05/29/2021 [facility] Outpatient T estgalina (Registration) [address] [place] [address] [phone] Platelet Estimate NORMAL Normal Normal 1 _OVA & P D SM CON ID_ 2 ^[id number] ^[id number] ^[id number] REPORTED DATE/TIME: 06/06/2021 20:06 Culture: OVA & PARA EXAM Status: Final Ova + Parasite Exam: P1 No ova, cysts, or parasites seen. . One negative specimen does not rule out the possibility of a parasitic infection. These results were obtained using wet preparation(s) and trichrome stained smear. This test does not include testing for Cryptosporidium parvum, Cyclospora, or Microsporidia. P1 Test performed by: [facility] #: [id number] [address] [place] [address] [id number] [facility] [id number] Signal Tester : Mario Dewitt MD NPI #: Associate Product Integrity Engineer : 06/06/21.XMT.SENT REF 06/06/21.DW .to DEWEY Alonzo via fax 3 QUANTITATIVE RESULT QUALITATIVE INTERPRETATION <5.0 IU/L NEGATIVE 5.0 - 25.0 IU/L INDETER MINATE >25.0 IU/L POSITIVE Procedures Date Code Description Status 08/07/2021 24275 Office/Outpatient Established Lo w MDM 20-29 Min Completed 06/04/2021 92463 Office/Outpatient Established Lo w MDM 20-29 Min Completed 05/24/2021 [id number] Office/Outpatient Established [facility] 20-29 Min Completed Medical Devices Description No Information Available Encounters Type Date Location Provider Dx Diagnosis Office Visit 08/07/2021 3:40p [facility] KOMAL Thomas J01.90 Acute sinusitis, unspecified Office Visit 06/04/2021 2:40p [facility] KOMAL Thomas A04.72 Enterocolitis d/t Clostridiu m difficile, not spcf as recur Office Visit 05/24/2021 8:00a [facility] KOMAL Thomas R19.7 Diarrhea, unspecified Assessments Date [...]
--- OUTSIDE RECORDS SUMMARY | 2021-09-20 18:42 | CCD | Continuity of Care Document ---
Author Author Gloria BENAVIDEZ Organization Unknown [place] [address] Phone [phone] Care Team Providers Care Dry Cleaner Helper Name Role Phone Florecita Jordan D.O. AUTM Ronald Hennessy M.D. AUTM [phone] [facility] [phone] Problems Active Problems Provider Date History of [...] as needed for pain Unknow n Biotin [id number] Tablets 1 by mouth once daily Unknown Calcium Citrate 250mg Tablets 1 tab by mouth twice a day Unknown Vitamin B12 1000mcg Tablets ER 1 by mouth every day Unknown Xanax 0.5mg Tablets take one tablet by mouth twice a day as needed. istop: [id number] 60tabs Tu BarrazaO. Tamsulosin HCL 0.4mg Capsules [...] F O2 % BldC Oximetry 98 % [place] Body Weight 125 lb 06/04/2021 2:27pm BP Systolic 130 mmHg BP Diastolic 86 mmHg Height 65 inches 5'5" Weight 163.00 lb BMI (Body Mass Index) 27.1 kg/m2 Heart Rate 77 /min Respiratory Rate 18 /min Body Temperature 99.2 F O2 % BldC Oximetry 98 % [place] Body Weight 125 lb Results Test Acquired Date Facility Test Result H/L Range Note GI 4 05/30/2021 [facility] [place] [address] [phone] Campylobacter Not Detected Not Detected C difficile toxin A/B Detected Abnormal Not Detected Plesiomonas shigelloides Not Detected Not Detected Salmonella Not Detected Not Detected Vibrio Not Detected Not Detected Vibrio cholerae Not Detected Not Detected Yersinia enterocolitica Not Detected Not Detected Enteroaggregative E coli Not Detected Not Detected Enteropathogenic E coli Not Detected Not Detected Enterotoxigenic E coli Not Detected Not Detected [id number] Ecoli Not Detected Not Detected E coli [...] Not Detected Ova & Para Exam 05/30/2021 [facility] [place] [address] [phone] Ova \\T\\ Para Exam (SEE NOTE) 1 Source: STOOL 2 Ua W/ Reflex To Culture 05/29/2021 [facility] Outpatient T esting (Registration) [address] [place] [address] [phone] Appearance, Urine RFX CLEAR Normal Clear Color, Urine RFX YELLOW Normal Yellow PH,Urine RFX 5.0 units Normal 5.0-9.0 Specific [employer] Ur Auto RFX 1.010 Normal 1.002-1.035 Protein, [...] /LPF Normal 0-1 Laboratory test finding 05/29/2021 [facility] Outpatient T esting (Registration) [address] [place] [address] [phone] iSTAT B-hCG < 5.0 Normal 3 Istat Chem8+ Panel 05/29/2021 [facility] Outpatient Testi ng (Registration) [address] [place] [phone] iSTAT HCT 45.0 % Normal 38.0-51.0 iSTAT Glucose 80 mg/dL Normal 70-105 iSTAT Sodium 145 mEq/L Normal 136-145 iSTAT Potassium 3.6 mEq/L Normal 3.5-5.1 iSTAT CA++ 4.5 mg/dL Normal 4.5-5.3 iSTAT Chloride 105 mEq/L Normal 98-109 iSTAT Co2 26.0 MM/L Normal 23.0-27.0 iSTAT BUN 10 mg/dL Normal 8-26 iSTAT Creatinine 0.7 mg/dL Normal 0.6-1.3 Liver Profile 05/29/2021 [facility] Outpatient Testi ng (Registration) [address] [place] [phone] Ast/Sgot 19 U/L Normal 7-37 Alt/SGPT 30 U/L Normal 12-78 Alkaline Phosphatase 64 U/L Normal 45-117 Bilirubin,Total 0.3 mg/dL Normal 0.2-1.0 Bilirubin,Direct < 0.1 mg/dL Normal 0.0-0.2 Total Protein 7.7 GM/DL Normal 6.4-8.2 Albumin 3.9 GM/DL Normal 3.2-5.2 Albumin/Globulin Ratio 1.0 Low 1.2-2.2 Laboratory test finding 05/29/2021 [facility] Outpatient T esting (Registration) [address] [place] [phone] Lipase 72 U/L Low 73-393 CBC With Differential 05/29/2021 [facility] Outpatient Jodi ting (Registration) [address] [place] [address] [phone] White Blood Count 6.0 10 Normal 4.0-10.0 [...] % 0.0 % Normal 0-0 Differential 05/29/2021 [facility] Outpatient Testi gem (Registration) [address] [place], [place] [phone] Neutrophils 73 % High 28-66 Lymphocytes 19 % Normal 16-44 Monocytes 6 % High 0-5 Eosinophils 1 % Normal 0-3 Basophils 1 % Normal 0-1 Laboratory test finding 05/29/2021 [facility] Outpatient T estgalina (Registration) [address] [place] [address] [phone] Platelet Estimate NORMAL Normal Normal 1 _OVA & P D SM CON ID_ 2 ^[id number] ^[id number] ^[id number] REPORTED DATE/TIME: 06/06/2021 20:06 Culture: OVA & PARA EXAM Status: Final Ova + Parasite Exam: P1 No ova, cysts, or parasites seen. . One negative specimen does not rule out the possibility of a parasitic infection. These results were obtained using wet preparation(s) and trichrome stained smear. This test does not include testing for Cryptosporidium parvum, Cyclospora, or Microsporidia. P1 Test performed by: [facility] #: [id number] [address] [place] [address] [id number] [facility] [id number] Interior Design Consultant : Mario Dewitt MD NPI #: Mussel Opener : 06/06/21.XMT.SENT REF 06/06/21.DW .to DEWEY Alonzo via fax 3 QUANTITATIVE RESULT QUALITATIVE INTERPRETATION <5.0 IU/L NEGATIVE 5.0 - 25.0 IU/L INDETER MINATE >25.0 IU/L POSITIVE Procedures Date Code Description Status 08/07/2021 94117 Office/Outpatient Established Lo w MDM 20-29 Min Completed 06/04/2021 98995 Office/Outpatient Established Lo w MDM 20-29 Min Completed 05/24/2021 59393 Office/Outpatient Established w [facility] 20-29 Min Completed Medical Devices Description No Information Available Encounters Type Date Location Provider Dx Diagnosis Office Visit 08/07/2021 3:40p [facility] KOMAL Thomas J01.90 Acute sinusitis, unspecified Office Visit 06/04/2021 2:40p [facility] KOMAL Thomas A04.72 Enterocolitis d/t Clostridiu m difficile, not spcf as recur Office Visit 05/24/2021 8:00a [facility] KOMAL Thomas R19.7 Diarrhea, unspecified Assessments Date Code Description Provider 08/07/2021 J01.90 Acute sinusitis, unspecified Bharath KOMAL Adams 06/04/2021 A04.72 Enterocolitis due to Clostridium difficile, not specified as recurrent KOMAL Thomas 05/24/2021 R19.7 Diarrhea, unspecified KOMAL Portillo Plan of Treatment No Information Available Functional Status Description No Information Available Mental Status Description No Information Available Referrals Description No Information Available
[2021-09-20 18:55] VITALS: BP 132/95
--- OUTSIDE RECORDS SUMMARY | 2021-09-20 20:20 | CCD ---
Author Author [facility] Organization [facility] Address Unknown Phone Unavailable Care Team Providers Care Clinical Services Director Name Role Phone Gab Denny MD Unavailable Unavailable Gab Denny MD Unavailable Unavailable Gab Denny MD Unavailable Unavailable aGb Denny MD Unavailable Unavailable Gab Denny MD [...] Unavailable Mollura, E Ani PA Unavailable Unavailable O'juan, A Robbin PA [...] is protected by Article 27-F of the [facility] Public Health law. If you continue you may have access to information: Regarding HIV / AIDS; Provided by facilities licensed or operated by the [facility] Office of Mental Health; or Provided by the [facility] Office for People With Developmental Disabilities. If such information is present, then the following [facility] mandated warning applies: This information has been [...] law may result in a fine or nursing home sentence or both. A general authorization for the release of medical or other information is NOT sufficient authorization for further disc losure. Allergies and Adverse Reactions Type Description Substance Reaction Status Data Source(s ) Propensity to adverse reactions LATEX LATEX HIVES [facility] Drug allergy MORPHINE MORPHINE MIGRAINES [facility] Family History Family Member Name Family Member Gender Family Member Status Date o f Status Description Data Source(s) Unknown Male Problem [facility] ([facility]) Encounters Encounter Providers Location Date Indications Data Source(s ) Outpatient Attender: Robbin SAUCEDA [facility] 08/07/2021 03:40:00 PM EDT MEDENT ([facility]) Outpatient Attender: LIANNE BURKETT MDConsultant: Ani SAUCEDA 06/21/2021 01:34:00 PM EDT - 06/21/2021 01:34:00 PM EDT [facility] Outpatient Attender: LIANNE BURKETT MD Family Practice 06/03 01:30:00 PM EDT [facility] ([facility]) Outpatient Attender: Robbin SAUCEDA [facility] 06/04/2021 02:40:00 PM EDT MED[facility] ([facility]) Outpatient Attender: LEELA CENTENODConsultant: Ani SAUCEDA 05/30/2021 07:59:00 AM EDT - 05/30/2021 08:09:00 AM EDT [facility] Outpatient Attender: Robbin SAUCEDA [facility] 05/24/2021 08:00:00 AM EDT MED[facility] ([facility]) Outpatient Attender: Robbin SAUCEDA [facility] 12/06/2020 09:30:00 AM EST MED[facility] ([facility]) Outpatient Attender: Robbin SAUCEDA [facility] 08/20/2020 02:40:00 PM EDT MED[facility] ([facility]) Outpatient Attender: Heather Denny MDConsultant: José Miguel Cheatham PA-C 05/25/2018 11:05:08 AM EDT - 03/26/2018 01:29:00 PM EDT [facility] Immunizations Vaccine Date Status Description Data Source(s) COVID-19 VACCINE [facility] 03/28/2021 12:00:00 AM EDT completed [facility] Vaccine Series Complete: YESThis Data wa s Submitted to [facility] Via [facility]. Medications Medication Brand Name Start Date Product [...] 08/07/2021 12:00:00 AM EDT ORAL active MEDENT ([facility]) Amoxicillin 875 MG / Clavulanate 125 [...] 06/14/2021 12:00:00 AM EDT ORAL active MED[facility] ([facility]) 200 mg 06/14/2021 12:00:00 AM EDT tablet 2 TAKE 1 TABLET BY MOUTH AND REPEAT IN 3 DAYS IF SYMPTOMS PERSIST TAKE 1 TABLET BY MOUTH AND REPEAT IN 3 D AYS IF SYMPTOMS PERSIST SOLD: 06/16/2021 [facility] Vancomycin 125 MG Oral Capsule Vancomycin HCL 06/06/2021 12:00:00 AM EDT ORAL completed [facility] ([facility]) 125 mg 06/06/2021 12:00:00 AM EDT capsule [...] 06/04/2021 12:00:00 AM EDT ORAL active MEDENT ([facility]) Promethazine Hydrochloride 12.5 MG Oral Tablet Promethazine HCL 06/04/2021 12:00:00 AM EDT ORAL active M EDENT ([facility]) Metronidazole 500 MG Oral Tablet Metronidazole 06/03/2021 12:00:00 AM EDT ORAL completed [facility] ([facility]) Metronidazole 500 MG Oral Tablet METRONIDAZOLE 05/29/2021 [...] 05/24/2021 12:00 :00 AM EDT completed [facility] ([facility]) Fluconazole 200 MG Oral Tablet Fluconazole 05/24/2021 12:00:00 AM EDT ORAL completed [facility] ([facility]) 200 mg 05/24/2021 12:00:00 AM EDT [...] DOSE = 2 TABLETS SOLD: 05/08/2021 [facility] [email or web address] Ondansetron 4 MG Disintegrating Oral Tablet ONDANSETRON [...] 12/06/2020 12:00:00 AM EST ORAL active MED[facility] ([facility]) Phentermine Hydrochloride 37.5 MG Oral Capsule Phentermine H CL 12/06/2020 12:00:00 AM EST ORAL completed [facility] ([facility]) Omeprazole 20 MG Delayed Release Oral Capsule Omeprazole 12/06/2020 12:00:00 AM EST ORAL active [facility] ([facility]) Cervical Collar/Soft Foam-Deluxe/One Size Fits ALL 12/06/2020 12:00:00 AM EST completed [facility] ([facility]) 37.5 mg 12/06/2020 12:00:00 AM EST [...] HOURS NEEDED FOR MUSCLE SPASM SOLD: 12/07/2020 [facility] Injection Ketorolac Tromethamine Per 15 MG (Toradol) 12/06/2020 12:00:00 AM EST completed [facility] ([facility]) Medication administered onsite 37.5 mg 12/06/2020 [...] FOR 3 MONTHS AFTER SURGERY SOLD: 10/30/2020 [facility] Alprazolam 0.5 MG Oral Tablet ALPRAZOLAM 10/30/2020 [...] 07/18/2020 12:00:00 AM E DT completed [facility] ([facility]) 12 HR cetirizine hydrochloride 5 MG / Ps eudoephedrine Hydrochloride 120 MG Extended Release Oral Tablet [Zyrtec-D] Zyrtec-D Allergy & Congestion 07/18/2020 12:00:00 AM EDT ORAL completed [facility] ([facility]) cefdinir 300 MG Oral Capsule Cefdinir 07/18/2020 12:00:00 AM EDT ORAL completed [facility] ([facility]) 40 mg 03/12/2020 12:00:00 AM EDT capsule,delayed [...] type / Coverage type Policy ID Covered constitution party ID Covered constitution party's relationship to bacon Policy Bacon Plan Information [place] 306/806 [id number] SP [id number] [facility] BCBS MEDICAID [id number] xxxxxxxxxxxx [facility] [id number] Poppy [id number] SELF PAY ONLY [id number] SP [id number] SELF PAY EXCELLUS BCBS B [id number] S [id number] [facility] [id number] SP [id number] BCBS [place] PPO 302/307 [id number] SP [id number] EXCELLUS BCBS MEDICAID PI PI [facility] [id number] Self YN [id number] Excellus [facility] [employer] [id number] Self YN [id number] O UNAVAILABLE UNAVAILA BLE Excellus [facility] [employer] [id number] Self YN [id number] BLUE CROSS BLUE SHIELD -PHYSICIAN [id number] 18 [id number] Excellus [facility] [employer] [id number] Self YN [id number] BCBS Excell[employer] U/W Commercial [id number] Self [id number] Excellus [facility] [employer] [id number] Self YN [id number] Private Pay Commercial [id number] Self [id number] PRIVATE PAY CO UNAVAILABLE 18 UNAVAI LABLE BCBS [place] PPO 302/307 [id number] SP [id number] Private Pay Commercial [id number] Self [id number] Private Pay Commercial [id number] Self [id number] Private Pay Commercial [id number] Self [id number] PRIVATE INSURANCE CO UNAVAILABLE 18 UNAVAILABLE Private Pay Commercial [id number] Self [id number] Private Insurance Commercial [id number] Self [id number] Blue Cross Blue Shield CL Commercial [id number] BLUE CROSS BLUE SHIELD CL BS [id number] 21 [id number] BCBS [place] PPO 302/307 [id number] BLUE CROSS BLUE SHIELD -O/P [id number] 01 [id number] BLUE CROSS BLUE SHIELD -CLINIC [id number] [employer] [id number] APWU CO [id number] BCBS [place] PPO 302/307 [id number] EXCELLUS BCBS B [id number] P LWE [id number] UNITED HEALTHCARE [id number] UNITED HEALTHCARE O [id number] P [id number] UNITED HEALTHCARE -O/P [id number] 01 [id number] D [employer] Dental PPO P [id number] O [id number] ONE CALL MEDICAL P [id number] S [id number] Andela- P [id number] S [id number] BCBS DORY HMO [id number] SP [id number] Andela-O/P [id number] 18 [id number] EXCELLUS [facility] [id number] 18 [id number] BLUE CROSS BLUE [facility] -O/P [id number] Problems, Conditions, and Diagnoses Code Display Name Description Problem Type Effective Dates Data Source(s) R197 Diarrhea, unspecified Diarrhea, unspecified Diagnosis 05/30/2021 07:59:00 AM EDT [facility] Surgeries/Procedures Procedure Description Date Indications Data Source(s) OFFICE OUTPATIENT VISIT 15 MINUTES 08/07/2021 12:00:00 AM EDT MED[facility] ([facility]) OFFICE OUTPATIENT VISIT 10 MINUTES 06/21/2021 12:00:00 AM EDT MED[facility] ([facility]) OFFICE OUTPATIENT VISIT 15 MINUTES 06/04/2021 12:00:00 AM EDT [facility] ([facility]) OFFICE OUTPATIENT VISIT 15 MINUTES 05/24/2021 12:00:00 AM EDT MED[facility] ([facility]) OFFICE OUTPATIENT VISIT 25 MINUTES 12/06/2020 12:00:00 AM EST MED[facility] ([facility]) Electrocardiogram Complete 08/20/2020 12:00:00 AM EDT [facility] ([facility]) Results ID Date Data Source [id number] 08/06/2021 02:35:00 PM EDT [facility] Name Value Range Interpretation Code Description Data Yamileth rce(s) Supporting Document(s) SARS coronavirus 2 RNA [Presence] in Res piratory specimen by LENNY with probe detection NEGATIVE [facility] This lab was ordered by [facility] a nd reported by [facility]. ID Date Data Source [id number] 06/21/2021 01:39:00 PM EDT [facility] ([facility]) Name Value Range Interpretation Code Description Data Yamileth rce(s) Supporting Document(s) Choriogonadotropin.beta subunit ( test) [Pres ence] in Urine Laboratory test result [facility] ([facility]) ID Date Data Source [id number] 05/30/2021 06:00:00 AM EDT [facility] ([facility]) Name Value Range Interpretation Code Description Data Yamileth rce(s) Supporting Document(s) Laboratory test finding (navigational concept) Laboratory test result MED[facility] ([facility]) <content>_OVA & P D SM CON ID_</lisa nt>
<content></content> Source: Laboratory test result ME DENT ([facility]) <content>^$[id number]</content>
<content>^^[id number]</content>
<content>$$05705 3</content>
<content>^^[id number]</content>
<content></content>
<content >REPORTED DATE/TIME: 06/06/2021 20:06</content>
<content>Culture: [...] ntent>P1 Test performed by: [facility] SIMON #: [id number]</content>
<content>[address]</content>
<content>[id number]</content>
<content>[place] [address]</content>
<content>Coordinate Measuring Machine Operator : Mario Dewitt MD NPI #:</content>
<content>Alignment Specialist :</content>
<content>08/05/21.2014.XMT.SENT REF</content>
<content>06/06/21.DW .to DEWEY Alonzo via fax</content>
<content></content>
<content></content> ID Date Data Source [id number] 05/30/2021 06:00:00 AM EDT [facility] ([facility]) Name Value Range Interpretation Code Description Data Yamileth rce(s) Supporting Document(s) Campylobacter Laboratory test result MED[facility] ([facility]) Laboratory test finding (navigational concept) Laboratory test r esult Abnormal (applies to non-numeric results) MED[facility] ([facility]) Laboratory test finding (navigational concept) Laboratory test result MED[facility] ([facility]) Salmonella Laboratory test result ME D[facility] ([facility]) Vibrio Laboratory test result ME [facility] ([facility]) Laboratory test finding (navigational concept) Laboratory test result [facility] ([facility]) Laboratory test finding (navigational concept) Laboratory test result [facility] ([facility]) Laboratory test finding (navigational concept) Laboratory test result [facility] ([facility]) Laboratory test finding (navigational concept) Laboratory test result [facility] ([facility]) Laboratory test finding (navigational concept) Laboratory test result [facility] ([facility]) Laboratory test finding (navigational concept) Laboratory test result [facility] ([facility]) Laboratory test finding (navigational concept) Laboratory test result [facility] ([facility]) Laboratory test finding (navigational concept) Laboratory test result [facility] ([facility]) Cryptosporidium Laboratory test result [facility] ([facility]) Laboratory test finding (navigational concept) Laboratory test result [facility] ([facility]) Entamoeba histolytica Laboratory test result [facility] ([facility]) Giardia lamblia Laboratory test result [facility] ([facility]) Laboratory test finding (navigational concept) Laboratory test result [facility] ([facility]) Astrovirus Laboratory test result ME DENT ([facility]) Laboratory test finding (navigational concept) Laboratory test result MEDSHILPI ([facility]) Rotavirus A Laboratory test result M EDSHILPI ([facility]) Sapovirus Laboratory test result ME KIRK ([facility]) ID Date Data Source [id number] 06/06/2021 08:14:00 PM EDT [facility] Name Value Range Interpretation Code Description Data Yamileth rce(s) Supporting Document(s) OVA & PARA EXAM [facility] _OVA & P D SM CON ID_ SOURCE: STOOL [facility] $$[id number] DATE/TIME: 06/06/2021 2 0:06Culture: OVA & PARA EXAM Status: FinalOva + Parasite Exam: P1No ova, cysts, or parasites seen. . One negative specimen does not ruleout the possibility of a parasitic infection.These results were obtained using wet preparation(s) and tr ichromestained smear. This test does not include testing for Cryptosporidiumparvum, Cyclospora, or Microsporidia.P1 [facility] by: [facility] CLIA #: [id number] [address] [place] [address] [id number] [facility] [id number] Director : Mario Dewitt MD NPI #:Alignment Specialist : 06/06/21.XMT.SENT REF 06/06/21.DW .to DEWEY Alonzo via fax ID Date Data Source [id number] 06/03/2021 07:51:00 AM EDT [facility] Name Value Range Interpretation Code Description Data Yamileth rce(s) Supporting Document(s) Campylobacter coli+jejuni+upsaliensis DN A [Presence] in Stool by Target amplification with non-probe based detection Not Detected Not Detected [facility] Clostridium difficile toxin A+B (tcdA+tc dB) genes [Presence] in Stool by Target amplification with non-probe based detection Detected Not Detected A [facility] Plesiomonas shigelloides DNA [Presence] in Stool by Target amplification with non-probe based detection Not Detected Not Detected [facility] Salmonella enterica+bongori DNA [Presenc e] in Stool by Target amplification with non-probe based detection Not Detected Not Detected [facility] Vibrio cholerae+parahaemolyticus+vulnifi cus DNA [Presence] in Stool by Target amplification with non-probe based detection Not Detected Not Detected [facility] Vibrio cholerae DNA [Presence] in Stool by Target amplification with non-probe based detection Not Detected Not Detected [facility] Yersinia enterocolitica DNA [Presence] i n Stool by Target amplification with non-probe based detection Not Detected Not Detected [facility] Escherichia coli enteroaggregative Lola p lasmid aggR+aatA genes [Presence] in Stool by Target amplification with non-probe based detection Not Detected Not Detected [facility] Escherichia coli enteropathogenic eae ge ne [Presence] in Stool by Target amplification with non-probe based detection Not Detected Not Detected [facility] Escherichia coli enterotoxigenic ltA+st1 a+st1b genes [Presence] in Stool by Target amplification with non-probe based detection Not Detected Not Detected [facility] Escherichia coli shiga-like toxin 1+2 (s tx1+stx2) genes [Presence] in Stool by Target amplification with non-probe based detection Not Detected Not Detected [facility] Escherichia coli O157 DNA [Presence] in Stool by Target amplification with non- probe based detection Not applicable Not Detected [facility] Shigella species+EIEC invasion plasmid a ntigen H (ipaH) gene [Presence] in Stool by Target amplification with non-probe based detection Not Detected Not Detected [facility] Cryptosporidium sp DNA [Presence] in Sto ol by Target amplification with non- probe based detection Not Detected Not Detected [facility] Cyclospora cayetanensis DNA [Presence] i n Stool by Target amplification with non-probe based detection Not Detected Not Detected [facility] Entamoeba histolytica DNA [Presence] in Stool by Target amplification with non- probe based detection Not Detected Not Detected [facility] Giardia lamblia DNA [Presence] in Stool by Target amplification with non-probe based detection Not Detected Not Detected [facility] Adenovirus F(40+41) DNA [Presence] in St ool by Target amplification with non- probe based detection Not Detected Not Detected [facility] Astrovirus subtypes 1-8 RNA [Presence] i n Stool by Target amplification with non-probe based detection Not Detected Not Detected [facility] Norovirus genogroup I+II RNA [Presence] in Stool by Target amplification with non-probe based detection Not Detected Not Detected [facility] Rotavirus A RNA [Presence] in Stool by T arget amplification with non-probe based detection Not Detected Not Detected [facility] Sapovirus genogroups I+II+IV+V RNA [Pres ence] in Stool by Target amplification with non-probe based detection Not Detected Not Detected [facility] ID Date Data Source [id number] 05/29/2021 03:41:00 PM EDT [facility] ([facility]) Name Value Range Interpretation Code Description Data Yamileth rce(s) Supporting Document(s) Appearance, Urine RFX Laboratory test result Nor mal (applies to non-numeric results) [facility] ([facility]) Color, Urine RFX Laboratory test result Normal ( applies to non-numeric results) [facility]) PH,Urine RFX 5.0 units 5.0-9.0 Normal (applies to non-numeric res ults) [facility]) Glucose, Urine (Ua) Auto RFX Laboratory test result Normal (applies to non- numeric results) [facility] ([facility]) Protein, Urine Auto RFX Laboratory test result N ormal (applies to non-numeric results) [facility]) Specific [place] Ur Auto RFX 1.010 1.002-1.035 Nor mal (applies to non-numeric results) [facility] ([facility]) Urobilinogen, Urine Auto RFX 0.2 mg/dL 0.0-2.0 Nor mal (applies to non-numeric results) [facility] ([facility]) Ketone, Urine Auto RFX Laboratory test result Above high n ormal [facility] ([facility]) Nitrite, Urine Auto RFX Laboratory test result N ormal (applies to non-numeric results) [facility] ([facility]) Bilirubin, Urine Auto RFX Laboratory test result Normal (applies to non- numeric results) [facility] ([facility]) Leukocyte Esterase Ur Auto RFX Laboratory test result Normal (applies to non- numeric results) [facility] ([facility]) Blood, Urine Blood RFX Laboratory test result No rmal (applies to non-numeric results) [facility] ([facility]) WBC, Urine Auto RFX 1 /HPF 0-3 Normal (applies to non-nume jerry results) [facility] ([facility]) RBC, Urine Auto RFX 2 /HPF 0-3 Normal (applies to non-nume jerry results) [facility] ([facility]) Squam Epithelial Cell Ur Aurfx 9 /HPF 0-6 N ormal (applies to non-numeric results) [facility] ([facility]) Bacteria, Urine Auto RFX Laboratory test result Normal (applies to non-numeric results) [facility] ([facility]) Mucus, Urine RFX Laboratory test result Normal ( applies to non-numeric results) [facility] ([facility]) Hyaline Cast, Urine Auto RFX 0 /LPF 0-1 Normal (appl ies to non-numeric results) [facility]) ID Date Data Source [id number] 05/29/2021 12:41:00 PM EDT [facility] ([facility]) Name Value Range Interpretation Code Description Data Yamileth rce(s) Supporting Document(s) Choriogonadotropin.beta subunit [Moles/volume] in Seru m or Plasma Laboratory test result Normal (applies to non-numeric results) [facility]) <content>QUANTITATIVE RESULT QU ALITATIVE INTERPRETATION</content>
<content> </content>
<content><5.0 IU/L NEGATIVE</content>
<content>5.0 - 25.0 IU/L INDETERMINATE</content>
<content>>25.0 IU/L POSITIVE</content>
<content></content> ID Date Data Source [id number] 05/29/2021 11:39:00 AM EDT [facility] ([facility]) Name Value Range Interpretation Code Description Data Yamileth rce(s) Supporting Document(s) Laboratory test finding (navigational concept) 45.0 % 3 8.0-51.0 Normal (applies to non-numeric results) [facility] ([facility]) Laboratory test finding (navigational concept) 80 mg/dL 7 0-105 Normal (applies to non-numeric results) [facility] [facility]) Laboratory test finding (navigational concept) 145 meq/L 1 36-145 Normal (applies to non-numeric results) [facility] ([facility]) Laboratory test finding (navigational concept) 3.6 meq/L 3 .5-5.1 Normal (applies to non-numeric results) [facility] ([facility]) Laboratory test finding (navigational concept) 4.5 mg/dL 4 .5-5.3 Normal (applies to non-numeric results) [facility] ([facility]) Laboratory test finding (navigational concept) 10 mg/dL 8 -26 Normal (applies to non-numeric results) [facility] ([facility]) Laboratory test finding (navigational concept) 26.0 MM/L 2 3.0-27.0 Normal (applies to non-numeric results) [facility] ([facility]) Laboratory test finding (navigational concept) 105 meq/L 9 8-109 Normal (applies to non-numeric results) [facility] ([facility]) Laboratory test finding (navigational concept) 0.7 mg/dL 0 .6-1.3 Normal (applies to non-numeric results) [facility] ([facility]) ID Date Data Source [id number] 05/29/2021 11:25:00 AM EDT [facility]) Name Value Range Interpretation Code Description Data Yamileth rce(s) Supporting Document(s) Lipase [Enzymatic activity/volume] in Serum or Plasma 72 U/L 73-393 Below low normal [facility] ([facility]) ID Date Data Source [id number] 05/29/2021 11:25:00 AM EDT [facility]) Name Value Range Interpretation Code Description Data Yamileth rce(s) Supporting Document(s) Ast/Sgot 19 U/L 7-37 Normal (applies to non-numeric resul ts) [facility] ([facility]) Alkaline Phosphatase 64 U/L 45-117 Normal (applies to non-num ramiro results) [facility] ([facility]) Alt/SGPT 30 U/L 12-78 Normal (applies to non-numeric resul ts) [facility] ([facility]) Bilirubin,Total 0.3 mg/dL 0.2-1.0 Normal (applies to non-numeric results) [facility] ([facility]) Bilirubin,Direct Laboratory test result 0.0-0.2 Normal ( applies to non-numeric results) [facility] ([facility]) Total Protein 7.7 GM/DL 6.4-8.2 Normal (applies to non-numeric re sults) [facility] ([facility]) Albumin 3.9 GM/DL 3.2-5.2 Normal (applies to non-numeric resul ts) [facility] ([facility]) Albumin/Globulin Ratio 1.0 1.2-2.2 Below low normal [facility] ([facility]) ID Date Data Source [id number] 05/29/2021 11:11:00 AM EDT [facility] ([facility]) Name Value Range Interpretation Code Description Data Yamileth rce(s) Supporting Document(s) Platelets [#/volume] in Blood by Estimate Laboratory test result Normal (applies to non-numeric results) [facility] ([facility]) ID Date Data Source [id number] 05/29/2021 11:11:00 AM EDT [facility] ([facility]) Name Value Range Interpretation Code Description Data Yamileth rce(s) Supporting Document(s) Lymphocytes 19 % 16-44 Normal (applies to non-numeric resu lts) [facility] ([facility]) Neutrophils 73 % 28-66 Above high normal [facility] ([facility]) Basophils 1 % 0-1 Normal (applies to non-numeric resul ts) [facility] ([facility]) Monocytes 6 % 0-5 Above high normal [facility] ([facility]) Eosinophils 1 % 0-3 Normal (applies to non-numeric resu lts) [facility] ([facility]) ID Date Data Source [id number] 05/29/2021 11:11:00 AM EDT [facility] ([facility]) Name Value Range Interpretation Code Description Data Yamileth rce(s) Supporting Document(s) White Blood Count 6.0 10 4.0-10.0 Normal (applies to non-numeri c results) [facility] ([facility]) Red Blood Count 4.65 10 4.00-5.40 Normal (applies to non-numeric results) [facility] ([facility]) Hematocrit 43.6 % 36.0-47.0 Normal (applies to non-numeric resul ts) [facility] ([facility]) Hemoglobin 14.2 g/dL 12.0-15.5 Normal (applies to non-numeric resul ts) [facility] ([facility]) Mean Corpuscular Volume 93.8 fl 80.0-96.0 Normal ( applies to non-numeric results) [facility] ([facility]) Mean Corpuscular HGB Conc 32.6 g/dL 32.0-36.5 Normal (applies to non-numeric results) [facility] ([facility]) Mean Corpuscular Hemoglobin 30.5 pg 27.0-33.0 Norm al (applies to non-numeric results) [facility] ([facility]) Red Cell Distribution Width 12.3 % 11.5-14.5 Norm al (applies to non-numeric results) [facility] ([facility]) Nucleated Red Blood Cell % 0.0 % 0-0 Normal (applies to n on-numeric results) [facility] ([facility]) Platelet Count, Automated 242 10 150-450 Normal (applies to non-numeric results) [facility] ([facility]) ID Date Data Source [id number] 03/18/2021 01:45:00 PM EDT [facility] Name Value Range Interpretation Code Description Data Yamileth rce(s) Supporting Document(s) SARS-CoV-2 (COVID-19) RNA [Presence] in Respiratory specimen by LENNY with probe detection Not Detected [facility] This lab was ordered by [facility] and reported by [facility]. ID Date Data Source [id number] 11/06/2020 06:30:00 AM EST [facility] Name Value Range Interpretation Code Description Data Yamileth rce(s) Supporting Document(s) SARS coronavirus 2 RNA Not Detected [facility] This lab was ordered by [facility] and reported by [facility]. ID Date Data Source [id number] 10/30/2020 03:05:00 PM EST [facility] Name Value Range Interpretation Code Description Data Yamileth rce(s) Supporting Document(s) SARS coronavirus 2 RNA [facility] This lab was ordered by [facility] and reported by [facility]. ID Date Data Source [id number] 10/16/2020 11:00:00 AM EST [facility] Name Value Range Interpretation Code Description Data Yamileth rce(s) Supporting Document(s) [facility] This lab was ordered by [facility] and reported by [facility]. ID Date Data Source [id number] 10/11/2020 10:19:00 AM EST [facility] ([facility]) Name Value Range Interpretation Code Description Data Yamileth rce(s) Supporting Document(s) Magnesium [Mass/volume] in Serum or Plasma 2.2 mg/dL 1.8-2 .4 Normal (applies to non-numeric results) [facility] ([facility]) ID Date Data Source [id number] 10/11/2020 10:19:00 AM EST [facility] ([facility]) Name Value Range Interpretation Code Description Data Yamileth rce(s) Supporting Document(s) Blood Urea Nitrogen 16 mg/dL 7-18 Normal (applies to non-nume jerry results) [facility] ([facility]) Glucose, Fasting 96 mg/dL 70-100 Normal (applies to non-numeric results) [facility] ([facility]) Creatinine For GFR 0.83 mg/dL 0.55-1.30 Normal (applies to non -numeric results) [facility] ([facility]) Glomerular Filtration Rate Laboratory test result Normal (applies to non- numeric results) [facility] ([facility]) <content>Units are mL/min/1.73 m2</content>
<content></content>
<content>Chronic Kidney Disease Staging per NKF:</content>
<content></content>
<content>Stage I & II GFR >=60 Normal to Mildly Decreased</content>
<content>Stage III GFR 30- 59 Moderately Decreased</content>
<content>Stage IV GFR 15-29 Severely Decreased</content>
<content>Stage V GFR <15 Very Little GFR Left</content>
<content>ESRD GFR <15 on [employer]</content>
<content></content> Sodium Level 140 meq/L 136-145 Normal (applies to non-numeric res ults) [facility] ([facility]) Carbon Dioxide Level 27 meq/L 21-32 Normal (applies to non-num ramiro results) [facility] ([facility]) Chloride Level 108 meq/L 98-107 Above high normal [facility] ([facility]) Potassium Serum 4.1 meq/L 3.5-5.1 Normal (applies to non-numeric results) [facility] ([facility]) Anion Gap 5 meq/L 8-16 Below low normal [facility] Calcium Level 8.9 mg/dL 8.5-10.1 Normal (applies to non-numeric re sults) [facility] ([facility]) ID Date Data Source [id number] 10/09/2020 10:00:00 AM EST [facility] Name Value Range Interpretation Code Description Data Yamileth rce(s) Supporting Document(s) SARS coronavirus 2 RNA [facility] This lab was ordered by [facility] and reported by [facility]. ID Date Data Source [id number] 10/02/2020 01:40:00 PM EST [facility] Name Value Range Interpretation Code Description Data Yamileth rce(s) Supporting Document(s) SARS coronavirus 2 RNA [facility] This lab was ordered by [facility] and reported by [facility]. ID Date Data Source [id number] 09/25/2020 02:45:00 PM EST [facility] Name Value Range Interpretation Code Description Data Yamileth rce(s) Supporting Document(s) SARS coronavirus 2 RNA [facility] This lab was ordered by [facility] and reported by [facility]. ID Date Data Source [id number] 08/20/2020 07:15:00 PM EDT [facility] ([facility]) Name Value Range Interpretation Code Description Data Yamileth rce(s) Supporting Document(s) White Blood Count 6.6 10 4.0-10.0 Normal (applies to non-numeri c results) [facility] ([facility]) Hemoglobin 13.0 g/dL 12.0-15.5 Normal (applies to non-numeric resul ts) [facility] ([facility]) Hematocrit 39.5 % 36.0-47.0 Normal (applies to non-numeric resul ts) [facility] ([facility]) Red Blood Count 4.33 10 4.00-5.40 Normal (applies to non-numeric results) [facility] ([facility]) Mean Corpuscular HGB Conc 32.9 g/dL 32.0-36.5 Normal (applies to non-numeric results) [facility] ([facility]) Mean Corpuscular Volume 91.2 fl 80.0-96.0 Normal ( applies to non-numeric results) [facility] ([facility]) Mean Corpuscular Hemoglobin 30.0 pg 27.0-33.0 Norm al (applies to non-numeric results) [facility] ([facility]) Neutrophils % 54.8 % 36.0-66.0 Normal (applies to non-numeric re sults) [facility] ([facility]) Platelet Count, Automated 222 10 150-450 Normal (applies to non-numeric results) [facility] ([facility]) Red Cell Distribution Width 12.5 % 11.5-14.5 Norm al (applies to non-numeric results) [facility] ([facility]) Eos % 0.8 % 0.0-3.0 Normal (applies to non-numeric resul ts) [facility] ([facility]) Sac % 8.0 % 0.0-5.0 Above high normal [facility] ([facility]) Lymph % 35.4 % 24.0-44.0 Normal (applies to non-numeric resul ts) [facility] ([facility]) Baso % 0.5 % 0.0-1.0 Normal (applies to non-numeric resul ts) [facility] ([facility]) Immature Granulocyte % 0.5 % 0-3.0 Normal (applies to non-n umeric results) [facility] ([facility]) Nucleated Red Blood Cell % 0.0 % 0-0 Normal (applies to n on-numeric results) [facility] ([facility]) Lymph # 2.4 10 1.5-5.0 Normal (applies to non-numeric resul ts) [facility] ([facility]) Neutrophils # 3.6 10 1.5-8.5 Normal (applies to non-numeric re sults) [facility] ([facility]) Eos # 0.1 10 0.0-0.5 Normal (applies to non-numeric resul ts) [facility] ([facility]) Sac # 0.5 10 0.0-0.8 Normal (applies to non-numeric resul ts) [facility] ([facility]) Baso # 0.0 10 0.0-0.2 Normal (applies to non-numeric resul ts) [facility] ([facility]) ID Date Data Source [id number] 08/20/2020 05:28:00 PM EDT [facility] ([facility]) Name Value Range Interpretation Code Description Data Yamileth rce(s) Supporting Document(s) Laboratory test finding (navigational concept) 75 mg/dL 7 0-105 Normal (applies to non-numeric results) [facility] ([facility]) Laboratory test finding (navigational concept) 44.0 % 3 8.0-51.0 Normal (applies to non-numeric results) [facility] ([facility]) Laboratory test finding (navigational concept) 4.7 mg/dL 4 .5-5.3 Normal (applies to non-numeric results) [facility] ([facility]) Laboratory test finding (navigational concept) 139 meq/L 1 36-145 Normal (applies to non-numeric results) [facility] ([facility]) Laboratory test finding (navigational concept) 3.3 meq/L 3 .5-5.1 Below low normal [facility] ([facility]) Laboratory test finding (navigational concept) 22.0 MM/L 2 3.0-27.0 Below low normal [facility] ([facility]) Laboratory test finding (navigational concept) 101 meq/L 9 8-109 Normal (applies to non-numeric results) [facility] ([facility]) Laboratory test finding (navigational concept) 15 mg/dL 8 -26 Normal (applies to non-numeric results) [facility] ([facility]) Laboratory test finding (navigational concept) 0.8 mg/dL 0 .6-1.3 Normal (applies to non-numeric results) [facility] ([facility]) ID Date Data Source [id number] 08/20/2020 05:07:00 PM EDT [facility] ([facility]) Name Value Range Interpretation Code Description Data Yamileth rce(s) Supporting Document(s) Reflex Urine Culture Laboratory test result Norm al (applies to non-numeric results) [facility] ([facility]) FULL REPORT IN LAB NOTES ([facility] and [facility] ). ORGANISM 1: LACTOBACILLUS SPECIES COLONY COUNT >100,000 Most Lactobacillus species recovered from clinical specimens are rarely pathogenic. Penicillin or ampicillin with or without gentamicin is recommended for treatment. Clindamycin and erythromycin are alternative treatments. Vancomycin resistance has been reported. ORGANISM 1: LACTOBACILLUS SPECIES ID Date Data Source [id number] 08/20/2020 05:07:00 PM EDT [facility] ([facility]) Name Value Range Interpretation Code Description Data Yamileth rce(s) Supporting Document(s) Color, Urine RFX Laboratory test result Normal ( applies to non-numeric results) [facility] ([facility]) Appearance, Urine RFX Laboratory test result Above high no rmal [facility] ([facility]) PH,Urine RFX 5.0 units 5.0-9.0 Normal (applies to non-numeric res ults) [facility] ([facility]) Specific [place] Ur Auto RFX 1.023 1.002-1.035 Nor mal (applies to non-numeric results) [facility] ([facility]) Protein, Urine Auto RFX Laboratory test result Above high normal [facility] ([facility]) Urobilinogen, Urine Auto RFX 0.2 mg/dL 0.0-2.0 Nor mal (applies to non-numeric results) [facility] ([facility]) Glucose, Urine (Ua) Auto RFX Laboratory test result Above high normal [facility] ([facility]) Ketone, Urine Auto RFX Laboratory test result No rmal (applies to non-numeric results) [facility] ([facility]) Bilirubin, Urine Auto RFX Laboratory test result Normal (applies to non- numeric results) [facility] ([facility]) Leukocyte Esterase Ur Auto RFX Laboratory test result Abov e high normal [facility] ([facility]) Nitrite, Urine Auto RFX Laboratory test result N ormal (applies to non-numeric results) [facility] ([facility]) WBC, Urine Auto RFX 28 /HPF 0-3 Above high normal [facility] ([facility]) RBC, Urine Auto RFX Laboratory test result 0-3 Above high norm al [facility] ([facility]) Blood, Urine Blood RFX Laboratory test result Above high n ormal [facility] ([facility]) Squam Epithelial Cell Ur Aurfx 26 /HPF 0-6 N ormal (applies to non-numeric results) [facility] ([facility]) Bacteria, Urine Auto RFX Laboratory test result Above high normal [facility] ([facility]) Mucus, Urine RFX Laboratory test result Normal ( applies to non-numeric results) [facility] ([facility]) Hyaline Cast, Urine Auto RFX 0 /LPF 0-1 Normal (appl ies to non-numeric results) [facility] ([facility]) Procedure Social History No Information Vital Signs ID Date Data Source UNK Name Value Range Interpretation Code Description Data Source(s) Heart rate 101 /min 101 /min [facility] ([facility]) Respiratory rate 18 /min 18 /min [facility] ( [facility]) Body temperature 98.9 [degF] 98.9 [degF] [facility] ([facility]) Oxygen saturation in Arterial blood by Pulse oximetry 98 % 98 % [facility] ([facility]) [place] body weight 125 [lb_av] 125 [lb_av] [facility] ([facility]) Systolic blood pressure 126 mm[Hg] 126 mm[Hg] [facility] ([facility]) Diastolic blood pressure 64 mm[Hg] 64 mm[Hg] [facility] Body height 65 [in_i] 65 [in_i] [facility] ([facility]) 5'5" Systolic blood pressure 120 mm[Hg] 120 mm[Hg] [facility] ([facility]) Diastolic blood pressure 62 mm[Hg] 62 mm[Hg] [facility] ([facility]) Heart rate 89 /min 89 /min [facility] ([facility]) Body temperature 98.7 [degF] 98.7 [degF] [facility] ([facility]) Body weight 163.00 [lb_av] 163.00 [lb_av] [facility] ([facility]) Body weight 73.937 kg 73.937 kg [facility] ([facility]) Body height 63 [in_i] 63 [in_i] [facility] ([facility]) 5'3" Body mass index (BMI) [Ratio] 28.9 kg/m2 28.9 k g/m2 [facility] ([facility]) Body surface area Derived from formula 1.77 m2 1.77 m2 [facility] ([facility]) Body temperature 99.2 [degF] 99.2 [degF] [facility] ([facility]) Oxygen saturation in Arterial blood by Pulse oximetry 98 % 98 % [facility] ([facility]) [place] body weight 125 [lb_av] 125 [lb_av] [facility] ([facility]) Body mass index (BMI) [Ratio] 27.1 kg/m2 27.1 k g/m2 [facility] ([facility]) Heart rate 77 /min 77 /min [facility] ([facility]) Respiratory rate 18 /min 18 /min [facility] ( [facility]) Systolic blood pressure 130 mm[Hg] 130 mm[Hg] [facility] ([facility]) Diastolic blood pressure 86 mm[Hg] 86 mm[Hg] [facility] ([facility]) Body height 65 [in_i] 65 [in_i] [facility] ([facility]) 5'5" Body weight 163.00 [lb_av] 163.00 [lb_av] [facility] ([facility]) Respiratory rate 18 /min 18 /min [facility] ( [facility]) Body temperature 98.3 [degF] 98.3 [degF] [facility] ([facility]) Systolic blood pressure 122 mm[Hg] 122 mm[Hg] [facility] ([facility]) Body weight 160.12 [lb_av] 160.12 [lb_av] [facility] ([facility]) Body mass index (BMI) [Ratio] 26.6 kg/m2 26.6 k g/m2 [facility] ([facility]) Heart rate 94 /min 94 /min [facility] ([facility]) Oxygen saturation in Arterial blood by Pulse oximetry 98 % 98 % [facility] ([facility]) [place] body weight 125 [lb_av] 125 [lb_av] [facility] ([facility]) Diastolic blood pressure 74 mm[Hg] 74 mm[Hg] [facility] ([facility]) Body height 65 [in_i] 65 [in_i] [facility] ([facility]) 5'5" Body temperature 99.2 [degF] 99.2 [degF] [facility] ([facility]) Respiratory rate 18 /min 18 /min [facility] ( [facility]) Oxygen saturation in Arterial blood by Pulse oximetry 98 % 98 % [facility] ([facility]) [place] body weight 125 [lb_av] 125 [lb_av] [facility] ([facility]) Body height 65 [in_i] 65 [in_i] [facility] ([facility]) 5'5" Diastolic blood pressure 72 mm[Hg] 72 mm[Hg] [facility] ([facility]) Heart rate 89 /min 89 /min [facility] ([facility]) Body weight 163.25 [lb_av] 163.25 [lb_av] [facility] ([facility]) Body mass index (BMI) [Ratio] 27.2 kg/m2 27.2 k g/m2 [facility] ([facility]) Systolic blood pressure 124 mm[Hg] 124 mm[Hg] [facility] ([facility]) Body weight 159.00 [lb_av] 159.00 [lb_av] SHANNA Malcolm ([facility]) Body height 65 [in_i] 65 [in_i] [facility] ([facility]) 5'5" Body mass index (BMI) [Ratio] 26.5 kg/m2 26.5 k g/m2 [facility] ([facility]) Heart rate 117 /min 117 /min [facility] ([facility]) Respiratory rate 20 /min 20 /min [facility] ( [facility]) Body temperature 98.0 [degF] 98.0 [degF] [facility] ([facility]) Oxygen saturation in Arterial blood by Pulse oximetry 98 % 98 % [facility] ([facility]) [place] body weight 125 [lb_av] 125 [lb_av] SHANNA Malcolm ([facility]) Systolic blood pressure 132 mm[Hg] 132 mm[Hg] Reyes LANDEROS ([facility]) Diastolic blood pressure 80 mm[Hg] 80 mm[Hg] [facility] ([facility])
== END 2021-09-20 20:05 | disposition left against medical advice (07) ==
LOC: M ED 18:32
DX: Z53.29 Procedure and treatment not carried out because of patient's decision for other reasons (principal)

== ENCOUNTER → 2021-12-02 | Outpatient (REF) ==
[~2021-12-02] MED LIST changes: +OMEP-173 PO; -OMEP-218 PO; -OMEP-221; +OMEP40CA5; +POTA-151; -POTA20TA6
== END ==
LOC: M LABSMTC 12:43
PROVIDERS: ATTEND Family Medicine
DX: Z11.52 Encounter for screening for COVID-19 (principal); Z20.822 Contact with and (suspected) exposure to COVID-19

== ENCOUNTER → 2022-03-07 | Outpatient (REF) | payer BC ==
[~2022-03-07] MED LIST changes: -D31000TA2 PO; +VITA100093 PO
[2022-03-07 10:33] LABS: BASO % 0.9 % (0.0-1.0); EOS # 0.1 10^3/uL (0.0-0.5); EOS % 2.4 % (0.0-3.0); HEMATOCRIT 44.3 % (36.0-47.0); HEMOGLOBIN 14.5 g/dl (12.0-15.5); LYMPH # 1.6 10^3/uL (1.5-5.0); LYMPH % 34.5 % (24.0-44.0); MEAN CORPUSCULAR HEMOGLOBIN 30.4 pg (27.0-33.0); MEAN CORPUSCULAR HGB CONC 32.7 g/dl (32.0-36.5); MEAN CORPUSCULAR VOLUME 92.9 fl (80.0-96.0); MONO # 0.3 10^3/uL (0.0-0.8); MONO % 6.4 % (2.0-8.0); NEUTROPHILS # 2.6 10^3/uL (1.5-8.5); NEUTROPHILS % 55.4 % (36.0-66.0); PLATELET COUNT, AUTOMATED 295 10^3/uL (150-450); RED BLOOD COUNT 4.77 10^6/uL (4.00-5.40); WHITE BLOOD COUNT 4.7 10^3/uL (4.0-10.0)
[2022-03-07 11:10] LABS: ALBUMIN 4.3 GM/DL (3.2-5.2); ALT/SGPT 23 U/L (12-78); BILIRUBIN,TOTAL 0.6 MG/DL (0.2-1.0); BLOOD UREA NITROGEN 11 MG/DL (7-18); CALCIUM LEVEL 9.6 MG/DL (8.5-10.1); CARBON DIOXIDE LEVEL 27 MEQ/L (21-32); CHLORIDE LEVEL 107 MEQ/L (98-107); CHOLESTEROL LEVEL 192 MG/DL (<200); CHOLESTEROL RISK RATIO 3.147 (<5); CREATININE FOR GFR 0.68 MG/DL (0.55-1.30); FERRITIN 20 NG/ML (8-252); FREE T4 0.93 NG/DL (0.76-1.46); GLOMERULAR FILTRATION RATE > 60.0 (>58); GLUCOSE, FASTING 82 MG/DL (70-100); HDL CHOLESTEROL 61 MG/DL (>40); IRON (FE) 123 UG/DL (50-170); LDL CHOLESTEROL 108 MG/DL (<100); MAGNESIUM LEVEL 2.3 MG/DL (1.8-2.4); NON-HDL-C 131 MG/DL; PERCENT SATURATION 34.6 % (13.2-45.0); POTASSIUM SERUM 4.3 MEQ/L (3.5-5.1); SODIUM LEVEL 143 MEQ/L (136-145); TOTAL IRON BINDING CAPACITY 356 UG/DL (250-450); TOTAL PROTEIN 7.9 GM/DL (6.4-8.2); TRIGLYCERIDES LEVEL 113 MG/DL (<150)
[2022-03-07 11:11] LABS: TOTAL 25(OH) VITAMIN D 14.6 NG/ML (30.0-100.0)
[2022-03-07 11:12] LABS: VITAMIN B12 LEVEL 336 PG/ML
== END ==
LOC: M LAB REF 10:16
PROVIDERS: ATTEND Physician Assistant
DX: Z98.84 Bariatric surgery status (principal)

== ENCOUNTER → 2022-06-02 | Outpatient (CLI) | payer BC | LOC: M WHC 06:33 | PROVIDERS: ATTEND Physician Assistant | DX: R07.0 Pain in throat (principal) ==

== ENCOUNTER → 2022-07-15 | Outpatient (REF) | LOC: M EMP 09:16 | PROVIDERS: ATTEND Family Medicine | DX: Z11.52 Encounter for screening for COVID-19 (principal) ==

== ENCOUNTER 2022-11-19 12:04 | Emergency (ER) | payer BC ==
[~2022-11-19] VITALS: Ht 167.6 cm; Wt 157.0 kg
[2022-11-19 14:07] LABS: BASO % 0.7 % (0.0-1.0); EOS # 0.1 10^3/uL (0.0-0.5); EOS % 1.8 % (0.0-3.0); HEMOGLOBIN 13.4 g/dl (12.0-15.5); LYMPH # 1.4 10^3/uL (1.5-5.0); LYMPH % 25.2 % (24.0-44.0); MEAN CORPUSCULAR HGB CONC 32.7 g/dl (32.0-36.5); MEAN CORPUSCULAR VOLUME 91.9 fl (80.0-96.0); MONO # 0.4 10^3/uL (0.0-0.8); MONO % 7.7 % (2.0-8.0); NEUTROPHILS # 3.5 10^3/uL (1.5-8.5); NEUTROPHILS % 64.4 % (36.0-66.0); PLATELET COUNT, AUTOMATED 288 10^3/uL (150-450); RED BLOOD COUNT 4.46 10^6/uL (4.00-5.40); WHITE BLOOD COUNT 5.5 10^3/uL (4.0-10.0)
[2022-11-19 14:20] LABS: ALBUMIN 4.2 G/DL (3.2-5.2); ALKALINE PHOSPHATASE 49 U/L (46-116); ALT/SGPT 15 U/L (7.0-40); AST/SGOT 19 U/L (<34); BILIRUBIN,TOTAL 0.4 MG/DL (0.3-1.2); BLOOD UREA NITROGEN 14 MG/DL (9-23); CALCIUM LEVEL 9.3 MG/DL (8.5-10.1); CARBON DIOXIDE LEVEL 28 MMOL/L (20-31); CHLORIDE LEVEL 104 MMOL/L (98-107); CREATININE FOR GFR 0.69 MG/DL (0.55-1.30); GLOMERULAR FILTRATION RATE > 60.0 (>58); GLUCOSE, FASTING 123 MG/DL (60-100); POTASSIUM SERUM 4.3 MMOL/L (3.5-5.1); SODIUM LEVEL 139 MMOL/L (136-145); TOTAL PROTEIN 7.7 G/DL (5.7-8.2)
[2022-11-19 14:33] LABS: HEPATITIS B SURFACE ANTIBODY NEGATIVE (POSITIVE)
[2022-11-19 14:46] LABS: HEPATITIS B SURFACE ANTIGEN NEGATIVE (NEGATIVE)
[2022-11-19 14:52] VITALS: BP 137/90
[2022-11-19 14:58] LABS: HIV SCREEN CENTAUR EXPOSED NEGATIVE (NEGATIVE)
[2022-11-19 15:23] LABS: HCG, SERUM QUALITATIVE NEGATIVE (NEGATIVE)
== END 2022-11-19 14:52 | disposition home or self-care (01) ==
LOC: M ED 13:49
DX: Z77.21 Contact with and (suspected) exposure to potentially hazardous body fluids (principal); S61.232A Puncture wound without foreign body of right middle finger without damage to nail, initial encounter; W46.1XXA Contact with contaminated hypodermic needle, initial encounter; Y99.0 Civilian activity done for income or pay; Z98.84 Bariatric surgery status; Z86.718 Personal history of other venous thrombosis and embolism; K21.9 Gastro-esophageal reflux disease without esophagitis; Z79.899 Other long term (current) drug therapy; Z91.040 Latex allergy status

== ENCOUNTER → 2023-05-14 | Outpatient (REF) | payer BC, OTHER ==
[2023-05-14 12:49] LABS: BASO % 0.6 % (0.0-1.0); EOS # 0.1 10^3/uL (0.0-0.5); HEMATOCRIT 42.2 % (36.0-47.0); HEMOGLOBIN 13.7 g/dl (12.0-15.5); LYMPH # 1.5 10^3/uL (1.5-5.0); LYMPH % 23.9 % (24.0-44.0); MEAN CORPUSCULAR HGB CONC 32.5 g/dl (32.0-36.5); MEAN CORPUSCULAR VOLUME 92.5 fl (80.0-96.0); MONO # 0.5 10^3/uL (0.0-0.8); MONO % 7.8 % (2.0-8.0); NEUTROPHILS # 4.1 10^3/uL (1.5-8.5); NEUTROPHILS % 66.4 % (36.0-66.0); PLATELET COUNT, AUTOMATED 269 10^3/uL (150-450); RED BLOOD COUNT 4.56 10^6/uL (4.00-5.40); WHITE BLOOD COUNT 6.2 10^3/uL (4.0-10.0)
[2023-05-14 13:18] LABS: ALBUMIN 4.3 G/DL (3.2-5.2); ALKALINE PHOSPHATASE 47 U/L (46-116); ALT/SGPT 14 U/L (7.0-40); AST/SGOT 9 U/L (<34); BILIRUBIN,TOTAL 0.6 MG/DL (0.3-1.2); BLOOD UREA NITROGEN 10 MG/DL (9-23); CALCIUM LEVEL 10.3 MG/DL (8.5-10.1); CARBON DIOXIDE LEVEL 27 MMOL/L (20-31); CHLORIDE LEVEL 105 MMOL/L (98-107); CHOLESTEROL LEVEL 163 MG/DL (<200); CHOLESTEROL RISK RATIO 2.82 (<5); CREATININE FOR GFR 0.69 MG/DL (0.55-1.30); GLOMERULAR FILTRATION RATE > 60.0 (>58); GLUCOSE, FASTING 91 MG/DL (60-100); HDL CHOLESTEROL 57.6 MG/DL (>40); IRON (FE) 67 UG/DL (50-170); LDL CHOLESTEROL 84.8 MG/DL (<100); NON-HDL-C 105.4 MG/DL; PERCENT SATURATION 17.6 % (13.2-45.0); POTASSIUM SERUM 4.3 MMOL/L (3.5-5.1); SODIUM LEVEL 140 MMOL/L (136-145); TOTAL IRON BINDING CAPACITY 381 UG/DL (250-425); TOTAL PROTEIN 7.3 G/DL (5.7-8.2); TRIGLYCERIDES LEVEL 103 MG/DL (<150)
[2023-05-14 13:22] LABS: FERRITIN 8.6 NG/ML (7.3-270.7); FREE T4 1.04 NG/DL (0.89-1.76); THYROID STIMULATING HORMONE 0.988 uIU/ML (0.55-4.78)
[2023-05-14 13:23] LABS: VITAMIN B12 LEVEL 237 PG/ML (211-911)
[2023-05-14 13:24] LABS: FOLATE 20.4 NG/ML (>5.4)
[2023-05-14 13:50] LABS: HEMOGLOBIN A1c 5.1 % (4.0-6.0)
== END ==
LOC: M LAB REF 11:50
PROVIDERS: ATTEND Family Medicine
DX: Z98.84 Bariatric surgery status (principal)

== ENCOUNTER 2023-06-08 08:36 | Emergency (ER) | payer BC, OTHER ==
[~2023-06-08] VITALS: Ht 165.1 cm; Wt 75.6 kg
[2023-06-08 08:38] VITALS: BP 145/82; TEMP 98.2; O2SAT 99
== END 2023-06-08 11:42 | disposition left against medical advice (07) ==
LOC: M ED 08:36
DX: S69.91XA Unspecified injury of right wrist, hand and finger(s), initial encounter (principal); X58.XXXA Exposure to other specified factors, initial encounter; Y92.89 Other specified places as the place of occurrence of the external cause; Y93.89 Activity, other specified; Y99.8 Other external cause status; Z53.21 Procedure and treatment not carried out due to patient leaving prior to being seen by health care provider

== ENCOUNTER → 2023-06-27 | Outpatient (CLI) | payer BC | LOC: M RAD 08:17 | PROVIDERS: ATTEND Physician Assistant | DX: S60.221A Contusion of right hand, initial encounter (principal); S60.211A Contusion of right wrist, initial encounter; M65.841 Other synovitis and tenosynovitis, right hand; M18.11 Unilateral primary osteoarthritis of first carpometacarpal joint, right hand; R93.6 Abnormal findings on diagnostic imaging of limbs; M67.431 Ganglion, right wrist; Y93.9 Activity, unspecified; Y92.9 Unspecified place or not applicable ==

== ENCOUNTER → 2023-07-01 | Outpatient (REF) | LOC: M EMP 12:27 | PROVIDERS: ATTEND Family Medicine | DX: Z20.822 Contact with and (suspected) exposure to COVID-19 (principal) ==

== ENCOUNTER → 2023-10-06 | Outpatient (REF) ==
[~2023-10-06] MED LIST changes: -MISO100T22; +MISO100T32
== END ==
LOC: M EMP 08:23
PROVIDERS: ATTEND Family Medicine
DX: Z11.52 Encounter for screening for COVID-19 (principal)

== ENCOUNTER → 2023-10-12 | Outpatient (CLI) | payer BC | LOC: M RAD 13:30 | PROVIDERS: ATTEND Family Medicine | DX: J20.9 Acute bronchitis, unspecified (principal) ==

== ENCOUNTER → 2023-10-15 | Outpatient (REF) | payer BC | LOC: M LAB REF 17:00 | PROVIDERS: ATTEND Family Medicine | DX: J20.9 Acute bronchitis, unspecified (principal) ==

== ENCOUNTER → 2023-11-05 | Outpatient (REF) | payer BC ==
[2023-11-05 16:01] LABS: BASO # 0.1 10^3/uL (0.0-0.2); BASO % 0.8 % (0.0-1.0); EOS # 0.4 10^3/uL (0.0-0.5); EOS % 5.8 % (0.0-3.0); HEMATOCRIT 42.5 % (36.0-47.0); HEMOGLOBIN 13.7 g/dl (12.0-15.5); LYMPH # 2.3 10^3/uL (1.5-5.0); LYMPH % 34.8 % (24.0-44.0); MEAN CORPUSCULAR HEMOGLOBIN 30.2 pg (27.0-33.0); MEAN CORPUSCULAR HGB CONC 32.2 g/dl (32.0-36.5); MEAN CORPUSCULAR VOLUME 93.6 fl (80.0-96.0); MONO # 0.5 10^3/uL (0.0-0.8); MONO % 6.9 % (2.0-8.0); NEUTROPHILS # 3.4 10^3/uL (1.5-8.5); NEUTROPHILS % 51.5 % (36.0-66.0); PLATELET COUNT, AUTOMATED 289 10^3/uL (150-450); RED BLOOD COUNT 4.54 10^6/uL (4.00-5.40); WHITE BLOOD COUNT 6.5 10^3/uL (4.0-10.0)
[2023-11-05 16:09] LABS: ERYTHROCYTE SEDIMENTATION RATE 9 mm/hr (0-20)
== END ==
LOC: M LAB REF 15:03
PROVIDERS: ATTEND Nurse Practitioner Adult Health
DX: R05.1 Acute cough (principal)

== ENCOUNTER → 2023-11-24 | Outpatient (REF) | payer BC | LOC: M LAB REF 17:06 | PROVIDERS: ATTEND Family Medicine | DX: J32.9 Chronic sinusitis, unspecified (principal) ==

== ENCOUNTER → 2023-11-25 | Outpatient (CLI) | payer BC ==
[~2023-11-25] MED LIST changes: +ISOVUE-370 76% 100ML VIAL ONE
== END ==
LOC: M PLAIMG 07:59
PROVIDERS: ATTEND Family Medicine
DX: R91.1 Solitary pulmonary nodule (principal); R05.2 Subacute cough
CPT/HCPCS: 71260; Q9967

== ENCOUNTER 2024-01-23 14:52 | Emergency (ER) | payer OTHER, BC ==
[~2024-01-23] VITALS: Ht 160 cm; Wt 72.6 kg
[~2024-01-23 14:52] MED LIST changes: -ISOVUE-370 76% 100ML VIAL ONE
[2024-01-23 15:31] LABS: BASO % 0.5 % (0.0-1.0); EOS # 0.1 10^3/uL (0.0-0.5); EOS % 1.5 % (0.0-3.0); HEMATOCRIT 39.2 % (36.0-47.0); HEMOGLOBIN 13.2 g/dl (12.0-15.5); LYMPH # 2.2 10^3/uL (1.5-5.0); LYMPH % 33.8 % (24.0-44.0); MEAN CORPUSCULAR HEMOGLOBIN 30.6 pg (27.0-33.0); MEAN CORPUSCULAR HGB CONC 33.7 g/dl (32.0-36.5); MONO # 0.6 10^3/uL (0.0-0.8); MONO % 8.8 % (2.0-8.0); NEUTROPHILS # 3.7 10^3/uL (1.5-8.5); NEUTROPHILS % 55.2 % (36.0-66.0); PLATELET COUNT, AUTOMATED 279 10^3/uL (150-450); RED BLOOD COUNT 4.31 10^6/uL (4.00-5.40); WHITE BLOOD COUNT 6.6 10^3/uL (4.0-10.0)
[2024-01-23] MEDS: MORPHINE 4 MG/ML 1ML VIAL IV ONE (15:36)
[2024-01-23] MEDS: ONDANSETRON 4MG 2ML VIAL IV ONE (15:40)
[2024-01-23] MEDS ORDERED: ISOVUE-370 76% 100ML VIAL As Ordered ONE (15:42)
[2024-01-23 15:57] LABS: ETHYL ALCOHOL (ETHANOL) < 0.003 % (0.000-0.010); PARTIAL THROMBOPLASTIN TIME 24.5 SECONDS (24.8-34.2); PROTHROMBIN TIME 12.9 SECONDS (12.5-14.5)
[2024-01-23 15:59] LABS: ALBUMIN 4.4 G/DL (3.2-5.2); ALKALINE PHOSPHATASE 51 U/L (46-116); ALT/SGPT 18 U/L (7.0-40); AST/SGOT 19 U/L (<34); BILIRUBIN,DIRECT 0.1 MG/DL (<0.4); BILIRUBIN,TOTAL 0.4 MG/DL (0.3-1.2); BLOOD UREA NITROGEN 11 MG/DL (9-23); CALCIUM LEVEL 9.3 MG/DL (8.5-10.1); CARBON DIOXIDE LEVEL 25 MMOL/L (20-31); CHLORIDE LEVEL 108 MMOL/L (98-107); CREATININE FOR GFR 0.77 MG/DL (0.55-1.30); GLOMERULAR FILTRATION RATE > 60.0 (>58); GLUCOSE, FASTING 99 MG/DL (60-100); POTASSIUM SERUM 3.6 MMOL/L (3.5-5.1); SODIUM LEVEL 141 MMOL/L (136-145); TOTAL PROTEIN 7.1 G/DL (5.7-8.2)
[2024-01-23] MEDS: MORPHINE 4 MG/ML 1ML VIAL IV PRN (16:11)
[2024-01-23] MEDS ORDERED: MED REC IN PROGRESS XX SCH (16:25)
[2024-01-23] MEDS: NS 1,000 ML IV SCH (17:22)
[2024-01-23] MEDS: fentaNYL 100 MCG/2 ML INJECTION IV ONE (17:23)
[2024-01-23] MEDS ORDERED: ALBU8.5H INH (18:09)
[2024-01-23] MEDS ORDERED: LISD40CA PO (18:09)
[2024-01-23] MEDS ORDERED: HOME MED LIST COMPLETE! XX SCH (18:10)
[2024-01-23 18:16] VITALS: BP 116/68; TEMP 98.1; O2SAT 99
== END 2024-01-23 18:27 | disposition short-term general hospital (02) ==
LOC: M ED 14:52 → EDBD 14:52 → M ED 18:27
DX: R20.2 Paresthesia of skin (principal); M54.2 Cervicalgia; R10.9 Unspecified abdominal pain; R53.1 Weakness; V48.6XXA Car passenger injured in noncollision transport accident in traffic accident, initial encounter; Y92.9 Unspecified place or not applicable; Y93.9 Activity, unspecified; Y99.9 Unspecified external cause status; Z98.84 Bariatric surgery status; K21.9 Gastro-esophageal reflux disease without esophagitis; E66.9 Obesity, unspecified; Z87.442 Personal history of urinary calculi; Z79.899 Other long term (current) drug therapy; Z91.040 Latex allergy status
CPT/HCPCS: 51702; 70450; 71045; 71260; 72125; 72128; 72131; 74177; 80047; 80048; 80076; 82077; 84702; 85025; 85610; 85730; 86850; 86900; 86901; 93041; 94760; 96361; 96374; 96375; 96376; 99285; J2405; J3010; Q9967

== ENCOUNTER 2024-01-31 19:51 | Emergency (ER) | payer OTHER, BC ==
[~2024-01-31] VITALS: Ht 172.7 cm; Wt 72.4 kg
[~2024-01-31 19:51] MED LIST changes: +ALBU8.5H INH; +LISD40CA PO
[2024-01-31] MEDS: NORCO, ANEXSIA 5/325MG TABLET (HYDROcodone/ACETAMINOPHEN) PO ONE (20:57)
[2024-01-31] MEDS ORDERED: NORCO 5/325MG TABLET (HOME DOSE PACK) PO ONE (21:55)
[2024-01-31 22:37] VITALS: BP 125/71; TEMP 97.7; O2SAT 98
== END 2024-01-31 22:42 | disposition home or self-care (01) ==
LOC: M ED 19:51
DX: M25.551 Pain in right hip (principal); E11.9 Type 2 diabetes mellitus without complications; Z86.718 Personal history of other venous thrombosis and embolism; Z87.442 Personal history of urinary calculi; Z98.84 Bariatric surgery status; Z79.899 Other long term (current) drug therapy; Z91.040 Latex allergy status

== ENCOUNTER → 2024-02-04 | Outpatient (CLI) | payer OTHER, BC | LOC: M PLAIMG 13:56 | PROVIDERS: ATTEND Physician Assistant | DX: S70.01XA Contusion of right hip, initial encounter (principal); W18.30XA Fall on same level, unspecified, initial encounter; Y92.009 Unspecified place in unspecified non-institutional (private) residence as the place of occurrence of the external cause ==

== ENCOUNTER → 2024-02-16 | Outpatient (CLI) | payer OTHER, BC | LOC: M PLAIMG 06:41 | PROVIDERS: ATTEND Physician Assistant | DX: S80.01XA Contusion of right knee, initial encounter (principal); X58.XXXA Exposure to other specified factors, initial encounter; Y92.9 Unspecified place or not applicable ==

== ENCOUNTER → 2024-03-22 | Outpatient (CLI) | payer OTHER, BC | LOC: M SOG 07:55 | PROVIDERS: ATTEND Physician Assistant | DX: Z53.9 Procedure and treatment not carried out, unspecified reason (principal) ==

== ENCOUNTER → 2024-03-25 | Outpatient (CLI) | payer OTHER | LOC: M PLAIMG 06:51 | PROVIDERS: ATTEND Physician Assistant | DX: M21.371 Foot drop, right foot (principal); M47.896 Other spondylosis, lumbar region; M51.26 Other intervertebral disc displacement, lumbar region ==

== ENCOUNTER → 2024-03-29 | Outpatient (CLI) | payer OTHER, BC | LOC: M SOG 09:12 | PROVIDERS: ATTEND Physician Assistant | DX: M16.11 Unilateral primary osteoarthritis, right hip (principal) ==

== ENCOUNTER → 2024-04-21 | Outpatient (CLI) | payer OTHER, BC ==
[~2024-04-21] MED LIST changes: +ISOVUE-300 61% 100ML VIAL As Ordered ONE; +ONDA-282; +ONDA-282 PO; +ONDA-282 SL; -ONDA4TAB6; -ONDA4TAB6 PO; -ONDA4TAB6 SL; +methylPREDNISolone SUSP 40MG/ML 1ML VIAL (DEPO MEDROL) As Ordered ONE
== END ==
LOC: M RAD 15:16
PROVIDERS: ATTEND Physician Assistant
DX: M25.551 Pain in right hip (principal)
CPT/HCPCS: 20610; 77002; J0665; J1010; Q9967

== ENCOUNTER 2024-04-28 13:00 | Outpatient (RCR) | payer OTHER, BC ==
[~2024-04-28 13:00] MED LIST changes: -ISOVUE-300 61% 100ML VIAL As Ordered ONE; -methylPREDNISolone SUSP 40MG/ML 1ML VIAL (DEPO MEDROL) As Ordered ONE
== END 2024-05-01 ==
LOC: M PT 13:00
PROVIDERS: ATTEND Physician Assistant
DX: M54.50 Low back pain, unspecified (principal); M25.551 Pain in right hip; M25.561 Pain in right knee

== ENCOUNTER 2024-05-26 12:51 | Outpatient (RCR) | payer OTHER, BC | END 2024-06-01 | LOC: M PT 12:51 | PROVIDERS: ATTEND Physician Assistant | DX: M54.50 Low back pain, unspecified (principal); M25.551 Pain in right hip; M25.561 Pain in right knee ==

== ENCOUNTER 2024-06-30 07:41 | Outpatient (RCR) | payer OTHER, BC | END 2024-07-02 | LOC: M PT 07:41 | PROVIDERS: ATTEND Physician Assistant | DX: M54.50 Low back pain, unspecified (principal); M25.551 Pain in right hip; M25.561 Pain in right knee ==

== ENCOUNTER 2024-07-27 07:45 | Outpatient (RCR) | payer OTHER, BC ==
[~2024-07-27 07:45] MED LIST changes: -ISOVUE-300 61% 100ML VIAL As Ordered ONE; -LIDOCAINE 1% MDV 20ML VIAL As Ordered ONE; -methylPREDNISolone SUSP 40MG/ML 1ML VIAL (DEPO MEDROL) As Ordered ONE
== END 2024-08-01 ==
LOC: M PT 07:45
PROVIDERS: ATTEND Physician Assistant
DX: M54.50 Low back pain, unspecified (principal); M25.551 Pain in right hip; M25.561 Pain in right knee

== ENCOUNTER → 2024-07-27 | Outpatient (CLI) | payer OTHER ==
[~2024-07-27] MED LIST changes: +ISOVUE-300 61% 100ML VIAL As Ordered ONE; +LIDOCAINE 1% MDV 20ML VIAL As Ordered ONE; +methylPREDNISolone SUSP 40MG/ML 1ML VIAL (DEPO MEDROL) As Ordered ONE
== END ==
LOC: M RAD 15:10
PROVIDERS: ATTEND Physician Assistant
DX: M25.551 Pain in right hip (principal)
CPT/HCPCS: 20610; 77002; J0665; J1010; Q9967

== ENCOUNTER → 2024-08-01 | Outpatient (REF) | LOC: M EMP 07:36 | PROVIDERS: ATTEND Family Medicine | DX: Z11.52 Encounter for screening for COVID-19 (principal) ==

== ENCOUNTER 2024-08-02 13:15 | Outpatient (RCR) | payer OTHER ==
[~2024-08-02 13:15] MED LIST changes: -SIME180C25 PO; +SIME1CAP4 PO
== END 2024-09-01 ==
LOC: M PT 13:15
PROVIDERS: ATTEND Psychiatry & Neurology Neurology
DX: Z74.09 Other reduced mobility (principal)

== ENCOUNTER → 2024-08-03 | Outpatient (REF) | payer OTHER, BC | LOC: M LAB REF 17:13 | PROVIDERS: ATTEND Physician Assistant | DX: J20.9 Acute bronchitis, unspecified (principal) ==

== ENCOUNTER → 2024-08-18 | Outpatient (CLI) | payer OTHER, BC | LOC: M PLAIMG 08:32 | PROVIDERS: ATTEND Physician Assistant | DX: M25.551 Pain in right hip (principal); S73.191A Other sprain of right hip, initial encounter; X58.XXXA Exposure to other specified factors, initial encounter; Y92.9 Unspecified place or not applicable; Y93.9 Activity, unspecified; Y99.9 Unspecified external cause status; M76.02 Gluteal tendinitis, left hip ==

== ENCOUNTER → 2024-08-18 | Outpatient (CLI) | payer OTHER, BC ==
[~2024-08-18] MED LIST changes: +PROHANCE 279.3MG/ML 15ML VIAL ONE
== END ==
LOC: M PLAIMG 09:01
PROVIDERS: ATTEND Physical Medicine & Rehabilitation
DX: M54.6 Pain in thoracic spine (principal); R29.898 Other symptoms and signs involving the musculoskeletal system; M51.34 Other intervertebral disc degeneration, thoracic region; M21.371 Foot drop, right foot
CPT/HCPCS: 72146; 72197; A9576

== ENCOUNTER → 2024-09-01 | Outpatient (RCR) | payer OTHER, BC ==
[~2024-09-01] MED LIST changes: -PROHANCE 279.3MG/ML 15ML VIAL ONE
== END ==
LOC: M PT 08-02 13:33
PROVIDERS: ATTEND Physician Assistant
DX: M54.50 Low back pain, unspecified (principal); M25.551 Pain in right hip; M25.561 Pain in right knee

== ENCOUNTER → 2025-02-09 | Outpatient (CLI) | payer BC | LOC: M RAD 08:18 | PROVIDERS: ATTEND Internal Medicine Pulmonary Disease | DX: R91.1 Solitary pulmonary nodule (principal) ==

== ENCOUNTER 2025-07-05 10:22 | Observation (INO) | payer BC, OTHER ==
[~2025-07-05] VITALS: Ht 160 cm; Wt 75.8 kg
[2025-07-05] VITALS (9 sets, daily range): BP systolic 100–136; BP diastolic 59–67; TEMP 97.5–97.7; O2SAT 96–99
[2025-07-05] MEDS: predniSONE 20 MG TAB PO SCH (09:00)
[2025-07-05] MEDS: CETIRIZINE 10 MG TAB PO SCH (09:00)
[~2025-07-05 10:22] MED LIST changes: -FLOM0.4C39 PO; +TAMS-18 PO
[2025-07-05] MEDS: diphenhydrAMINE 50 MG/ML VIAL IV ONE (10:41)
[2025-07-05] MEDS: FAMOTIDINE 20 MG/2 ML VIAL IVP ONE (10:41)
[2025-07-05] MEDS: EPINEPHrine INJ 1 MG/ML 1ML AMP IM STA (11:16)
[2025-07-05] MEDS ORDERED: OMEP40CA5 PO (12:13)
[2025-07-05] MEDS ORDERED: GABA-1172 PO (12:13)
[2025-07-05] MEDS ORDERED: HOME MED LIST COMPLETE! XX SCH ×2 (12:15→17:05)
[2025-07-05] MEDS: MIDAZOLAM INJ 2 MG/2 ML VIAL IV STA (12:31)
[2025-07-05] MEDS: OXYMETAZOLINE 0.05% NASAL SPRAY ONE (12:48)
[2025-07-05] MEDS ORDERED: MOM 30 ML SUSPENSION UDC PO PRN (13:55)
[2025-07-05] MEDS ORDERED: ACETAMINOPHEN 325 MG TAB PO PRN (13:55)
[2025-07-05] MEDS ORDERED: MAALOX 30 ML SUSP *UDC PO PRN (13:55)
[2025-07-05] MEDS ORDERED: ALBUTEROL 90 MCG/ACT 8 GM HFA INHALER INH PRN (14:10)
[2025-07-05] MEDS ORDERED: ONDANSETRON 4MG ORAL DISINTEGRATING TAB PO PRN (14:10)
[2025-07-05] MEDS ORDERED: GABAPENTIN 300 MG CAP PO PRN (14:10)
[2025-07-05 15:01] LABS: INR 0.92
[2025-07-05 15:11] LABS: ALT/SGPT 16 U/L (7.0-40); AST/SGOT 18 U/L (<34); CALCIUM LEVEL 9.4 MG/DL (8.5-10.1); CARBON DIOXIDE LEVEL 25 MMOL/L (20-31); CHLORIDE LEVEL 105 MMOL/L (98-107); CREATININE FOR GFR 0.72 MG/DL (0.55-1.30); GLOMERULAR FILTRATION RATE > 90.0 (>58); MAGNESIUM LEVEL 1.9 MG/DL (1.8-2.4); POTASSIUM SERUM 4.3 MMOL/L (3.5-5.1); SODIUM LEVEL 140 MMOL/L (136-145)
[2025-07-05 15:14] LABS: BASO # 0.0 10^3/uL (0.0-0.2); BASO % 0.3 % (0.0-1.0); EOS # 0.0 10^3/uL (0.0-0.5); EOS % 0.1 % (0.0-3.0); LYMPH # 0.4 10^3/uL (1.5-5.0); LYMPH % 3.7 % (24.0-44.0); MONO # 0.1 10^3/uL (0.0-0.8); MONO % 0.8 % (2.0-8.0); NEUTROPHILS # 9.0 10^3/uL (1.5-8.5); NEUTROPHILS % 94.7 % (36.0-66.0); PLATELET COUNT, AUTOMATED 271 10^3/uL (150-450)
[2025-07-05] MEDS ORDERED: BACL10TA2 PO ×2 (17:01)
[2025-07-05] MEDS: predniSONE 20 MG TAB PO ONE (17:26)
[2025-07-05] MEDS: CETIRIZINE 10 MG TAB PO ONE (17:27)
[2025-07-05] MEDS: OMEPRAZOLE 20MG CAP PO SCH (20:29)
[2025-07-05] MEDS: DOCUSATE SODIUM 100 MG CAPSULE PO SCH (20:30)
[2025-07-05] MEDS: BACLOFEN 10 MG TAB PO SCH (20:30)
[2025-07-05] MEDS: diphenhydrAMINE 50 MG/ML VIAL IV PRN (21:52)
[2025-07-05] MEDS: ALPRAZolam 0.5 MG TAB PO PRN (22:58)
[2025-07-05] MEDS: FAMOTIDINE IV BAG 20 MG in IV 1 EA IV ONE (23:15)
[2025-07-06] VITALS (14 sets, daily range): BP systolic 104–110; BP diastolic 57–58; TEMP 97.3–97.5; O2SAT 97–99
[2025-07-06] MEDS: BACLOFEN 5 MG PER 1/2 TABLET PO SCH (08:59)
[2025-07-06] MEDS: ENOXAPARIN 40 MG/0.4 ML SYRINGE (J1650 PER 10MG) SC SCH (08:59)
[2025-07-06] MEDS ORDERED: VYVANSE PO SCH (09:00)
[2025-07-06] MEDS ORDERED: CETI10CH PO (09:16)
[2025-07-06] MEDS ORDERED: PRED10TA2 PO (09:16)
[2025-07-06] MEDS ORDERED: BENA25CA4 PO (09:16)
== END 2025-07-06 12:10 | disposition home or self-care (01) ==
LOC: M ED 10:22 → M ED INP 10:23 → M PCU 16:02
PROVIDERS: ADMIT Internal Medicine; ATTEND Internal Medicine
DX: T78.40XA Allergy, unspecified, initial encounter (principal); R09.A2 Foreign body sensation, throat; L29.89 Other pruritus; J38.4 Edema of larynx; R20.0 Anesthesia of skin; R06.02 Shortness of breath; Z91.040 Latex allergy status; G43.909 Migraine, unspecified, not intractable, without status migrainosus; Z86.718 Personal history of other venous thrombosis and embolism; Z87.442 Personal history of urinary calculi; N31.9 Neuromuscular dysfunction of bladder, unspecified; G62.9 Polyneuropathy, unspecified; F41.9 Anxiety disorder, unspecified; F90.9 Attention-deficit hyperactivity disorder, unspecified type; K21.9 Gastro-esophageal reflux disease without esophagitis; Z79.899 Other long term (current) drug therapy
CPT/HCPCS: 31575; 36415; 80053; 83605; 83735; 84145; 84484; 85025; 85610; 85730; 92610; 93041; 94760; 96372; 96374; 96375; 96376; 99285; J0166; J1100; J1200; J1308; J2250; J7512

== ENCOUNTER 2025-08-31 10:00 | Outpatient (RCR) | payer BC ==
[~2025-08-31 10:00] MED LIST changes: +BACL10TA2 PO; +BENA25CA4 PO; +CETI10CH PO; +GABA-1172 PO; +OMEP40CA5 PO; +PRED10TA2 PO
== END 2025-09-01 ==
LOC: M PT 10:00
PROVIDERS: ATTEND Physician Assistant
DX: M54.50 Low back pain, unspecified (principal); M25.551 Pain in right hip; M25.561 Pain in right knee

== ENCOUNTER 2025-09-25 09:17 | Outpatient (RCR) | payer BC | END 2025-10-01 | LOC: M PT 09:17 | PROVIDERS: ATTEND Physician Assistant | DX: M54.50 Low back pain, unspecified (principal); M25.551 Pain in right hip; M25.561 Pain in right knee ==

== ENCOUNTER → 2025-10-05 | Outpatient (RCR) | LOC: M EMPSSV 09-25 12:56 | PROVIDERS: ATTEND Family Medicine | DX: Z20.828 Contact with and (suspected) exposure to other viral communicable diseases (principal) ==

== ENCOUNTER 2025-10-12 09:59 | Outpatient (RCR) | payer BC | END 2025-11-01 | LOC: M PT 09:59 | PROVIDERS: ATTEND Physician Assistant | DX: M54.50 Low back pain, unspecified (principal); M25.551 Pain in right hip; M25.561 Pain in right knee ==